=== PATIENT | female | born 1960 | race Caucasian/White ===

== ENCOUNTER → 2017-02-12 | Day surgery (SDC) | payer OTHER, BC, SELFPAY | PROVIDERS: Family Provider Nurse Practitioner Family; Visit Provider Orthopaedic Surgery | DX: G56.01 Carpal tunnel syndrome, right upper limb (principal) | CPT/HCPCS: 64721; 81025; 96375 ==

== ENCOUNTER → 2017-03-10 12:38 | Outpatient (POV) | payer OTHER, BC, SELFPAY ==
--- NOTE | 2017-03-10 12:44 | XR_ITS ---
XR chest 2V Ordering Physician: Dale Cee MD Patient Age: 56 years: Female HISTORY: ITS.REASON: shortness of breath TECHNIQUE: PA lateral chest COMPARISON :CXR February 2016 May 05, 2013 FINDINGS Slight additional density at the right infrahilar region suspect for a subtle infiltrate right infrahilar region towards RLL.. There are chronic changes bilaterally which yields coarsening markings but this is slightly more pronounced today. In part due to the digital technique. Difficult to exclude very subtle vascular congestion and curly B lines on left today as well. No cardiomegaly or cephalization to further support the latter. No pleural effusions evident. . The left mitchel is slightly slightly more generous very slightly denser.. Question minor central infiltrate superimposed upon left mitchel extending towards ligula.. This warrants a least a follow-up chest film. But low threshold for CT in this patient if symptoms persist or progress. Suspect a significant smoking history Upper lung oneil are clear. The superior mediastinum aortic knob unremarkable. Chest wall intact. IMPRESSION. ------ Background of chronic changes again noted Suspect a subtle superimposed infiltrate right infrahilar region towards RLL. Slight additional fullness and more generous left mitchel could merely be due to technique. Question minimal wispy infiltrate extending just lateral to the left mitchel which may also contribute . Heart, upper normal in size with upper normal pulmonary vascularity. Question subtle Eri B lines on left, which could reflect mild vascular congestion vs mild chronic changes . Recommend follow-up 2 view chest within 2-3 weeks . Low threshold for CT chest suggested if symptoms persist
[2017-03-10 13:41] VITALS: BP 139/76; PULSE 95; RESP 18; TEMP 36.2; O2SAT 96; BMI 39.2
--- NOTE | 2017-03-10 13:53 | P.CONS_ITS ---
[facility] Pain Management SOAP Note Subjective:: This patient is a pleasant 56-year-old white female who we are seeing status post radiofrequency ablation to the facet joints of L3-L4, L4-5 and L5-S1. Her pain is now returned into her low back. She also has pain going down both legs. She has not gotten much relief from these RFA. She has not had any lumbar epidural steroid injections. I do believe she would benefit from a lumbar epidural steroid injection. MRI does show degenerative changes with herniated disc and some spinal stenosis. We will seek approval and plan a lumbar epidural steroid injection under fluoroscopy. Objective:: Alert and oriented ?3 in no acute distress. Patient does have an antalgic gait. Tenderness over lower lumbar spine. Motor strength of the lower extremities is 5/5. There is no gross sensory deficit. 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
== END ==
PROVIDERS: Family Provider Emergency Medicine; PCP Nurse Practitioner Family; Visit Provider Anesthesiology
DX: M51.16 Intervertebral disc disorders with radiculopathy, lumbar region (principal)
CPT/HCPCS: 71046; 99212

== ENCOUNTER → 2017-03-21 14:48 | Outpatient (CLI) | payer OTHER, BC, SELFPAY ==
--- NOTE | 2017-03-21 14:59 | XR_ITS ---
XR chest 2V HISTORY: ITS.REASON: fatique, swollen lymph nodes ORDERING PHYSICIAN: Neymar Pearson MD PATIENT AGE: 56 years COMPARISON: 03/10/2017 FINDINGS: The heart size is unremarkable. There remains mild prominence of left hilum which may be due to underlying adenopathy. Consider chest CT with contrast for further evaluation. Patchy infiltrate once again noted in the lower lobes bilaterally overall not significantly changed. No acute bony anomalies. IMPRESSION: 1. No change bilateral lower lobe infiltrates with prominent left hilum. Consider CT evaluation
[2017-03-21 15:05] LABS: Basophils # 0.1 K/mm3 (0-0.2); Basophils % 0.7 % (0.1-2.0); Eosinophils # 0.2 K/mm3 (0.0-0.4); Eosinophils % 1.5 % (0.1-12.0); Hematocrit 38.6 % (37.0-47.0); Hemoglobin 12.3 g/dL (12.2-16.2); Lymphocytes # 4.6 K/mm3 (0.7-4.5); Lymphocytes % 46.1 K/mm3 (10-50); Mean Corpuscular HGB Conc 31.9 g/dL (31.8-35.4); Mean Corpuscular Volume 87.7 fl (81-99); Mean Platelet Volume 7.6 fl (7.4-10.4); Monocytes # 0.5 K/mm3 (0.1-1.0); Monocytes % 4.9 % (1.7-9.3); Neutrophils # 4.6 K/mm3 (1.8-7.8); Neutrophils % 46.7 % (37.0-80.0); Platelet Count 391 K/mm3 (142-424); Red Cell Distribution Width 13.3 % (11.5-17.5); White Blood Count 9.9 K/mm3 (4.8-10.8)
[2017-03-21 16:20] LABS: Alanine Aminotransferase 48 U/L (12-78); Albumin Level 3.7 gm/dL (3.4-5.0); Alkaline Phosphatase 112 U/L (46-116); Anion Gap 12.4 mEq/L (5-15); Aspartate Amino Transferase 20 U/L (15-37); Bilirubin,Total 0.2 mg/dL (0.2-1.0); Blood Urea Nitrogen 10 mg/dL (7-18); Calcium 9.2 mg/dL (8.5-10.1); Carbon Dioxide 30 mmol/L (21.0-32.0); Chloride 100 mmol/L (98-107); Estimated Glomerular Filt Rate 104 ml/min (>60); GFR (African American) 126 ML/MIN (>60); Globulin 3.7 gm/dl (1.3-3.2); Glucose 114 mg/dL (74-106); Potassium 4.4 mmoL/L (3.5-5.1); Sodium 138 mmol/L (136-145); Thyroid Stimulating Hormone 0.81 uIU/ml (0.358-3.740); Total Protein,Serum 7.4 gm/dL (6.4-8.2); Triiodothryronine (T3) Uptake 36 % (31-39)
== END ==
PROVIDERS: PCP Nurse Practitioner Family; Visit Provider Otolaryngology
DX: R53.82 Chronic fatigue, unspecified (principal); R59.0 Localized enlarged lymph nodes
CPT/HCPCS: 36415; 71046; 80053; 84439; 84443; 84479; 85025

== ENCOUNTER → 2017-03-31 14:25 | Outpatient (CLI) | payer OTHER, BC, SELFPAY ==
[2017-03-31 15:50] LABS: Blood Urea Nitrogen 12 mg/dL (7-18); Creatinine,Serum 0.57 mg/dL (0.55-1.02); Estimated Glomerular Filt Rate 110 ml/min (>60); GFR (African American) 133 ML/MIN (>60)
== END ==
PROVIDERS: PCP Nurse Practitioner Family; Visit Provider Otolaryngology
DX: R59.0 Localized enlarged lymph nodes (principal); R59.9 Enlarged lymph nodes, unspecified; R53.82 Chronic fatigue, unspecified
CPT/HCPCS: 36415; 82565; 84520

== ENCOUNTER → 2017-04-03 12:30 | Outpatient (CLI) | payer OTHER, BC, SELFPAY ==
[2017-04-03 14:11] VITALS: PULSE 87
== END ==
PROVIDERS: Family Provider Emergency Medicine; PCP Nurse Practitioner Family; Visit Provider Nurse Practitioner Family
DX: R06.02 Shortness of breath (principal)
CPT/HCPCS: 94060; 94640; 94726; 94729

== ENCOUNTER → 2017-04-08 13:13 | Outpatient (CLI) | payer OTHER, BC, SELFPAY ==
--- NOTE | 2017-04-08 13:16 | CT_ITS ---
CT soft tissue neck w con INDICATION: Lymphadenopathy, swollen lymph nodes ORDERING PHYSICIAN: Neymar Pearson MD PATIENT AGE: 56 years COMPARISON: None TECHNIQUE: Axial images are obtained with 75 mL's of Isovue-370 contrast. Sagittal and coronal reformatted images are reviewed as well. FINDINGS: There are small lymph nodes in the deep cervical chain in the jugulodigastric area measuring up to 14 x 12 mm on the left and 10 x 9 mm on the right. The nasopharynx has an unremarkable appearance as does the epiglottis. The salivary glands and thyroid gland has an unremarkable appearance. The trachea is midline. Upper thoracic images are unremarkable. No acute bony anomalies. IMPRESSION: Scattered shotty cervical lymph nodes with no dominant adenopathy or other significant anomalies. IMPRESSION:
== END ==
PROVIDERS: Family Provider Emergency Medicine; PCP Nurse Practitioner Family; Visit Provider Otolaryngology
DX: R53.82 Chronic fatigue, unspecified (principal); R59.0 Localized enlarged lymph nodes; R59.9 Enlarged lymph nodes, unspecified
CPT/HCPCS: 70491; Q9967

== ENCOUNTER → 2017-04-11 13:21 | Day surgery (SDC) | payer OTHER, BC, SELFPAY ==
[2017-04-11 14:02] VITALS: BP 125/83; PULSE 83; RESP 20; TEMP 36.9; O2SAT 98; BMI 39.2
[2017-04-11 14:34] VITALS: BP 150/81; PULSE 81; RESP 18; O2SAT 99
--- NOTE | 2017-04-11 14:34 | HMH.PMPROC ---
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 Her pain returned into her low back and down both legs. We will do a lumbar epidural steroid injection today to try and get her some additional relief. Procedure Details:: Lumbar epidural steroid injection under fluoroscopy Informed consent was obtained and the risk and benefits of the procedure was explained to the patient. The patient was taken to the procedure room. The patient was placed prone on the procedure table. The patient was prepped and draped in sterile fashion. C-arm fluoroscopy was used to view the lumbar spine. Skin and subcutaneous tissues were anesthetized using lidocaine. I placed an 18-gauge epidural needle and advanced into the L4-L5 interspace using fluoroscopic guidance and [id number] to air. After confirmation of needle placement in the epidural space with dye I injected 2 mL of lidocaine 1.5% with Depo-Medrol 80 mg. Patient tolerated the procedure well with no complications. Plan and Disposition:: We will follow-up with her in 2 weeks. We will reevaluate her symptoms at that time.
[2017-04-11 14:36] VITALS: BP 151/79; PULSE 82; RESP 18
--- NOTE | 2017-04-11 14:41 | P.PCN_ITS ---
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 Her pain returned into her low back and down both legs. We will do a lumbar epidural steroid injection today to try and get her some additional relief. Procedure Details:: Lumbar epidural steroid injection under fluoroscopy Informed consent was obtained and the risk and benefits of the procedure was explained to the patient. The patient was taken to the procedure room. The patient was placed prone on the procedure table. The patient was prepped and draped in sterile fashion. C-arm fluoroscopy was used to view the lumbar spine. Skin and subcutaneous tissues were anesthetized using lidocaine. I placed an 18-gauge epidural needle and advanced into the L4-L5 interspace using fluoroscopic guidance and [id number] to air. After confirmation of needle placement in the epidural space with dye I injected 2 mL of lidocaine 1.5 % with Depo-Medrol 80 mg. Patient tolerated the procedure well with no complications. Plan and Disposition:: We will follow-up with her in 2 weeks. We will reevaluate her symptoms at that time.
[2017-04-11 15:00] VITALS: BP 127/72; PULSE 77; RESP 20; TEMP 36.9; O2SAT 96
--- NOTE | 2017-04-25 16:23 | PC.PHONENOTE ---
called in Rx for Zanaflex 4mg TID with 2 refills to [facility] pharmacy
== END ==
PROVIDERS: Family Provider Emergency Medicine; PCP Nurse Practitioner Family; Visit Provider Anesthesiology
DX: M51.16 Intervertebral disc disorders with radiculopathy, lumbar region (principal); M47.896 Other spondylosis, lumbar region
CPT/HCPCS: 62323; J1040; Q9966

== ENCOUNTER → 2017-04-17 11:43 | Outpatient (REF) | payer BC, SELFPAY ==
[2017-04-17 14:01] LABS: Amphetamine/Metha Screen,Urine Negative ng/mL (<1000); Barbiturates Screen,Urine Negative ng/mL (<200); Benzodiazepines Screen,Urine Negative ng/mL (200); Cannabinoid Screen,Urine Negative ng/mL (<50); Cocaine Screen,Urine Negative ng/g (<300); Methadone Screen,Urine Negative ng/mL (<300); Opiate Screen,Urine Negative ng/mL (<300); Phencyclidine Screen,Urine Negative ng/mL (<25)
== END ==
LOC: LAB 11:43
PROVIDERS: Visit Provider Nurse Practitioner Family
DX: Z79.899 Other long term (current) drug therapy (principal)
CPT/HCPCS: 80305

== ENCOUNTER → 2017-04-29 13:31 | Outpatient (POV) | payer BC, SELFPAY ==
[2017-04-29 13:37] VITALS: BP 115/65; PULSE 101; RESP 22; O2SAT 98; BMI 39.6
--- NOTE | 2017-04-29 14:04 | HMH.PAINSOAP ---
[facility] Pain Management SOAP Note Subjective:: She is a pleasant 56-year-old white female who presents today for follow-up after her most recent lumbar epidural steroid injection. Patient has had no relief from this injection. Most of her pain is axial in nature. Patient states that sitting makes her pain better while standing makes it worse. Leaning forward also alleviates her pain symptoms. Patient does have an MRI that shows spinal stenosis. Patient is currently being medically managed on gabapentin 300 mg twice daily from her primary care physician. Patient is working full-time. Patient has been seen by Dr. Falcon in the past and was deemed not a surgical candidate. She has tried medial branch blocks, RFA's, lumbar epidural steroid injections with minimal relief. ROS General: no recent weight change, no fever, no sleep disturbances Respiratory: no cough, no shortness of air, no recurring pulmonary infections Cardiovascular/Peripheral Vascular: No chest pain, No palpitations, no edema, no shortness of breath. Gastrointestinal: no incontinence, normal bowel movements reported Genitourinary: no incontinence Musculoskeletal: Back pain Psychiatric: normal mood/ affect, Neurological: [denies weakness in extremities], [denies balance issues] Objective:: Physical Exam General: Alert and oriented x3, no acute distress, pleasant and cooperative, [on room air] Lungs: Resps E/U, Symmetrical chest expansion, Eyes: PERRL Musculoskeletal: Flexion and extension of lumbar spine somewhat guarded secondary to pain, deep tendon reflexes normal, strength in upper and lower extremities [5/5], slightly antalgic gait noted Neurological: speech clear, service specialist equal, no gross sensory deficits Assessment:: Spinal stenosis, degenerative disc disease of the lumbar spine with lumbar spondylosis. Plan:: The patient and I discussed the mild procedure. Patient is interested however her insurance at this time will not cover for this. We will take over writing her gabapentin and we will increase her gabapentin to 600 mg 1 p.o. 3 times daily. Patient's HAI #[id number] reviewed and appropriate. Patient does not need refills at this time she will call in one if needed. I will see this patient back in 1 month to see if this is helped her symptoms any. We discussed that if it did not we would potentially try Lyrica. This note was dictated using voice recognition software and may contain errors or omissions
--- NOTE | 2017-04-29 14:08 | P.CONS_ITS ---
[facility] Pain Management SOAP Note Subjective:: She is a pleasant 56-year-old white female who presents today for follow-up after her most recent lumbar epidural steroid injection. Patient has had no relief from this injection. Most of her pain is axial in nature. Patient states that sitting makes her pain better while standing makes it worse. Leaning forward also alleviates her pain symptoms. Patient does have an MRI that shows spinal stenosis. Patient is currently being medically managed on gabapentin 300 mg twice daily from her primary care physician. Patient is working full-time. Patient has been seen by Dr. Falcon in the past and was deemed not a surgical candidate. She has tried medial branch blocks, RFA's, lumbar epidural steroid injections with minimal relief. ROS General: no recent weight change, no fever, no sleep disturbances Respiratory: no cough, no shortness of air, no recurring pulmonary infections Cardiovascular/Peripheral Vascular: No chest pain, No palpitations, no edema, no shortness of breath. Gastrointestinal: no incontinence, normal bowel movements reported Genitourinary: no incontinence Musculoskeletal: Back pain Psychiatric: normal mood/ affect, Neurological: [denies weakness in extremities], [denies balance issues] Objective:: Physical Exam General: Alert and oriented x3, no acute distress, pleasant and cooperative, [ on room air] Lungs: Resps E/U, Symmetrical chest expansion, Eyes: PERRL Musculoskeletal: Flexion and extension of lumbar spine somewhat guarded secondary to pain, deep tendon reflexes normal, strength in upper and lower extremities [5/5], slightly antalgic gait noted Neurological: speech clear, bender machine equal, no gross sensory deficits Assessment:: Spinal stenosis, degenerative disc disease of the lumbar spine with lumbar spondylosis. Plan:: The patient and I discussed the mild procedure. Patient is interested however her insurance at this time will not cover for this. We will take over writing her gabapentin and we will increase her gabapentin to 600 mg 1 p.o. 3 times daily. Patient's HAI #[id number] reviewed and appropriate. Patient does not need refills at this time she will call in one if needed. I will see this patient back in 1 month to see if this is helped her symptoms any. We discussed that if it did not we would potentially try Lyrica. This note was dictated using voice recognition software and may contain errors or omissions
--- NOTE | 2017-05-02 14:22 | PC.PHONENOTE ---
called in Rx for Gabapentin 600mg TID with 2 refills to [facility] [place] pharmacy
== END ==
PROVIDERS: Family Provider Emergency Medicine; PCP Nurse Practitioner Family; Visit Provider Clinical Nurse Specialist Family Health
DX: M48.061 Spinal stenosis, lumbar region without neurogenic claudication (principal); M47.816 Spondylosis without myelopathy or radiculopathy, lumbar region
CPT/HCPCS: 99212

== ENCOUNTER → 2017-05-13 09:59 | Outpatient (CLI) | payer BC, SELFPAY ==
[2017-05-13 10:52] LABS: Blood Urea Nitrogen 9 mg/dL (7-18); Creatinine,Serum 0.63 mg/dL (0.55-1.02); Estimated Glomerular Filt Rate 98 ml/min (>60); GFR (African American) 119 ML/MIN (>60)
== END ==
PROVIDERS: Visit Provider Otolaryngology
DX: R59.9 Enlarged lymph nodes, unspecified (principal)
CPT/HCPCS: 36415; 82565; 84520

== ENCOUNTER → 2017-05-15 13:18 | Outpatient (CLI) | payer BC, SELFPAY ==
--- NOTE | 2017-05-15 13:21 | CT_ITS ---
CT chest w con HISTORY: Fatigue, swollen lymph nodes, bilateral infiltrates with prominent hilum on radiograph. ORDERING PHYSICIAN: Neymar Pearson MD PATIENT AGE: 56 years TECHNIQUE: Axial images obtained following the administration of 75 mL of Isovue 370 . Sagittal, and coronal reformatted images are also generated and reviewed. All CT scans at the facility use one or more dose reduction, viz: automated exposure control; ma/kV adjustment per patient size (including targeted exams where dose is matched to indication; i.e. head); or iterative reconstruction technique. COMPARISON: Radiograph of 03/21/2017 FINDINGS: There are few scattered small nodes within mediastinum and mitchel. No dominant adenopathy or mass. Normal heart size without evidence of pericardial effusion. There is hyperinflation with attenuation of the peripheral pulmonary vasculature consistent with COPD. Scattered areas of prominence of the interstitium noted in the right upper lobe, lingula, perihilar regions, and lung bases posteriorly. While this could represent chronic change, interstitial pneumonitis is also considered. No effusions. No lobar consolidation. No central obstructing lesions. Upper abdominal images show diffuse fatty infiltration of the liver. No acute bony anomalies. IMPRESSION: 1. No mediastinal or hilar mass. 2. COPD with scattered areas of prominence of the interstitium which could be chronic or could represent interstitial pneumonitis.. 3. Fatty liver
--- NOTE | 2017-05-15 14:15 | HMH.ITSHM ---
azelastine nasal spray cetirizine montelukast gabapentin lisinopril symbicort t12 anidihc muscle relaxer
== END ==
PROVIDERS: Family Provider Emergency Medicine; PCP Nurse Practitioner Family; Visit Provider Otolaryngology
DX: R59.0 Localized enlarged lymph nodes (principal); L03.323 Acute lymphangitis of chest wall
CPT/HCPCS: 71260; Q9967

== ENCOUNTER → 2017-06-02 13:06 | Outpatient (POV) | payer BC, SELFPAY ==
[2017-06-02 13:28] VITALS: BP 142/66; PULSE 76; RESP 18; BMI 39.2
--- NOTE | 2017-06-02 14:04 | HMH.PAINSOAP ---
[facility] Pain Management SOAP Note Subjective:: Is a pleasant 56-year-old white female who presents today for follow-up after medication changes. Patient is being treated for pain secondary to spinal stenosis, degenerative disc disease of the lumbar spine with lumbar spondylosis. Patient has had some relief with injections in the past however she is still having increased pain with working. She states leaning forward helps alleviate her pain symptoms. She rates her pain a 6 out of 10 today. We had put her on gabapentin 600 mg 1 p.o. 3 times daily. Patient is not having much relief with this medication. Patient is to failed amitriptyline along with other medications. Patient and I discussed potentially doing Lyrica and may be moving forward with a milder vertiflex procedure. ROS General: no recent weight change, no fever, no sleep disturbances Respiratory: no cough, no shortness of air, no recurring pulmonary infections Cardiovascular/Peripheral Vascular: No chest pain, No palpitations, no edema, no shortness of breath. Gastrointestinal: no incontinence, normal bowel movements reported Genitourinary: no incontinence Musculoskeletal: Back pain Psychiatric: normal mood/ affect, Neurological: [denies weakness in extremities], [denies balance issues] Objective:: Physical Exam General: Alert and oriented x3, no acute distress, pleasant and cooperative, [on room air] Lungs: Resps E/U, Symmetrical chest expansion, Eyes: PERRL Musculoskeletal: Flexion and extension of lumbar spine somewhat guarded secondary to pain, deep tendon reflexes normal, strength in upper and lower extremities [5/5], [abnormal gait noted] Neurological: speech clear, church history teacher equal, no gross sensory deficits Assessment:: Spinal stenosis, degenerative disc disease of the lumbar spine with lumbar spondylosis Plan:: We will try Lyrica 75 mg 1 p.o. twice daily for this patient. We will do 2 week trial and see how she does. Patient's tried and failed gabapentin and amitriptyline. I spoke with Dr. Cee in regards to this and he agrees. Patient's HAI #[id number] reviewed and appropriate. I will see this patient back in 1 month and we will discuss how the Lyrica did for her. We will then maybe talk about vertiflex or mild procedure. This note was dictated using voice recognition software and may contain errors or omissions
--- NOTE | 2017-06-02 14:08 | P.CONS_ITS ---
[facility] Pain Management SOAP Note Subjective:: Is a pleasant 56-year-old white female who presents today for follow-up after medication changes. Patient is being treated for pain secondary to spinal stenosis, degenerative disc disease of the lumbar spine with lumbar spondylosis. Patient has had some relief with injections in the past however she is still having increased pain with working. She states leaning forward helps alleviate her pain symptoms. She rates her pain a 6 out of 10 today. We had put her on gabapentin 600 mg 1 p.o. 3 times daily. Patient is not having much relief with this medication. Patient is to failed amitriptyline along with other medications. Patient and I discussed potentially doing Lyrica and may be moving forward with a milder vertiflex procedure. ROS General: no recent weight change, no fever, no sleep disturbances Respiratory: no cough, no shortness of air, no recurring pulmonary infections Cardiovascular/Peripheral Vascular: No chest pain, No palpitations, no edema, no shortness of breath. Gastrointestinal: no incontinence, normal bowel movements reported Genitourinary: no incontinence Musculoskeletal: Back pain Psychiatric: normal mood/ affect, Neurological: [denies weakness in extremities], [denies balance issues] Objective:: Physical Exam General: Alert and oriented x3, no acute distress, pleasant and cooperative, [ on room air] Lungs: Resps E/U, Symmetrical chest expansion, Eyes: PERRL Musculoskeletal: Flexion and extension of lumbar spine somewhat guarded secondary to pain, deep tendon reflexes normal, strength in upper and lower extremities [5/5], [abnormal gait noted] Neurological: speech clear, trouble shooter equal, no gross sensory deficits Assessment:: Spinal stenosis, degenerative disc disease of the lumbar spine with lumbar spondylosis Plan:: We will try Lyrica 75 mg 1 p.o. twice daily for this patient. We will do 2 week trial and see how she does. Patient's tried and failed gabapentin and amitriptyline. I spoke with Dr. Cee in regards to this and he agrees. Patient' s HIA #[id number] reviewed and appropriate. I will see this patient back in 1 month and we will discuss how the Lyrica did for her. We will then maybe talk about vertiflex or mild procedure. This note was dictated using voice recognition software and may contain errors or omissions
--- NOTE | 2017-06-03 12:54 | PC.PHONENOTE ---
06/03/07--called in Rx for Lyrica 75mg BID x 14 days to pt's pharmacy
== END ==
PROVIDERS: Family Provider Emergency Medicine; PCP Nurse Practitioner Family; Visit Provider Clinical Nurse Specialist Family Health
DX: M47.816 Spondylosis without myelopathy or radiculopathy, lumbar region (principal)
CPT/HCPCS: 99212

== ENCOUNTER → 2017-06-23 12:58 | Outpatient (POV) | payer BC, SELFPAY ==
[2017-06-23 13:05] VITALS: BP 136/39; PULSE 74; RESP 18; TEMP 36.7; O2SAT 99; BMI 39.2
--- NOTE | 2017-06-23 14:40 | HMH.PAINSOAP ---
[facility] Pain Management SOAP Note Subjective:: Patient is a pleasant 56-year-old white female who presents today for follow-up. Patient was given Lyrica and did well with it however her insurance has denied coverage. We will start the patient back on her gabapentin will start at 800 mg 1 p.o. 3 times daily. We are treating the patient for pain secondary to spinal stenosis, degenerative disc disease of lumbar spine with lumbar spondylosis. Patient and I discussed potentially the vertiflex procedure. Patient states that her pain is increased while working and standing. And alleviated when she leans forward. Patient is also having a new complaint of myofascial pain. Patient states that she is having knots come up on her right shoulder blade. ROS General: no recent weight change, no fever, no sleep disturbances Respiratory: no cough, no shortness of air, no recurring pulmonary infections Cardiovascular/Peripheral Vascular: No chest pain, No palpitations, no edema, no shortness of breath. Gastrointestinal: no incontinence, normal bowel movements reported Genitourinary: no incontinence Musculoskeletal: Back pain Psychiatric: normal mood/ affect Neurological: [denies weakness in extremities], [denies balance issues] Objective:: Physical Exam General: Alert and oriented x3, no acute distress, pleasant and cooperative, [on room air] Lungs: Resps E/U, Symmetrical chest expansion, Eyes: PERRL Musculoskeletal: Flexion and extension of lumbar spine somewhat guarded secondary to pain, deep tendon reflexes normal, strength in upper and lower extremities [5/5], [abnormal gait noted], palpable trigger points in the right trapezius muscle Neurological: speech clear, computer tester equal, no gross sensory deficits Assessment:: Spinal stenosis, degenerative disc disease of lumbar spine with lumbar spondylosis, myofascial pain syndrome Plan:: We will refill the patient's gabapentin 800 mg 1 p.o. 3 times daily. We will also order trigger point injections for her right trapezius. I believe that this would be beneficial. Patient has tried and failed anti-inflammatories, medications, stretching therapy. This note was dictated using voice recognition software and may contain errors or omissions
--- NOTE | 2017-06-23 14:43 | P.CONS_ITS ---
[facility] Pain Management SOAP Note Subjective:: Patient is a pleasant 56-year-old white female who presents today for follow- up. Patient was given Lyrica and did well with it however her insurance has denied coverage. We will start the patient back on her gabapentin will start at 800 mg 1 p.o. 3 times daily. We are treating the patient for pain secondary to spinal stenosis, degenerative disc disease of lumbar spine with lumbar spondylosis. Patient and I discussed potentially the vertiflex procedure. Patient states that her pain is increased while working and standing. And alleviated when she leans forward. Patient is also having a new complaint of myofascial pain. Patient states that she is having knots come up on her right shoulder blade. ROS General: no recent weight change, no fever, no sleep disturbances Respiratory: no cough, no shortness of air, no recurring pulmonary infections Cardiovascular/Peripheral Vascular: No chest pain, No palpitations, no edema, no shortness of breath. Gastrointestinal: no incontinence, normal bowel movements reported Genitourinary: no incontinence Musculoskeletal: Back pain Psychiatric: normal mood/ affect Neurological: [denies weakness in extremities], [denies balance issues] Objective:: Physical Exam General: Alert and oriented x3, no acute distress, pleasant and cooperative, [ on room air] Lungs: Resps E/U, Symmetrical chest expansion, Eyes: PERRL Musculoskeletal: Flexion and extension of lumbar spine somewhat guarded secondary to pain, deep tendon reflexes normal, strength in upper and lower extremities [5/5], [abnormal gait noted], palpable trigger points in the right trapezius muscle Neurological: speech clear, slip box changer equal, no gross sensory deficits Assessment:: Spinal stenosis, degenerative disc disease of lumbar spine with lumbar spondylosis, myofascial pain syndrome Plan:: We will refill the patient's gabapentin 800 mg 1 p.o. 3 times daily. We will also order trigger point injections for her right trapezius. I believe that this would be beneficial. Patient has tried and failed anti-inflammatories, medications, stretching therapy. This note was dictated using voice recognition software and may contain errors or omissions
--- NOTE | 2017-06-23 16:16 | PC.PHONENOTE ---
called in Rx for GAbapentin 800mg TID with 2 refills
== END ==
PROVIDERS: Family Provider Emergency Medicine; PCP Nurse Practitioner Family; Visit Provider Clinical Nurse Specialist Family Health
DX: M48.00 Spinal stenosis, site unspecified (principal); M79.1 Myalgia
CPT/HCPCS: 99212

== ENCOUNTER → 2017-06-24 13:25 | Outpatient (REF) | payer BC, SELFPAY ==
[2017-06-24 20:18] LABS: Alanine Aminotransferase 70 U/L (12-78); Albumin Level 3.8 gm/dL (3.4-5.0); Alkaline Phosphatase 113 U/L (46-116); Anion Gap 14.6 mEq/L (5-15); Aspartate Amino Transferase 49 U/L (15-37); Bilirubin,Total 0.2 mg/dL (0.2-1.0); Blood Urea Nitrogen 14 mg/dL (7-18); Calcium 9.6 mg/dL (8.5-10.1); Carbon Dioxide 27 mmol/L (21.0-32.0); Chloride 104 mmol/L (98-107); Chol/HDL Ratio 3.4 (1-3.5); Cholesterol 202 mg/dL (140-200); Estimated Glomerular Filt Rate 87 ml/min (>60); Free T4 (Free Thyroxine) 1.14 ng/dl (0.76-1.46); GFR (African American) 105 ML/MIN (>60); Globulin 3.8 gm/dl (1.3-3.2); Glucose 88 mg/dL (74-106); HDL Cholesterol 59 mg/dL (29-89); LDL Cholesterol 89 mg/dL (0-130); Potassium 4.6 mmoL/L (3.5-5.1); Sodium 141 mmol/L (136-145); Thyroid Stimulating Hormone 1.16 uIU/ml (0.358-3.740); Total Protein,Serum 7.6 gm/dL (6.4-8.2); Triglycerides 269 mg/dL (30-200); VLDL Cholesterol 54 mg/dL (0-40)
[2017-06-24 22:20] LABS: Basophils # 0.1 K/mm3 (0-0.2); Basophils % 1.1 % (0.1-2.0); Eosinophils # 0.2 K/mm3 (0.0-0.4); Eosinophils % 2.4 % (0.1-12.0); Hemoglobin 13.3 g/dL (12.2-16.2); Lymphocytes # 3.9 K/mm3 (0.7-4.5); Lymphocytes % 46.5 K/mm3 (10-50); Mean Corpuscular HGB Conc 32.4 g/dL (31.8-35.4); Mean Corpuscular Volume 89.4 fl (81-99); Mean Platelet Volume 9.9 fl (7.4-10.4); Monocytes # 0.5 K/mm3 (0.1-1.0); Neutrophils # 3.7 K/mm3 (1.8-7.8); Platelet Count 390 K/mm3 (142-424); Red Blood Count 4.59 M/mm3 (4.20-5.40); Red Cell Distribution Width 12.9 % (11.5-17.5); White Blood Count 8.3 K/mm3 (4.8-10.8)
== END ==
LOC: LAB 13:25
PROVIDERS: Visit Provider Nurse Practitioner Family
DX: R53.83 Other fatigue (principal); R51 Headache
CPT/HCPCS: 80053; 80061; 82652; 83036; 84439; 84443; 85025

== ENCOUNTER → 2017-08-01 15:00 | Outpatient (CLI) | payer BC, SELFPAY | PROVIDERS: Visit Provider Nurse Practitioner Family | DX: N89.8 Other specified noninflammatory disorders of vagina (principal) | CPT/HCPCS: 87086 ==

== ENCOUNTER → 2017-08-05 09:27 | Outpatient (POV) | payer BC, SELFPAY | PROVIDERS: Family Provider Emergency Medicine; PCP Nurse Practitioner Family; Visit Provider Internal Medicine | DX: Z00.00 Encounter for general adult medical examination without abnormal findings (principal) ==

== ENCOUNTER → 2017-08-11 13:28 | Outpatient (POV) | payer BC, SELFPAY ==
[2017-08-11 13:38] VITALS: BP 128/79; PULSE 91; RESP 18; TEMP 36.6; O2SAT 94; BMI 38.2
--- NOTE | 2017-08-11 14:23 | P.CONS_ITS ---
[facility] Pain Management SOAP Note Subjective:: Patient is a pleasant 56-year-old white female who presents today for follow-up after trigger point injections to the right upper trapezius. Patient states she did have a little bit relief after this however should most of her pain has returned. Patient states most of her pain is in her lower neck. Patient does not have any current imaging of this. Patient has not had any physical therapy for this. Of note patient states her back pain is greatly decreased and is currently on gabapentin 800 mg 1 p.o. 3 times daily. Patient denies any side effects to this. Patient would like to increase to 4 times a day. I believe is beneficial. Patient rates her pain a 5 out of 10 today mostly in her neck. ROS General: no recent weight change, no fever, no sleep disturbances Respiratory: no cough, no shortness of air, no recurring pulmonary infections Cardiovascular/Peripheral Vascular: No chest pain, No palpitations, no edema, no shortness of breath. Gastrointestinal: no incontinence, normal bowel movements reported Genitourinary: no incontinence Musculoskeletal: Neck pain Psychiatric: normal mood/ affect Neurological: [denies weakness in extremities], [denies balance issues] Objective:: Physical Exam General: Alert and oriented x3, no acute distress, pleasant and cooperative, [ on room air] Lungs: Resps E/U, Symmetrical chest expansion, Eyes: PERRL Musculoskeletal: Flexion and extension of cervical spine somewhat guarded secondary to pain, deep tendon reflexes normal, strength in upper and lower extremities [5/5], slightly antalgic gait noted Neurological: speech clear, 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 I will see her back in several weeks. To reassess her symptoms if she is not any better we will order some imaging of her cervical spine. We will also increase her gabapentin to 800 mg 1 p.o. 4 times daily. I believe this would be beneficial given the efficacy of her last increase. This note was dictated using voice recognition software and may contain errors or omissions
== END ==
PROVIDERS: Family Provider Emergency Medicine; PCP Nurse Practitioner Family; Visit Provider Clinical Nurse Specialist Family Health
DX: M79.1 Myalgia (principal); M54.2 Cervicalgia
CPT/HCPCS: 99212

== ENCOUNTER 2017-08-22 14:00 | Outpatient (RCR) | payer BC, SELFPAY ==
--- NOTE | 2017-08-14 14:08 | HMH.PTOPEV ---
PT Outpatient Evaluation Rehab PT Outpatient Evaluation Start: 08/14/17 13:38 Freq: Status: Active Protocol: Document 08/14/17 13:56 ALMITA (Rec: 08/14/17 14:08 ALMITA [id number]) Electronically Signed By Navi Chavez, PT 08/14/17 13:56 Outpatient Therapy Subjective History Subjective History Pt reports insidious onset neck pain beginning ~2months ago. Pt reports pain originates around CT junction and refers s/s into upper thoracic spine, and into B UT mm area. Pt reports exacerbation of s/s work- related activities (lifting, reaching, etc). Chief Complaint Pain Spasms Stiff Symptom Type Ache Sharp Dull Symptoms Relieved By Rest/Positioning Symptoms Aggravated By Bending/Stooping Physical Activity Lifting Prior Functional Limitations None Current Functional Limitations Reaching Lifting Housework Symptom Description Constant but Variable Level of pain today (0-10) 2 Pain scale - at its best (0-10) 0 Pain scale - at its worst (0-10) 7 Cervical Eval Palpation Cervical Muscles R Cervical Paraspinal L Cervical Paraspinal R CT Junction L CT Junction R Upper Trapezius L Upper Trapezius R Thoracic Paraspinals L Thoracic Paraspinals Cervical/Thoracic Palpation Findings Tenderness Posture Head/C-Spine Posture Sitting Position Extended Head/C-Spine Posture Standing Position Extended Flexibility Deficits Upper Trapezius Muscle Length (R) Moderate Tightness (L) Moderate Tightness Scalene Group Muscle Length (R) Moderate Tightness (L) Moderate Tightness Passive Joint Mobility Cervical PIVM Inc: R C5/6 L C5/6 R C6/7 L C6/7 R C7/T1 L C7/T1 WNL: R OA L OA R AA
== END 2017-08-22 14:01 | disposition home or self-care (01) ==
LOC: PT 14:00
PROVIDERS: Family Provider Emergency Medicine; PCP Nurse Practitioner Family; Visit Provider Clinical Nurse Specialist Family Health
DX: M54.2 Cervicalgia (principal)
CPT/HCPCS: 97010; 97014; 97035; 97110; 97140; 97163; G0283

== ENCOUNTER → 2017-08-25 13:37 | Outpatient (CLI) | payer BC, SELFPAY ==
--- NOTE | 2017-08-25 13:51 | CT_ITS ---
CT chest wo con HISTORY: Interstitial changes, follow-up abnormal chest CT ITS.REASON: ABNORMAL CT CHEST ORDERING PHYSICIAN: Kane Rahman MD PATIENT AGE: 56 years COMPARISON: 05/15/2018 Technique: Axial images obtained. High-resolution images also obtained Sagittal and coronal reformatted images are also generated and reviewed. All CT scans at the facility use one or more dose reduction, viz: automated exposure control; ma/kV adjustment per patient size (including targeted exams where dose is matched to indication; i.e. head); or iterative reconstruction technique. FINDINGS: No mediastinal or hilar mass or adenopathy. A small precarinal lymph node which is stable at 16 x 11 mm. Stable 5 mm nodule in the region of the major fissure inferiorly on the right. There is once again noted scattered fibrotic changes with mild bronchial thickening with some scattered peripheral groundglass opacities in the lung bases. No bronchiectasis. High-resolution images No suspicious nodules. No lobar consolidation or collapse. High-resolution images show no No generalized interlobular septal thickening or reticular nodular opacities evident. No pleural effusions. Upper abdominal images show fatty liver. No acute bony anomalies. IMPRESSION: 1. Overall no change in the scattered areas of pulmonary fibrotic changes. High-resolution images show no generalized interlobular septal thickening or reticular nodular opacities. 2. Stable 5 mm nodule in the major fissure on the right. 3. Overall no significant change
[2017-08-25 15:35] VITALS: PULSE 85; PULSE 92
[2017-08-25 16:05] VITALS: BP 130/92; BP 145/80; PULSE 108; PULSE 85; RESP 16; RESP 18; O2SAT 96; O2SAT 97
== END ==
PROVIDERS: Family Provider Emergency Medicine; PCP Nurse Practitioner Family; Visit Provider Internal Medicine
DX: R93.8 Abnormal findings on diagnostic imaging of other specified body structures (principal); Z87.891 Personal history of nicotine dependence; F17.200 Nicotine dependence, unspecified, uncomplicated
CPT/HCPCS: 71250; 94060; 94618; 94640; 94726; 94729

== ENCOUNTER → 2017-10-07 13:29 | Outpatient (POV) | payer BC, SELFPAY | PROVIDERS: Family Provider Emergency Medicine; PCP Nurse Practitioner Family; Visit Provider Internal Medicine | DX: Z00.00 Encounter for general adult medical examination without abnormal findings (principal) ==

== ENCOUNTER → 2017-10-13 13:06 | Outpatient (POV) | payer BC, SELFPAY ==
[2017-10-13 13:26] VITALS: BP 114/65; PULSE 87; RESP 18; O2SAT 97; BMI 36.8
--- NOTE | 2017-10-13 13:31 | HMH.PAINSOAP ---
[facility] Pain Management SOAP Note Subjective:: Patient is a pleasant 57-year-old white female who presents today for follow-up. Patient is well since her increase her gabapentin. Patient rates her pain a 4 out of 10 today. She does state that she would like to be on something for inflammation. Patient has taken naproxen in the past however she is not taking that at this time. Patient's currently on gabapentin 800 mg 1 p.o. 4 times daily the patient also doing physical therapy for her neck. ROS General: no recent weight change, no fever, no sleep disturbances Respiratory: no cough, no shortness of air, no recurring pulmonary infections Cardiovascular/Peripheral Vascular: No chest pain, No palpitations, no edema, no shortness of breath. Gastrointestinal: no incontinence, normal bowel movements reported Genitourinary: no incontinence Musculoskeletal: Neck pain, back pain Psychiatric: normal mood/ affect Neurological: [denies weakness in extremities], [denies balance issues] Objective:: Physical Exam General: Alert and oriented x3, no acute distress, pleasant and cooperative, [on room air] Lungs: Resps E/U, Symmetrical chest expansion, Eyes: PERRL Musculoskeletal: Flexion and extension of cervical and lumbar spine somewhat guarded secondary to pain, deep tendon reflexes normal, strength in upper and lower extremities [5/5], slightly antalgic gait noted Neurological: speech clear, 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 We will continue her on her gabapentin 800 mg 1 tab p.o. 4 times daily. And start Celebrex 100 mg 1 p.o. twice daily. She has been instructed to call the office if she has any issues prior to her next appointment. This note was dictated using voice recognition software and may contain errors or omissions
--- NOTE | 2017-10-13 13:34 | P.CONS_ITS ---
[facility] Pain Management SOAP Note Subjective:: Patient is a pleasant 57-year-old white female who presents today for follow-up. Patient is well since her increase her gabapentin. Patient rates her pain a 4 out of 10 today. She does state that she would like to be on something for inflammation. Patient has taken naproxen in the past however she is not taking that at this time. Patient's currently on gabapentin 800 mg 1 p.o. 4 times daily the patient also doing physical therapy for her neck. ROS General: no recent weight change, no fever, no sleep disturbances Respiratory: no cough, no shortness of air, no recurring pulmonary infections Cardiovascular/Peripheral Vascular: No chest pain, No palpitations, no edema, no shortness of breath. Gastrointestinal: no incontinence, normal bowel movements reported Genitourinary: no incontinence Musculoskeletal: Neck pain, back pain Psychiatric: normal mood/ affect Neurological: [denies weakness in extremities], [denies balance issues] Objective:: Physical Exam General: Alert and oriented x3, no acute distress, pleasant and cooperative, [on room air] Lungs: Resps E/U, Symmetrical chest expansion, Eyes: PERRL Musculoskeletal: Flexion and extension of cervical and lumbar spine somewhat guarded secondary to pain, deep tendon reflexes normal, strength in upper and lower extremities [5/5], slightly antalgic gait noted Neurological: speech clear, him specialist equal, no gross sensory deficits Assessment:: Neck pain, degenerative disc disease of lumbar spine, muscle pain Plan:: We will see the patient back in 2 months. We will continue her on her gabapentin 800 mg 1 tab p.o. 4 times daily. And start Celebrex 100 mg 1 p.o. twice daily. She has been instructed to call the office if she has any issues prior to her next appointment. This note was dictated using voice recognition software and may contain errors or omissions
== END ==
PROVIDERS: Family Provider Emergency Medicine; PCP Nurse Practitioner Family; Visit Provider Clinical Nurse Specialist Family Health
DX: M54.2 Cervicalgia (principal); M51.16 Intervertebral disc disorders with radiculopathy, lumbar region; M79.1 Myalgia
CPT/HCPCS: 99212; 99213

== ENCOUNTER → 2017-12-17 18:05 | Outpatient (CLI) | payer BC, SELFPAY ==
[2017-12-17 18:32] LABS: Basophils # 0.1 K/mm3 (0-0.2); Basophils % 0.8 % (0.1-2.0); Eosinophils # 0.1 K/mm3 (0.0-0.4); Eosinophils % 1.1 % (0.1-12.0); Hematocrit 38.1 % (37.0-47.0); Hemoglobin 12.6 g/dL (12.2-16.2); Lymphocytes # 4.5 K/mm3 (0.7-4.5); Lymphocytes % 36.6 K/mm3 (10-50); Mean Corpuscular Hemoglobin 28.5 pg (27.0-31.2); Mean Corpuscular Volume 86.5 fl (81-99); Monocytes # 0.6 K/mm3 (0.1-1.0); Monocytes % 5.1 % (1.7-9.3); Neutrophils % 56.4 % (37.0-80.0); Platelet Count 394 K/mm3 (142-424); Red Cell Distribution Width 13.3 % (11.5-17.5); White Blood Count 12.3 K/mm3 (4.8-10.8)
[2017-12-17 18:47] LABS: Alanine Aminotransferase 43 U/L (12-78); Albumin Level 3.9 gm/dL (3.4-5.0); Alkaline Phosphatase 133 U/L (46-116); Anion Gap 13.6 mEq/L (5-15); Aspartate Amino Transferase 26 U/L (15-37); Bilirubin,Total 0.3 mg/dL (0.2-1.0); Blood Urea Nitrogen 10 mg/dL (7-18); Calcium 9.8 mg/dL (8.5-10.1); Carbon Dioxide 29 mmol/L (21.0-32.0); Chloride 102 mmol/L (98-107); Creatinine,Serum 0.69 mg/dL (0.55-1.02); Estimated Glomerular Filt Rate 88 ml/min (>60); GFR (African American) 106 ML/MIN (>60); Glucose 85 mg/dL (74-106); Lipase 122 u/L (73-393); Potassium 4.6 mmoL/L (3.5-5.1); Sodium 140 mmol/L (136-145); Total Protein,Serum 7.9 gm/dL (6.4-8.2)
== END ==
PROVIDERS: Visit Provider Emergency Medicine
DX: I10 Essential (primary) hypertension (principal)
CPT/HCPCS: 80053; 83690; 85025

== ENCOUNTER → 2017-12-29 07:36 | Outpatient (CLI) | payer BC, SELFPAY ==
--- NOTE | 2017-12-29 07:40 | US_ITS ---
US gallbladder HISTORY: Abdominal pain with nausea ITS.REASON: abdominal pain ORDERING PHYSICIAN: Juan Tan MD PATIENT AGE: 57 years Comparison: None FINDINGS: PANCREAS: Unremarkable. No obvious mass or abnormal fluid collection. No ductal dilatation LIVER: No focal liver lesions demonstrated. . There is some increased echogenicity of the liver consistent with fatty liver No intrahepatic biliary ductal dilatation evident RIGHT KIDNEY: Unremarkable. Normal size and echogenicity. No hydronephrosis GALLBLADDER: No gallstones, gallbladder wall thickening, pericholecystic fluid, or biliary dilatation. Gallbladder is slightly distended with a small amount of sludge IMPRESSION: 1. No gallstones. There is mild distention of the gallbladder with a small amount sludge. 2. Fatty liver
== END ==
PROVIDERS: PCP Emergency Medicine; Visit Provider Emergency Medicine
DX: R10.9 Unspecified abdominal pain (principal)
CPT/HCPCS: 76705

== ENCOUNTER → 2018-01-05 13:28 | Outpatient (POV) | payer BC, SELFPAY ==
--- NOTE | 2018-01-05 14:00 | HMH.PAINSOAP ---
[facility] Pain Management SOAP Note Subjective:: She is a pleasant 57-year-old white female who presents today for follow-up. Patient is doing extremely well on her Celebrex and gabapentin. She rates her pain a 3 out of 10 today. She states she does have some flares in her pain when she is working. Patient is continuing home stretches. ROS General: no recent weight change, no fever, no sleep disturbances Respiratory: no cough, no shortness of air, no recurring pulmonary infections Cardiovascular/Peripheral Vascular: No chest pain, No palpitations, no edema, no shortness of breath. Gastrointestinal: no incontinence, normal bowel movements reported Genitourinary: no incontinence Musculoskeletal: Neck pain, back pain Psychiatric: normal mood/ affect Neurological: [denies weakness in extremities], [denies balance issues] Objective:: Physical Exam General: Alert and oriented x3, no acute distress, pleasant and cooperative, [on room air] Lungs: Resps E/U, Symmetrical chest expansion, Eyes: PERRL Musculoskeletal: Flexion and extension of lumbar spine somewhat guarded secondary to pain, deep tendon reflexes normal, strength in upper and lower extremities [5/5], normal gait noted Neurological: speech clear, powder blender 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 We will continue her gabapentin 800 mg 1 tab p.o. 4 times daily and her Celebrex 100 mg 1 p.o. twice daily. Patient has been instructed to call the office if she has any issues prior to her next appointment. This note was dictated using voice recognition software and may contain errors or omissions
[2018-01-05 14:03] VITALS: BP 124/69; PULSE 78; RESP 18; O2SAT 98; BMI 37.9
--- NOTE | 2018-01-05 14:03 | P.CONS_ITS ---
[facility] Pain Management SOAP Note Subjective:: She is a pleasant 57-year-old white female who presents today for follow-up. Patient is doing extremely well on her Celebrex and gabapentin. She rates her pain a 3 out of 10 today. She states she does have some flares in her pain when she is working. Patient is continuing home stretches. ROS General: no recent weight change, no fever, no sleep disturbances Respiratory: no cough, no shortness of air, no recurring pulmonary infections Cardiovascular/Peripheral Vascular: No chest pain, No palpitations, no edema, no shortness of breath. Gastrointestinal: no incontinence, normal bowel movements reported Genitourinary: no incontinence Musculoskeletal: Neck pain, back pain Psychiatric: normal mood/ affect Neurological: [denies weakness in extremities], [denies balance issues] Objective:: Physical Exam General: Alert and oriented x3, no acute distress, pleasant and cooperative, [on room air] Lungs: Resps E/U, Symmetrical chest expansion, Eyes: PERRL Musculoskeletal: Flexion and extension of lumbar spine somewhat guarded secondary to pain, deep tendon reflexes normal, strength in upper and lower extremities [5/5], normal gait noted Neurological: 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 We will continue her gabapentin 800 mg 1 tab p.o. 4 times daily and her Celebrex 100 mg 1 p.o. twice daily. Patient has been instructed to call the office if she has any issues prior to her next appointment. This note was dictated using voice recognition software and may contain errors or omissions
== END ==
PROVIDERS: PCP Emergency Medicine; Visit Provider Clinical Nurse Specialist Family Health
DX: M51.16 Intervertebral disc disorders with radiculopathy, lumbar region (principal)
CPT/HCPCS: 99213

== ENCOUNTER → 2018-02-11 09:55 | Outpatient (CLI) | payer BC, SELFPAY ==
[2018-02-11 10:28] LABS: Basophils # 0.1 K/mm3 (0-0.2); Basophils % 0.9 % (0.1-2.0); Eosinophils # 0.2 K/mm3 (0.0-0.4); Hematocrit 36.3 % (37.0-47.0); Hemoglobin 11.9 g/dL (12.2-16.2); Lymphocytes # 3.4 K/mm3 (0.7-4.5); Lymphocytes % 44.8 % (10-50); Mean Corpuscular HGB Conc 32.9 g/dL (31.8-35.4); Mean Corpuscular Hemoglobin 28.6 pg (27.0-31.2); Mean Corpuscular Volume 86.9 fl (81-99); Mean Platelet Volume 7.8 fl (7.4-10.4); Monocytes # 0.4 K/mm3 (0.1-1.0); Monocytes % 5.5 % (1.7-9.3); Neutrophils # 3.6 K/mm3 (1.8-7.8); Neutrophils % 46.8 % (37.0-80.0); Platelet Count 338 K/mm3 (142-424); Red Blood Count 4.18 M/mm3 (4.20-5.40); Red Cell Distribution Width 13.9 % (11.5-17.5); White Blood Count 7.6 K/mm3 (4.8-10.8)
[2018-02-11 10:38] LABS: Urine Pregnancy, HCG Qual. Negative (Negative)
[2018-02-11 11:31] LABS: Alanine Aminotransferase 39 U/L (12-78); Albumin Level 3.2 gm/dL (3.4-5.0); Albumin/Globulin Ratio 0.9 (1.1-1.8); Alkaline Phosphatase 97 U/L (46-116); Anion Gap 12.2 mEq/L (5-15); Aspartate Amino Transferase 23 U/L (15-37); Bilirubin,Total 0.3 mg/dL (0.2-1.0); Blood Urea Nitrogen 13 mg/dL (7-18); Calcium 8.7 mg/dL (8.5-10.1); Carbon Dioxide 29 mmol/L (21.0-32.0); Chloride 102 mmol/L (98-107); Creatinine,Serum 0.64 mg/dL (0.55-1.02); Estimated Glomerular Filt Rate 96 ml/min (>60); GFR (African American) 116 ML/MIN (>60); Globulin 3.4 gm/dl (1.3-3.2); Glucose 129 mg/dL (74-106); Potassium 4.2 mmoL/L (3.5-5.1); Sodium 139 mmol/L (136-145); Total Protein,Serum 6.6 gm/dL (6.4-8.2)
== END ==
PROVIDERS: Visit Provider Surgery
DX: Z01.818 Encounter for other preprocedural examination (principal); K82.8 Other specified diseases of gallbladder
CPT/HCPCS: 36415; 80053; 81025; 85025; 93005

== ENCOUNTER → 2018-02-24 10:57 | Outpatient (POV) | payer BC, SELFPAY | PROVIDERS: Visit Provider Internal Medicine | DX: Z00.00 Encounter for general adult medical examination without abnormal findings (principal) ==

== ENCOUNTER → 2018-03-12 13:05 | Outpatient (CLI) | payer BC, SELFPAY ==
--- NOTE | 2018-03-12 13:07 | CT_ITS ---
CT sinus wo con CLINICAL INDICATION: Recurrent sinus infection, facial pressure, sinusitis ITS.REASON: Sinusitis ORDERING PHYSICIAN: Neymar Pearson MD PATIENT AGE: 57 years COMPARISON: None TECHNIQUE:Axial images obtained with sagittal and coronal reformats. All CT scans at the facility use one or more dose reduction, viz: automated exposure control, ma/kV adjustment per patient size (including targeted exams where dose is matched to indication, i.e. head), or iterative reconstruction technique. FINDINGS: No sinus air-fluid levels are evident. Minimal mucosal thickening involves the anterior ethmoids on both sides. The ostiomeatal units are patent. No significant septal deviation. No soft tissue mass within the sinuses. The orbits have an unremarkable appearance. No mastoid effusion. Unremarkable temporomandibular joints. IMPRESSION: Minimal ethmoid sinus mucosal thickening otherwise negative CT of the paranasal sinuses
== END ==
PROVIDERS: PCP Emergency Medicine; Visit Provider Otolaryngology
DX: J32.9 Chronic sinusitis, unspecified (principal)
CPT/HCPCS: 70486

== ENCOUNTER → 2018-03-17 17:38 | Outpatient (CLI) | payer BC, SELFPAY | PROVIDERS: Visit Provider Nurse Practitioner Family | DX: R30.9 Painful micturition, unspecified (principal) | CPT/HCPCS: 87086 ==

== ENCOUNTER → 2018-03-31 10:15 | Outpatient (POV) | payer BC, SELFPAY ==
[2018-03-31 10:51] VITALS: BP 142/60; PULSE 89; RESP 18; O2SAT 98; BMI 39.6
--- NOTE | 2018-03-31 11:01 | HMH.PAINSOAP ---
[facility] Pain Management SOAP Note Subjective:: Patient is a pleasant 57-year-old white female who presents today for follow-up. Patient states her pain is worsening she rates her pain a 6 out of 10. She states that when she standing or walking. Patient's tried and failed epidural injections, facet joint injections. Patient may be a vertiflex candidate. We will send her for flexion and extension x-rays to see if she is a candidate. Patient has tried and failed physical therapy ROS General: no recent weight change, no fever, no sleep disturbances Respiratory: no cough, no shortness of air, no recurring pulmonary infections Cardiovascular/Peripheral Vascular: No chest pain, No palpitations, no edema, no shortness of breath. Gastrointestinal: no incontinence, normal bowel movements reported Genitourinary: no incontinence Musculoskeletal: Back pain Psychiatric: normal mood/ affect Neurological: [denies weakness in extremities], [denies balance issues] Objective:: Physical Exam General: Alert and oriented x3, no acute distress, pleasant and cooperative, [on room air] Lungs: Resps E/U, Symmetrical chest expansion Eyes: PERRL Musculoskeletal: Flexion and extension of lumbar spine somewhat guarded secondary to pain, deep tendon reflexes normal, strength in upper and lower extremities [5/5], slightly antalgic gait noted Neurological: 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 I will follow-up with the patient after this. Dr. Cee has reviewed this note and agrees with this plan of care. This note was dictated using voice recognition software and may contain errors or omissions
--- NOTE | 2018-03-31 11:04 | P.CONS_ITS ---
[facility] Pain Management SOAP Note Subjective:: Patient is a pleasant 57-year-old white female who presents today for follow-up. Patient states her pain is worsening she rates her pain a 6 out of 10. She states that when she standing or walking. Patient's tried and failed epidural injections, facet joint injections. Patient may be a vertiflex candidate. We will send her for flexion and extension x-rays to see if she is a candidate. Patient has tried and failed physical therapy ROS General: no recent weight change, no fever, no sleep disturbances Respiratory: no cough, no shortness of air, no recurring pulmonary infections Cardiovascular/Peripheral Vascular: No chest pain, No palpitations, no edema, no shortness of breath. Gastrointestinal: no incontinence, normal bowel movements reported Genitourinary: no incontinence Musculoskeletal: Back pain Psychiatric: normal mood/ affect Neurological: [denies weakness in extremities], [denies balance issues] Objective:: Physical Exam General: Alert and oriented x3, no acute distress, pleasant and cooperative, [on room air] Lungs: Resps E/U, Symmetrical chest expansion Eyes: PERRL Musculoskeletal: Flexion and extension of lumbar spine somewhat guarded secondary to pain, deep tendon reflexes normal, strength in upper and lower extremities [5/5], slightly antalgic gait noted Neurological: 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 I will follow-up with the patient after this. Dr. Cee has reviewed this note and agrees with this plan of care. This note was dictated using voice recognition software and may contain errors or omissions
== END ==
PROVIDERS: PCP Emergency Medicine; Visit Provider Clinical Nurse Specialist Family Health
DX: M48.062 Spinal stenosis, lumbar region with neurogenic claudication (principal)
CPT/HCPCS: 99213

== ENCOUNTER → 2018-04-03 13:14 | Outpatient (CLI) | payer BC, SELFPAY ==
--- NOTE | 2018-04-03 13:24 | XR_ITS ---
EXAM: XR lumbar spine 1V HISTORY: ITS.REASON: WORSENING BACK PAIN ORDERING PHYSICIAN: Melodie Collado PATIENT AGE: 57 years COMPARISON: FINDINGS: AP, lateral, flexion and extension views are obtained of the lumbar spine. There is normal alignment. No abnormal subluxation is evident in flexion or extension. There is mild degenerative disc disease at L2-L3 and L3-L4. No fracture or dislocation. No lytic or blastic change. IMPRESSION: 1. No abnormal subluxation in flexion or extension. 2. Mild degenerative disc disease
--- NOTE | 2018-04-03 13:24 | XR_ITS ---
EXAM: XR lumbar spine bending only HISTORY: ITS.REASON: WORSENING BACK PAIN ORDERING PHYSICIAN: Melodie Collado PATIENT AGE: 57 years COMPARISON: None FINDINGS: AP, lateral, flexion and extension views are obtained of the lumbar spine. There is normal alignment. No abnormal subluxation is evident in flexion or extension. There is mild degenerative disc disease at L2-L3 and L3-L4. No fracture or dislocation. No lytic or blastic change. IMPRESSION: 1. No abnormal subluxation in flexion or extension. 2. Mild degenerative disc disease
== END ==
PROVIDERS: PCP Emergency Medicine; Visit Provider Clinical Nurse Specialist Family Health
DX: M54.5 Low back pain (principal)
CPT/HCPCS: 72020; 72120

== ENCOUNTER → 2018-04-06 11:25 | Outpatient (CLI) | payer BC, SELFPAY ==
--- NOTE | 2018-04-06 11:34 | XR_ITS ---
XR chest 2V HISTORY: ITS.REASON: cough ORDERING PHYSICIAN: Harper Zuniga PATIENT AGE: 57 years COMPARISON: PA and lateral chest 03/21/2017 FINDINGS: The cardiomediastinal silhouette and pulmonary vascularity are within normal limits. The lung oneil are well expanded. There are somewhat ill-defined patchy opacity in the left perihilar region and possibly extending into the superior segment left lower lobe. The remainder left lung field is clear and right lung field is clear. There may be minimal post inflammatory scarring in the right lower lobe. There is no pleural fluid. IMPRESSION: Left perihilar left lower lobe bronchopneumonia
== END ==
PROVIDERS: PCP Emergency Medicine; Visit Provider Nurse Practitioner Family
DX: R05 Cough (principal); R09.89 Other specified symptoms and signs involving the circulatory and respiratory systems
CPT/HCPCS: 71046

== ENCOUNTER → 2018-04-21 11:57 | Outpatient (CLI) | payer BC, SELFPAY ==
--- NOTE | 2018-04-21 12:05 | XR_ITS ---
XR chest 2V HISTORY: Shortness of breath and cough ITS.REASON: cough ORDERING PHYSICIAN: Harper Zuniga PATIENT AGE: 57 years COMPARISON: 04/06/2018 FINDINGS: The cardiomediastinal silhouette and pulmonary vascularity are within normal limits. There is hyperinflation with attenuation of the peripheral pulmonary vessels suggesting small vessel disease such as asthma, bronchitis, or COPD. These findings are slightly worse then when compared to the previous exam suggesting worsening bronchitis/bronchiolitis. No definite lobar consolidation or collapse. No acute bony findings. IMPRESSION: Coarsened bronchovascular markings in the lower lung zones suggesting worsening bronchitis
== END ==
PROVIDERS: PCP Emergency Medicine; Visit Provider Nurse Practitioner Family
DX: R09.89 Other specified symptoms and signs involving the circulatory and respiratory systems (principal); R05 Cough
CPT/HCPCS: 71046

== ENCOUNTER → 2018-05-11 10:35 | Outpatient (CLI) | payer BC, SELFPAY ==
--- NOTE | 2018-05-11 10:38 | MM_ITS ---
MM Dig screening mamm BI w/CAD ORDERING PHYSICIAN : Jonas Lyles MD PATIENT AGE: 57 years GENDER: Female COMPARISON: February 2016Juneilateral mammogram HISTORY, Routine Screening Mammogram previous left lumpectomy for benign papilloma Also interval mammogram studies of the left breast April and March 2016 TECHNIQUE: Standard CC and MLO images were obtained. R2 CAD reviewed. Additional MLO view, distal right cc view for nipple profile included FINDINGS: minimal residual fibroglandular elements... Lower density breast with minimal, partial fatty replacement RIGHT BREAST: Stable right mammogram with no new areas of concern. 3 tiny punctate benign-appearing calcifications at the lateral retroareolar region were present but now slightly denser than 2017 mammogram. Can be followed LEFT BREAST:No new areas of significant concern Postsurgical changes at the inferior left breast-with mild architectural distortion associated . Otherwise No new areas of concern. No mass lesion. Minimal residual fibroglandular elements laterally unchanged. Follow up one year adequate Scattered areas of density otherwise at the left breast are similar to February 2016 and can be followed. IMPRESSION: ...... No new areas of significant concern Left breast Interval biopsy with postsurgical changes the deep central left breast towards 6 o'clock position. Right breast. No significant new findings. Small benign-appearing punctate calcifications retroareolar region slightly denser but appear benign & can be followed Would recommend & encourage bilateral follow-up in one year. . BI-RADS Category: 2 Benign Finding(s) RECOMMENDED FOLLOW-UP: 1YR 1 YEAR FOLLOW-UP (A letter has been sent to the patient regarding results of the study.)
== END ==
PROVIDERS: PCP Emergency Medicine; Visit Provider Nurse Practitioner Obstetrics & Gynecology
DX: Z12.31 Encounter for screening mammogram for malignant neoplasm of breast (principal)
CPT/HCPCS: 77067

== ENCOUNTER → 2018-06-26 11:46 | Outpatient (POV) | payer BC, SELFPAY ==
[2018-06-26 12:23] VITALS: BP 128/72; PULSE 78; RESP 18; O2SAT 99; BMI 41.1
--- NOTE | 2018-06-26 12:39 | P.CONS_ITS ---
[facility] Pain Management SOAP Note Subjective:: This patient is a pleasant 57-year-old white female who we are treating for degenerative disease of lumbar spine with lumbar spinal stenosis. She had Superion implant placed at L2-L3 and L3-L4. She has noticed some decrease in her pain symptoms especially while walking. She does have increasing pain while standing still. Is only been 2 weeks so inflammation is subsiding. Her incision has healed very nicely. Sutures are ready to come out today. We will take out her sutures. We will release her from all restrictions. She can go back to work and go back to her normal routine. Objective:: Alert and oriented x3 no acute distress. Motor strength of the lower extr emities is 5/5. There is no gross sensory incision is healed very nicely. Clean dry and intact. Sutures are ready to come out today. Assessment:: Degenerative disc disease of lumbar spine with spinal stenosis of lumbar spine with neurogenic claudication status post Vertiflex superion implant at L2-L3 and L3-L4. Plan:: We will take out her sutures. We will release her from all restrictions. She can go back to work and go back to her normal routine. We will follow-up with her in 1 month to reevaluate her symptoms.
== END ==
PROVIDERS: PCP Emergency Medicine; Visit Provider Anesthesiology
DX: M48.062 Spinal stenosis, lumbar region with neurogenic claudication (principal)
CPT/HCPCS: 99212

== ENCOUNTER → 2018-07-06 10:02 | Outpatient (POV) | payer BC, SELFPAY ==
[2018-07-06 10:19] VITALS: BP 139/75; PULSE 71; RESP 18; O2SAT 98; BMI 41.1
--- NOTE | 2018-07-06 10:38 | HMH.PAINSOAP ---
[facility] Pain Management SOAP Note Subjective:: Is a pleasant 57-year-old white female who presents today for follow-up after her to flex procedure. Patient is having extreme back pain she states. States that significantly she can stand up straight however she seems to have more pain in her facet joints. Patient does have positive facet joint loading lumbar spine. Patient rates the pain a 7 out of 10. Patient tried to go back to work and this is when she began to have more pain. ROS General: no recent weight change, no fever, no sleep disturbances Respiratory: no cough, no shortness of air, no recurring pulmonary infections Cardiovascular/Peripheral Vascular: No chest pain, No palpitations, no edema, no shortness of breath. Gastrointestinal: no incontinence, normal bowel movements reported Genitourinary: no incontinence Musculoskeletal: Back pain Psychiatric: normal mood/ affect Neurological: [denies weakness in extremities], [denies balance issues] Objective:: Physical Exam General: Alert and oriented x3, no acute distress, pleasant and cooperative, [on room air] Lungs: Resps E/U, Symmetrical chest expansion, Eyes: PERRL Musculoskeletal: Flexion and extension of lumbar spine somewhat guarded secondary to pain, deep tendon reflexes normal, strength in upper and lower extremities [5/5], slightly antalgic gait noted, positive facet loading lumbar spine Neurological: speech clear, strategic communications manager equal, no gross sensory deficits Assessment:: Degenerative disc disease lumbar spine lumbar facet arthropathy spinal stenosis with neurogenic claudication Plan:: We will start the patient on prednisone 20 mg 1 p.o. twice daily for 5 days we will follow-up with her in 1 week reassess her symptoms at that time she is been instructed to call the office if she has any issues prior to her next appointment Dr. Cee has reviewed this note and agrees with this plan of care. This note was dictated using voice recognition software and may contain errors or omissions
--- NOTE | 2018-07-06 10:42 | P.CONS_ITS ---
[facility] Pain Management SOAP Note Subjective:: Is a pleasant 57-year-old white female who presents today for follow-up after her to flex procedure. Patient is having extreme back pain she states. States that significantly she can stand up straight however she seems to have more pain in her facet joints. Patient does have positive facet joint loading lumbar spine. Patient rates the pain a 7 out of 10. Patient tried to go back to work and this is when she began to have more pain. ROS General: no recent weight change, no fever, no sleep disturbances Respiratory: no cough, no shortness of air, no recurring pulmonary infections Cardiovascular/Peripheral Vascular: No chest pain, No palpitations, no edema, no shortness of breath. Gastrointestinal: no incontinence, normal bowel movements reported Genitourinary: no incontinence Musculoskeletal: Back pain Psychiatric: normal mood/ affect Neurological: [denies weakness in extremities], [denies balance issues] Objective:: Physical Exam General: Alert and oriented x3, no acute distress, pleasant and cooperative, [on room air] Lungs: Resps E/U, Symmetrical chest expansion, Eyes: PERRL Musculoskeletal: Flexion and extension of lumbar spine somewhat guarded secondary to pain, deep tendon reflexes normal, strength in upper and lower extremities [5/5], slightly antalgic gait noted, positive facet loading lumbar spine Neurological: speech clear, audio visual coordinator equal, no gross sensory deficits Assessment:: Degenerative disc disease lumbar spine lumbar facet arthropathy spinal stenosis with neurogenic claudication Plan:: We will start the patient on prednisone 20 mg 1 p.o. twice daily for 5 days we will follow-up with her in 1 week reassess her symptoms at that time she is been instructed to call the office if she has any issues prior to her next appointment Dr. Cee has reviewed this note and agrees with this plan of care. This note was dictated using voice recognition software and may contain errors or omissions
== END ==
PROVIDERS: PCP Emergency Medicine; Visit Provider Clinical Nurse Specialist Family Health
DX: M48.062 Spinal stenosis, lumbar region with neurogenic claudication (principal)
CPT/HCPCS: 99212

== ENCOUNTER → 2018-07-14 08:48 | Outpatient (POV) | payer BC, SELFPAY ==
[2018-07-14 08:53] VITALS: BP 145/78; PULSE 75; RESP 18; O2SAT 98; BMI 39.9
--- NOTE | 2018-07-14 09:05 | HMH.PAINSOAP ---
[facility] Pain Management SOAP Note Subjective:: Patient is a pleasant 57-year-old white female who presents today for follow-up. Patient still having lower back pain. Patient states that after her veryiflex procedure she was having increased pain. She rated her pain a 7 out of 10 at her last visit. Patient rates her pain a 5 out of 10. Patient states it is only a 5 out of 10 because I aint done nothing . Patient states that twisting movements make the pain worse. Patient had an RFA in the past with good relief however she is uninterested in repeating any injections at this time. We also briefly talked about intrathecal pain pump she is uninterested in this. We also discussed potentially utilizing a back brace at work. Patient states she does not want to fool with it . ROS General: no recent weight change, no fever, no sleep disturbances Respiratory: no cough, no shortness of air, no recurring pulmonary infections Cardiovascular/Peripheral Vascular: No chest pain, No palpitations, no edema, no shortness of breath. Gastrointestinal: no incontinence, normal bowel movements reported Genitourinary: no incontinence Musculoskeletal: Back pain Psychiatric: normal mood/ affect Neurological: [denies weakness in extremities], [denies balance issues] Objective:: Physical Exam General: Alert and oriented x3, no acute distress, pleasant and cooperative, [on room air] Lungs: Resps E/U, Symmetrical chest expansion, Eyes: PERRL Musculoskeletal: Flexion and extension of lumbar spine somewhat guarded secondary to pain, deep tendon reflexes normal, strength in upper and lower extremities [5/5], slightly antalgic gait noted Neurological: speech clear, overlock elastic attacher equal, no gross sensory deficits Assessment:: Degenerative disc disease lumbar spine with lumbar radiculopathy along with spinal stenosis and neurogenic claudication. Plan:: We will schedule the patient for a follow-up in 1 month. Patient is uninterested in doing any kind of injections or interventional therapies at this time. She is to continue her anti-inflammatories and her gabapentin. I will send her for an x-ray to determine that the implant is in the proper place. Patient's been instructed to call the office if she has any issues prior to her next appointment. Dr. Cee has reviewed this note and agrees with this plan of care. This note was dictated using voice recognition software and may contain errors or omissions
--- NOTE | 2018-07-14 09:14 | XR_ITS ---
EXAM: XR lumbar spine 2-3V HISTORY: Follow-up verti flex surgery ITS.REASON: BACK PAIN ORDERING PHYSICIAN: Melodie Collado APRN PATIENT AGE: 57 years COMPARISON: 04/03/2018 FINDINGS: Interspinous implants have been placed at L2-L3 and L3-L4. There remains good alignment with mild degenerative disc disease at L2-L3 L3-L4 L4-5 and L5-S1. No fracture or dislocation. A small rounded opacity is present to the right of the L4 transverse process and could be related to a renal stone measuring 4 mm. IMPRESSION: Status post interspinous plan placement at L2-L3 and L3-L4 with degenerative changes as described above Right nephrolithiasis
== END ==
PROVIDERS: PCP Emergency Medicine; Visit Provider Clinical Nurse Specialist Family Health
DX: M48.062 Spinal stenosis, lumbar region with neurogenic claudication (principal)
CPT/HCPCS: 72100; 99212

== ENCOUNTER → 2018-08-10 12:58 | Outpatient (POV) | payer BC, SELFPAY ==
[2018-08-10 13:25] VITALS: BP 143/67; PULSE 76; RESP 18; O2SAT 98; BMI 41.1
--- NOTE | 2018-08-10 14:09 | HMH.PAINSOAP ---
[facility] Pain Management SOAP Note Subjective:: Patient is a pleasant 57-year-old white female who presents today for follow-up. Patient is a 6 out of 10 today. Mostly in her low back but she states that it is radiating now through her flank. Patient's x-ray showed renal stone. Patient is not been seen by urologist. Patient is uninterested in a back brace or any injection therapy at this time. We did discuss starting Cymbalta if she is favorable to this. We also discussed a urology consult. ROS General: no recent weight change, no fever, no sleep disturbances Respiratory: no cough, no shortness of air, no recurring pulmonary infections Cardiovascular/Peripheral Vascular: No chest pain, No palpitations, no edema, no shortness of breath. Gastrointestinal: no incontinence, normal bowel movements reported Genitourinary: no incontinence Musculoskeletal: Back pain Psychiatric: normal mood/ affect Neurological: [denies weakness in extremities], [denies balance issues] Objective:: Physical Exam General: Alert and oriented x3, no acute distress, pleasant and cooperative, [on room air] Lungs: Resps E/U, Symmetrical chest expansion, Eyes: PERRL Musculoskeletal: Flexion and extension of lumbar spine somewhat guarded secondary to pain, deep tendon reflexes normal, strength in upper and lower extremities [5/5], [abnormal gait noted] Neurological: speech clear, asl interpreter equal, no gross sensory deficits Assessment:: Degenerative disc disease lumbar spine with lumbar spinal stenosis Plan:: We will send the patient for a Brooks consult in regards to urology. We will also start Cymbalta 30 mg 1 p.o. daily. She is been instructed to call the office if she has any issues prior to her next appointment we will see her in 1 month reassess her symptoms at that time. Dr. Cee has reviewed this note and agrees with this plan of care. This note was dictated using voice recognition software and may contain errors or omissions
--- NOTE | 2018-08-10 14:12 | P.CONS_ITS ---
[facility] Pain Management SOAP Note Subjective:: Patient is a pleasant 57-year-old white female who presents today for follow-up. Patient is a 6 out of 10 today. Mostly in her low back but she states that it is radiating now through her flank. Patient's x-ray showed renal stone. Patient is not been seen by urologist. Patient is uninterested in a back brace or any injection therapy at this time. We did discuss starting Cymbalta if she is favorable to this. We also discussed a urology consult. ROS General: no recent weight change, no fever, no sleep disturbances Respiratory: no cough, no shortness of air, no recurring pulmonary infections Cardiovascular/Peripheral Vascular: No chest pain, No palpitations, no edema, no shortness of breath. Gastrointestinal: no incontinence, normal bowel movements reported Genitourinary: no incontinence Musculoskeletal: Back pain Psychiatric: normal mood/ affect Neurological: [denies weakness in extremities], [denies balance issues] Objective:: Physical Exam General: Alert and oriented x3, no acute distress, pleasant and cooperative, [on room air] Lungs: Resps E/U, Symmetrical chest expansion, Eyes: PERRL Musculoskeletal: Flexion and extension of lumbar spine somewhat guarded secondary to pain, deep tendon reflexes normal, strength in upper and lower extremities [5/5], [abnormal gait noted] Neurological: speech clear, hand icer equal, no gross sensory deficits Assessment:: Degenerative disc disease lumbar spine with lumbar spinal stenosis Plan:: We will send the patient for a Brooks consult in regards to urology. We will also start Cymbalta 30 mg 1 p.o. daily. She is been instructed to call the office if she has any issues prior to her next appointment we will see her in 1 month reassess her symptoms at that time. Dr. Cee has reviewed this note and agrees with this plan of care. This note was dictated using voice recognition software and may contain errors or omissions
== END ==
PROVIDERS: PCP Emergency Medicine; Visit Provider Clinical Nurse Specialist Family Health
DX: M51.36 Other intervertebral disc degeneration, lumbar region (principal); M48.061 Spinal stenosis, lumbar region without neurogenic claudication
CPT/HCPCS: 99212

== ENCOUNTER → 2018-08-11 06:38 | Outpatient (CLI) | payer BC, SELFPAY ==
--- NOTE | 2018-08-11 06:43 | NM_ITS ---
CARDIOLITE SPECT MYOCARDIAL PERFUSION LEXISCAN, REST AND STRESS: History: Hypertension, family history, chest pain and fatigue Procedure: Patient received a 0.4 mg of intravenous Lexiscan, resting heart rate was 72 bpm resting blood pressure 145/73, with Lexiscan maximum heart rate achieved was 121 bpm which is less than 85% of the maximum] heart rate and a blood pressure was 154/102. With Lexiscan patient complained of nausea and vomiting. Electrocardiogram: Resting electrocardiogram showed sinus rhythm premature ventricular complexes, with Lexiscan there is less than 1.[address] segment depression noted from the baseline EKG, the EKG portion of the Lexiscan Myoview is nondiagnostic. Cardiac stress and resting SPECT images: Cardiac stress and resting SPECT images were obtained using technetium 99 Myoview 30.7 mCi stress and 10.3 mCi at rest. Gated SPECT further analysis of segmental wall motion and calculation of the ejection fraction also done. Cardiac stress and rest SPECT images show decreased tracer activity in the anterior wall in the apex with normal contractility on the gated SPECT is likely secondary to soft tissue attenuation, possibility of reversible ischemia cannot be excluded. This study is technically limited due to patient's body habitus. Computer derived ejection fraction is 56% with no regional wall motion abnormality, right ventricle is normal size and contractility. Conclusion: 1. The EKG portion of the Lexiscan Myoview is nondiagnostic. 2. Scintigraphic evidence of reversible defect seen in the anterior wall and apex, this is likely secondary to patient's body habitus, possibility of the reversible ischemia cannot be excluded. Computer derived ejection fraction is 56% with no regional wall motion abnormality, right ventricle is normal size and contractility. 3. Equivocal myocardial perfusion imaging.
--- NOTE | 2018-08-11 07:38 | HMH.ITSHM ---
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 []GABAPENTIN LISINOPRIL RANITIDINE DULOXETINE CETIRIZINE MONTELUKAST TRIAMCINOLONE AZELASTINE
== END ==
PROVIDERS: PCP Emergency Medicine; Visit Provider Emergency Medicine
DX: R07.89 Other chest pain (principal)
CPT/HCPCS: 78452; 93017

== ENCOUNTER → 2018-09-15 09:02 | Outpatient (POV) | payer BC, SELFPAY ==
[2018-09-15 09:16] VITALS: BP 116/62; PULSE 72; RESP 18; O2SAT 98; BMI 39.4
--- NOTE | 2018-09-15 09:28 | HMH.PAINSOAP ---
[facility] Pain Management SOAP Note Subjective:: Patient is a pleasant 57-year-old white female who presents today for follow-up she is doing much better rating her pain a 2 out of 10. She feels great . She started on Cymbalta and her last office visit and states she is tolerating it well and it has made a big difference. Patient states she is able to stand for longer periods of time and walk longer. Patient and I discussed the potential that her vertical flex inflammation has now ceased. She is very pleased. ROS General: no recent weight change, no fever, no sleep disturbances Respiratory: no cough, no shortness of air, no recurring pulmonary infections Cardiovascular/Peripheral Vascular: No chest pain, No palpitations, no edema, no shortness of breath. Gastrointestinal: no incontinence, normal bowel movements reported Genitourinary: no incontinence Musculoskeletal: Back pain Psychiatric: normal mood/ affect Neurological: [denies weakness in extremities], [denies balance issues] Objective:: Physical Exam General: Alert and oriented x3, no acute distress, pleasant and cooperative, Lungs: Resps E/U, Symmetrical chest expansion, Eyes: PERRL Musculoskeletal: Flexion and extension of lumbar spine somewhat guarded secondary to pain, deep tendon reflexes normal, strength in upper and lower extremities [5/5], slightly antalgic gait noted Neurological: speech clear, chief revenue officer equal, no gross sensory deficits Assessment:: Degenerative disc disease lumbar spine with lumbar spinal stenosis Plan:: We will see the patient back in 3 months reassess her symptoms at that time she is to can continue her Cymbalta 30 mg 1 p.o. daily. She is been instructed to call the office if she has any issues prior to her next appointment. Dr. Cee has reviewed this note and agrees with this plan of care. This note was dictated using voice recognition software and may contain errors or omissions
--- NOTE | 2018-11-09 10:42 | PC.NURSE ---
CYMBALTA 30MG PO DAILY FAXED TO [facility] PER PROVIDER ORDER
--- NOTE | 2018-12-07 09:42 | PC.NURSE ---
GABAPENTIN 800 MG QID WITH 2 REFILLS CALLED INTO [facility] PER PROVIDER ORDER
== END ==
PROVIDERS: PCP Emergency Medicine; Visit Provider Clinical Nurse Specialist Family Health
DX: M51.36 Other intervertebral disc degeneration, lumbar region (principal); M48.061 Spinal stenosis, lumbar region without neurogenic claudication
CPT/HCPCS: 99212

== ENCOUNTER → 2018-09-21 14:04 | Outpatient (CLI) | payer BC, SELFPAY ==
--- NOTE | 2018-09-21 14:13 | CT_ITS ---
CT abdomen pelvis wo con CLINICAL INDICATION: Right flank pain ITS.REASON: urolithiasis ORDERING PHYSICIAN: Juan Brooks MD PATIENT AGE: 57 years COMPARISON: None TECHNIQUE: Axial images obtained with sagittal and coronal reformats. All CT scans at the facility use one or more dose reduction, viz: automated exposure control, ma/kV adjustment per patient size (including targeted exams where dose is matched to indication, i.e. head), or iterative reconstruction technique. FINDINGS: There are atelectatic changes in the lung bases. Diffuse fatty liver infiltration. Spleen, adrenal glands, and pancreas have an unremarkable unenhanced CT appearance. Prior cholecystectomy. There is an 8 mm nonobstructing stone in the lower pole the right kidney. The left kidney has an unremarkable appearance. There is a 4 mm calcific density as seen on axial image #91. This is in the plane of the right ureter however, there is no ureteral dilatation proximal to this region. This may very well just be a vascular calcification adjacent to the right ureter. This could be confirmed with CT urogram if clinically desired. No intestinal obstruction or free air. There is a mild amount of retained colonic feces. Unremarkable appendix. There are multiple pelvic phleboliths. No acute bony findings. There are metallic devices in the interspinous space between L2-L3 and L3-L4 IMPRESSION: 1. Right nephrolithiasis. 2. 4 mm calcific density in the plane of the right ureter at the pelvic inlet region probably related to an adjacent vascular calcification as opposed to a ureteral stone. CT urogram may confirm. 3. Mild constipation
== END ==
PROVIDERS: PCP Emergency Medicine; Visit Provider Urology
DX: N20.9 Urinary calculus, unspecified (principal)
CPT/HCPCS: 74176

== ENCOUNTER → 2018-09-29 07:42 | Outpatient (CLI) | payer BC, SELFPAY ==
[2018-09-29 14:05] LABS: Alanine Aminotransferase 35 U/L (12-78); Albumin Level 3.4 gm/dL (3.4-5.0); Aspartate Amino Transferase 18 U/L (15-37); Bilirubin,Direct 0.1 mg/dL (0.0-0.2); Bilirubin,Indirect 0.2 mg/dL (0.0-0.9); Bilirubin,Total 0.3 mg/dL (0.2-1.0); Cholesterol 129 mg/dL (140-200); HDL Cholesterol 49 mg/dL (29-89); LDL Cholesterol 46 mg/dL (0-130); Triglycerides 169 mg/dL (30-200); VLDL Cholesterol 34 mg/dL (0-40)
[2018-09-29 14:06] LABS: Alkaline Phosphatase 135 U/L (46-116); Chol/HDL Ratio 2.6 (1-3.5)
== END ==
PROVIDERS: Visit Provider Physician Assistant
DX: E66.01 Morbid (severe) obesity due to excess calories (principal); I10 Essential (primary) hypertension; I25.10 Atherosclerotic heart disease of native coronary artery without angina pectoris
CPT/HCPCS: 36415; 80061; 80076

== ENCOUNTER → 2018-12-14 09:59 | Outpatient (POV) | payer BC, SELFPAY ==
[2018-12-14 10:29] VITALS: BP 118/59; PULSE 70; RESP 18; O2SAT 98; BMI 39.4
--- NOTE | 2018-12-14 10:44 | HMH.PAINSOAP ---
[facility] Pain Management SOAP Note Subjective:: Patient is a pleasant 58-year-old white female who presents today for follow-up. Patient had a vertical flex placed with no refills and is been doing extremely well she rates her pain a 0 out of 10. She states that she is able to stand and work. Overall she is doing great. Patient would like to follow-up in 6 months. ROS General: no recent weight change, no fever, no sleep disturbances Respiratory: no cough, no shortness of air, no recurring pulmonary infections Cardiovascular/Peripheral Vascular: No chest pain, No palpitations, no edema, no shortness of breath. Gastrointestinal: no new onset incontinence, normal bowel movements reported Genitourinary: no new onset incontinence Musculoskeletal: Back pains at times Psychiatric: normal mood/ affect Neurological: [denies new onset weakness in extremities], [denies new onset balance issues] Objective:: Physical Exam General: Alert and oriented x3, no acute distress, pleasant and cooperative, [on room air] Lungs: Resps E/U, Symmetrical chest expansion, Eyes: PERRL Musculoskeletal: Flexion and extension of lumbar spine somewhat guarded secondary to pain, deep tendon reflexes normal, strength in upper and lower extremities [5/5], slightly antalgic gait noted Neurological: speech clear, culture media laboratory assistant equal, no gross sensory deficits Assessment:: Degenerative disc disease lumbar spine with lumbar spinal stenosis and neurogenic claudication Plan:: We will see the patient back in 6 months reassess her symptoms at that time she is been instructed to call the office in the meantime if she has any issues prior. Dr. Cee has reviewed this note and agrees with this plan of care. This note was dictated using voice recognition software and may contain errors or omissions [facility] History I have reviewed the patient's past medical history: Yes Medical History: Reports:: Depression, Gastroesophageal Reflux Disease(GERD), Heart Murmur, Hypertension Denies:: Cancer, Diabetes Mellitus Type 1, Diabetes Mellitus Type 2, Internal Pacemaker, Lung Disease, MRSA, Seizures *Have you ever received a pneumonia vaccine?: Yes *Have you received a flu vaccine this season?: Yes Other Medical History: Reports: Hoarseness, Other. Denies: Blood Transfusion Reaction Laterality Cases: Other Surgeries: Yes: No Previous Surgery, Cardiac Catheterization, Cholecystectomy, Colonoscopy, EGD, Sinus Surgery, Tubal Ligation, Other. No: Pacemaker Amputation: No Fractures: No - *Social History Smoking Status: Former smoker #Yrs smoked (if former smoker): 25 Alcohol Intake: never Alcohol Intake Frequency:: holidays/special occasions only Substance Use Type: denies use *Occupational Status:: other Housing: apartment Household Members: family *Travel in the last 8 weeks: None - Psychiatric History Pschychiatric History:: Reports:: Depression Family Hx:: Diabetes, Coronary Artery Disease
[2018-12-14 12:16] VITALS: BP 147/54; PULSE 58; RESP 18; O2SAT 98; BMI 29.9
--- NOTE | 2019-02-03 13:56 | PC.NURSE ---
800MG GABAPENTIN QID AND CYMBALTA 30MG DAILY WITH 2 REFILLS CALLED INTO [facility] PER PROVIDER ORDER
== END ==
PROVIDERS: PCP Emergency Medicine; Visit Provider Clinical Nurse Specialist Family Health
DX: M48.062 Spinal stenosis, lumbar region with neurogenic claudication (principal)
CPT/HCPCS: 99212

== ENCOUNTER → 2018-12-28 09:12 | Outpatient (CLI) | payer BC, SELFPAY ==
--- NOTE | 2018-12-28 09:16 | XR_ITS ---
PROCEDURE: XR KUB CLINICAL INDICATION: kidney stone Follow-up lithotripsy COMPARISON: ABDPELWO CT abdomen pelvis wo con from 09/21/2018 FINDINGS: Small cluster of stones noted in the lower pole of the right kidney the largest measuring 3-4 mm. No ureteral calculi parent. Metallic spacers are present along the spinous process posteriorly at L2-L3 and L3-L4 as seen on recent CT scan IMPRESSION: Right nephrolithiasis Dictated by: Isac England MD 12/28/2018 12:11 Electronically signed by Isac England MD in [place] 12/28/2018 12:11
== END ==
PROVIDERS: PCP Emergency Medicine; Visit Provider Urology
DX: N20.0 Calculus of kidney (principal)
CPT/HCPCS: 74018

== ENCOUNTER → 2019-04-05 09:27 | Outpatient (CLI) | payer BC, SELFPAY ==
--- NOTE | 2019-04-05 09:38 | XR_ITS ---
PROCEDURE: XR KUB CLINICAL INDICATION: kidney stone COMPARISON: ABDPELWO CT abdomen pelvis wo con from 09/21/2018 FINDINGS: Gas pattern-The bowel gas pattern is unremarkable. No obvious obstruction. Calcifications-there are 2 separate calcific densities projecting over the right renal bed largest is approximately 6 millimeters projecting over the lower pole. Nephrolithiasis is suspected. Multiple nonspecific bilateral pelvic calcifications are noted some of which do lie along the anticipated course of the distal ureters and could represent ureteral stones or extra urinary phleboliths. CT may be useful to differentiate. Bones-No acute bony anomalies evident. Metallic densities project over L3 and L4. IMPRESSION: Suspect right nephrolithiasis. Multiple nonspecific bilateral pelvic calcifications. Dictated by: Ez Guidry 04/05/2019 13:39 Electronically signed by Ez Guidry in [place] 04/05/2019 13:39
== END ==
PROVIDERS: PCP Emergency Medicine; Visit Provider Urology
DX: N20.0 Calculus of kidney (principal)
CPT/HCPCS: 74018

== ENCOUNTER → 2019-04-13 13:29 | Outpatient (CLI) | payer BC, SELFPAY ==
[2019-04-13 13:49] LABS: Alanine Aminotransferase 32 U/L (12-78); Albumin Level 4.4 g/dl (3.5-5.0); Albumin/Globulin Ratio 1.5 (1.1-1.8); Alkaline Phosphatase 151 U/L (38-126); Anion Gap 12.4 mEq/L (5-15); Aspartate Amino Transferase 32 U/L (14-36); Bilirubin,Total 0.3 mg/dl (0.2-1.3); Blood Urea Nitrogen 10 mg/dl (7-17); Calcium 9.8 mg/dl (8.4-10.2); Carbon Dioxide 28 mmol/L (22.0-30.0); Chloride 101 mmol/L (98-107); Chol/HDL Ratio 2.6 (1-3.5); Cholesterol 146 mg/dl (140-200); Estimated Glomerular Filt Rate 127 ml/min (>60); GFR (African American) 154 ML/MIN (>60); Glucose 122 mg/dl (74-100); HDL Cholesterol 56 mg/dl (40-60); Potassium 4.4 mmoL/L (3.5-5.1); Sodium 137 mmol/L (136-145); Total Protein,Serum 7.4 g/dl (6.3-8.2); Triglycerides 165 mg/dl (30-150); VLDL Cholesterol 33 mg/dL (0-40)
[2019-04-13 14:00] LABS: Direct LDL Cholesterol 63.12 mg/dL (100-129)
[2019-04-13 14:06] LABS: Basophils # 0.1 K/mm3 (0-0.2); Basophils % 0.9 % (0.1-2.0); Eosinophils # 0.2 K/mm3 (0.0-0.4); Eosinophils % 2.2 % (0.1-12.0); Hematocrit 37.8 % (37.0-47.0); Hemoglobin 12.4 g/dL (12.2-16.2); Lymphocytes # 3.4 K/mm3 (0.7-4.5); Lymphocytes % 39.5 % (10-50); Mean Corpuscular HGB Conc 32.9 g/dL (31.8-35.4); Mean Corpuscular Hemoglobin 28.5 pg (27.0-31.2); Mean Corpuscular Volume 86.5 fl (81-99); Mean Platelet Volume 9.3 fl (7.4-10.4); Monocytes # 0.4 K/mm3 (0.1-1.0); Monocytes % 4.8 % (1.7-9.3); Neutrophils # 4.5 K/mm3 (1.8-7.8); Neutrophils % 52.5 % (37.0-80.0); Platelet Count 394 K/mm3 (142-424); Red Blood Count 4.37 M/mm3 (4.20-5.40); Red Cell Distribution Width 13.1 % (11.5-17.5); T4 (Thyroxine) 7.2 ug/dl (5.53-11.0); White Blood Count 8.6 K/mm3 (4.8-10.8)
[2019-04-13 14:19] LABS: Thyroid Stimulating Hormone 1.38 uIU/mL (0.465-4.68)
[2019-04-15 06:40] LABS: Vitamin D 25 Hydroxy 29.2 ng/mL (30.0-100.0)
== END ==
PROVIDERS: Visit Provider Nurse Practitioner Family
DX: R10.9 Unspecified abdominal pain (principal); R55 Syncope and collapse; R11.2 Nausea with vomiting, unspecified; E55.9 Vitamin D deficiency, unspecified; Z79.899 Other long term (current) drug therapy
CPT/HCPCS: 80053; 80061; 82652; 84436; 84443; 85025

== ENCOUNTER → 2019-06-14 11:23 | Outpatient (POV) | payer BC, SELFPAY ==
--- NOTE | 2019-06-15 07:35 | HMH.VVPMSO ---
[facility] Virtual Visit SOAP Consent for virtual visit:: With the recent concerns about the COVID-19, we are trying to minimize exposure to you by shifting to telehealth appointments whenever possible. It restricts me from seeing you in person, but the trade off is protecting you during this pandemic. Can you see and hear me okay, and do you consent to this option? If not, I would be happy to see if we can reschedule your appointment in the future, when feasible. Has patient consented to this virtual visit?: Yes Subjective:: Patient is a pleasant 58-year-old white female who presents today for follow-up. Patient had a very to flex procedure and is overall doing well. She is having some issues with work and muscle spasms. We discussed adding Zanaflex to her regimen as needed. She is interested in pursuing this. She rates her pain today 4 out of 10. ROS General: no recent weight change, no fever, no sleep disturbances Respiratory: no cough, no shortness of air, no recurring pulmonary infections Cardiovascular/Peripheral Vascular: No chest pain, No palpitations, no edema, no shortness of breath. Gastrointestinal: no new onset incontinence, normal bowel movements reported Genitourinary: no new onset incontinence Musculoskeletal: Back pain at times muscle pain Psychiatric: normal mood/ affect Neurological: [denies new onset weakness in extremities], [denies new onset balance issues] Objective:: Physical exam: Constitutional: Healthy appearing, well-developed, alert, in no acute distress Psychiatric: Judgment and insight intact, Alert and oriented x4 Mood and affect: Mood normal, affect appropriate Head and face: Inspection: Normocephalic atraumatic, extraocular movement intact Respiratory: Breathing nonlabored, nondyspneic Cardiovascular: No cyanosis, clubbing, or edema observed Skin: Head and neck: Skin with no lesions or rash observed Gait: Able to walk without assistive device: Able to heel and toe walk Neurologic: Sensation grossly intact per patient Musculoskeletal: Decreased range of motion lumbar spine noted on video Assessment:: Muscle spasms, spinal stenosis with neurogenic claudication Plan:: We will start Zanaflex 4 mg 1 p.o. 3 times daily as needed muscle spasms. I will see the patient back in 1 month reassess her symptoms at that time she has been instructed to call the office if she has any issues prior to her next appointment. This encounter was performed as a telemedicine visit via secure 2 way video and audio to minimize risk and transmission of Covid-19. The patient and we understand the limitations of a telemedicine visit including inability to check reflexes, possibly missing subtle findings on physical exam. Alternative options were presented to the patient and the patient elected to proceed with the visit. We specifically discussed risk factors for Covid-19 including age, heart or lung disease, diabetes, immunosuppression and travel. We also discussed that NSAIDs may worsen Covid-19 infection symptoms and that they should not be used to treat Covid-19 symptoms. Patient was also informed that corticosteroids in any form oral or injectable will decrease immune response and may increase risk of Covid-[address] Cee has reviewed this patient's chart and this note and agrees with plan of care. Patient has been instructed to call the office if they have any issues prior to the next appointment. Time In:: 11:15 Time Out:: 11:30 [facility] History I have reviewed the patient's past medical history: Yes Medical History: Reports:: Depression, Gastroesophageal Reflux Disease(GERD), Heart Murmur, Hypertension Denies:: Cancer, Diabetes Mellitus Type 1, Diabetes Mellitus Type 2, Internal Pacemaker, Lung Disease, MRSA, Seizures *Have you ever received a pneumonia vaccine?: Yes *Have you received a flu vaccine this season?: Yes Other Medical History: Reports: Blood Transfusion Reaction, Hoarseness, Oth
== END ==
PROVIDERS: Visit Provider Clinical Nurse Specialist Family Health
DX: M62.838 Other muscle spasm (principal); M48.062 Spinal stenosis, lumbar region with neurogenic claudication
CPT/HCPCS: 99212

== ENCOUNTER → 2019-07-05 13:24 | Outpatient (POV) | payer BC, SELFPAY ==
[2019-07-05 13:36] VITALS: BP 125/58; PULSE 85; RESP 18; TEMP 36.6; O2SAT 99; BMI 36.6
--- NOTE | 2019-07-05 13:50 | P.CONS_ITS ---
[facility] Pain Management SOAP Note Subjective:: Patient is a very pleasant 58-year-old white female who presents today to discuss her low back and leg pain. Patient rates the pain a 3 out of 10 today. She states that it is increasingly getting worse. Patient wants has not had a recent MRI. Patient and I discussed this. She would like to pursue a updated MRI and potentially neurosurgical consultation. ROS General: no recent weight change, no fever, no sleep disturbances Respiratory: no cough, no shortness of air, no recurring pulmonary infections Cardiovascular/Peripheral Vascular: No chest pain, No palpitations, no edema, no shortness of breath. Gastrointestinal: no new onset incontinence, normal bowel movements reported Genitourinary: no new onset incontinence Musculoskeletal: Back pain, leg pain Psychiatric: normal mood/ affect, [denies depression], [denies anxiety] Neurological: [denies new onset weakness in extremities], [denies new onset balance issues] Objective:: physical Exam General: Alert and oriented x3, no acute distress, pleasant and cooperative, [on room air] Lungs: Resps E/U, Symmetrical chest expansion, Eyes: PERRL Musculoskeletal: Flexion and extension of lumbar spine somewhat guarded secondary to pain, deep tendon reflexes normal, strength in upper and lower extr emities [5/5], [abnormal gait noted] Neurological: speech clear, ultrasonic hand solderer equal, no gross sensory deficits Assessment:: Degenerative disc disease lumbar spine with lumbar radiculopathy spinal stenosis with neurogenic claudication Plan:: We will send the patient for an MRI to see if there is any new pathology. Patient's been instructed to call the office if she has any issues prior to her next appointment. Dr. Cee has reviewed this note and agrees with this plan of care. This note was dictated using voice recognition software and may contain errors or omissions [facility] History I have reviewed the patient's past medical history: Yes Medical History: Reports:: Depression, Gastroesophageal Reflux Disease(GERD), Heart Murmur, Hypertension Denies:: Cancer, Diabetes Mellitus Type 1, Diabetes Mellitus Type 2, Internal Pacemaker, Lung Disease, MRSA, Seizures *Have you ever received a pneumonia vaccine?: Yes *Have you received a flu vaccine this season?: Yes Other Medical History: Reports: Blood Transfusion Reaction, Hoarseness, Other Laterality Cases: Left: Lumpectomy, Right: Carpal Tunnel Release, Bilateral: Other Other Surgeries: Yes: No Previous Surgery, Cardiac Catheterization, Cholecystectomy, Colonoscopy, EGD, Sinus Surgery, Tubal Ligation, Other. No: Pacemaker Amputation: No Fractures: No - *Social History Smoking Status: Former smoker #Yrs smoked (if former smoker): 25 Alcohol Intake: never Alcohol Intake Frequency:: holidays/special occasions only Substance Use Type: denies use *Occupational Status:: other Housing: apartment Household Members: family *Travel in the last 8 weeks: None - Psychiatric History Pschychiatric History:: Reports:: Depression Family Hx:: Diabetes, Coronary Artery Disease
== END ==
PROVIDERS: PCP Emergency Medicine; Visit Provider Clinical Nurse Specialist Family Health
DX: M51.16 Intervertebral disc disorders with radiculopathy, lumbar region (principal); M48.062 Spinal stenosis, lumbar region with neurogenic claudication
CPT/HCPCS: 99212

== ENCOUNTER → 2019-07-14 12:48 | Outpatient (CLI) | payer BC, SELFPAY ==
--- NOTE | 2019-07-14 12:52 | MR_ITS ---
PROCEDURE: MR LUMBAR SPINE WO CON CLINICAL INDICATION: BACK PAIN Low back pain and pulling sensation in the back, prior surgery COMPARISON: [employer]/O MRI-L-SPINE W/O from 04/01/[id number] abdomen pelvis wo con from 09/21/2018 TECHNIQUE: Standard multiplanar multiecho sequences are performed without contrast. 3-D MIP and myelographic images are also rendered and reviewed FINDINGS: There is normal alignment. Spinal cord ends at the L1-L2 level. T12-L1, L1-L2 have an unremarkable appearance. L2-L3: Mild degenerative disc disease with minimal bulging disc. Artifact is present from intervertebral devices inserted at the spinous process region at the L2-L3 and L3-L4 level. L3-L4: Mild degenerative disc disease with mild bulging disc along with moderate facet and ligamentum hypertrophy with bilateral lateral recess narrowing and mild bilateral foraminal narrowing. The bulging disc is slightly more prominent than when compared to the previous exam. L4-5: Concentric bulging disc with facet and ligamentum hypertrophy which is slightly worse with bilateral lateral recess narrowing. L5-S1: Mild concentric bulging disc with mild facet ligamentum hypertrophy. No extruded herniated disc are evident. No bony canal stenosis. IMPRESSION: 1. L2-L3: Mild degenerative disc disease with minimal bulging disc. Artifact is present from intervertebral devices inserted at the spinous process region at the L2-L3 and L3-L4 level. 2. L3-L4: Mild degenerative disc disease with mild bulging disc along with moderate facet and ligamentum hypertrophy with bilateral lateral recess narrowing and mild bilateral foraminal narrowing. The bulging disc is slightly more prominent than when compared to the previous exam. 3. L4-5: Concentric bulging disc with facet and ligamentum hypertrophy which is slightly worse with bilateral lateral recess narrowing. 4. L5-S1: Mild concentric bulging disc with mild facet ligamentum hypertrophy. 5. No extruded herniated disc are evident. No bony canal stenosis. Dictated by: Isac England MD 07/15/2019 11:12 Electronically signed by Isac England MD in [place] 07/15/2019 11:12
== END ==
PROVIDERS: PCP Emergency Medicine; Visit Provider Clinical Nurse Specialist Family Health
DX: M54.5 Low back pain (principal)
CPT/HCPCS: 72148; 76376

== ENCOUNTER → 2019-07-20 10:24 | Outpatient (POV) | payer BC, SELFPAY ==
[2019-07-20 10:44] VITALS: BP 118/55; PULSE 75; RESP 18; TEMP 36.4; O2SAT 99; BMI 38.2
--- NOTE | 2019-07-20 11:32 | P.CONS_ITS ---
[facility] Pain Management SOAP Note Subjective:: Patient is a pleasant 58-year-old white female who presents today for follow-up after a MRI. Patient went over her lumbar MRI I gave her options including neurosurgical consultation, implantable devices, injection therapy. She is uninterested in all of these at this time. Patient is on an anti-inflammatory. We discussed utilizing Lyrica instead of gabapentin. We will give her 1 month prescription of this to see if it is beneficial. She rates her pain an 8 out of 10. She has difficulty with working. ROS General: no recent weight change, no fever, no sleep disturbances Respiratory: no cough, no shortness of air, no recurring pulmonary infections Cardiovascular/Peripheral Vascular: No chest pain, No palpitations, no edema, no shortness of breath. Gastrointestinal: no new onset incontinence, normal bowel movements reported Genitourinary: no new onset incontinence Musculoskeletal: Back pain Psychiatric: normal mood/ affect, Neurological: [denies new onset weakness in extremities], [denies new onset balance issues] Objective:: Physical Exam General: Alert and oriented x3, no acute distress, pleasant and cooperative, [on room air] Lungs: Resps E/U, Symmetrical chest expansion, Eyes: PERRL Musculoskeletal: Flexion and extension of lumbar spine somewhat guarded secondary to pain, deep tendon reflexes normal, strength in upper and lower extremities [5/5], [abnormal gait noted] Neurological: speech clear, service desk team lead equal, no gross sensory deficits Assessment:: Degenerative disc disease lumbar spine with lumbar radiculopathy Plan:: We will start the patient on Lyrica 75 mg 1 p.o. twice daily we will give her 1 months worth of medication. We will follow-up with her in 1 month reassess her symptoms at that time she is been instructed to call the office if she has any issues prior to her next appointment. Dr. Cee has reviewed this note and agrees with this plan of care. This note was dictated using voice recognition software and may contain errors or omissions [facility] History I have reviewed the patient's past medical history: Yes Medical History: Reports:: Depression, Gastroesophageal Reflux Disease(GERD), Heart Murmur, Hypertension Denies:: Cancer, Diabetes Mellitus Type 1, Diabetes Mellitus Type 2, Internal Pacemaker, Lung Disease, MRSA, Seizures *Have you ever received a pneumonia vaccine?: Yes *Have you received a flu vaccine this season?: Yes Other Medical History: Reports: Blood Transfusion Reaction, Hoarseness, Other Laterality Cases: Left: Lumpectomy, Right: Carpal Tunnel Release, Bilateral: Other Other Surgeries: Yes: No Previous Surgery, Cardiac Catheterization, Ch olecystectomy, Colonoscopy, EGD, Sinus Surgery, Tubal Ligation, Other. No: Pacemaker Amputation: No Fractures: No - *Social History Smoking Status: Former smoker #Yrs smoked (if former smoker): 25 Alcohol Intake: never Alcohol Intake Frequency:: holidays/special occasions only Substance Use Type: denies use *Occupational Status:: other Housing: apartment Household Members: family *Travel in the last 8 weeks: None - Psychiatric History Pschychiatric History:: Reports:: Depression Family Hx:: Diabetes, Coronary Artery Disease
== END ==
PROVIDERS: PCP Emergency Medicine; Visit Provider Clinical Nurse Specialist Family Health
DX: M51.16 Intervertebral disc disorders with radiculopathy, lumbar region (principal)
CPT/HCPCS: 99212

== ENCOUNTER → 2019-08-09 14:55 | Outpatient (POV) | payer BC, SELFPAY ==
--- NOTE | 2019-08-09 15:10 | P.CONS_ITS ---
[facility] Pain Management SOAP Note Subjective:: Patient is a pleasant 58-year-old white female who presents today for follow-up. Patient was started on Lyrica 75 mg 1 p.o. twice daily. She states that it has significantly reduced her pain rating her pain today a 0 out of 10. She denies any side effects to it. [facility] #[id number] reviewed and appropriate. Patient and I discussed increasing her Lyrica to 75 mg 1 p.o. 3 times daily due to her work schedule. We will move forward with this. ROS General: no recent weight change, no fever, no sleep disturbances Respiratory: no cough, no shortness of air, no recurring pulmonary infections Cardiovascular/Peripheral Vascular: No chest pain, No palpitations, no edema, no shortness of breath. Gastrointestinal: no new onset incontinence, normal bowel movements reported Genitourinary: no new onset incontinence Musculoskeletal: Back pain, leg pain Psychiatric: normal mood/ affect Neurological: [denies new onset weakness in extremities], [denies new onset balance issues] Objective:: Physical Exam General: Alert and oriented x3, no acute distress, pleasant and cooperative, [on room air] Lungs: Resps E/U, Symmetrical chest expansion, Eyes: PERRL Musculoskeletal: Flexion and extension of lumbar spine somewhat guarded secondary to pain, deep tendon reflexes normal, strength in upper and lower extremities [5/5], antalgic gait noted Neurological: speech clear, stage settings painter equal, no gross sensory deficits Assessment:: Degenerative disc disease lumbar spine lumbar spinal stenosis with neurogenic claudication Plan:: I will continue the patient's Lyrica will increase it to 3 times a day. We will follow-up with her in 2 months reassess her symptoms at that time she has been instructed to call the office if she has any issues prior to her next appointment. Dr. Cee has reviewed this note and agrees with this plan of care. This note was dictated using voice recognition software and may contain errors or omissions [facility] History I have reviewed the patient's past medical history: Yes Medical History: Reports:: Chronic Obstructive Pulmonary Disease (COPD), Coronary Artery Disease, Depression, Gastroesophageal Reflux Disease(GERD), Heart Murmur, Hyperlipidemia, Hypertension, Palpitations Denies:: Cancer, Diabetes Mellitus Type 1, Diabetes Mellitus Type 2, Internal Pacemaker, Lung Disease, MRSA, Seizures *Have you ever received a pneumonia vaccine?: No *Have you received a flu vaccine this season?: Yes Other Medical History: Reports: Blood Transfusion Reaction, Hoarseness, Other Laterality Cases: Left: Lumpectomy, Right: Carpal Tunnel Release, Bilateral: Other Other Surgeries: Yes: No Previous Surgery, Cardiac Catheterization, Cholecystectomy, Colonoscopy, EGD, Sinus Surgery, Tubal Ligation, Other. No: Pacemaker Amputation: No Fractures: No - *Social History Smoking Status: Former smoker #Yrs smoked (if former smoker): 25 Alcohol Intake: never Alcohol Intake Frequency:: holidays/special occasions only Substance Use Type: denies use *Occupational Status:: other Housing: apartment Household Members: family *Travel in the last 8 weeks: None - Psychiatric History Pschychiatric History:: Reports:: Depression Family Hx:: Diabetes, Coronary Artery Disease
[2019-08-09 15:11] VITALS: BP 132/80; PULSE 90; RESP 18; TEMP 36.8; O2SAT 99; BMI 36.6
== END ==
PROVIDERS: PCP Emergency Medicine; Visit Provider Clinical Nurse Specialist Family Health
DX: M48.062 Spinal stenosis, lumbar region with neurogenic claudication (principal)
CPT/HCPCS: 99212

== ENCOUNTER → 2019-11-01 11:24 | Outpatient (POV) | payer BC, SELFPAY ==
[2019-11-01 11:50] VITALS: BP 147/92; PULSE 84; RESP 18; O2SAT 98; BMI 34.9
--- NOTE | 2019-11-01 12:01 | P.CONS_ITS ---
[facility] Pain Management SOAP Note Subjective:: Patient is a pleasant 59-year-old white female who presents today for follow-up. Patient is treated with Lyrica 75 mg 1 p.o. twice daily. She states is helped however recently she had a significant lumbar strain. She is having quite a bit of pain in her lumbar region she is a not able to stand or walk. She rates her pain a 8 out of 10. She is trying to continue work. Patient also had a superior on implant. I want to send her for x-rays to ensure that this has not shifted. [facility] #[id number] reviewed and appropriate. ROS General: no recent weight change, no fever, no sleep disturbances Respiratory: no cough, no shortness of air, no recurring pulmonary infections Cardiovascular/Peripheral Vascular: No chest pain, No palpitations, no edema, no shortness of breath. Gastrointestinal: no new onset incontinence, normal bowel movements reported Genitourinary: no new onset incontinence Musculoskeletal: Back pain, leg pain Psychiatric: normal mood/ affect Neurological: Weakness with standing and walking, [denies new onset balance issues] Objective:: Physical Exam General: Alert and oriented x3, no acute distress, pleasant and cooperative, [on room air] Lungs: Resps E/U, Symmetrical chest expansion, Eyes: PERRL Musculoskeletal: Flexion and extension of lumbar spine somewhat guarded secondary to pain, deep tendon reflexes normal, strength in upper and lower extremities [5/5], [abnormal gait noted] Neurological: speech clear, cooling pipe inspector equal, no gross sensory deficits Assessment:: Degenerative disc disease lumbar spine with lumbar spinal stenosis with neurogenic claudication Plan:: I will give the patient 5 days worth of steroids to help with her acute pain. We will also start her on tramadol 50 mg 1 p.o. 3 times daily as needed for days that she is to work. We will also continue her Lyrica 150 mg 1 p.o. twice daily. We will send her for x-rays to see if her implant has moved. I will follow-up with her in 1 month reassess her symptoms at that time. Dr. Cee has reviewed this note and agrees with this plan of care. This note was dictated using voice recognition software and may contain errors or omissions [facility] History I have reviewed the patient's past medical history: Yes Medical History: Reports:: Chronic Obstructive Pulmonary Disease (COPD), Coronary Artery Disease, Depression, Gastroesophageal Reflux Disease(GERD), Heart Murmur, Hyperlipidemia, Hypertension, Palpitations Denies:: Cancer, Diabetes Mellitus Type 1, Diabetes Mellitus Type 2, Internal Pacemaker, Lung Disease, MRSA, Seizures *Have you ever received a pneumonia vaccine?: No *Have you received a flu vaccine this season?: No Other Medical History: Reports: Blood Transfusion Reaction, Hoarseness, Other Laterality Cases: Left: Lumpectomy, Right: Carpal Tunnel Release, Bilateral: Other Other Surgeries: Yes: No Previous Surgery, Cardiac Catheterization, Cholecystectomy, Colonoscopy, EGD, Sinus Surgery, Tubal Ligation, Other. No: Pacemaker Amputation: No Fractures: No - *Social History Smoking Status: Former smoker #Yrs smoked (if former smoker): 25 Alcohol Intake: never Alcohol Intake Frequency:: holidays/special occasions only Substance Use Type: denies use *Occupational Status:: other Housing: apartment Household Members: family *Travel in the last 8 weeks: None - Psychiatric History Pschychiatric History:: Reports:: Depression Family Hx:: Diabetes, Coronary Artery Disease
--- NOTE | 2019-11-01 12:27 | XR_ITS ---
PROCEDURE: XR LUMBAR SPINE MIN 4V CLINICAL INDICATION: BACK PAIN COMPARISON: CR [id number] XR lumbar spine 1V from 04/03/2018 FINDINGS: There is normal alignment. There is degenerative disc disease at L2-L3 L3-L4 and L5-S1. No fracture or dislocation. No lytic or blastic change. Percutaneous interspinous spacer devices have been placed at L2-L3 and L3-L4 There is a 3 mm calcific density overlying the lower pole of the right kidney consistent with right nephrolithiasis. Other findings:None. IMPRESSION: 1. Degenerative changes of the lumbar spine with interval placement of percutaneous interspinous spacer devices at L2-L3 and L3-L4 2. Right nephrolithiasis Dictated by: Isac England MD 11/01/2019 13:11 Isac England MD in [place] 11/01/2019 13:11
== END ==
PROVIDERS: PCP Emergency Medicine; Visit Provider Clinical Nurse Specialist Family Health
DX: M51.16 Intervertebral disc disorders with radiculopathy, lumbar region (principal); M48.062 Spinal stenosis, lumbar region with neurogenic claudication
CPT/HCPCS: 72110; 99212

== ENCOUNTER → 2019-11-29 09:44 | Outpatient (POV) | payer BC, SELFPAY ==
[2019-11-29 09:55] VITALS: BP 135/85; PULSE 74; RESP 18; TEMP 37; O2SAT 98; BMI 35.7
--- NOTE | 2019-11-29 10:16 | P.CONS_ITS ---
[facility] Pain Management SOAP Note Subjective:: Patient is a pleasant 59-year-old white female who presents today for follow-up. Patient is being treated with Lyrica 75 mg 1 p.o. twice daily along with tramadol 50 mg 1 p.o. 3 times daily. Patient rates her pain a 3 out of 10. She still having significant trouble with working and standing and sitting. Patient states that she bent over the other day and had a pop in her back. Patient states since then she has had extreme pain. Patient does have a vertiflex present. Patient did have a MRI back in June however she states that her pain has changed since then. Patient may need a surgical consultation. Patient has a lot of emotional issues at home currently with her granddaughter her and her daughter. ROS General: no recent weight change, no fever, no sleep disturbances Respiratory: no cough, no shortness of air, no recurring pulmonary infections Cardiovascular/Peripheral Vascular: No chest pain, No palpitations, no edema, no shortness of breath. Gastrointestinal: no new onset incontinence, normal bowel movements reported Genitourinary: no new onset incontinence Musculoskeletal: Back pain, leg pain Psychiatric: normal mood/ affect Neurological: [denies new onset weakness in extremities], [denies new onset balance issues] Objective:: Physical Exam General: Alert and oriented x3, no acute distress, pleasant and cooperative, [on room air] Lungs: Resps E/U, Symmetrical chest expansion, Eyes: PERRL Musculoskeletal: Flexion and extension of lumbar spine somewhat guarded secondary to pain, deep tendon reflexes normal, strength in upper and lower extremities [5/5], [abnormal gait noted] Neurological: speech clear, generating station mechanic equal, no gross sensory deficits Assessment:: Degenerative disc disease lumbar spine lumbar radiculopathy, spinal stenosis Plan:: We will get a MRI of the patient. She may be a surgical consultation she will need an updated MRI. Patient will continue her Lyrica and her tramadol. Patient also may benefit from cognitive behavioral therapy. We will discuss this at her next appointment. Dr. Cee has reviewed this note and agrees with this plan of care. This note was dictated using voice recognition software and may contain errors or omissions [facility] History I have reviewed the patient's past medical history: Yes Medical History: Reports:: Chronic Obstructive Pulmonary Disease (COPD), Coronary Artery Disease, Depression, Gastroesophageal Reflux Disease(GERD), Heart Murmur, Hyperlipidemia, Hypertension, Palpitations Denies:: Cancer, Diabetes Mellitus Type 1, Diabetes Mellitus Type 2, Internal Pacemaker, Lung Disease, MRSA, Seizures *Have you ever received a pneumonia vaccine?: Yes *Have you received a flu vaccine this season?: Yes Other Medical History: Reports: Blood Transfusion Reaction, Hoarseness, Other Laterality Cases: Left: Lumpectomy, Right: Carpal Tunnel Release, Bilateral: Other Other Surgeries: Yes: No Previous Surgery, Cardiac Catheterization, Cholecystectomy, Colonoscopy, EGD, Sinus Surgery, Tubal Ligation, Other. No: Pacemaker Amputation: No Fractures: No - *Social History Smoking Status: Former smoker #Yrs smoked (if former smoker): 25 Alcohol Intake: never Alcohol Intake Frequency:: holidays/special occasions only Substance Use Type: denies use *Occupational Status:: other Housing: apartment Household Members: family *Travel in the last 8 weeks: None - Psychiatric History Pschychiatric History:: Reports:: Depression Family Hx:: Diabetes, Coronary Artery Disease
== END ==
PROVIDERS: PCP Emergency Medicine; Visit Provider Clinical Nurse Specialist Family Health
DX: M51.16 Intervertebral disc disorders with radiculopathy, lumbar region (principal); M48.00 Spinal stenosis, site unspecified
CPT/HCPCS: 99212

== ENCOUNTER → 2019-12-09 13:37 | Outpatient (CLI) | payer BC, SELFPAY ==
--- NOTE | 2019-12-09 13:40 | MR_ITS ---
PROCEDURE: MR LUMBAR SPINE WO CON CLINICAL INDICATION: BACK PAIN Low back pain worse on the left COMPARISON: MR MR LUMBAR SPINE WO CON from 07/14/2019 CR XR LUMBAR SPINE MIN 4V from 11/01/2019 TECHNIQUE: Standard multiplanar multiecho sequences are performed without contrast. 3-D MIP and myelographic images are also rendered and reviewed FINDINGS: There is normal alignment. The spinal cord ends at the L1 level. T10-T11: There is a small annular protrusion in the left paracentral/lateral recess region without impingement. T11-T12: Unremarkable. T12-L1 and L1-L2 have an unremarkable appearance. L2-L3: Degenerative disc disease with mild annular disc bulge. Artifact is present from spacing devices between the spinous processes at L2-L3 and L3-L4. L3-L4: Minimal bulging disc with mild facet and ligamentum hypertrophy. Not significantly changed artifact from a spacing device between the spinous processes L4-5: Mild degenerative disc disease with minimal bulging disc along with facet and ligamentum hypertrophy with mild bilateral lateral recess narrowing slightly greater on the right compared to the left. Overall not significantly changed. L4-5: Mild degenerative disc disease with mild bulging disc and mild facet and ligamentum hypertrophy L3-L4: Minimal bulging disc. Artifact is present from IMPRESSION: Overall no significant change in the mild multilevel lumbar spondylosis. Please see above for detailed description at each level. Process is unchanged. No canal stenosis or extruded herniated disc evident. Postsurgical changes with spacer devices between L2-L3 and L4 spinous Low back pain worse on the left Dictated by: Isac England MD 12/11/2019 12:21 Isac England MD in [place] 12/11/2019 12:21
== END ==
PROVIDERS: PCP Emergency Medicine; Visit Provider Clinical Nurse Specialist Family Health
DX: M54.5 Low back pain (principal)
CPT/HCPCS: 72148; 76376

== ENCOUNTER → 2019-12-23 13:41 | Outpatient (POV) | payer BC, SELFPAY ==
[2019-12-23 16:08] VITALS: BP 133/74; PULSE 74; RESP 18; O2SAT 98; BMI 35.7
--- NOTE | 2019-12-23 17:27 | HMH.PAINSOAP ---
[facility] Pain Management SOAP Note Subjective:: Patient is a 59-year-old white female who presents today for follow-up. She has been treated for chronic low back pain with lumbar radiculopathy symptoms as well as spinal stenosis with neurogenic claudication symptoms. Patient is managed with Lyrica 75 mg 1 tablet p.o. twice daily and tramadol 50 mg 1 tablet p.o. 3 times daily. Patient rates her pain a 7 out of 10 today. She is having worsening pain with standing and walking as well as sitting. She says she feels a popping sensation in her low back area when she bends forward. She does have a Vertiflex implant. She did have an MRI for which she would like to discuss today. Patient says that she is not interested in injective therapy at this time. She tried and failed physical therapy as well as a home stretching program. She is also tried ice and heat therapies and anti-inflammatories. Review of Systems General: No recent weight changes, no fever, no sleep disturbances Respiratory: No cough, no shortness of air, no recurring pulmonary infections Cardiovascular/peripheral vascular: No chest pain, no palpitations, no edema, no shortness of breath Gastrointestinal: No new onset incontinence, normal bowel movements reported Genitourinary: No new onset incontinence Musculoskeletal: Low back pain worse with bending forward Psychiatric: Normal mood/affect Neurological: [Denies weakness in extremities], [denies balance issues] Objective:: Physical exam General: Alert and oriented x3, no acute distress, pleasant and cooperative, [on room air] Lungs: Respirations even and unlabored, symmetrical chest expansion Eyes: PERRL Musculoskeletal: Flexion and extension of lumbar spine somewhat guarded secondary to pain, deep tendon reflexes normal, strength in upper and lower extremities [5/5], [abnormal gait noted], positive Kemps test Neurological: Speech clear, clerk specialist equal, no gross sensory deficit Assessment:: Degenerative disc disease lumbar spine with lumbar radiculopathy symptoms, facet arthropathy lumbar spine, spinal stenosis with neurogenic claudication symptoms Plan:: Patient I did discuss undergoing medial branch blocks/facet joint injections, however, she is not interested at this time. She does say that her tramadol was increased to 3 times a day at her previous visit, however, the patient says that she has only been taking the medication up to 2 times daily. Patient I did discuss trying to take the medication up to 3 times a day to see if this helps with her pain. She does not want to try injections at this time. She did asked today if she could take gabapentin along with her Lyrica. I have advised her against taking the medications together. I have did discuss with the patient take the medication as prescribed. She will start taking her tramadol 3 times a day to see if this helps with her pain. We will follow-up with her in a week to see if this is helped. She has been instructed to contact clinic if she has any concerns before next appointment. The patient and I specifically discussed risk factors for COVID19. These risks include, but are not limited to age greater than 60, heart or lung disease, diabetes, immunosuppression, and travel. We also discussed NSAIDs may worsen COVID19 infection or symptoms. Patient should not use NSAIDs to treat COVID19 signs or symptoms. Patient was also informed that any type of corticosteroid of any form (oral or injection) will decrease the patient's immune system response and may increase the likelihood of COVID19 infection [address] symptoms[address] Cee has reviewed this note and agrees with this plan of care. This note was dictated using voice recognition software and make contain errors or omissions. [facility] History I have reviewed the patient's past medical history: Yes Medical History: Reports:: Chronic Obstructive Pulmonary Disease (COPD), Coronary Artery Disease, Depression, Gastroesophageal Re
== END ==
PROVIDERS: PCP Emergency Medicine; Visit Provider Clinical Nurse Specialist Family Health
DX: M51.16 Intervertebral disc disorders with radiculopathy, lumbar region (principal); M48.062 Spinal stenosis, lumbar region with neurogenic claudication
CPT/HCPCS: 99212

== ENCOUNTER → 2020-01-10 13:14 | Outpatient (POV) | payer BC, SELFPAY ==
[2020-01-10 13:25] VITALS: BP 133/78; PULSE 74; RESP 18; TEMP 36.8; O2SAT 98; BMI 35.7
--- NOTE | 2020-01-10 13:31 | HMH.PAINSOAP ---
[facility] Pain Management SOAP Note Subjective:: Patient is a pleasant 59-year-old white female presents today for follow-up. She has been treated for chronic low back pain with lumbar radiculopathy symptoms. She is currently on Lyrica 150 mg 1 p.o. twice daily. She would like to change back to her gabapentin she was on gabapentin 800 mg 1 p.o. 4 times daily. We will start her back on gabapentin 600 mg 1 p.o. 3 times daily. Patient rates her pain a 3 out of 10 today. She is also on tramadol 50 mg 1 p.o. 3 times daily. She denies side effects from medication she is not interested in any injective therapy at this time. [facility] #[id number] reviewed and appropriate. Patient is still trying to work. ROS General: no recent weight change, no fever, no sleep disturbances Respiratory: no cough, no shortness of air, no recurring pulmonary infections Cardiovascular/Peripheral Vascular: No chest pain, No palpitations, no edema, no shortness of breath. Gastrointestinal: no new onset incontinence, normal bowel movements reported Genitourinary: no new onset incontinence Musculoskeletal: Back pain Psychiatric: normal mood/ affect, Neurological: [denies new onset weakness in extremities], [denies new onset balance issues] Objective:: Physical Exam General: Alert and oriented x3, no acute distress, pleasant and cooperative, [on room air] Lungs: Resps E/U, Symmetrical chest expansion, Eyes: PERRL Musculoskeletal: Flexion and extension of lumbar spine somewhat guarded secondary to pain, deep tendon reflexes normal, strength in upper and lower extremities [5/5], [abnormal gait noted] Neurological: speech clear, section weaver equal, no gross sensory deficits Assessment:: Degenerative disc disease lumbar spine lumbar spondylosis, back pain Plan:: We will start the patient on gabapentin 600 mg 1 p.o. 3 times daily. We will follow-up with her in 1 month reassess her symptoms at that time she has been instructed to call the office if she has any issues prior to her next appointment. Dr. Cee has reviewed this note and agrees with this plan of care. This note was dictated using voice recognition software and may contain errors or omissions [facility] History I have reviewed the patient's past medical history: Yes Medical History: Reports:: Chronic Obstructive Pulmonary Disease (COPD), Coronary Artery Disease, Depression, Gastroesophageal Reflux Disease(GERD), Heart Murmur, Hyperlipidemia, Hypertension, Palpitations Denies:: Cancer, Diabetes Mellitus Type 1, Diabetes Mellitus Type 2, Internal Pacemaker, Lung Disease, MRSA, Seizures *Have you ever received a pneumonia vaccine?: Yes *Have you received a flu vaccine this season?: Yes Other Medical History: Reports: Blood Transfusion Reaction, Hoarseness, Other Laterality Cases: Left: Lumpectomy, Right: Carpal Tunnel Release, Bilateral: Other Other Surgeries: Yes: No Previous Surgery, Cardiac Catheterization, Cholecystectomy, Colonoscopy, EGD, Sinus Surgery, Tubal Ligation, Other. No: Pacemaker Amputation: No Fractures: No - *Social History Smoking Status: Former smoker #Yrs smoked (if former smoker): 25 Alcohol Intake: never Alcohol Intake Frequency:: holidays/special occasions only Substance Use Type: denies use *Occupational Status:: other Housing: apartment Household Members: family *Travel in the last 8 weeks: None - Psychiatric History Pschychiatric History:: Reports:: Depression Family Hx:: Diabetes, Coronary Artery Disease
== END ==
PROVIDERS: PCP Emergency Medicine; Visit Provider Clinical Nurse Specialist Family Health
DX: M51.36 Other intervertebral disc degeneration, lumbar region (principal); M47.816 Spondylosis without myelopathy or radiculopathy, lumbar region
CPT/HCPCS: 99212

== ENCOUNTER → 2020-02-07 16:38 | Outpatient (CLI) | payer BC, SELFPAY | PROVIDERS: PCP Emergency Medicine; Visit Provider Emergency Medicine | DX: Z03.818 Encounter for observation for suspected exposure to other biological agents ruled out (principal) | CPT/HCPCS: U0003 ==

== ENCOUNTER → 2020-02-21 11:24 | Outpatient (POV) | payer BC, SELFPAY ==
[2020-02-21 11:49] VITALS: BP 138/85; PULSE 74; RESP 18; O2SAT 98; BMI 35.1
--- NOTE | 2020-02-21 12:14 | P.CONS_ITS ---
[facility] Pain Management SOAP Note Subjective:: Pleasant 59-year-old white female who presents today for follow-up. Patient states that she has done well with her change to gabapentin 600 mg 1 p.o. 3 times daily. She would like to increase this to 4 times a day. She rates her pain today 7 out of 10 she states is higher due to the fact that she has been doing more housework. We discussed starting her on an anti-inflammatory she would like to move forward with this. She stated that this was beneficial for her in the past however she stopped and that is when she found out it was beneficial for her. [facility] #[id number] reviewed appropriate. ROS General: no recent weight change, no fever, no sleep disturbances Respiratory: no cough, no shortness of air, no recurring pulmonary infections Cardiovascular/Peripheral Vascular: No chest pain, No palpitations, no edema, no shortness of breath. Gastrointestinal: no new onset incontinence, normal bowel movements reported Genitourinary: no new onset incontinence Musculoskeletal: Back pain, leg pain Psychiatric: normal mood/ affect Neurological: [denies new onset weakness in extremities], [denies new onset balance issues] Objective:: Physical Exam General: Alert and oriented x3, no acute distress, pleasant and cooperative, [on room air] Lungs: Resps E/U, Symmetrical chest expansion, Eyes: PERRL Musculoskeletal: Flexion and extension of lumbar spine somewhat guarded secondary to pain, deep tendon reflexes normal, strength in upper and lower ext remities [5/5], [abnormal gait noted] Neurological: speech clear, analysis director equal, no gross sensory deficits Assessment:: Degenerative disc disease lumbar spine lumbar radiculopathy, lumbar spondylosis and back pain Plan:: The patient's gabapentin 600 mg 1 p.o. 4 times daily we will also start her on diclofenac 75 mg 1 p.o. twice daily. I will follow-up with the patient in 3 months reassess her symptoms at that time she has been instructed to call the office if she has any issues prior to her next appointment. Dr. Cee has reviewed this note and agrees with this plan of care. This note was dictated using voice recognition software and may contain errors or omissions [facility] History I have reviewed the patient's past medical history: Yes Medical History: Reports:: Chronic Obstructive Pulmonary Disease (COPD), Coronary Artery Disease, Depression, Gastroesophageal Reflux Disease(GERD), Heart Murmur, Hyperlipidemia, Hypertension, Palpitations Denies:: Cancer, Diabetes Mellitus Type 1, Diabetes Mellitus Type 2, Internal Pacemaker, Lung Disease, MRSA, Seizures *Have you ever received a pneumonia vaccine?: Yes *Have you received a flu vaccine this season?: Yes Other Medical History: Reports: Blood Transfusion Reaction, Hoarseness, Other Laterality Cases: Left: Lumpectomy, Right: Carpal Tunnel Release, Bilateral: Other Other Surgeries: Yes: No Previous Surgery, Cardiac Catheterization, Cholecystectomy, Colonoscopy, EGD, Sinus Surgery, Tubal Ligation, Other. No: Pacemaker Amputation: No Fractures: No - *Social History Smoking Status: Former smoker #Yrs smoked (if former smoker): 25 Alcohol Intake: never Alcohol Intake Frequency:: holidays/special occasions only Substance Use Type: denies use *Occupational Status:: other Housing: apartment Household Members: family *Travel in the last 8 weeks: None - Psychiatric History Pschychiatric History:: Reports:: Depression Family Hx:: Diabetes, Coronary Artery Disease
== END ==
PROVIDERS: Visit Provider Clinical Nurse Specialist Family Health
DX: M51.16 Intervertebral disc disorders with radiculopathy, lumbar region (principal); M47.896 Other spondylosis, lumbar region
CPT/HCPCS: 99212; G0463

== ENCOUNTER → 2020-03-06 10:43 | Outpatient (CLI) | payer BC, SELFPAY ==
--- NOTE | 2020-03-06 10:43 | MM_ITS ---
PROCEDURE: MM DIG SCREENING MAMM BI W/CAD Digital Breast Tomosynthesis Included CLINICAL INDICATION: screening There is no personal or family history of breast cancer. There has been a previous excisional biopsy left breast for benign disease. COMPARISON: MG MNLEALLT MAMM/NEEDLE LOC LT EA ADD LES from 05/17/2016 MG DMSS DIG MAMM-SURGICAL SPECIMEN from 05/17/2016 MG SCBI MM Dig screening mamm BI w/CAD from 05/11/2018 TECHNIQUE: Standard CC and MLO images and 3D Tomosynthesis was obtained. R2 CAD reviewed. FINDINGS: Scattered fibroglandular densities are seen throughout both breasts. There are mole markers on each breast. There are multiple surgical clips deep within the left breast 6 o'clock position. There is only minimal post biopsy scarring noted. There is no new or suspicious lesion in either breast and no suspicious microcalcifications. IMPRESSION: Fibrofatty parenchyma with no suspicious lesions seen BI-RAD Category: 2 Benign Finding(s) FOLLOW-UP: 1YR 1 Year Follow-up (A letter has been sent to the patient regarding results of the study.) Dictated by: Dr. David Rodriguez MD 03/09/2020 08:20 Dr. David Rodriguez MD in [place] 03/09/2020 08:20
== END ==
PROVIDERS: PCP Emergency Medicine; Visit Provider Emergency Medicine
DX: Z12.31 Encounter for screening mammogram for malignant neoplasm of breast (principal)
CPT/HCPCS: 77063; 77067

== ENCOUNTER → 2020-03-11 07:54 | Outpatient (CLI) | payer BC, SELFPAY ==
[2020-03-11 08:56] LABS: Coronavirus 19 IgG Antibody Negative (Negative); Coronavirus 19 IgM Antibody Negative (Negative)
== END ==
PROVIDERS: Visit Provider Internal Medicine Gastroenterology
DX: Z01.812 Encounter for preprocedural laboratory examination (principal); Z20.822 Contact with and (suspected) exposure to COVID-19; Z12.11 Encounter for screening for malignant neoplasm of colon; Z86.010 Personal history of colon polyps
CPT/HCPCS: 36415; 86328

== ENCOUNTER 2020-03-13 09:55 | Day surgery (SDC) | payer BC, SELFPAY ==
[2020-03-07 11:33] VITALS: BMI 35.1
[2020-03-13 10:14] VITALS: BP 129/70; PULSE 71; RESP 18; TEMP 36.4; O2SAT 99
--- NOTE | 2020-03-13 10:21 | HMH.ANESCL ---
[facility] Anesthesia Checklist - Patient Identification Patient Identification: Arm Band, Verbal (Name & ) - Structural Data Admitted From: Home Planned Operative Procedure/s: colon Consent for Planned Operative Procedure(s) Verified: Yes Verified Documents: History and Physical - NPO Status Verified Time NPO: 00:00 - Chart Verification Results Verified: CBC, BMP - Additional verifications Patient : No Anesthesia Reactions: No Hx Blood Transfusions: No Blood Transfusion Reaction: Yes Cephalosporin Allergy: No Previous Colonoscopy: No - Cardiovascular Assessment Heart Sounds: S1 & S2 Pulse Strength: Baseline Pulse Rhythm: Regular Peripheral Edema: No - Airway Assessment C-Spine Mobility Assessed: Yes TMJ Mobility Assessed: Yes Dentition: Good Dentition - Neurological Assessment Level of Consciousness: Awake, Alert, Appropriate Hx Seizures: No Numbness or tingling in extremities: No - Anesthesia Plan Anesthesia Risk discussed: No Anesthesia Plan: Verified ASA Class: III Anesthesia Type: MAC [facility] History I have reviewed the patient's past medical history: Yes Medical History: Reports:: Chronic Obstructive Pulmonary Disease (COPD), Coronary Artery Disease, Depression, Gastroesophageal Reflux Disease(GERD), Heart Murmur, Hyperlipidemia, Hypertension, Palpitations Denies:: Cancer, Diabetes Mellitus Type 1, Diabetes Mellitus Type 2, Internal Pacemaker, Lung Disease, MRSA, Seizures *Have you ever received a pneumonia vaccine?: Yes *Have you received a flu vaccine this season?: Yes Other Medical History: Reports: Blood Transfusion Reaction, Hoarseness, Other Anesthesia experience/problems:: none Laterality Cases: Left: Lumpectomy, Right: Carpal Tunnel Release, Bilateral: Other Other Surgeries: Yes: No Previous Surgery, Cardiac Catheterization, Cholecystectomy, Colonoscopy, EGD, Sinus Surgery, Tubal Ligation, Other. No: Pacemaker Amputation: No Fractures: No - *Social History Last grade of school completed: Some college Smoking Status: Former smoker #Yrs smoked (if former smoker): 25 Alcohol Intake: never Alcohol Intake Frequency:: holidays/special occasions only Substance Use Type: denies use *Occupational Status:: other Housing: apartment Household Members: family *Travel in the last 8 weeks: None - Psychiatric History Pschychiatric History:: Reports:: Depression Family Hx:: Diabetes, Coronary Artery Disease
[2020-03-13 10:29] VITALS: O2SAT 98
--- NOTE | 2020-03-13 10:56 | P.PCN_ITS ---
[facility] Procedure Note Procedure Note:: Colonoscopy Procedure Report: Colonoscopy with cold snare polypectomy Endoscopist: Blayne Wallace II, MD Referring physician: Juan Tan MD/Mike Duff MD Date of Procedure: March 13, 2020 Equipment: Olympus 180 variable stiffness pediatric colonoscope Sedation: MAC sedation Indication: Mrs. Thrasher is a 59-year-old female who is here for follow-up surveillance colonoscopy secondary to a personal history of colon polyps. She did have a colonoscopy in June 2018 and had polyps removed (Dr. Mike Duff). The patient has had some chronic constipation, bloating and lower abdominal discomfort. She reports no rectal bleeding, weight loss (unintentionally) or family history of colon cancer. Procedure: Prior to the procedure, a history and physical exam was performed, and patient's medications and allergies were reviewed. The risks, benefits and alternatives of the sedation and procedure were discussed with the patient. All questions were answered and informed consent was obtained. The patient was brought to the procedure room. Patient identification and proposed procedure were verified by the physician and the nurse. The patient was placed in a left lateral decubitus position and the scope was passed under direct vision. Throughout the procedure, the patient's blood pressure, pulse, and oxygen saturations were monitored continuously. The colonoscopy was accomplished without difficulty. The patient tolerated the procedure well. Findings: On digital rectal examination there was normal rectal tone. There were no external hemorrhoids. The colonoscope was introduced through the anal canal to the rectum and advanced to the cecum. The ileocecal valve and appendiceal orifice were identified. The scope was advanced a short distance into the ileum which appeared grossly normal. The scope was then withdrawn into the colon. The cecum, ascending and transverse colon were grossly normal. There was a single 3 to 4 mm polyp in the descending (with adjacent Janice ink tattoo) and 2 diminutive polyps (3 mm) in the sigmoid colon. All 3 of these polyps were removed via cold snare polypectomy. There were no other mucosal abnormalities identified. Upon retroflexion within the rectum there were grade 1-2 internal hemorrhoids.The preparation was excellent throughout with [place] Preparation Score of 9. The cecal time was 12 minutes. Impression: 1. Diminutive colonic polyps x3 2. Grade 1-2 internal hemorrhoids Plan: I will follow up the polyp pathology and recommend repeat colonoscopy again in 5-10 years based upon the polyp histology. I will discuss maintenance treatment of her chronic constipation (Linzess or Trulance) today as well.
[2020-03-13 10:57] VITALS: BP 98/48; PULSE 59; RESP 18; TEMP 36.1; O2SAT 99
[2020-03-13 11:07] VITALS: BP 118/83; PULSE 66; RESP 18; O2SAT 100
[2020-03-13 11:17] VITALS: BP 135/86; PULSE 58; RESP 18; O2SAT 100
[2020-03-13 11:40] VITALS: BP 137/77; PULSE 56; RESP 18; O2SAT 100
== END 2020-03-13 11:40 | disposition home or self-care (01) ==
LOC: OUTP 09:57
PROVIDERS: PCP Emergency Medicine; Visit Provider Internal Medicine Gastroenterology
PROC: 0DJD8ZZ Inspection of Lower Intestinal Tract, Via Natural or Artificial Opening Endoscopic (ICD-10-PCS; CPT 45378; principal; 2020-03-13 11:00)
DX: Z12.11 Encounter for screening for malignant neoplasm of colon (principal); Z86.010 Personal history of colon polyps; K63.5 Polyp of colon; K64.0 First degree hemorrhoids; J44.9 Chronic obstructive pulmonary disease, unspecified; I25.10 Atherosclerotic heart disease of native coronary artery without angina pectoris; F32.9 Major depressive disorder, single episode, unspecified; K21.9 Gastro-esophageal reflux disease without esophagitis; E78.5 Hyperlipidemia, unspecified; I10 Essential (primary) hypertension; R00.2 Palpitations; R01.1 Cardiac murmur, unspecified
CPT/HCPCS: 45385

== ENCOUNTER → 2020-03-29 11:37 | Outpatient (CLI) | payer BC, SELFPAY ==
--- NOTE | 2020-03-29 11:41 | XR_ITS ---
PROCEDURE: XR FOOT WT BEARING LT 3V CLINICAL INDICATION: Pain, foreign body COMPARISON: CR FTL3 FOOT-LT-3 VIEWS from 08/13/2016 CR FTR3 FOOT-RT-3 VIEWS from 08/13/2016 FINDINGS: No fracture or dislocation. No lytic or blastic change. There is normal mineralization. There is a small calcaneal spur. No radiopaque foreign body apparent. Other findings:None. IMPRESSION: Small calcaneal spur otherwise negative Dictated by: Isac England MD 03/29/2020 12:41 Isac England MD in [place] 03/29/2020 12:41
== END ==
PROVIDERS: PCP Emergency Medicine; Visit Provider Podiatrist
DX: M79.673 Pain in unspecified foot (principal)
CPT/HCPCS: 73630

== ENCOUNTER → 2020-04-04 12:29 | Outpatient (CLI) | payer BC, SELFPAY ==
[2020-04-04 12:47] LABS: Basophils # 0.1 K/mm3 (0-0.2); Basophils % 1.2 % (0.1-2.0); Eosinophils # 0.2 K/mm3 (0.0-0.4); Eosinophils % 2.5 % (0.1-12.0); Hematocrit 38.5 % (37.0-47.0); Hemoglobin 12.5 g/dL (12.2-16.2); Lymphocytes % 53.5 % (10-50); Mean Corpuscular HGB Conc 32.4 g/dL (31.8-35.4); Mean Corpuscular Hemoglobin 28.3 pg (27.0-31.2); Mean Corpuscular Volume 87.3 fl (81-99); Mean Platelet Volume 8.1 fl (7.4-10.4); Monocytes # 0.4 K/mm3 (0.1-1.0); Monocytes % 5.5 % (1.7-9.3); Neutrophils # 2.8 K/mm3 (1.8-7.8); Neutrophils % 37.3 % (37.0-80.0); Platelet Count 394 K/mm3 (142-424); Red Blood Count 4.41 M/mm3 (4.20-5.40); Red Cell Distribution Width 13.3 % (11.5-17.5); White Blood Count 7.5 K/mm3 (4.8-10.8)
[2020-04-04 12:49] LABS: MANUAL DIFFERENTIAL MANUAL DIFFERENTIAL (MANUAL DIFF)
--- NOTE | 2020-04-04 12:49 | ECG_ITS ---
APPROVED REPORT Exam: Resting ECG HR:72 bpm ECG Measurements Heart Rate 72 AXES AR 138 P 4 QRSd 76 QRS 15 QT 398 T 55 QTc 435 Conclusion Normal sinus rhythm Normal ECG Electronically signed by : Phillip Kim, 04/04/2020 13:15:32
[2020-04-04 13:29] LABS: Coronavirus 19 IgG Antibody Negative (Negative); Coronavirus 19 IgM Antibody Negative (Negative)
[2020-04-04 14:48] LABS: Lymphocytes % 52 % (10-50); Monocytes % 1 % (2-9); Neutrophils % 47 % (42-76); Platelet Estimate Normal; RBC Morphology Normal; Total Cells Counted 100
== END ==
PROVIDERS: Visit Provider Otolaryngology
DX: Z01.818 Encounter for other preprocedural examination (principal); Z20.822 Contact with and (suspected) exposure to COVID-19; L72.0 Epidermal cyst
CPT/HCPCS: 36415; 85007; 85025; 86328; 93005

== ENCOUNTER 2020-04-06 07:31 | Day surgery (SDC) | payer BC, SELFPAY ==
[2020-04-04 10:39] VITALS: BMI 34.7
[2020-04-06 07:58] VITALS: BP 117/81; PULSE 71; RESP 18; TEMP 36.3; O2SAT 98
--- NOTE | 2020-04-06 09:53 | HMH.ANESCL ---
[facility] Anesthesia Checklist - Structural Data Admitted From: Home Planned Operative Procedure/s: excision neoplasm x 3 Consent for Planned Operative Procedure(s) Verified: Yes - Additional verifications Anesthesia Reactions: No Hx Blood Transfusions: No Blood Transfusion Reaction: Yes - Airway Assessment C-Spine Mobility Assessed: Yes TMJ Mobility Assessed: Yes Dentition: Edentulous - Neurological Assessment Level of Consciousness: Awake, Alert, Appropriate - Anesthesia Plan Anesthesia Risk discussed: Yes Anesthesia Plan: Verified ASA Class: II Anesthesia Type: MAC [facility] History I have reviewed the patient's past medical history: Yes Medical History: Reports:: Chronic Obstructive Pulmonary Disease (COPD), Coronary Artery Disease, Depression, Gastroesophageal Reflux Disease(GERD), Heart Murmur, Hyperlipidemia, Hypertension, Palpitations Denies:: Cancer, Diabetes Mellitus Type 1, Diabetes Mellitus Type 2, Internal Pacemaker, Lung Disease, MRSA, Seizures *Have you ever received a pneumonia vaccine?: Yes *Have you received a flu vaccine this season?: Yes Other Medical History: Reports: Blood Transfusion Reaction, Hoarseness, Other Anesthesia experience/problems:: none Laterality Cases: Left: Lumpectomy, Right: Carpal Tunnel Release, Bilateral: Other Other Surgeries: Yes: No Previous Surgery, Cardiac Catheterization, Cholecystectomy, Colonoscopy, EGD, Sinus Surgery, Tubal Ligation, Other. No: Pacemaker Amputation: No Fractures: No - *Social History Last grade of school completed: Some college Smoking Status: Former smoker #Yrs smoked (if former smoker): 25 Alcohol Intake: never Alcohol Intake Frequency:: holidays/special occasions only Substance Use Type: denies use *Occupational Status:: other Housing: apartment Household Members: family *Travel in the last 8 weeks: None - Psychiatric History Pschychiatric History:: Reports:: Depression Family Hx:: Diabetes, Coronary Artery Disease
[2020-04-06 11:11] VITALS: BP 106/57; PULSE 71; RESP 18; TEMP 36.3; O2SAT 98
--- NOTE | 2020-04-06 11:20 | P.OP_ITS ---
Date of procedure: 04/06/20 Pre-op Diagnosis:: 1. 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 Neoplasm right ear 2 cm Post-op Diagnosis:: Same Procedure performed:: 1. Excision of neoplasm left holiness 2.2 cm with tissue rearrangement Z-plasty repair. 2. Excision of neoplasm left neck 2.5 cm with tissue rearrangement Z-plasty repair. 3. Neoplasm right ear 2 cm with tissue rearrangement geometric plastic repair Surgeon:: Neymar Pearson MD TEACHER DANCING:: Other Anesthesia: RORO LARA Estimated blood loss (mL): 10 Operative findings:: Same Operative note:: The left holiness and left neck were prepped and draped the perilesional areas were infiltrated with a total of 6 cc of 2% lidocaine containing epinephrine. The lesion on the left holiness was marked out it measured 2.2 cm markup was incised and the lesion was excised and submitted. Bleeding was stopped with bipolar cautery Surgicel snow was placed in the defect and anterior and posterior incision was made and a tissue rearrangement Z-plasty repair was done with interrupted 3-0 nylon sutures a Dermabond dressing was applied. The lesion on the left neck was marked out it measured 2.5 cm the arpita out was incised and the lesion was excised and submitted bleeding was stopped with bipolar cautery Surgicel snow was placed in the defect anterior and posterior incisions were made and a tissue rearrangement Z-plasty repair was done with interrupted 3-0 nylon sutures Dermabond dressing was applied. The lesion on the right ear measured 2cm the perilesional area was infiltrated with 3 cc of 2% lidocaine containing epinephrine. The arpita out was incised and the lesion was excised and submitted. Anterior and posterior incisions were made and a tissue rear rangement geometric plastic repair was done with interrupted 3-0 nylon sutures. Dermabond dressing was applied patient was sent to recovery in good general condition. Signed Neymar Pearson MD thank you. Condition: stable Disposition: PACU Complications:: None
[2020-04-06 11:29] VITALS: BP 136/77; PULSE 58; RESP 18; O2SAT 98
[2020-04-06 11:40] VITALS: BP 128/67; PULSE 68; RESP 18; O2SAT 100
== END 2020-04-06 11:41 | disposition home or self-care (01) ==
LOC: OR 07:33
PROVIDERS: PCP Emergency Medicine; Visit Provider Otolaryngology
PROC: (CPT 14040; principal; 2020-04-06 09:30)
DX: L72.0 Epidermal cyst (principal); J44.9 Chronic obstructive pulmonary disease, unspecified; I25.10 Atherosclerotic heart disease of native coronary artery without angina pectoris; E78.5 Hyperlipidemia, unspecified; I10 Essential (primary) hypertension; R00.2 Palpitations; F32.9 Major depressive disorder, single episode, unspecified; K21.9 Gastro-esophageal reflux disease without esophagitis; R01.1 Cardiac murmur, unspecified; Z87.39 Personal history of other diseases of the musculoskeletal system and connective tissue; Z87.891 Personal history of nicotine dependence; Z83.3 Family history of diabetes mellitus
CPT/HCPCS: 14040 ×2; 14060; 96374; 96375

== ENCOUNTER → 2020-04-19 12:47 | Outpatient (CLI) | payer BC, SELFPAY ==
--- NOTE | 2020-04-19 12:47 | US_ITS ---
PROCEDURE: US EXTREMITY LT LIMITED CLINICAL INDICATION: Evaluate prescence of foreign body in left foot COMPARISON: No exams were available for comparison FINDINGS: No obvious radiopaque foreign body apparent. No cyst mass or other significant anomaly. IMPRESSION: No obvious radiopaque foreign body apparent. No cyst mass or other significant anomaly. Dictated by: Isac England MD 04/19/2020 17:07 Isac England MD in [place] 04/19/2020 17:07
== END ==
PROVIDERS: PCP Emergency Medicine; Visit Provider Nurse Practitioner
DX: S90.852A Superficial foreign body, left foot, initial encounter (principal)
CPT/HCPCS: 76882

== ENCOUNTER → 2020-05-29 11:07 | Outpatient (POV) | payer BC, SELFPAY ==
[2020-05-29 11:25] VITALS: BP 125/88; PULSE 65; RESP 18; O2SAT 98; BMI 34.4
--- NOTE | 2020-05-29 11:39 | HMH.PAINSOAP ---
[facility] Pain Management SOAP Note Subjective:: Patient is a pleasant 59-year-old white female who presents today for follow-up. Patient states that she is done well on her changes of gabapentin 600 mg 1 p.o. 4 times daily. She denies side effects. Patient rates her pain today a 3 out of 10. She is also on diclofenac 75 mg 1 p.o. twice daily. She wants to discuss taking 2 gabapentin at nighttime. We will increase her to 5 times a day. [facility] #[id number] reviewed and appropriate. ROS General: no recent weight change, no fever, no sleep disturbances Respiratory: no cough, no shortness of air, no recurring pulmonary infections Cardiovascular/Peripheral Vascular: No chest pain, No palpitations, no edema, no shortness of breath. Gastrointestinal: no new onset incontinence, normal bowel movements reported Genitourinary: no new onset incontinence Musculoskeletal: Back pain, leg pain Psychiatric: normal mood/ affect Neurological: [denies new onset weakness in extremities], [denies new onset balance issues] Objective:: Physical Exam General: Alert and oriented x3, no acute distress, pleasant and cooperative, [on room air] Lungs: Resps E/U, Symmetrical chest expansion, Eyes: PERRL Musculoskeletal: Flexion and extension of lumbar spine somewhat guarded secondary to pain, deep tendon reflexes normal, strength in upper and lower extremities [5/5], [abnormal gait noted] Neurological: speech clear, manufacturing area 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 5 times a day and diclofenac 75 mg 1 p.o. twice daily. We will see her back in 3 months reassess her symptoms at that time she has been instructed to call the office if she has any issues prior to her next appointment. Dr. Cee has reviewed this note and agrees with this plan of care. This note was dictated using voice recognition software and may contain errors or omissions [facility] History I have reviewed the patient's past medical history: Yes Medical History: Reports:: Chronic Obstructive Pulmonary Disease (COPD), Coronary Artery Disease, Depression, Gastroesophageal Reflux Disease(GERD), Heart Murmur, Hyperlipidemia, Hypertension, Palpitations Denies:: Cancer, Diabetes Mellitus Type 1, Diabetes Mellitus Type 2, Internal Pacemaker, Lung Disease, MRSA, Seizures *Have you ever received a pneumonia vaccine?: Yes *Have you received a flu vaccine this season?: Yes Other Medical History: Reports: Blood Transfusion Reaction, Hoarseness, Other Laterality Cases: Left: Lumpectomy, Right: Carpal Tunnel Release, Bilateral: Other Other Surgeries: Yes: No Previous Surgery, Cardiac Catheterization, Cholecystectomy, Colonoscopy, EGD, Sinus Surgery, Tubal Ligation, Other. No: Pacemaker Amputation: No Fractures: No - *Social History Smoking Status: Former smoker #Yrs smoked (if former smoker): 25 Alcohol Intake: never Alcohol Intake Frequency:: holidays/special occasions only Substance Use Type: denies use *Occupational Status:: other Housing: apartment Household Members: family *Travel in the last 8 weeks: None - Psychiatric History Pschychiatric History:: Reports:: Depression Family Hx:: Diabetes, Coronary Artery Disease
== END ==
PROVIDERS: PCP Emergency Medicine; Visit Provider Clinical Nurse Specialist Family Health
DX: M51.16 Intervertebral disc disorders with radiculopathy, lumbar region (principal); M47.896 Other spondylosis, lumbar region
CPT/HCPCS: 99212; G0463

== ENCOUNTER → 2020-06-29 10:36 | Outpatient (CLI) | payer BC, SELFPAY ==
--- NOTE | 2020-06-29 10:37 | US_ITS ---
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: Olive Julio RVT Indications Claudication: Bilaterally Rest Pain: Bilaterally DECREASED PEDAL PULSE Risk Factors Hypertension Hyperlipidemia Pressures/Indices Right Indices Left Indices Brachial 120.00 mmHg Brachial 117.00 mmHg Low Thigh 130.00 mmHg 1.08 Low Thigh 137.00 mmHg 1.14 Calf 139.00 mmHg 1.16 Calf 125.00 mmHg 1.04 Ankle(PT) 143.00 mmHg 1.19 Ankle(PT) 148.00 mmHg 1.23 Ankle(DP) 143.00 mmHg 1.19 Ankle(DP) 143.00 mmHg 1.19 Digit 108.00 mmHg 0.90 Digit 91.00 mmHg 0.76 Findings RT MADELEINE:1.19 LT MADELEINE:1.23 RT TBI:0.90 LT TBI:0.76 NORMAL PULSES BILATERAL NORMAL WAVEFORMS BILATERAL Conclusion RT MADELEINE:1.19 LT MADELEINE:1.23 RT TBI:0.90 LT TBI:0.76 NORMAL PULSES BILATERAL NORMAL WAVEFORMS BILATERAL Normal appearing resting noninvasive lower extremity arterial study. Electronically signed by : Isac England MD 07/03/2020 17:28:58
== END ==
PROVIDERS: PCP Emergency Medicine; Visit Provider Podiatrist
DX: R09.89 Other specified symptoms and signs involving the circulatory and respiratory systems (principal)
CPT/HCPCS: 93923

== ENCOUNTER → 2020-06-29 12:48 | Outpatient (POV) | payer BC, SELFPAY ==
[2020-06-29 13:25] VITALS: BP 113/61; PULSE 78; RESP 18; O2SAT 98; BMI 33.7
--- NOTE | 2020-06-29 15:04 | HMH.PAINSOAP ---
[facility] Pain Management SOAP Note Subjective:: Patient is a pleasant 59-year-old white female who presents today for follow-up. She rates her pain an 8 out of 10 she is having flare in her pain she discussed potentially taking steroids to help with her pain. She is on gabapentin 600 mg 1 p.o. 5 times a day and diclofenac 75 mg 1 p.o. twice daily. Patient states that typically this helps her significantly but recently it has. Patient [facility] #[id number] reviewed and appropriate. She is uninterested in any injective therapy. ROS General: no recent weight change, no fever, no sleep disturbances Respiratory: no cough, no shortness of air, no recurring pulmonary infections Cardiovascular/Peripheral Vascular: No chest pain, No palpitations, no edema, no shortness of breath. Gastrointestinal: no new onset incontinence, normal bowel movements reported Genitourinary: no new onset incontinence Musculoskeletal: Back pain Psychiatric: normal mood/ affect Neurological: [denies new onset weakness in extremities], [denies new onset balance issues] Objective:: Physical Exam General: Alert and oriented x3, no acute distress, pleasant and cooperative, [on room air] Lungs: Resps E/U, Symmetrical chest expansion, Eyes: PERRL Musculoskeletal: Flexion and extension of lumbar spine somewhat guarded secondary to pain, deep tendon reflexes normal, strength in upper and lower extremities [5/5], [abnormal gait noted] Neurological: speech clear, fashion artist 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 I will follow-up with her in 2 weeks reassess her symptoms at that time she has been instructed to call the office if she has any issues prior to her next appointment. Dr. Cee has reviewed this note and agrees with this plan of care. This note was dictated using voice recognition software and may contain errors or omissions [facility] History I have reviewed the patient's past medical history: Yes Medical History: Reports:: Chronic Obstructive Pulmonary Disease (COPD), Coronary Artery Disease, Depression, Gastroesophageal Reflux Disease(GERD), Heart Murmur, Hyperlipidemia, Hypertension, Palpitations Denies:: Cancer, Diabetes Mellitus Type 1, Diabetes Mellitus Type 2, Internal Pacemaker, Lung Disease, MRSA, Seizures *Have you ever received a pneumonia vaccine?: Yes *Have you received a flu vaccine this season?: Yes Other Medical History: Reports: Blood Transfusion Reaction, Hoarseness, Other Laterality Cases: Left: Lumpectomy, Right: Carpal Tunnel Release, Bilateral: Other Other Surgeries: Yes: No Previous Surgery, Cardiac Catheterization, Cholecystectomy, Colonoscopy, EGD, Sinus Surgery, Tubal Ligation, Other. No: Pacemaker Amputation: No Fractures: No - *Social History Smoking Status: Former smoker #Yrs smoked (if former smoker): 25 Alcohol Intake: never Alcohol Intake Frequency:: holidays/special occasions only Substance Use Type: denies use *Occupational Status:: other Housing: apartment Household Members: family *Travel in the last 8 weeks: None - Psychiatric History Pschychiatric History:: Reports:: Depression Family Hx:: Diabetes, Coronary Artery Disease
== END ==
PROVIDERS: PCP Emergency Medicine; Visit Provider Clinical Nurse Specialist Family Health
DX: M51.16 Intervertebral disc disorders with radiculopathy, lumbar region (principal)
CPT/HCPCS: 99212; G0463

== ENCOUNTER → 2020-07-27 14:12 | Outpatient (POV) | payer BC, SELFPAY ==
[2020-07-27 14:53] VITALS: BP 118/59; PULSE 87; RESP 18; O2SAT 96; BMI 36.2
--- NOTE | 2020-07-27 16:46 | HMH.PAINSOAP ---
[facility] Pain Management SOAP Note Subjective:: Patient is a 59-year-old white female who presents today for follow-up. She has been treated for degenerative disc disease lumbar spine with lumbar radiculopathy symptoms. Patient has tried and failed Vertiflex implant along with injections and oral medications. None of these have given her any relief. She says that all conservative therapies attempted in the clinic have not given her any significant pain relief. She rates her pain a 4 out of 10 today. She has managed in the clinic with gabapentin 600 mg 1 tablet p.o. 5 times daily and diclofenac 75 mg 1 tablet p.o. twice daily. She does need a refill on the medications. Her [facility] #[id number] has been reviewed and is appropriate. Drug screens have been appropriate. She is requesting a neurosurgical evaluation for her continued low back pain. She has pain is in her low back that is worse with standing and walking and does not improve with sitting. She does have occasional paresthesia into her bilateral lower extremities radiating to the feet. Review of Systems General: No recent weight changes, no fever, no sleep disturbances Respiratory: No cough, no shortness of air, no recurring pulmonary infections Cardiovascular/peripheral vascular: No chest pain, no palpitations, no edema, no shortness of breath Gastrointestinal: No new onset incontinence, normal bowel movements reported Genitourinary: No new onset incontinence Musculoskeletal: Low back pain with radiation into bilateral lower extremities with numbness and tingling Psychiatric: Normal mood/affect Neurological: [Denies weakness in extremities], [denies balance issues] Objective:: Physical exam General: Alert and oriented x3, no acute distress, pleasant and cooperative, [on room air] Lungs: Respirations even and unlabored, symmetrical chest expansion Eyes: PERRL Musculoskeletal: Flexion and extension of lumbar spine somewhat guarded secondary to pain, deep tendon reflexes normal, strength in upper and lower extremities [5/5], [abnormal gait noted] Neurological: Speech clear, egg buyer equal, no gross sensory deficit Assessment:: Degenerative disc disease lumbar spine with lumbar radiculopathy symptoms Plan:: We will refill the patient's gabapentin 610 mg 1 tablet p.o. 5 times daily and diclofenac 75 mg 1 tablet p.o. twice daily. She is requested a neurosurgical evaluation. We have exhausted all conservative measures in the clinic for the patient. We will refer her to neurosurgery and see her back afterwards for reevaluation of symptoms. She understands she will not likely be a neurosurgical candidate, however, we will refer her at her request. Risks and benefits of the medication have been explained in detail to the patient. The patient has been advised to consult with his/her primary care provider and pharmacist regarding drug-drug interaction of medications currently prescribed. Patient has been instructed to contact the clinic with any concerns before the next appointment. Dr. Cee has reviewed this note and agrees with this plan of care. This note was dictated using voice recognition software and make contain errors or omissions. Patient has been prescribed a controlled substance after being counseled on the medication, medication safety, and possible side effects. HAI report has been obtained and reviewed prior to prescription and found to be appropriate. Opioid contract was reviewed and signed by the patient, and that they have agreed to all of the terms set forth by our compliance program. [facility] History I have reviewed the patient's past medical history: Yes Medical History: Reports:: Chronic Obstructive Pulmonary Disease (COPD), Coronary Artery Disease, Depression, Gastroesophageal Reflux Disease(GERD), Heart Murmur, Hyperlipidemia, Hypertension, Palpitations Denies:: Cancer, Diabetes Mellitus Type 1, Diabetes Mellitus Type 2, Internal Pacemaker, Lung Disease, M
== END ==
PROVIDERS: Visit Provider Clinical Nurse Specialist Family Health
DX: M51.16 Intervertebral disc disorders with radiculopathy, lumbar region (principal)
CPT/HCPCS: 99212; G0463

== ENCOUNTER → 2020-09-15 14:15 | Outpatient (CLI) | payer BC, SELFPAY ==
--- NOTE | 2020-09-15 14:25 | XR_ITS ---
PROCEDURE: XR KUB CLINICAL INDICATION: back pain/kidney stone Left flank COMPARISON: CT ABDPELWO CT abdomen pelvis wo con from 09/21/2018 CR XR KUB from 04/05/2019 FINDINGS: There are numerous pelvic phleboliths. A 4 mm stone is noted in the lower pole of the right kidney. Interspinous spacers are present at L2-L3 and L3-L4. IMPRESSION: Right nephrolithiasis Dictated by: Isac England MD 09/15/2020 15:52 Isac England MD in [place] 09/15/2020 15:52
== END ==
PROVIDERS: PCP Emergency Medicine; Visit Provider Urology
DX: M54.9 Dorsalgia, unspecified (principal); N20.0 Calculus of kidney
CPT/HCPCS: 74018

== ENCOUNTER → 2020-09-19 19:50 | Outpatient (CLI) | payer BC, SELFPAY ==
[2020-09-19 20:20] LABS: Basophils # 0.2 K/mm3 (0-0.2); Basophils % 2.4 % (0.1-2.0); Eosinophils # 0.2 K/mm3 (0.0-0.4); Eosinophils % 2.3 % (0.1-12.0); Hematocrit 36.8 % (37.0-47.0); Hemoglobin 12.2 g/dL (12.2-16.2); Lymphocytes # 4.3 K/mm3 (0.7-4.5); Lymphocytes % 48.3 % (10-50); Mean Corpuscular HGB Conc 33.2 g/dL (31.8-35.4); Mean Corpuscular Hemoglobin 28.6 pg (27.0-31.2); Mean Corpuscular Volume 86.2 fl (81-99); Mean Platelet Volume 8.9 fl (7.4-10.4); Monocytes # 0.5 K/mm3 (0.1-1.0); Monocytes % 5.7 % (1.7-9.3); Neutrophils # 3.7 K/mm3 (1.8-7.8); Neutrophils % 41.4 % (37.0-80.0); Platelet Count 433 K/mm3 (142-424); Red Blood Count 4.27 M/mm3 (4.20-5.40); Red Cell Distribution Width 13.6 % (11.5-17.5); White Blood Count 8.9 K/mm3 (4.8-10.8)
[2020-09-19 20:32] LABS: Alanine Aminotransferase 24 U/L (12-78); Albumin Level 4.3 g/dl (3.5-5.0); Albumin/Globulin Ratio 1.5 (1.1-1.8); Alkaline Phosphatase 108 U/L (38-126); Anion Gap 12.9 mEq/L (5-15); Aspartate Amino Transferase 31 U/L (14-36); Bilirubin,Total 0.3 mg/dl (0.2-1.3); Blood Urea Nitrogen 23 mg/dl (7-17); Calcium 9.5 mg/dl (8.4-10.2); Carbon Dioxide 27 mmol/L (22.0-30.0); Chloride 103 mmol/L (98-107); Chol/HDL Ratio 3.1 (1-3.5); Cholesterol 194 mg/dl (140-200); Estimated Glomerular Filt Rate 103 ml/min (>60); GFR (African American) 124 ML/MIN (>60); Globulin 2.9 g/dL (1.3-3.2); Glucose 105 mg/dl (74-100); HDL Cholesterol 63 mg/dl (40-60); Potassium 4.9 mmoL/L (3.5-5.1); Sodium 138 mmol/L (136-145); Total Protein,Serum 7.2 g/dl (6.3-8.2); Triglycerides 287 mg/dl (30-150); VLDL Cholesterol 57 mg/dL (0-40)
[2020-09-19 20:43] LABS: Direct LDL Cholesterol 75.78 mg/dL (100-129)
[2020-09-19 20:50] LABS: T4 (Thyroxine) 4.8 ug/dl (5.53-11.0)
[2020-09-19 21:04] LABS: Thyroid Stimulating Hormone 1.09 uIU/mL (0.465-4.68)
[2020-09-19 21:38] LABS: Vitamin B12 461 pg/mL (239-931)
[2020-09-19 21:42] LABS: Folate > 20.00 ng/mL
== END ==
PROVIDERS: Visit Provider Nurse Practitioner Family
DX: I25.10 Atherosclerotic heart disease of native coronary artery without angina pectoris (principal); E78.5 Hyperlipidemia, unspecified; E66.9 Obesity, unspecified; Z68.37 Body mass index [BMI] 37.0-37.9, adult; Z87.891 Personal history of nicotine dependence; I10 Essential (primary) hypertension
CPT/HCPCS: 80053; 80061; 82306; 82607; 82746; 83036; 84436; 84443; 85025

== ENCOUNTER → 2020-10-05 15:06 | Outpatient (POV) | payer BC, SELFPAY ==
[2020-10-05 15:19] VITALS: BP 134/65; PULSE 102; RESP 18; TEMP 36.7; O2SAT 95; BMI 36.6
--- NOTE | 2020-10-05 16:13 | HMH.PAINSOAP ---
[facility] Pain Management SOAP Note Subjective:: Patient is a 59-year-old white female who presents today for follow-up. She has been treated for degenerative disc disease lumbar spine with lumbar radiculopathy symptoms. Patient has tried and failed Vertiflex implant along with injections and oral medications. The patient has not gotten relief with any of these regimens. She is managed with gabapentin 600 mg 1 tablet p.o. 5 times daily. She is also managed with diclofenac 75 mg 1 tablet p.o. twice daily. Unfortunately, there was a mistake at the pharmacy and her gabapentin was discontinued. As result she did not receive her medication. She did contact the clinic and was scheduled to return to the clinic for medication discussion. Patient is scheduled to see a neurosurgeon in October. Now, she is having excruciating pain in her low back and lower extremities. She does have paresthesia into her bilateral lower extremities and feet. Review of Systems General: No recent weight changes, no fever, no sleep disturbances Respiratory: No cough, no shortness of air, no recurring pulmonary infections Cardiovascular/peripheral vascular: No chest pain, no palpitations, no edema, no shortness of breath Gastrointestinal: No new onset incontinence, normal bowel movements reported Genitourinary: No new onset incontinence Musculoskeletal: Low back pain with radiation into bilateral lower extremities, pain worsening Psychiatric: [Normal mood/affect] Neurological: [Denies weakness in extremities], [denies balance issues] Objective:: Physical exam General: Alert and oriented x3, no acute distress, pleasant and cooperative, [on room air] Lungs: Respirations even and unlabored, symmetrical chest expansion Eyes: PERRL Musculoskeletal: Flexion and extension of lumbar [spine] somewhat guarded secondary to pain, strength in upper and lower extremities [5/5], [antalgic gait noted] Neurological: Speech clear, [talent management specialist equal], no gross sensory deficit Assessment:: Degenerative disc disease lumbar spine with lumbar radiculopathy symptoms, worsening low back pain Plan:: We will refill the patient's gabapentin 600 mg 1 tablet p.o. 5 times daily and her diclofenac 75 mg 1 tablet p.o. twice daily. We will give the patient a month medication of [place] 5 mg 1 tablet p.o. twice daily until she is able to see the neurosurgeon at [facility] in October. She will get 3 months of her gabapentin and diclofenac. We will see her back in 3 months for reevaluation of symptoms. Risks and benefits of the medication have been explained in detail to the patient. The patient has been advised to consult with his/her primary care provider and pharmacist regarding drug-drug interaction of medications currently prescribed. Patient has been prescribed a controlled substance after being counseled on the medication, medication safety, and possible side effects. HAI report has been obtained and reviewed prior to prescription and found to be appropriate. Opioid contract was reviewed and signed by the patient, and that they have agreed to all of the terms set forth by our compliance program. Patient has been instructed to contact the clinic with any concerns before the next appointment. Dr. Cee has reviewed this note and agrees with this plan of care. This note was dictated using voice recognition software and make contain errors or omissions. [facility] History I have reviewed the patient's past medical history: Yes Medical History: Reports:: Chronic Obstructive Pulmonary Disease (COPD), Coronary Artery Disease, Depression, Gastroesophageal Reflux Disease(GERD), Heart Murmur, Hyperlipidemia, Hypertension, Palpitations Denies:: Cancer, Diabetes Mellitus Type 1, Diabetes Mellitus Type 2, Internal Pacemaker, Lung Disease, MRSA, Seizures *Have you ever received a pneumonia vaccine?: Yes *Have you received a flu vaccine this season?: Yes Other Medical History: Reports: Blood Transfusion
== END ==
PROVIDERS: Visit Provider Clinical Nurse Specialist Family Health
DX: M51.16 Intervertebral disc disorders with radiculopathy, lumbar region (principal)
CPT/HCPCS: 99212; G0463

== ENCOUNTER → 2020-10-16 12:02 | Outpatient (CLI) | payer BC, SELFPAY ==
[2020-10-17 11:14] LABS: Rapid Plasma Reagin Ab Titer Non Reactive (NonRea<1:1)
[2020-10-26 11:01] LABS: Antinuclear Antibodies (ANA) NEGATIVE
== END ==
PROVIDERS: Visit Provider Nurse Practitioner Family
DX: R41.3 Other amnesia (principal)
CPT/HCPCS: 36415; 86038; 86225; 86235; 86592

== ENCOUNTER → 2020-10-24 08:15 | Outpatient (CLI) | payer BC, SELFPAY ==
--- NOTE | 2020-10-24 08:16 | CT_ITS ---
PROCEDURE: CT LUNG SCREENING CLINICAL INDICATION: lung cancer screening COMPARISON: CT CHESTWO CT chest wo con from 08/25/2017 TECHNIQUE: The exam was performed on a GE Light Speed [address] scanner using 2.90 mGy CTDI. A low dose helical CT CHEST was performed on a multi-detector scanner. All CT scans at the facility use one or more dose reduction, viz: automated exposure control, ma/kV adjustment per patient size (including targeted exams where dose is matched to indication, i.e. head), or iterative reconstruction technique. The LDCT was performed in a facility that meets the criteria for the screening program. Data regarding this exam was submitted to ACR which is an approved registry. The order for this exam indicates that it came as a result of a lung cancer screening counseling shard decision-making visit that included all the elements required of such a visit including smoking cessation. The radiologist interpreting this exam meets the CMS criteria for the LDCT lung cancer screening program. The exam is reported using the Lung-RADS classification scale and reported to the ACR registry. NOTE: This study was performed for the specific purposes of lung cancer screening and is not an alternative to diagnostic chest CT. RADIATION DOSE: CTDI vol(CT dose Index-volume) = 2.90mG DLP (Dose Length Product) = 98.99 mGcm FINDINGS: COPD changes with scattered areas of scarring. Pulmonary fibrotic changes are present in the upper lobes and lower lobes posteriorly with mild bronchial dilatation in the lower lobes. There is a 6 4 mm Lien fissural nodule in the right middle lobe. The nodule has a somewhat irregular contour and may be very slightly larger compared to the previous exam. Calcified granuloma is present in the left lower lobe. No new nodules are evident. OTHER FINDINGS: There are few small mediastinal lymph nodes not significantly changed. Surgical clips are present in the left breast IMPRESSION: Lung-RADS Category 3 Probably Benign regarding right Lien fissural nodules slightly increased in size Follow-up: [address] Chest without and with contrast. Pulmonary fibrosis with COPD Dictated by: Isac England MD 11/13/2020 08:31 Isac England MD in [place] 11/13/2020 08:31
--- NOTE | 2020-10-24 08:28 | XR_ITS ---
PROCEDURE: XR DEXA AXIAL SKELETON CLINICAL HISTORY: screening COMPARISON: No exams were available for comparison FINDINGS: The right hip BMD is 0.970 with a T-score of 0.2. The left hip BMD is 0.740 with a T-score of -1.0. The 1/3 radius is 0.701 with a T-score of 0.1. Lumbar spine was not utilized due to overlying metallic hardware. IMPRESSION: This patient is considered normal according to the World Health Organization criteria. Fracture risk is low. Based on these results a follow-up exam is recommended in 2 year. Dictated by: Isac England MD 10/24/2020 11:56 Isac England MD in [place] 10/24/2020 11:56
== END ==
PROVIDERS: PCP Nurse Practitioner Family; Visit Provider Nurse Practitioner Family
DX: Z87.891 Personal history of nicotine dependence (principal); Z12.2 Encounter for screening for malignant neoplasm of respiratory organs; Z13.820 Encounter for screening for osteoporosis; Z78.0 Asymptomatic menopausal state
CPT/HCPCS: 71271; 77080

== ENCOUNTER → 2020-10-30 08:36 | Outpatient (CLI) | payer BC, SELFPAY ==
--- NOTE | 2020-10-30 08:37 | MR_ITS ---
PROCEDURE: MR HEAD/BRAIN WO CON CLINICAL INDICATION: memory loss Memory loss dizziness and blurred vision COMPARISON: CT SINUS CT SINUS (MAX-FACIAL W/O CONT) from 04/05/2016 TECHNIQUE: Routine multiplanar multi echo sequences are performed without gadolinium enhancement. FINDINGS: No midline shift, mass effect, intracranial hemorrhage, or hydrocephalus is evident. No evidence of restricted diffusion or acute infarction. The cerebellopontine angles, cerebellum, and brainstem have an unremarkable appearance. . Partial empty sella. The optic chiasm, corpus callosum, and craniocervical junction have an unremarkable appearance. There does appear to be a mildly prominent draining vein extending from frontal horn of the right lateral ventricle to the frontal cortex best seen on the series 3, image 40 suggesting a developmental venous anomaly. CTA of the brain is suggested for further characterization. There is some very minimal increase in T2 white matter signal intensity around the suspected DVA. No mastoid effusion or sinus air-fluid level. The orbits have an unremarkable appearance. IMPRESSION: Suspected developmental venous anomaly of the right frontal lobe. Consider CTA of the brain for confirmation otherwise negative MRI of the brain without contrast. Dictated by: Isac England MD 10/31/2020 08:18 Isac England MD in [place] 10/31/2020 08:18
== END ==
PROVIDERS: PCP Nurse Practitioner Family; Visit Provider Nurse Practitioner Family
DX: R41.3 Other amnesia (principal); R44.0 Auditory hallucinations; R44.1 Visual hallucinations; Z20.822 Contact with and (suspected) exposure to COVID-19
CPT/HCPCS: 70551; 95819; C9803; U0003; U0005

== ENCOUNTER → 2020-11-13 12:22 | Outpatient (CLI) | payer BC, SELFPAY ==
[2020-11-13 13:21] LABS: Blood Urea Nitrogen 11 mg/dl (7-17); Estimated Glomerular Filt Rate 102 ml/min (>60); GFR (African American) 124 ML/MIN (>60)
== END ==
PROVIDERS: Specialist; Visit Provider Nurse Practitioner Family
DX: I10 Essential (primary) hypertension (principal)
CPT/HCPCS: 36415; 82565; 84520

== ENCOUNTER → 2020-11-16 13:21 | Outpatient (CLI) | payer BC, SELFPAY ==
--- NOTE | 2020-11-16 13:22 | CT_ITS ---
Procedure: CT ANGIO HEAD CLINICAL HISTORY: abnormal brain mri COMPARISON: MR MR HEAD/BRAIN WO CON from 10/30/2020 TECHNIQUE: IV Contrast: 100ml Isovue 370 Axial images obtained with sagittal and coronal reformats. All CT scans at the facility use one or more dose reduction, viz: automated exposure control, ma/kV adjustment per patient size (including targeted exams where dose is matched to indication, i.e. head), or iterative reconstruction technique. FINDINGS: There is a prominent draining vein extending from the anterior horn of the right lateral ventricle to the cortical surface of the right frontal lobe with small spider like small feeding arteries consistent with a developmental venous anomaly. The vertebral basilar system has an unremarkable appearance. The internal carotid arteries, anterior communicating and anterior cerebral arteries, and middle cerebral arteries have an unremarkable appearance. No aneurysm or dissection is evident. No obvious venous thrombosis. No enhancing lesions apparent. No midline shift or mass effect. IMPRESSION: Prominent developmental venous anomaly of the right frontal lobe Dictated by: Isac England MD 11/17/2020 10:53 Isac England MD in [place] 11/17/2020 10:53
--- NOTE | 2020-11-16 14:01 | CA_ITS ---
APPROVED REPORT EXAM: Comprehensive 2D, Doppler, and color-flow Echocardiogram Ibm Bpm Developer: Lissette De La Fuente CRT Ht: 5 ft 5 in Wt: 226lbs BSA: 2.08 BP: 121/51 mmHg Indications: COPD, Shortness of Breath, Obesity, Palpitations, Fatigue, CAD, Hyperlipidemia, Hypertension/HDD 2D Dimensions LVOT 1.97 cm (M/F) 1.5-2.5 LA Volume 27.40 mL LA Volume Index 13.20 mL/m2 (M/F) 16-34 M-Mode Dimensions RVDd 2.56 cm (0.9-2.6) LA Diam 4.06 cm (1.9-4.0) LVDd 5.34 cm (3.5-5.7) Ao Diam 3.45 cm (2.0-3.7) LVDs 3.70 cm (3.5-5.7) IVSd 0.82 cm (0.6-1.1) PWd 0.75 cm (0.6-1.1) EF (Teich) 57.80% FS 30.70% EDV (Teich) 137.70 mL TAPSE 2.33 (<1.7) ESV (Teich) 58.10 mL LV Diastology E Decel Time 190.00 (160-240 msec) E/A Ratio 1.01 MED E' 8.90 (< 7 cm/sec) MED A' 12.30 cm/s E'/MED E' Ratio 9.87 (>14) LAT E' 8.60 (<10 cm/sec) LAT A' 14.80 cm/s E/LAT E' Ratio 10.21 (>14) Aortic Valve LVOT Max 171.00 (70-110 cm/s) LVOT VTI 33.61 cm AoV Peak Leo. 194.00 (50-130 cm/s) AO Peak GR. 15.00 mmHg AO Mean GR. 5.80 (<5 mmHg) AO VTI 32.37 (18-25 cm) LINDA (VTI) 3.16 (2.5-4.5 cm2) Mitral Valve MV E Max Leo. 88.00 (40-130 cm/s) MV A Velocity 87.00 (40-130 cm/s) E/A Ratio 1.01 MV Decel. Time 190.00 (160-240 ms) MV PHT 56.00 ms Pulmonary Valve PV Peak Velocity 104.00 (50-150 cm/s) Tricuspid Valve TR P. Velocity 205.00 cm/s RAP Estimate 10.00 mmHg RVSP 26.90 mmHg Left Ventricle Left atrium is mildly enlarged, left ventricle is normal size, left ventricle wall thickness is upper limit of normal, there is preserved left ventricular systolic function, visually estimated ejection fraction 55% with no regional wall motion abnormality. Diastolic parameters are inconclusive in the study. Right Ventricle Right atrium and right ventricle are normal size and contractility. Aortic Valve Aortic valve is minimally thickened and fibrosed without aortic stenosis or aortic insufficiency. Mitral Valve Mitral valve grossly normal, there is trace mitral regurgitation. Tricuspid Valve Tricuspid valve grossly normal, there is trace tricuspid regurgitation. Tricuspid regurgitation jet velocity is inadequate for calculation of the right ventricular systolic pressure. Pulmonic Valve Pulmonic valve is poorly visualized. Great Vessels Aortic root is normal size. Inferior vena cava is mildly enlarged with normal inspiratory collapse. Pericardium No significant pericardial effusion noted. Conclusion 1. Mildly enlarged left atrium, normal left ventricular size, visually estimated ejection fraction 55% with no regional wall motion abnormality, diastolic parameters are inconclusive in the study. 2. Trace mitral and tricuspid regurgitation. 3. No significant pericardial effusion noted. 4. Inferior vena cava is mildly dilated with normal inspiratory collapse. Electronically signed by : Gene Andrade MD 11/16/2020 16:36:55
== END ==
PROVIDERS: PCP Nurse Practitioner Family; Visit Provider Nurse Practitioner Family
DX: R06.00 Dyspnea, unspecified (principal); R41.3 Other amnesia; R44.0 Auditory hallucinations; R44.1 Visual hallucinations; R90.89 Other abnormal findings on diagnostic imaging of central nervous system; E78.5 Hyperlipidemia, unspecified; I10 Essential (primary) hypertension; I25.10 Atherosclerotic heart disease of native coronary artery without angina pectoris
CPT/HCPCS: 70496; 93306; Q9967

== ENCOUNTER → 2020-11-21 12:06 | Outpatient (CLI) | payer BC, SELFPAY ==
[2020-11-21 13:35] LABS: Free T4 (Free Thyroxine) 0.72 ng/dl (0.78-2.19)
[2020-11-21 13:46] LABS: Coronavirus 19 IgG Antibody Negative (Negative); Coronavirus 19 IgM Antibody Negative (Negative)
== END ==
PROVIDERS: Emergency Medicine; Visit Provider Specialist
DX: R00.2 Palpitations (principal); R42 Dizziness and giddiness; Z20.822 Contact with and (suspected) exposure to COVID-19
CPT/HCPCS: 36415; 84439; 86328

== ENCOUNTER → 2020-12-04 19:34 | Outpatient (CLI) | payer BC, SELFPAY | PROVIDERS: Visit Provider Nurse Practitioner Family | DX: Z20.822 Contact with and (suspected) exposure to COVID-19 (principal) | CPT/HCPCS: C9803; U0003; U0005 ==

== ENCOUNTER → 2021-01-17 12:42 | Outpatient (CLI) | payer BC, SELFPAY ==
[2021-01-17 13:40] VITALS: PULSE 68; PULSE 70
== END ==
PROVIDERS: PCP Emergency Medicine; Visit Provider Internal Medicine Pulmonary Disease
DX: R06.00 Dyspnea, unspecified (principal)
CPT/HCPCS: 94060; 94618; 94640; 94726; 94729

== ENCOUNTER 2021-01-21 14:21 | Emergency (ER) | payer BC, SELFPAY ==
[2021-01-21 16:10] VITALS: BP 136/59; PULSE 89; RESP 20; TEMP 36.6; O2SAT 99; BMI 36.6
--- NOTE | 2021-01-21 16:15 | HMH.EDUTC ---
[facility] [place] Clinical Impression: Viral syndrome, Bronchitis, Exposure to COVID-19 virus Pharyngitis Qualifiers: Pharyngitis/tonsillitis etiology: unspecified etiology Qualified Code(s): J02.9 - Acute pharyngitis, unspecified Disposition: Home, Self-Care Condition on Discharge: Good Instructions: Preventing the Spread of Coronavirus Discharge Instructions, DI for COVID-19 (Suspected or Confirmed ) Additional Instructions: Drink plenty of fluids. Take tylenol or ibuprofen for pain or fever. Take the medications as directed. Follow up with your regular doctor. GO TO THE ER FOR ANY WORSENING SYMPTOMS Quarantine until you know the results of your covid-19 test. If it is positive, the health department should call you and give you further instructions about your length of Quarantine and other things. Notify your school or workplace of your results and follow their instructions regarding return to work/school. Prescriptions: Benzonatate [Benzonatate 100mg cap] 100 mg PO TIDP PRN #30 cap PRN Reason: Cough Transmission Status: Pending to [facility] predniSONE [Prednisone 20mg Tab] 20 mg PO BID 4 Days #8 tab Transmission Status: Pending to [facility] Azithromycin [Z-Yoshi 250mg Tab*] 250 mg PO UD DOSE PK #6 tab Transmission Status: Pending to [facility] Referrals: Juan Tan MD [Primary Care Provider] - Time of Disposition: 17:05 Medical Decision Making - Medical Records Medical records reviewed: No: I reviewed the patient's medical records. - Laith Inquiry Pt receiving controlled substance: No Vital Signs: 01/21/21 16:10 01/21/21 16:45 Temperature 98 F 98 F Temperature Source Oral Pulse Rate 89 Pulse Rate [Left] 89 Respiratory Rate 20 20 Blood Pressure 136/59 L Blood Pressure [Right Arm] 136/59 L Blood Pressure Mean [Right Arm] 84 02 Sat by Pulse Oximetry 99 - Lab Data Lab results reviewed: Yes: I reviewed the patient's lab results. Lab Results 01/21/21 16:18: Influenza Type A Ag Negative, Influenza Type B Ag Negative 01/21/21 16:18: Strep Scn Rapid Clinic Negative Orders (Tests/Meds): ORDERS Category Date Time Status Covid-19 Nasal PCR ([facility]) Routine Lab 01/21/21 16:14 Received Strep Screen Confirmation Stat Micro 01/21/21 16:18 [place] [facility] [place] - General Stated complaint: sore throat, runny nose, SOA, ORTIZ, upset stomach Time Seen by Provider: 01/21/21 16:15 - History of Present Illness Provider Complaint: She states that she began to feel bad yesterday. Thru the night she was restless and did not sleep well. This morning she began running a fever, having a sore throat, and a nonproductive cough. - Related Data Home Medications Medication Instructions Recorded Confirmed levocetirizine 5 mg tablet 5 mg PO DAILY tab 03/28/20 01/18/21 Fluticasone Propionate [Flovent 120 puffs IH BID 04/04/20 01/18/21 Hfa 110mcg Inhaler] cider vinegr-apple See Rx Instructions PO .COMPLEX 10/16/20 01/18/21 [id number]-[id number]-Y6-min#32 300 mg-50 mg-200 mg tablet multivitamin 1 tab PO DAILY 10/16/20 01/18/21 triamcinolone acetonide 55 mcg 1 spray INTRANASAL DAILY ml 10/16/20 01/18/21 nasal spray aerosol duloxetine 60 mg capsule,delayed 60 mg PO DAILY cap 01/04/21 01/18/21 release gabapentin 600 mg tablet 600 mg PO Q8H tab 01/04/21 01/18/21 Previous Rx's Medication Instructions Recorded montelukast 10 mg tablet 10 mg PO QDAY #90 tab 06/28/19 lisinopril 10 See Rx Instructions .ROUTE 05/08/20 mg-hydrochlorothiazide 12.5 mg .COMPLEX #90 tab tablet omeprazole 20 mg capsule,delayed See Rx Instructions .ROUTE 09/01/20 release .COMPLEX #90 cap Diclofenac Sodium [Diclofenac 75mg 75 mg PO BID #60 tab 10/05/20 Tab] atorvastatin 40 mg tablet 40 mg PO DAILY #30 tab 11/13/20 Azithromycin [Z-Yoshi 250mg Tab*] 250 mg PO UD DOSE PK #6 tab 01/21/21 Benzonatate [Benzonatate 100mg 100 mg PO TIDP PRN #30 cap
[2021-01-21 16:31] LABS: UTC Strep Screen (Rapid) Negative (Negative)
[2021-01-21 16:32] LABS: UTC Influenza A Antigen Negative (Negative); UTC Influenza B Antigen Negative (Negative)
[2021-01-21 16:45] VITALS: BP 136/59; PULSE 89; RESP 20; TEMP 36.6
== END 2021-01-21 17:18 | disposition home or self-care (01) ==
PROVIDERS: Emergency Provider Nurse Practitioner Family; PCP Emergency Medicine
DX: J20.9 Acute bronchitis, unspecified (principal); B34.9 Viral infection, unspecified; Z20.822 Contact with and (suspected) exposure to COVID-19; F41.8 Other specified anxiety disorders; K21.9 Gastro-esophageal reflux disease without esophagitis; I25.10 Atherosclerotic heart disease of native coronary artery without angina pectoris; J44.9 Chronic obstructive pulmonary disease, unspecified
CPT/HCPCS: 87804; 87880; 99203; C9803; G0463; U0003; U0005

== ENCOUNTER → 2021-03-12 15:56 | Outpatient (CLI) | payer BC, SELFPAY ==
[2021-03-12 19:04] LABS: Basophils # 0.1 K/mm3 (0-0.2); Basophils % 1.1 % (0.1-2.0); Eosinophils # 0.2 K/mm3 (0.0-0.4); Eosinophils % 1.9 % (0.1-12.0); Hematocrit 38.7 % (37.0-47.0); Hemoglobin 12.2 g/dL (12.2-16.2); Lymphocytes # 3.6 K/mm3 (0.7-4.5); Lymphocytes % 40.9 % (10-50); Mean Corpuscular HGB Conc 31.6 g/dL (31.8-35.4); Mean Corpuscular Hemoglobin 28.7 pg (27.0-31.2); Mean Corpuscular Volume 90.8 fl (81-99); Mean Platelet Volume 9.3 fl (7.4-10.4); Monocytes # 0.5 K/mm3 (0.1-1.0); Monocytes % 5.1 % (1.7-9.3); Neutrophils # 4.5 K/mm3 (1.8-7.8); Platelet Count 473 K/mm3 (142-424); Red Blood Count 4.26 M/mm3 (4.20-5.40); White Blood Count 8.8 K/mm3 (4.8-10.8)
[2021-03-12 20:14] LABS: Alanine Aminotransferase 24 U/L (12-78); Albumin Level 4.4 g/dl (3.5-5.0); Albumin/Globulin Ratio 1.5 (1.1-1.8); Alkaline Phosphatase 132 U/L (38-126); Anion Gap 15.5 mEq/L (5-15); Aspartate Amino Transferase 31 U/L (14-36); Bilirubin,Total 0.4 mg/dl (0.2-1.3); Blood Urea Nitrogen 11 mg/dl (7-17); Calcium 9.7 mg/dl (8.4-10.2); Carbon Dioxide 29 mmol/L (22.0-30.0); Chloride 97 mmol/L (98-107); Chol/HDL Ratio 3.1 (1-3.5); Cholesterol 191 mg/dl (140-200); Estimated Glomerular Filt Rate 102 ml/min (>60); GFR (African American) 124 ML/MIN (>60); Globulin 2.9 g/dL (1.3-3.2); Glucose 117 mg/dl (74-100); HDL Cholesterol 62 mg/dl (40-60); Potassium 4.5 mmoL/L (3.5-5.1); Sodium 137 mmol/L (136-145); Total Protein,Serum 7.3 g/dl (6.3-8.2); Triglycerides 220 mg/dl (30-150); VLDL Cholesterol 44 mg/dL (0-40)
[2021-03-12 20:26] LABS: Direct LDL Cholesterol 91.38 mg/dL (100-129)
[2021-03-12 20:30] LABS: Free T4 (Free Thyroxine) 0.84 ng/dl (0.78-2.19)
[2021-03-12 20:32] LABS: 25-OH Vitamin D, Total 30.1 ng/mL (30-100)
[2021-03-12 20:44] LABS: Thyroid Stimulating Hormone 1.19 uIU/mL (0.465-4.68)
[2021-03-14 09:14] LABS: Thyroid Peroxidase Antibodies 9 IU/mL (0-34); Triiodothyronine (T3) Free 3.3 pg/mL (2.0-4.4)
== END ==
PROVIDERS: Visit Provider Emergency Medicine
DX: E07.9 Disorder of thyroid, unspecified (principal); E55.9 Vitamin D deficiency, unspecified
CPT/HCPCS: 80053; 80061; 82306; 84439; 84443; 84481; 85025; 86376

== ENCOUNTER → 2021-03-21 12:56 | Outpatient (CLI) | payer BC, SELFPAY ==
--- NOTE | 2021-03-21 12:56 | MM_ITS ---
PROCEDURE INFORMATION: Exam: MG Bilateral Screening 3D Mammography Exam date and time: 03/21/2021 12:56 PM Age: 60 years old Clinical indication: Screening mammogram TECHNIQUE: Imaging protocol: Bilateral Screening tomosynthesis and 2D mammography including computer-aided detection (CAD) when performed. COMPARISON: 1. MG MM DIG SCREENING MAMM BI W/CAD 03/06/2020 10:46 AM 2. MG SCBI MM Dig screening mamm BI w/CAD 05/11/2018 10:50 AM 3. MG DMSS DIG MAMM-SURGICAL SPECIMEN 05/17/2016 11:11 AM 4. MG MNLEALLT MAMM/NEEDLE LOC LT EA ADD LES 05/17/2016 9:07 AM FINDINGS: MAMMOGRAPHY: Breast composition: There are scattered areas of fibroglandular density. Mass: None. Architectural distortion: No new or suspicious architectural distortion. Calcifications: Calcifications within the slightly upper outer periareolar right breast should be assessed with spot MAGNIFICATION views in CC/ML projection for morphologic characterization. Asymmetric density: No new or suspicious asymmetric density is present Skin thickening: None. Axillary adenopathy: None. Other findings: Stable postoperative findings related to the left breast. IMPRESSION: Calcifications within the slightly upper outer periareolar right breast should be assessed with spot MAGNIFICATION views in CC/ML projection for morphologic characterization. ASSESSMENT: BI-RADS category 0: Incomplete-need additional imaging evaluation
--- NOTE | 2021-03-21 12:56 | US_ITS ---
FINAL REPORT CLINICAL HISTORY: thyroid dysfunction COMPARISON: 10/10/2016 FINDINGS: Sonographic images of the thyroid were obtained. The right lobe of the thyroid measures 1.5 x 4.6 x 2.4 cm. The left lobe of the thyroid measures 1.3 x 4.2 x 1.7 cm. the isthmus measures 4 mm. Again, multiple nodules are seen bilaterally. The largest nodule in the right lower lobe is solid and hypoechoic with microcalcifications consistent with TI-RADS Category 5. This measures 8 x 5 mm and appears new or larger than previous. A second large nodule in the right lobe measures 6 mm and appears solid and hypoechoic consistent with TI-RADS category 4. There is a 5 mm nodule in the right lobe which is solid and hypoechoic consistent with TI-RADS category 4. The largest nodule in the left lobe of the thyroid is cystic measuring 7 mm consistent with TI-RADS Category 1. This is stable from the previous. The 1.2 cm nodule on the left seen on the previous exam is improved or resolved. IMPRESSION: Multiple thyroid nodules including a TI-RADS category 5 in the right lower lobe. Recommend follow-up in 6 months. Dominant nodule on the left. Reviewed, Interpreted and Dictated by Ortega Donohue III, MD Transcribed by Jacki Alonzo Authenticated by Ortega Donohue III, MD on 03/21/2021 04:07:09 PM [facility]
== END ==
PROVIDERS: PCP Emergency Medicine; Visit Provider Emergency Medicine
DX: Z12.31 Encounter for screening mammogram for malignant neoplasm of breast (principal); E07.9 Disorder of thyroid, unspecified
CPT/HCPCS: 76536; 77063; 77067

== ENCOUNTER → 2021-04-02 14:27 | Outpatient (CLI) | payer BC, SELFPAY ==
--- NOTE | 2021-04-02 14:27 | MM_ITS ---
PROCEDURE INFORMATION: Exam: MG Right Diagnostic Breast Tomosynthesis Exam date and time: 04/02/2021 2:27 PM Age: 60 years old Clinical indication: Patient recalled for further evaluation of right breast calcifications TECHNIQUE: Imaging protocol: Right Diagnostic tomosynthesis and 2D mammography including computer-aided detection (CAD) when performed. Unilateral or bilateral exam. COMPARISON: 1. MG MM DIG SCREENING MAMM BI W/CAD 03/21/2021 12:55 PM 2. MG MM DIG SCREENING MAMM BI W/CAD 03/06/2020 10:46 AM FINDINGS: MAMMOGRAPHY: Digital diagnostic magnification views of right upper outer periareolar region demonstrates a cluster of calcifications that are slightly variable in size, shape, and density. Is no associated soft tissue mass. The calcifications span 0.4 cm of breast tissue. IMPRESSION: Indeterminate cluster of microcalcifications in the right breast. Stereotactic core biopsy is recommended for further evaluation. ASSESSMENT: BI-RADS Category 4: Suspicious
== END ==
PROVIDERS: PCP Emergency Medicine; Visit Provider Emergency Medicine
DX: R92.8 Other abnormal and inconclusive findings on diagnostic imaging of breast (principal)
CPT/HCPCS: 77061; 77065; G0279

== ENCOUNTER → 2021-04-17 14:09 | Outpatient (CLI) | payer BC, SELFPAY ==
--- NOTE | 2021-04-17 14:11 | CT_ITS ---
FINAL REPORT TECHNIQUE: Axial CT images were performed from the lung apices through the upper abdomen. Coronal reformats were submitted. This study was performed with techniques to keep radiation doses as low as reasonably achievable (ALARA). Individualized dose reduction techniques using automated exposure control or adjustment of mA and/or kV according to the patient's size were employed. CLINICAL HISTORY: 6 mth F/U after abnormal lung screening COMPARISON: 10/24/2020 FINDINGS: There is no axillary adenopathy. There is no hilar or mediastinal mass or adenopathy. Heart size is normal. There is no pericardial or pleural effusion. Limited images of the upper abdomen are unremarkable. There is [id number]-kwhssmjo scarring. There is a 6 mm medial right midlung nodule on image 49 which is stable. There is no new mass or nodule. IMPRESSION: Stable medial right midlung nodule. Resume 12 month low-dose CT imaging. Reviewed, Interpreted and Dictated by Ortega Donohue III, MD Transcribed by Razia Murry Authenticated by Ortega Donohue III, MD on 04/17/2021 03:05:05 PM [facility]
== END ==
PROVIDERS: PCP Emergency Medicine; Visit Provider Internal Medicine Pulmonary Disease
DX: R91.8 Other nonspecific abnormal finding of lung field (principal)
CPT/HCPCS: 71250

== ENCOUNTER → 2021-04-18 08:11 | Outpatient (CLI) | payer BC, SELFPAY ==
--- NOTE | 2021-04-18 08:12 | MM_ITS ---
FINAL REPORT CLINICAL HISTORY: . right breast calcifications FINDINGS: STEREOTACTIC GUIDED RIGHT BREAST BIOPSY, CLIP PLACEMENT, SPECIMEN RADIOGRAPH AND POST BIOPSY MAMMOGRAM Indication: Suspicious calcifications Findings: The stereotactic guided breast biopsy procedure was explained in detail to the patient including potential risk and benefits. The patient voiced an understanding of the procedure, was given an opportunity to ask questions, after which informed consent was obtained. The patient was positioned upon the stereotactic unit in the recumbent position. A lateral to medial approach was utilized. The breast was prepped in the usual sterile fashion. Subcutaneous soft tissues were anesthetized with lidocaine with epinephrine. Subsequently, with intermittent stereotactic guidance, the stereotactic biopsy needle was advanced into the breast in the region of the mammographic abnormality corresponding to recent diagnostic mammogram. Multiple vacuum assisted core samples were obtained. Sampling was thought to be adequate and the biopsy clip marker was deployed in the region of biopsy. Initial biopsy clip was thought to be potentially not fully deployed. A 2nd biopsy marker clip was deployed. Upon removal biopsy needle both biopsy marker clips were noted to be retained in the breast in the region of the biopsy. Additional imaging as detailed below was performed. Specimen radiograph: Calcifications confirmed adequate Post procedure routine CC and MLO view mammogram: Post biopsy changes. 2 biopsy clips were noted in place. These essentially bracketed the site of calcifications. No residual calcifications were seen. Patient tolerated the procedure well. No immediatecomplications. IMPRESSION: 1. Technically successful stereotactic guided biopsy of anterior right breast calcifications 2. Biopsy marker clips deployed 3. Post biopsy mammogram obtained as above Authenticated by Juan Thompson MD on 04/24/2021 11:53:12 PM [facility]
--- NOTE | 2021-04-18 08:28 | MM_ITS ---
FINAL REPORT CLINICAL HISTORY: . stereotactic breast bx, clip placement FINDINGS: MAMMOGRAM DIAGNOSTIC RIGHT TECHNIQUE: Standard digital 2-D views COMPARISON: Pre-biopsy exam 03-21-21 DENSITY: There are scattered areas of fibroglandular density FINDINGS: Post biopsy changes are seen in the anterior right breast. Small hematoma seen at the biopsy site. Targeted calcifications are no longer present within the breast reflecting adequate sampling. There are 2 biopsy marker clips noted within the biopsy region, essentially bracketing the original calcification site. IMPRESSION: Post biopsy mammogram shows no residual calcifications reflecting adequate sampling with biopsy marker clips in good position RECOMMENDATION: Pending histopathology evaluation Authenticated by Juan Thompson MD on 04/24/2021 11:56:47 PM [facility]
--- NOTE | 2021-04-18 08:28 | MM_ITS ---
FINAL REPORT CLINICAL HISTORY: . right breast calcs, s/p stereotactic bx FINDINGS: SPECIMEN RADIOGRAPH Findings: 2 specimen radiographs were submitted. There are 7 core tissue fragments. Calcifications of interest are noted contained within the 1st core specimen. At least 5 or 6 calcifications are identified corresponding to the targeted abnormality. IMPRESSION: Specimen radiographs confirm tissue specimens containing the targeted calcifications of interest Authenticated by Juan Thompson MD on 04/24/2021 11:54:31 PM [facility]
== END ==
PROVIDERS: PCP Emergency Medicine; Visit Provider Emergency Medicine
DX: R92.8 Other abnormal and inconclusive findings on diagnostic imaging of breast (principal)
CPT/HCPCS: 19081; 76098; 77065

== ENCOUNTER → 2021-04-19 10:01 | Outpatient (POV) | payer BC, SELFPAY ==
[2021-04-19 11:58] VITALS: BP 113/59; PULSE 64; RESP 20; TEMP 36.4; O2SAT 98; BMI 37.8
--- NOTE | 2021-04-19 12:57 | HMH.PAINSOAP ---
[facility] Pain Management SOAP Note Subjective:: Patient is a very pleasant 60-year-old white female who presents today for follow-up. 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 She states that she continues to experience chronic low back pain rating into her legs. She is describes the pain as a deep aching pain at baseline with sharp shooting exacerbations. She was previously managed with gabapentin 600 mg 1 tablet p.o. 5 times daily, diclofenac 75 mg 1 tablet p.o. twice daily. She states that she stopped taking gabapentin because she discussed with her primary care physician that she does not feel like it is helping her at all. She has since been evaluated by neurosurgeon who recommended against any acute surgical intervention to treat her chronic pain symptoms. She has previously undergone injection therapy in our clinic in the past including lumbar epidural steroid injections in the Vertiflex procedure with very minimal pain relief. She states that she is currently not taking anything to manage her chronic pain symptoms. She rates her pain today is 8 out of 10. She recently underwent CT of the spine which demonstrated high-level spondylosis and facet arthropathy from L2-S1, moderate at neuroforaminal stenosis at L3-L4 and L4-L5, ligamentum flavum thickening at L2-L3, L3-L4, L4-L5 and L5-S1. She has hardware from previous lumbar fusion at L3-L4 Objective:: General: Alert and oriented x3, no acute distress, pleasant and cooperative Lungs: Resps E/U, symmetric chest expansion Eyes: PERRL Musculoskeletal: limited flexion and extension of the lumbar spine secondary to pain. Deep tendon reflexes were normal in bilateral lower extremities. Motor exam was grossly intact in the bilateral lower extremities, antalgic gait noted. 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 She would like to take some time to think this over prior to proceeding. For now I discussed with the patient to take 2 tablets of extra strength Tylenol with 1 tablet of Motrin 800 mg up to 3 times daily as needed for pain. We will follow-up with this patient in 1 month for reassessment of her chronic pain symptoms and further evaluation regarding her treatment plan. Laith and prior drug screens were reviewed and appropriate. [facility] History Medical History: Reports:: Anxiety, Chronic Obstructive Pulmonary Disease (COPD), Coronary Artery Disease, Depression, Gastroesophageal Reflux Disease(GERD), Heart Murmur, Hyperlipidemia, Hypertension, Lung Disease, Kidney Stones, Palpitations Denies:: Cancer, Diabetes Mellitus Type 1, Diabetes Mellitus Type 2, Internal Pacemaker, MRSA, Seizures *Have you ever received a pneumonia vaccine?: Yes *Have you received a flu vaccine this season?: Yes Other Medical History: Reports: Arthritis, Blood Transfusion Reaction, Hoarseness, Other Laterality Cases: Left: Lumpectomy, Right: Carpal Tunnel Release, Bilateral: Other Other Surgeries: Yes: No Previous Surgery, Cardiac Catheterization, Cholecystectomy, Colonoscopy, EGD, Sinus Surgery, Tubal Ligation, Other. No: Pacemaker Amputation: No Fractures: No - *Social History Smoking Status: Former smoker #Yrs smoked (if former smoker): 25 Alcohol Intake: current Alcohol Intake Frequency:: holidays/special occasions only Substance Use Type: marijuana *Occupational Status:: other Housing: apartment Household Members: spouse *Travel in the last 8 weeks: None - Psychiatric History Pschychiatric History:: Reports:: Anxiety, Depression Family Hx:: Diabetes, Coronary Artery Disease
== END ==
PROVIDERS: Visit Provider Anesthesiology Pain Medicine
DX: M51.16 Intervertebral disc disorders with radiculopathy, lumbar region (principal); G89.4 Chronic pain syndrome
CPT/HCPCS: 99212; G0463

== ENCOUNTER 2021-04-27 16:52 | Emergency (ER) | payer BC, SELFPAY ==
[2021-04-27 17:40] VITALS: BP 111/73; PULSE 79; RESP 20; TEMP 36.8; O2SAT 99; BMI 37.8
--- NOTE | 2021-04-27 18:11 | HMH.EDUTC ---
[facility] Disposition Clinical Impression: Sinusitis Qualifiers: Sinusitis location: unspecified location Chronicity: unspecified Qualified Code(s): J32.9 - Chronic sinusitis, unspecified Disposition: Home, Self-Care Condition on Discharge: Good Instructions: Sinusitis, Acute Bronchitis, DI for Sinusitis, DI for Acute Bronchitis Additional Instructions: *Monitor Temp, Over the counter Motrin or Tylenol as directed/as needed Tylenol every 4 hours and Motrin every 6 hours (as long as your family doctor has told you that you can take it) for fever or pain. and straight to ER if unable to lower temp less than 101.0 after medication given *Warm salt water gargles may help to soothe the throat *Throat Lozenges *Warm fluids like tea with honey may help to soothe the throat *Sleep elevated *Humidifier/Vaporizer *Take medications as prescribed Follow up IMMEDIATELY for new or worsening symptoms or no Noticeable improvement over the next 48-72 hours. 911 for difficulty breathing or swallowing Prescriptions: Amoxicillin [Amoxicillin 875MG Tab] 875 mg PO Q12H #20 tab Transmission Status: Pending to [facility] predniSONE [Prednisone 20mg Tab] 20 mg PO BID 5 Days #10 tab Transmission Status: Pending to [facility] Referrals: Juan Tan MD [Primary Care Provider] - As needed Time of Disposition: 18:26 Medical Decision Making - Laith Inquiry Pt receiving controlled substance: No Laith was queried for this patient: No Vital Signs: 04/27/21 17:40 Temperature 98.2 F Temperature Source Oral Pulse Rate [Right Brachial] 79 Respiratory Rate 20 Blood Pressure [Right Arm] 111/73 Blood Pressure Mean [Right Arm] 85 Blood Pressure Source [Right Arm] Automatic Cuff Blood Pressure Position [Right Arm] Sitting 02 Sat by Pulse Oximetry 99 Oxygen Delivery Method Room Air Medical Decision Narrative: Patient states that she has taken prednisone in the past without complications or reactions [facility] HPI - General Stated complaint: mucas, cough, soa, lt ear pain, head pain, chills Time Seen by Provider: 04/27/21 18:11 Mode of Arrival: Ambulatory Source of Information: Patient Limitations: No Limitations Description of Symptoms (Recalled from Triage Doc. by RN): PATIENT C/O LEFT EAR PAIN, SORE THROAT, YELLOW-GREEN SINUS DRAINAGE, HEADACHE AND CHILLS X 1 WEEK HEENT Symptoms (Recalled from RN notes): Yes Resp Symptoms (Recalled from RN notes): No Skin Symptoms (Recalled from RN notes): No MS Symptoms (Recalled from RN notes): No Functional Status (Recalled from RN notes): WNL - History of Present Illness Provider Complaint: Patient states that she has been having sinus pain and pressure along with cough and thick yellowish green mucous from her nose that has continued to get worse over the last couple of weeks States that today she was having pressure behind her eyes and not feeling well afraid it was trying to move into her chest so she came in to get checked out - Related Data Home Medications Medication Instructions Recorded Confirmed levocetirizine 5 mg tablet 5 mg PO DAILY tab 03/28/20 04/25/21 Fluticasone Propionate [Flovent 120 puffs IH BID 04/04/20 04/25/21 Hfa 110mcg Inhaler] multivitamin 1 tab PO DAILY 10/16/20 04/25/21 triamcinolone acetonide 55 mcg 1 spray INTRANASAL DAILY ml 10/16/20 04/25/21 nasal spray aerosol Atorvastatin Calcium [Lipitor 40mg 40 mg PO DAILY 04/19/21 04/25/21 Tab] Diclofenac Sodium [Diclofenac 75mg 75 mg PO BID 04/19/21 04/25/21 Tab] Duloxetine HCl [Cymbalta] 60 mg PO DAILY 04/19/21 04/25/21 Lisinopril/Hydrochlorothiazide See Rx Instructions .ROUTE .COMPLEX 04/19/21 04/25/21 [Lisinopril-Hctz 10-12.5 mg Tab] Omeprazole See Rx Instructions .ROUTE .COMPLEX 04/19/21 04/25/21 Previous Rx's Medication Instructions Recorded montelukast 10 mg tablet 10 mg PO QDAY #90 tab 06/28/19 Benzonatate [Benzonatate 100mg 100 mg PO TIDP PRN #30 cap 01/21/21
[2021-04-27 18:29] VITALS: BP 111/73; PULSE 79; RESP 20; TEMP 36.8; O2SAT 99
== END 2021-04-27 18:30 | disposition home or self-care (01) ==
PROVIDERS: Emergency Provider Nurse Practitioner; PCP Emergency Medicine
DX: J32.9 Chronic sinusitis, unspecified (principal)
CPT/HCPCS: 99212; G0463

== ENCOUNTER → 2021-05-02 08:29 | Outpatient (CLI) | payer BC, SELFPAY ==
--- NOTE | 2021-05-02 08:33 | ECG_ITS ---
APPROVED REPORT Exam: Resting ECG HR:60 bpm ECG Measurements Heart Rate 60 AXES MT 160 P 16 QRSd 89 QRS 32 QT 412 T 63 QTc 413 Conclusion SINUS RHYTHM LOW QRS VOLTAGE IN PRECORDIAL LEADS [QRS DEFLECTION < 1.0 mV IN CHEST LEADS] BORDERLINE ECG UNCONFIRMED REPORT Electronically signed by : Phillip Kim MD 05/02/2021 18:02:28
[2021-05-02 09:16] LABS: Basophils # 0.2 K/mm3 (0-0.2); Basophils % 1.6 % (0.1-2.0); Eosinophils # 0.2 K/mm3 (0.0-0.4); Eosinophils % 1.3 % (0.1-12.0); Hematocrit 38.9 % (37.0-47.0); Hemoglobin 12.3 g/dL (12.2-16.2); Lymphocytes # 5.9 K/mm3 (0.7-4.5); Lymphocytes % 52.1 % (10-50); Mean Corpuscular HGB Conc 31.7 g/dL (31.8-35.4); Mean Corpuscular Hemoglobin 28.5 pg (27.0-31.2); Mean Corpuscular Volume 90.1 fl (81-99); Mean Platelet Volume 8.6 fl (7.4-10.4); Monocytes # 0.6 K/mm3 (0.1-1.0); Monocytes % 5.6 % (1.7-9.3); Neutrophils # 4.4 K/mm3 (1.8-7.8); Neutrophils % 39.4 % (37.0-80.0); Platelet Count 504 K/mm3 (142-424); Red Blood Count 4.32 M/mm3 (4.20-5.40); Red Cell Distribution Width 13.8 % (11.5-17.5); White Blood Count 11.2 K/mm3 (4.8-10.8)
[2021-05-02 09:20] LABS: MANUAL DIFFERENTIAL MANUAL DIFFERENTIAL (MANUAL DIFF)
[2021-05-02 10:12] LABS: Anion Gap 11.9 mEq/L (5-15); Blood Urea Nitrogen 20 mg/dl (7-17); Calcium 9.5 mg/dl (8.4-10.2); Carbon Dioxide 29 mmol/L (22.0-30.0); Chloride 101 mmol/L (98-107); Estimated Glomerular Filt Rate 102 ml/min (>60); GFR (African American) 124 ML/MIN (>60); Glucose 110 mg/dl (74-100); Potassium 4.9 mmoL/L (3.5-5.1); Sodium 137 mmol/L (136-145)
[2021-05-02 13:10] LABS: Lymphocytes % 50 % (10-50); Monocytes % 2 % (2-9); Neutrophils % 48 % (42-76); Total Cells Counted 100
[2021-05-02 13:13] LABS: Platelet Estimate Normal
== END ==
PROVIDERS: PCP Emergency Medicine; Visit Provider Surgery
DX: Z01.818 Encounter for other preprocedural examination (principal); Z11.52 Encounter for screening for COVID-19; D05.11 Intraductal carcinoma in situ of right breast
CPT/HCPCS: 36415; 80048; 85007; 85025; 93005; C9803; U0003; U0005

== ENCOUNTER 2021-05-04 08:37 | Day surgery (SDC) | payer BC, SELFPAY ==
[2021-05-02 10:35] VITALS: BMI 37.8
[2021-05-04 08:58] VITALS: BP 147/81; PULSE 75; RESP 18; TEMP 36.3; O2SAT 95
--- NOTE | 2021-05-04 09:21 | P.PN_ITS ---
[facility] Anesthesia Checklist - Patient Identification Patient Identification: Arm Band - Structural Data Admitted From: Home Planned Operative Procedure/s: Breast biopsy Consent for Planned Operative Procedure(s) Verified: Yes - NPO Status Verified Time NPO: 00:00 - Additional verifications Anesthesia Reactions: No Hx Blood Transfusions: No Blood Transfusion Reaction: No - Airway Assessment C-Spine Mobility Assessed: Yes TMJ Mobility Assessed: Yes Dentition: Edentulous - Neurological Assessment Level of Consciousness: Awake Hx Seizures: No Numbness or tingling in extremities: No - Anesthesia Plan Anesthesia Risk discussed: Yes Anesthesia Plan: Verified ASA Class: III Anesthesia Type: General [facility] History I have reviewed the patient's past medical history: Yes Medical History: Reports:: Anxiety, Chronic Obstructive Pulmonary Disease (COPD), Coronary Artery Disease, Depression, Gastroesophageal Reflux Disease(GERD), Heart Murmur, Hyperlipidemia, Hypertension, Lung Disease, Kidney Stones, Palpitations Denies:: Cancer, Diabetes Mellitus Type 1, Diabetes Mellitus Type 2, Internal Pacemaker, MRSA, Seizures *Have you ever received a pneumonia vaccine?: Yes *Have you received a flu vaccine this season?: Yes Other Medical History: Reports: Arthritis, Hoarseness, Other. Denies: Blood Transfusion Reaction Anesthesia experience/problems:: None Laterality Cases: Left: Lumpectomy, Right: Breast Biopsy, Carpal Tunnel Release, Bilateral: Other Other Surgeries: Yes: No Previous Surgery, Cardiac Catheterization, Cholecystectomy, Colonoscopy, EGD, Sinus Surgery, Tubal Ligation, Other. No: Pa cemaker Amputation: No Fractures: No - *Social History Last grade of school completed: Some college Smoking Status: Former smoker Tobacco Type: cigarettes #Yrs smoked (if former smoker): 28 Smoking End Date: 2016 Alcohol Intake: never Alcohol Intake Frequency:: holidays/special occasions only Substance Use Type: marijuana Last Used Substance: days (ago) *Occupational Status:: disabled Housing: house Household Members: spouse *Travel in the last 8 weeks: None - Psychiatric History Pschychiatric History:: Reports:: Anxiety, Depression Family Hx:: Cancer, Diabetes, Heart Attack, Hyperlipidemia, Hypertension
--- NOTE | 2021-05-04 10:43 | MM_ITS ---
FINAL REPORT CLINICAL HISTORY: . FINDINGS: Hookwire localization procedure with specimen radiograph History: Abnormal biopsy results requiring excisional biopsies/lumpectomy Technique: Standard written informed consent was obtained. Mammographic grid localization was used to target the biopsy marker clips within the retroareolar lateral right breast. A lateral to medial approach was utilized. Sterile technique was utilized. Local anesthesia was achieved with 1% lidocaine. A 20-gauge localization needle was directed toward overlapping biopsy marker clips. The hookwire was deployed extending just beyond the deeper biopsy marker clip. Both biopsy marker clips were noted along the wire. A specimen radiograph was acquired which shows tissue to contain the localization hookwire as well as both biopsy marker clips. A focal density was noted within the tissue along the biopsy marker clips. The density may be related to postbiopsy change of her underlying pathology. IMPRESSION: 1. Technically successful hookwire localization of breast tissue containing biopsy marker clips 2. Specimen radiograph confirms surgical removal of tissue containing both biopsy marker clips Authenticated by Juan Thompson MD on 05/21/2021 04:34:57 PM [facility]
--- NOTE | 2021-05-04 15:55 | HMH.OPNOTE ---
Date of procedure: 05/04/21 Pre-op Diagnosis:: Right breast ductal carcinoma in situ Post-op Diagnosis:: Same Procedure performed:: Needle-localized excisional biopsy of right breast lesion Surgeon:: Mike Duff MD Ribbon Lap Machine Tender(s):: Shruthi Anesthesia: MAC, local Estimated blood loss (mL): 15 Operative findings:: Radiographic confirmation of specimen excision Operative note:: After informed consent was obtained the patient was taken to the radiology department where a localization needle was placed. Please see separate report for detail. She was then transferred to the operating room and placed in the supine position. Monitored anesthesia care ensued and her right breast was prepped and draped in a sterile fashion. After infiltration local anesthetic a right lateral areolar margin incision was made with a scalpel. The deep subcutaneous tissue was dissected with a combination of electrocautery, scalpel, and curved Garcia scissors. The tissue surrounding the localization needle was excised in toto and then marked for margin before being transferred to the radiology department for confirmation. Dyed suture was utilized to arpita the superior and lateral margins (short superior/long lateral). Nondyed suture was utilized to arpita the superficial and deep margins (short superficial/long deep). Electrocautery was utilized to achieve hemostasis. Metallic clips were placed along the wound base and margin. The deep subcutaneous tissue was reapproximated with 2-0 Vicryl and skin was then closed with 3-0 Stratafix in a running subcuticular fashion. Dressings were applied and the patient was transferred to recovery in stable condition. Radiographic confirmation of excision of the needle and metallic clips was made. Condition: stable Disposition: PACU Specimens:: Right breast biopsy Complications:: No immediate
[2021-05-04 15:59] VITALS: BP 107/54; PULSE 71; RESP 18; TEMP 36.7; O2SAT 95
[2021-05-04 16:09] VITALS: BP 132/83; PULSE 84; RESP 18; O2SAT 98
[2021-05-04 16:19] VITALS: BP 130/74; PULSE 82; RESP 18; O2SAT 99
[2021-05-04 16:29] VITALS: BP 133/75; PULSE 70; RESP 18; O2SAT 99
== END 2021-05-04 16:33 | disposition home or self-care (01) ==
LOC: OR 05-16 10:18
PROVIDERS: PCP Emergency Medicine; Visit Provider Surgery
PROC: (CPT 19101; principal; 2021-05-04 11:30)
DX: D05.11 Intraductal carcinoma in situ of right breast (principal)
CPT/HCPCS: 19101; 19281; 76098; 96374; J2405

== ENCOUNTER → 2021-05-21 09:51 | Outpatient (POV) | payer BC, SELFPAY ==
[2021-05-21 10:00] VITALS: BP 147/76; PULSE 78; RESP 18; TEMP 36.2; O2SAT 98; BMI 37.8
--- NOTE | 2021-05-21 11:14 | HMH.PAINSOAP ---
[facility] Pain Management SOAP Note Subjective:: Patient is a pleasant 60-year-old female presents today for follow-up. Currently treating this patient for degenerative disc disease of lumbar spine with lumbar radiculopathy symptoms. Patient previously had a Vertiflex procedure about 4 years ago that seems to provide relief. Patient continues to have low back pain that radiates to bilateral lower extremities. She was previously prescribed gabapentin 600 mg 5 times a day but has since stopped this medication. She says that this was not helping her pain. She has been evaluated by a neurosurgeon and was told that she is not a surgical candidate. When we last saw her , Dr. Wayne told the patient that she is a good candidate for a spinal cord stimulator or intrathecal pain pump. Patient says that she is a bit hesitant to move forward with any surgical intervention at this time. Dr. Wayne recommends that she takes 2 tablets of extra strength Tylenol and 1 tablet of Motrin 800 mg 3 times a day for pain. Today, patient states that she stopped taking her Motrin and Tylenol because she is afraid that these will harm her liver and kidneys. She was given 3 days worth of [place] [address] Duff. Patient states that this helps her pain the most but she only takes it from time to time. She is not taking anything else other than this medication for pain. She rates her pain today as 6 out of 10. Review of Systems: General: No recent weight changes, no fever, no sleep disturbances Respiratory: No cough, no shortness of air, no recurring pulmonary infections Cardiovascular/peripheral vascular: No chest pain, no palpitations, no edema, no shortness of breath Gastrointestinal: No new onset incontinence, normal bowel movements reported Genitourinary: No new onset incontinence Musculoskeletal: Low back pain Psychiatric: [Normal mood/affect] Neurological: [Denies weakness in extremities], [denies balance issues] Objective:: Physical Exam: General: Alert and oriented x3, no acute distress, pleasant and cooperative, [on room air] Lungs: Respirations even and unlabored, symmetrical chest expansion Eyes: PERRL Musculoskeletal: Flexion and extension of lumbar [spine] somewhat guarded secondary to pain, [antalgic gait noted] Neurological: Speech clear, no gross sensory deficit Assessment:: Degenerative disc disease of the lumbar spine with lumbar radiculopathy symptoms Spinal stenosis with neurogenic claudication Status post Vertiflex procedure Plan:: I discussed the spinal cord stimulator and intrathecal pain pump procedures in detail with the patient. Patient is still hesitant to proceed with these procedures. Since patient is still having continuous low back pain, I discussed with her that small dose of Tylenol and anti-inflammatory medication will not significantly damage her liver and kidneys. I discussed with her that her primary care provider can monitor her liver and kidney functions every year. In the meantime, I discussed with the patient that she can continue taking 2 tablets of Tylenol in the morning and 3 at night. I will start the patient on meloxicam 7.5 mg daily. I discussed with her that this medication is slightly easier on the kidneys and her stomach compared to ibuprofen. Follow-up in 1 month. If these medications do not help the patient, we will ask her again if she would like to try the SCSor intrathecal pain pumps. Patient has been instructed to contact the clinic with any concerns before the next appointment. Dr. Cee has reviewed this note and agrees with this plan of care. This note was dictated using voice recognition software and make contain errors or omissions. [facility] History Medical History: Reports:: Anxiety, Chronic Obstructive Pulmonary Disease (COPD), Coronary Artery Disease, Depression, Gastroesophageal Reflux Disease(GERD), Heart Murmur, Hyperlipidemia, Hypertension, Lung Disease, Kidney Stones, Palpitations Denies:: C
== END ==
PROVIDERS: Visit Provider Student in an Organized Health Care Education/Training Program
DX: M51.16 Intervertebral disc disorders with radiculopathy, lumbar region (principal); M48.062 Spinal stenosis, lumbar region with neurogenic claudication; Z98.890 Other specified postprocedural states
CPT/HCPCS: 99212; G0463

== ENCOUNTER → 2021-06-21 12:56 | Outpatient (POV) | payer BC, SELFPAY ==
[2021-06-21 13:48] VITALS: BP 122/60; PULSE 91; RESP 18; TEMP 36.4; O2SAT 97; BMI 37.8
--- NOTE | 2021-06-21 13:52 | HMH.PAINSOAP ---
[facility] Pain Management SOAP Note Subjective:: Patient is a pleasant 60-year-old female presents today for follow-up. Patient is currently being treated for degenerative disc disease of the lumbar spine with lumbar radiculopathy symptoms, spinal stenosis with neurogenic claudication, status post Vertiflex procedure. We have been managing this patient with injective therapy but she was only getting minimal relief from these injections. She was previously prescribed gabapentin 600 mg 5 times a day but has since stopped taking this medication. She says that this was not helping her pain. She was evaluated by neurosurgeon and is not a surgical candidate. She is currently taking Tylenol and meloxicam 7.5 mg for pain. She says that these are somewhat managing her pain. She continuously have pain in her low back that radiates to bilateral lower extremities. We have discussed with her that she is good candidate for SCS or intrathecal pain pump. She has shown interest in these two options. She rates her pain today as 8 out of 10. Review of Systems: General: No recent weight changes, no fever, no sleep disturbances Respiratory: No cough, no shortness of air, no recurring pulmonary infections Cardiovascular/peripheral vascular: No chest pain, no palpitations, no edema, no shortness of breath Gastrointestinal: No new onset incontinence, normal bowel movements reported Genitourinary: No new onset incontinence Musculoskeletal: Low back pain Psychiatric: [Normal mood/affect] Neurological: [Denies weakness in extremities], [denies balance issues] Objective:: Physical Exam: General: Alert and oriented x3, no acute distress, pleasant and cooperative Lungs: Respirations even and unlabored, symmetrical chest expansion Eyes: PERRL Musculoskeletal: Flexion and extension of lumbar [spine] somewhat guarded secondary to pain, [antalgic gait noted] Neurological: Speech clear, no gross sensory deficit Assessment:: Degenerative disc disease of lumbar spine with lumbar radiculopathy symptoms, spinal stenosis with neurogenic claudication, status post Vertiflex procedure Plan:: Patient states that her meloxicam 7.5 mg is not helping her pain a lot. We will increase her meloxicam to 15 mg daily. She is to continue taking her Tylenol as needed. I provided the patient information in regards to intrathecal pain pump or spinal cord stimulator. I have discussed these 2 procedures in detail with the patient. She is interested in these 2 options but will have to think more about them. We will refer the patient for psychiatric evaluation for a spinal cord stimulator or intrathecal pain pump. Patient has been instructed to contact the clinic with any concerns before the next appointment. Dr. Cee has reviewed this note and agrees with this plan of care. This note was dictated using voice recognition software and make contain errors or omissions. [facility] History Medical History: Reports:: Anxiety, Chronic Obstructive Pulmonary Disease (COPD), Coronary Artery Disease, Depression, Gastroesophageal Reflux Disease(GERD), Heart Murmur, Hyperlipidemia, Hypertension, Lung Disease, Kidney Stones, Palpitations Denies:: Cancer, Diabetes Mellitus Type 1, Diabetes Mellitus Type 2, Internal Pacemaker, MRSA, Seizures *Have you ever received a pneumonia vaccine?: Yes *Have you received a flu vaccine this season?: Yes Other Medical History: Reports: Arthritis, Hoarseness, Other. Denies: Blood Transfusion Reaction Laterality Cases: Left: Lumpectomy, Right: Breast Biopsy, Carpal Tunnel Release, Bilateral: Other Other Surgeries: Yes: No Previous Surgery, Cardiac Catheterization, Cholecystectomy, Colonoscopy, EGD, Sinus Surgery, Tubal Ligation, Other. No: Pacemaker Amputation: No Fractures: No - *Social History Smoking Status: Former smoker Tobacco Type: cigarettes #Yrs smoked (if former smoker): 28 Alcohol Intake: never Alcohol Intake Frequency:: holidays/special occasions only Subs
== END ==
PROVIDERS: Visit Provider Student in an Organized Health Care Education/Training Program
DX: M51.16 Intervertebral disc disorders with radiculopathy, lumbar region (principal); M48.062 Spinal stenosis, lumbar region with neurogenic claudication; Z98.890 Other specified postprocedural states
CPT/HCPCS: 99212; G0463

== ENCOUNTER → 2021-07-31 09:27 | Outpatient (POV) | payer MEDICARE, BC, SELFPAY ==
--- NOTE | 2021-07-31 10:09 | P.CONS_ITS ---
[facility] Pain Management SOAP Note Subjective:: This patient is a pleasant 60-year-old female that returns our clinic today for medication refill. Patient is receiving meloxicam 15 mg 1 p.o. daily from us. She was on 7.5 mg however it was increased at her last visit. Patient has a Vertiflex device. It seems to be doing okay. She still complains of low back as well as bilateral hip and leg radicular symptoms at times. It has been discussed with her on several occasions regarding spinal cord stimulation and/or intrathecal pain pump. Patient wishes not to have any intervention at this time. We will continue with meloxicam 15 mg 1 p.o. daily. Patient describes her low back pain as slight, dull, aching at times. Also, complains of some radicular symptoms into the legs at times however not below the knees. Objective:: Patient is awake alert [place] x3. In no acute distress. Flexion-extension lumbar spine somewhat guarded secondary to pain. Deep tendon reflexes upper and lower extremities normal. Motor strength upper and lower extremities normal. There is no gross sensory deficit. Gait is normal. Assessment:: Degenerative disc disease lumbar spine multilevels. Lumbar radiculopathy symptoms. Spinal stenosis. Neurogenic claudication. Plan:: We will refill the patient's meloxicam 15 mg 1 p.o. daily. She will return to see us in 6 months. [facility] History Medical History: Reports:: Anxiety, Chronic Obstructive Pulmonary Disease (COPD), Coronary Artery Disease, Depression, Gastroesophageal Reflux Disease(GERD), Heart Murmur, Hyperlipidemia, Hypertension, Lung Disease, Kidney Stones, Palpitations Denies:: Cancer, Diabetes Mellitus Type 1, Diabetes Mellitus Type 2, Internal Pacemaker, MRSA, Seizures *Have you ever received a pneumonia vaccine?: Yes *Have you received a flu vaccine this season?: Yes Other Medical History: Reports: Arthritis, Hoarseness, Other. Denies: Blood Transfusion Reaction Laterality Cases: Left: Lumpectomy, Right: Breast Biopsy, Carpal Tunnel Release, Bilateral: Other Other Surgeries: Yes: No Previous Surgery, Cardiac Catheterization, Cholecyst ectomy, Colonoscopy, EGD, Sinus Surgery, Tubal Ligation, Other. No: Pacemaker Amputation: No Fractures: No - *Social History Smoking Status: Former smoker Tobacco Type: cigarettes #Yrs smoked (if former smoker): 28 Alcohol Intake: never Alcohol Intake Frequency:: holidays/special occasions only Substance Use Type: marijuana *Occupational Status:: unemployed Housing: house Household Members: spouse *Travel in the last 8 weeks: Inside the [place] - Psychiatric History Pschychiatric History:: Reports:: Anxiety, Depression Family Hx:: Cancer, Diabetes, Heart Attack, Hyperlipidemia, Hypertension
--- NOTE | 2021-07-31 10:27 | HMH.PMCON ---
Assessment and Plan (1) Sacroiliitis Status: Acute Category: Medical Code(s): M46.1 - Sacroiliitis, not elsewhere classified (2) Lumbar back pain with radiculopathy affecting left lower extremity Status: Acute Category: Medical Code(s): M54.16 - Radiculopathy, lumbar region (3) Degenerative disc disease, lumbar Status: Acute Category: Medical Code(s): M51.36 - Other intervertebral disc degeneration, lumbar region - Assessment and plan all Dx Assessment and Plan for all problems:: This patient is a pleasant 60-year-old male that comes our clinic today for initial evaluation regarding low back pain left greater than right. Also, left hip pain. He brings with him left hip x-ray report. Left hip joint without abnormality. Some mild SI joint degenerative changes on the left side. Patient describes his low back as well as left hip pain is constant, dull, aching. He rates the pain 8/10. Patient has extreme point tenderness over the left SI joint. Patient uses a cane for ambulation. Patient's Laith was reviewed #[id number]. Patient is taking gabapentin 100 mg 3-4 times daily. This is from his PCP. Is awake alert Mandan x3. In no acute distress. Flexion-extension lumbar spine very guarded secondary to pain. Deep tendon reflexes upper and lower extremities normal. Motor strength upper and lower extremities normal. There is no gross sensory deficit. Gait is antalgic requiring a cane for stability. Degenerative disc disease lumbar spine multilevels. Left sacroiliitis. Lumbar radiculopathy symptoms. I discussed in detail treatment options regarding this pain in the left posterior hip area. We discussed left SI joint injection for diagnostic and therapeutic purpose. If no relief with this treatment we will investigate lumbar spine with imaging. Answered questions from patient and his . We will proceed with left SI joint injection. HPI - Data of Consult Requesting Physician: German Wren CRNA - Consult Narrative Reason for consult: Lumbar back pain. Left hip and leg radicular symptoms. History of present illness: Ms. Thrasher is a 60 year old female CC: German Wren CRNA [facility] History Medical History: Reports:: Anxiety, Chronic Obstructive Pulmonary Disease (COPD), Coronary Artery Disease, Depression, Gastroesophageal Reflux Disease(GERD), Heart Murmur, Hyperlipidemia, Hypertension, Lung Disease, Kidney Stones, Palpitations Denies:: Cancer, Diabetes Mellitus Type 1, Diabetes Mellitus Type 2, Internal Pacemaker, MRSA, Seizures *Have you ever received a pneumonia vaccine?: Yes *Have you received a flu vaccine this season?: Yes Other Medical History: Reports: Arthritis, Hoarseness, Other. Denies: Blood Transfusion Reaction Laterality Cases: Left: Lumpectomy, Right: Breast Biopsy, Carpal Tunnel Release, Bilateral: Other Other Surgeries: Yes: No Previous Surgery, Cardiac Catheterization, Cholecystectomy, Colonoscopy, EGD, Sinus Surgery, Tubal Ligation, Other. No: Pacemaker Amputation: No Fractures: No - *Social History Smoking Status: Former smoker Tobacco Type: cigarettes #Yrs smoked (if former smoker): 28 Alcohol Intake: never Alcohol Intake Frequency:: holidays/special occasions only Substance Use Type: marijuana *Occupational Status:: unemployed Housing: house Household Members: spouse *Travel in the last 8 weeks: Inside the [place] - Psychiatric History Pschychiatric History:: Reports:: Anxiety, Depression Family Hx:: Cancer, Diabetes, Heart Attack, Hyperlipidemia, Hypertension Meds Home Medications Medication Instructions Recorded Confirmed Type montelukast 10 mg tablet 10 mg PO QDAY #90 tab 06/28/19 05/23/21 Rx levocetirizine 5 mg tablet 5 mg PO DAILY tab 03/28/20 05/23/21 History Fluticasone Propionate [Flovent 1 puff IH DAILY PRN 04/04/20 05/23/21 History Hfa 110mcg Inhaler] multivitamin 1 tab PO DAILY 10/16/20 05/23/21 History triamcinolone acetonide 55 mcg 2 spra
[2021-07-31 10:45] VITALS: BP 127/72; PULSE 79; RESP 18; TEMP 36.4; O2SAT 95; BMI 37.8
== END ==
PROVIDERS: Visit Provider Nurse Anesthetist, Certified Registered
DX: M51.16 Intervertebral disc disorders with radiculopathy, lumbar region (principal); M48.062 Spinal stenosis, lumbar region with neurogenic claudication; M19.90 Unspecified osteoarthritis, unspecified site
CPT/HCPCS: 99212; G0463

== ENCOUNTER → 2021-09-21 13:15 | Outpatient (CLI) | payer MEDICARE, BC, SELFPAY ==
--- NOTE | 2021-09-21 13:15 | US_ITS ---
FINAL REPORT TECHNIQUE: Ultrasound images of the thyroid were obtained. CLINICAL HISTORY: 6 mth f/u of thyroid nodules FINDINGS: The right lobe of the thyroid measures 4.5 x 1.4 x 1.4 cm cm. The left lobe of the thyroid measures 4.5 x 1.7 x 1.3 cm. The isthmus measures 0.3 cm. There are numerous, small bilateral thyroid nodules. The largest, in the right lower lobe measures 9 x 6 x 8 mm and now appears cystic and solid with microcalcifications, TI-RADS category 4. Other smaller nodules in the right lobe are visually stable. Multiple, less than 1 cm nodules in the left lobe are stable. IMPRESSION: Stable, small bilateral thyroid nodules. Largest nodule in the lower right lobe now with a cystic and solid appearance, TI-RADS category 4. Recommend 1 year follow-up. Reviewed, Interpreted and Dictated by Ortega Donohue III, MD Transcribed by Gwen Brush Authenticated and [facility]
== END ==
PROVIDERS: PCP Emergency Medicine; Visit Provider Emergency Medicine
DX: E04.1 Nontoxic single thyroid nodule (principal)
CPT/HCPCS: 76536

== ENCOUNTER 2021-10-01 17:23 | Emergency (ER) | payer MEDICARE, BC, SELFPAY ==
[2021-10-01 18:35] VITALS: BP 135/82; PULSE 81; RESP 19; TEMP 37.7; O2SAT 96; BMI 36.8
--- NOTE | 2021-10-01 19:14 | HMH.EDUTC ---
[facility] Disposition Clinical Impression: Sinusitis Qualifiers: Sinusitis location: unspecified location Chronicity: unspecified Qualified Code(s): J32.9 - Chronic sinusitis, unspecified Disposition: Home, Self-Care Condition on Discharge: Good Instructions: Sore Throat, DI for Sinusitis, DI for Fever (Symptom) -- Adult Additional Instructions: *Monitor Temp, Over the counter Motrin or Tylenol as directed/as needed Tylenol every 4 hours and Motrin every 6 hours (as long as your family doctor has told you that you can take it) for fever or pain. and straight to ER if unable to lower temp less than 101.0 after medication given *Warm salt water gargles may help to soothe the throat *Throat Lozenges *Warm fluids like tea with honey may help to soothe the throat *Sleep elevated *Humidifier/Vaporizer Your throat swab was sent for culture. Those results are typically sent to your primary care. Be sure to follow up in 2-3 days with your family doctor/primary care physician if no improvement so they can review those result and treat if necessary. If you don?t have a primary care doctor, I recommend you get one but in the mean time, you will have to return to a walk in clinic Follow up IMMEDIATELY for new or worsening symptoms or no Noticeable improvement over the next 48-72 hours. 911 for difficulty breathing or swallowing You were tested for today for COVID19 your test result should be back in the next 24-48 hours, you check your results on the [facility] My Health Portal Make sure to take your Vitamins Vit. C Vit D and Zinc if you can take them Prescriptions: Amoxicillin/Potassium Clav [Amox-Clav 875-125 mg Tablet] 1 tab PO BID #14 tab Transmission Status: Pending to [facility] Referrals: Juan Tan MD [Primary Care Provider] - As needed Time of Disposition: 19:50 Medical Decision Making - Laith Inquiry Pt receiving controlled substance: No Laith was queried for this patient: No Vital Signs: 10/01/21 18:35 Temperature 99.9 F H Temperature Source Oral Pulse Rate [Right Brachial] 81 Respiratory Rate 19 Blood Pressure [Right Arm] 135/82 Blood Pressure Mean [Right Arm] 99 Blood Pressure Source [Right Arm] Automatic Cuff Blood Pressure Position [Right Arm] Sitting 02 Sat by Pulse Oximetry 96 Oxygen Delivery Method Room Air - Lab Data Lab results reviewed: Yes: I reviewed the patient's lab results. Orders (Tests/Meds): ORDERS Category Date Time Status Covid-19 Nasal PCR ([facility]) Routine Lab 10/01/21 18:30 Received [facility] HPI - General Stated complaint: h/a, congestion, chills, sore throat, muscle pain Time Seen by Provider: 10/01/21 19:14 Mode of Arrival: Ambulatory Source of Information: Patient Limitations: No Limitations Description of Symptoms (Recalled from Triage Doc. by RN): PATIENT C/O HEADACHE, SORE THROAT, EAR PAIN, BODY ACHES, AND FEVER X 2 WEEKS HEENT Symptoms (Recalled from RN notes): Yes Resp Symptoms (Recalled from RN notes): No Skin Symptoms (Recalled from RN notes): No MS Symptoms (Recalled from RN notes): No Functional Status (Recalled from RN notes): WNL - History of Present Illness Provider Complaint: Patient states that she has been sick for about 2 weeks States that she has been having sinus pain and pressure, pressure behind her eyes, sore throat, fever, pressure and pain in her ears and body aches States that she hasnt been around anyone that she is aware of with COVID - Related Data Home Medications Medication Instructions Recorded Confirmed levocetirizine 5 mg tablet 5 mg PO DAILY tab 03/28/20 09/21/21 Fluticasone Propionate [Flovent 1 puff IH DAILY PRN 04/04/20 09/21/21 Hfa 110mcg Inhaler] multivitamin 1 tab PO DAILY 10/16/20 09/21/21 triamcinolone acetonide 55 mcg 2 spray NS DAILY ml 10/16/20 09/21/21 nasal spray aerosol Atorvastatin Calcium [Lipitor 40mg See Rx Instructions .ROUTE .COMPLEX 06/21/21 09/21/21 Tab] Meloxicam 15 mg PO DAILY 07/31
[2021-10-01 19:52] LABS: UTC Influenza A Antigen Negative (Negative); UTC Influenza B Antigen Negative (Negative); UTC Strep Screen (Rapid) Negative (Negative)
[2021-10-01 19:54] VITALS: BP 135/82; PULSE 81; RESP 19; TEMP 37.7; O2SAT 96
== END 2021-10-01 19:59 | disposition home or self-care (01) ==
PROVIDERS: Emergency Provider Nurse Practitioner; PCP Emergency Medicine
DX: J32.9 Chronic sinusitis, unspecified (principal); Z20.822 Contact with and (suspected) exposure to COVID-19
CPT/HCPCS: 87804; 87880; 99212; C9803; G0463; U0003; U0005

== ENCOUNTER 2021-10-04 12:41 | Emergency (ER) | payer MEDICARE, BC, SELFPAY ==
[2021-10-04 13:28] VITALS: BP 123/68; PULSE 109; RESP 15; TEMP 38.7; O2SAT 95; BMI 36.8
--- NOTE | 2021-10-04 13:33 | HMH.EDUTC ---
[facility] Clinical Impression: Viral syndrome Sinusitis Qualifiers: Sinusitis location: unspecified location Chronicity: acute Recurrence: non-recurrent Qualified Code(s): J01.90 - Acute sinusitis, unspecified Disposition: Home, Self-Care Condition on Discharge: Good Instructions: DI for Sinusitis, DI for COVID-19 (Suspected or Confirmed ), Preventing the Spread of Coronavirus Discharge Instructions Additional Instructions: Drink plenty of fluids. Take tylenol or ibuprofen for pain or fever. Take the medications as directed. Follow up with your regular doctor. GO TO THE ER FOR ANY WORSENING SYMPTOMS Quarantine until you know the results of your covid-19 test. Notify your school or workplace of your results and follow their instructions regarding return to work/school. Prescriptions: Benzonatate [Benzonatate 100mg cap] 100 mg PO TIDP PRN #30 cap PRN Reason: Cough Transmission Status: Pending to [facility] methylPREDNISolone [Medrol] 4 mg PO DIRECTED 6 Days #21 packet Transmission Status: Pending to [facility] Azithromycin [Z-Yoshi 250mg Tab*] 250 mg PO UD DOSE PK #6 tab Transmission Status: Pending to [facility] Referrals: Juan Tan MD [Primary Care Provider] - Time of Disposition: 14:57 Medical Decision Making - Medical Records Medical records reviewed: No: I reviewed the patient's medical records. - Laith Inquiry Pt receiving controlled substance: No Vital Signs: 10/04/21 13:28 Temperature 101.7 F H Temperature Source Oral Pulse Rate [Left] 109 H Respiratory Rate 15 Blood Pressure [Right Arm] 123/68 Blood Pressure Mean [Right Arm] 86 02 Sat by Pulse Oximetry 95 - Lab Data Lab results reviewed: Yes: I reviewed the patient's lab results. Lab Results 10/04/21 14:03: WBC 9.6, RBC 4.09 L, Hgb 11.9 L, Hct 34.3 L, MCV 83.7, MCH 29.2, MCHC 34.8, RDW 13.6, Plt Count 391, MPV 7.8, Neut % (Auto) 67.0, Lymph % (Auto) 22.8, [place] % (Auto) 7.6, Eos % (Auto) 1.5, Baso % (Auto) 1.1, Neut # (Auto) 6.4, Lymph # (Auto) 2.2, [place] # (Auto) 0.7, Eos # (Auto) 0.1, Baso # (Auto) 0.1 10/04/21 14:03: Sodium 133 L, Potassium 4.0, Chloride 96 L, Carbon Dioxide 28, Anion Gap 13.0, BUN 8, Creatinine 0.60, Estimated Creat Clear 155, Estimated GFR 102, Est GFR ( Amer) 124, Glucose 152 H, Calcium 9.3 Result diagrams: 10/04/21 14:03 10/04/21 14:03 Orders (Tests/Meds): ED MEDICATIONS Generic Name Dose Route Start Last Admin Trade Name Freq PRN Reason Stop Dose Admin Sodium Chloride 500 mls @ 500 mls/hr 10/04/21 14:30 10/04/21 14:26 Sod Chlor 0.9% 1000ml Bag IV 11/03/21 14:29 500 mls/hr .Q1H JULY Administration Sodium Chloride 10 ml 10/04/21 14:15 Sodium Chloride 0.9% 10ml Flush Syringe IV 11/03/21 14:14 NEEDED PRN Maintain IV Site Discontinued Medications Generic Name Dose Route Start Last Admin Trade Name Freq PRN Reason Stop Dose Admin Ondansetron HCl 2 mg 10/04/21 14:14 10/04/21 14:23 Ondansetron 4mg/2ml Vial IV 10/04/21 14:15 2 mg ONCE ONE Administration ORDERS Category Date Time Status Chest XR 2 view (NOT portable) [XR chest 2V] Stat Exams 10/04/21 13:37 Taken [facility] HPI - General Stated complaint: Fever, headache, bodyaches Time Seen by Provider: 10/04/21 13:33 Mode of Arrival: Ambulatory Source of Information: Patient Limitations: No Limitations Description of Symptoms (Recalled from Triage Doc. by RN): patient comes in with complaints of chills, fever, aches, sore throat, ear pain. patient was here 10/01. flu negative, covid negative, strep negative. patient states that she is still having symptoms. abx prescribed is not working for her HEENT Symptoms (Recalled from RN notes): Yes Resp Symptoms (Recalled from RN notes): Yes Skin Symptoms (Recalled from RN notes): No MS Symptoms (Recalled from RN notes): No Functional Status (Recalled from RN notes): n/a - History of Pr
--- NOTE | 2021-10-04 13:37 | XR_ITS ---
FINAL REPORT CLINICAL HISTORY: sob, cough FINDINGS: Two views of the chest were obtained. The heart size and pulmonary vascularity are within normal limits. The mediastinum is normal. There are mild bibasilar opacities. There is no pneumothorax. The bony thorax is intact. IMPRESSION: Mild bibasilar opacities could represent atelectasis or pneumonia. Reviewed, Interpreted and Dictated by Ortega Donohue III, MD Transcribed by Mehrdad Leonard Authenticated and [facility]
[2021-10-04 14:12] LABS: Basophils # 0.1 K/mm3 (0-0.2); Basophils % 1.1 % (0.1-2.0); Eosinophils # 0.1 K/mm3 (0.0-0.4); Eosinophils % 1.5 % (0.1-12.0); Hematocrit 34.3 % (37.0-47.0); Hemoglobin 11.9 g/dL (12.2-16.2); Lymphocytes # 2.2 K/mm3 (0.7-4.5); Lymphocytes % 22.8 % (10-50); Mean Corpuscular HGB Conc 34.8 g/dL (31.8-35.4); Mean Corpuscular Hemoglobin 29.2 pg (27.0-31.2); Mean Corpuscular Volume 83.7 fl (81-99); Mean Platelet Volume 7.8 fl (7.4-10.4); Monocytes # 0.7 K/mm3 (0.1-1.0); Monocytes % 7.6 % (1.7-9.3); Neutrophils # 6.4 K/mm3 (1.8-7.8); Platelet Count 391 K/mm3 (142-424); Red Blood Count 4.09 M/mm3 (4.20-5.40); Red Cell Distribution Width 13.6 % (11.5-17.5); White Blood Count 9.6 K/mm3 (4.8-10.8)
[2021-10-04 14:17] LABS: Chloride 96 mmol/L (98-107); Sodium 133 mmol/L (136-145)
[2021-10-04 14:20] LABS: Blood Urea Nitrogen 8 mg/dl (7-17); Calcium 9.3 mg/dl (8.4-10.2); Carbon Dioxide 28 mmol/L (22.0-30.0); Creatinine Clearance Estimated 155 mL/min (50-200); Estimated Glomerular Filt Rate 102 ml/min (>60); GFR (African American) 124 ML/MIN (>60); Glucose 152 mg/dl (74-100)
[2021-10-04 15:12] VITALS: BP 123/68; PULSE 109; RESP 15; TEMP 37.2
[2021-10-04 15:31] LABS: Adenovirus,PCR Not Detected (NotDetected); Bordetella Pertussis Not Detected (NotDetected); Chlamydophila Pneumoniae, PCR Not Detected (NotDetected); Coronavirus 19, PCR Not Detected (NotDetected); Coronavirus 229E Not Detected (NotDetected); Coronavirus NL63 Not Detected (NotDetected); Coronavirus OC43 Not Detected (NotDetected); Coronovirus HKU1,PCR Not Detected (NotDetected); Human Metapneumovirus Not Detected (NotDetected); Influenza A, PCR Not Detected (NotDetected); Influenza AH1, 2009 Not Detected (NotDetected); Influenza AH1, PCR Not Detected (NotDetected); Influenza AH3,PCR Not Detected (NotDetected); Influenza B, PCR Not Detected (NotDetected); Mycoplasma Pneumoniae, PCR Not Detected (NotDetected); Parainfluenza 1, PCR Not Detected (NotDetected); Parainfluenza 2, PCR Not Detected (NotDetected); Parainfluenza 3, PCR Not Detected (NotDetected); Parainfluenza 4, PCR Not Detected (NotDetected); Respiratory Syncytial Virus Not Detected (NotDetected); Rhinovirus/Enterovirus Not Detected (NotDetected)
== END 2021-10-04 15:12 | disposition home or self-care (01) ==
PROVIDERS: Emergency Provider Nurse Practitioner Family; PCP Emergency Medicine
DX: J01.90 Acute sinusitis, unspecified (principal); R00.2 Palpitations; R94.39 Abnormal result of other cardiovascular function study; R42 Dizziness and giddiness; J02.9 Acute pharyngitis, unspecified; H92.09 Otalgia, unspecified ear; Z20.822 Contact with and (suspected) exposure to COVID-19; I10 Essential (primary) hypertension; R01.1 Cardiac murmur, unspecified; I25.119 Atherosclerotic heart disease of native coronary artery with unspecified angina pectoris; K21.9 Gastro-esophageal reflux disease without esophagitis; E78.5 Hyperlipidemia, unspecified; M19.90 Unspecified osteoarthritis, unspecified site; J98.4 Other disorders of lung; J44.9 Chronic obstructive pulmonary disease, unspecified; F32.A Depression, unspecified; F41.9 Anxiety disorder, unspecified; Z79.1 Long term (current) use of non-steroidal anti-inflammatories (NSAID); Z79.51 Long term (current) use of inhaled steroids; Z79.52 Long term (current) use of systemic steroids; Z79.899 Other long term (current) drug therapy; Z87.891 Personal history of nicotine dependence; Z82.49 Family history of ischemic heart disease and other diseases of the circulatory system; Z83.438 Family history of other disorder of lipoprotein metabolism and other lipidemia; Z83.3 Family history of diabetes mellitus; Z80.9 Family history of malignant neoplasm, unspecified
CPT/HCPCS: 71046; 80048; 85025; 87581; 87632; 87798; 96372; 99213; C9803; G0463; J2405; U0003; U0005

== ENCOUNTER 2021-10-14 10:45 | Emergency (ER) | payer MEDICARE, BC, SELFPAY ==
--- NOTE | 2021-10-14 11:01 | EXP.UTC ---
Discharge Plan Disposition Patient Disposition: Home, Self-Care Condition: Good Prescriptions Prescriptions: New methylprednisolone 4 mg Tablets,Dose Pack 4 mg PO DIRECTED Qty: 21 0RF ondansetron 4 mg Tablet,Disintegrating 4 mg PO Q8H PRN (Reason: Nausea) Qty: 20 0RF amoxicillin-pot clavulanate 875-125 mg Tablet 1 tab PO Q12H Qty: 20 0RF No Action albuterol sulfate 90 mcg/actuation HFA aerosol inhaler 2 puff IH Q6H PRN levocetirizine 5 mg tablet 5 mg PO DAILY triamcinolone acetonide 55 mcg aerosol,spray 2 spray NS DAILY multivitamin Tablet 1 tab PO DAILY duloxetine 60 mg capsule,delayed release(DR/EC) 60 mg PO DAILY Qty: 30 1RF montelukast 10 mg tablet 10 mg PO QDAY Qty: 90 0RF lisinopril-hydrochlorothiazide 10-12.5 mg tablet See Rx Instructions .ROUTE .COMPLEX Qty: 90 0RF Dose Instruction: TAKE 1 TABLET BY MOUTH ONCE DAILY FOR BLOOD PRESSURE Rx Instructions: TAKE 1 TABLET BY MOUTH ONCE DAILY FOR BLOOD PRESSURE omeprazole 20 mg capsule,delayed release(DR/EC) See Rx Instructions .ROUTE .COMPLEX Qty: 90 2RF Dose Instruction: TAKE 1 CAPSULE BY MOUTH ONCE DAILY Rx Instructions: TAKE 1 CAPSULE BY MOUTH ONCE DAILY ibuprofen 800 MG tablet 800 mg PO Q8HP PRN (Reason: Moderate Pain) Qty: 90 2RF atorvastatin 40 MG tablet See Rx Instructions .Route .COMPLEX Rx Instructions: TAKE ONE TABLET BY MOUTH EVERY DAY meloxicam 15 MG tablet 15 mg PO DAILY amoxicillin-pot clavulanate 1 EACH tablet 1 tab PO BID Qty: 14 0RF fluticasone propionate 120 PUFFS HFA aerosol inhaler 1 puff IH DAILY PRN (Reason: asthma) azithromycin 250 MG tablet 250 mg PO UD DOSE PK Qty: 6 0RF Rx Instructions: Take two (2) tablets today, then one (1) tablet days #2 thru #5 benzonatate 100 MG capsule 100 mg PO TIDP PRN (Reason: Cough) Qty: 30 0RF methylprednisolone 4 MG tablets,dose pack 4 mg PO DIRECTED 6 Days Qty: 21 0RF Referrals Follow up/Referrals: Juan Tan MD [Primary Care Provider] - See instructions Activity Restrictions/Add. Instructions Additional Instructions/Restrictions: Drink plenty of fluids. Take tylenol for pain or fever. Take the medications as directed. Follow up with your regular doctor within 48 hours. GO TO THE ER FOR ANY WORSENING SYMPTOMS Quarantine until you know the results of your covid-19 test. Notify your school or workplace of your results and follow their instructions regarding return to work/school. Clinical Impressions Clinical Impression: Viral syndrome Instructions Patient Instructions: DI for Viral Syndrome Discharge ED Provider: Kane Diaz [facility] General Stated complaint: fever, sore throat Time Seen by Provider: 10/14/21 11:01 History of Present Illness Provider Complaint: He has had a cough, low grade fever and he has felt bad for the past 2 days. Related Data Home Medications Medication Instructions Recorded Confirmed levocetirizine 5 mg tablet 5 mg PO DAILY allergies 03/28/20 09/21/21 fluticasone propionate 110 1 puff inhalation DAILY PRN asthma 04/04/20 09/21/21 mcg/actuation HFA aerosol inhaler multivitamin 1 tab PO DAILY Supplement 10/16/20 09/21/21 triamcinolone acetonide 55 mcg 2 spray intranasal DAILY allergies 10/16/20 09/21/21 nasal spray aerosol atorvastatin 40 mg tablet See Rx Instructions .Route 06/21/21 09/21/21 .COMPLEX Cholesterol meloxicam 15 mg tablet 15 mg PO DAILY Pain 07/31/21 09/21/21 albuterol sulfate 90 mcg/actuation 2 puff inhalation Q6H PRN 09/10/21 09/21/21 aerosol inhaler Previous Rx's Medication Instructions Recorded montelukast 10 mg tablet 10 mg PO QDAY allergies #90 tabs 06/28/19 ibuprofen 800 mg tablet 800 mg PO Q8HP PRN Moderate Pain 04/19/21 #90 tabs lisinopril 10 See Rx Instructions .Route 08/10/21 mg-hydrochlorothiazide 12.5 mg .COMPLEX #90 tab
[2021-10-14 11:05] VITALS: BP 122/83; PULSE 101; RESP 19; TEMP 37.1; O2SAT 98; BMI 36.8
[2021-10-14 11:09] LABS: Adenovirus,PCR Not Detected (NotDetected); Bordetella Pertussis Not Detected (NotDetected); Chlamydophila Pneumoniae, PCR Not Detected (NotDetected); Coronavirus 19, PCR Not Detected (NotDetected); Coronavirus 229E Not Detected (NotDetected); Coronavirus NL63 Not Detected (NotDetected); Coronavirus OC43 Not Detected (NotDetected); Coronovirus HKU1,PCR Not Detected (NotDetected); Human Metapneumovirus Not Detected (NotDetected); Influenza A, PCR Not Detected (NotDetected); Influenza AH1, 2009 Not Detected (NotDetected); Influenza AH1, PCR Not Detected (NotDetected); Influenza AH3,PCR Not Detected (NotDetected); Influenza B, PCR Not Detected (NotDetected); Mycoplasma Pneumoniae, PCR Not Detected (NotDetected); Parainfluenza 1, PCR Not Detected (NotDetected); Parainfluenza 2, PCR Not Detected (NotDetected); Parainfluenza 3, PCR Not Detected (NotDetected); Parainfluenza 4, PCR Not Detected (NotDetected); Respiratory Syncytial Virus Not Detected (NotDetected); Rhinovirus/Enterovirus Not Detected (NotDetected)
[2021-10-14 11:18] LABS: UTC Strep Screen (Rapid) Negative (Negative)
[2021-10-14 11:20] LABS: UTC Influenza A Antigen Negative (Negative)
[2021-10-14 11:21] LABS: UTC Influenza B Antigen Negative (Negative)
--- NOTE | 2021-10-14 11:23 | XR_ITS ---
PROCEDURE INFORMATION: Exam: XR Chest Exam date and time: 10/14/2021 11:23 AM Age: 61 years old Clinical indication: Cough and fever; Additional info: Fever, cough TECHNIQUE: Imaging protocol: Radiologic exam of the chest. Views: 2 views. COMPARISON: CR XR CHEST 2V 10/04/2021 2:04 PM FINDINGS: Lungs: No focal airspace disease. Pleural spaces: Unremarkable. No pleural effusion. No pneumothorax. Heart/Mediastinum: Cardiomediastinal silhouette is within normal limits. Bones/joints: Unremarkable. IMPRESSION: No acute cardiopulmonary abnormality.
[2021-10-14 11:56] LABS: Basophils # 0.1 K/mm3 (0-0.2); Basophils % 1.1 % (0.1-2.0); Eosinophils # 0.1 K/mm3 (0.0-0.4); Eosinophils % 0.9 % (0.1-12.0); Hematocrit 36.9 % (37.0-47.0); Hemoglobin 11.7 g/dL (12.2-16.2); Lymphocytes # 3.5 K/mm3 (0.7-4.5); Lymphocytes % 33.8 % (10-50); Mean Corpuscular HGB Conc 31.8 g/dL (31.8-35.4); Mean Corpuscular Hemoglobin 27.6 pg (27.0-31.2); Mean Corpuscular Volume 86.7 fl (81-99); Mean Platelet Volume 7.3 fl (7.4-10.4); Monocytes # 0.8 K/mm3 (0.1-1.0); Monocytes % 7.7 % (1.7-9.3); Neutrophils # 5.8 K/mm3 (1.8-7.8); Neutrophils % 56.5 % (37.0-80.0); Platelet Count 600 K/mm3 (142-424); Red Blood Count 4.26 M/mm3 (4.20-5.40); Red Cell Distribution Width 13.6 % (11.5-17.5); White Blood Count 10.3 K/mm3 (4.8-10.8)
[2021-10-14 12:04] LABS: Monoscreen (Rapid) Negative (Negative)
[2021-10-14 12:29] VITALS: BP 122/83; PULSE 101; RESP 19; TEMP 37.1
[2021-10-14 13:40] LABS: Anion Gap 13.7 mEq/L (5-15); Blood Urea Nitrogen 6 mg/dl (7-17); Calcium 9.3 mg/dl (8.4-10.2); Carbon Dioxide 28 mmol/L (22.0-30.0); Chloride 100 mmol/L (98-107); Creatinine Clearance Estimated 154 mL/min (50-200); Estimated Glomerular Filt Rate 102 ml/min (>60); GFR (African American) 123 ML/MIN (>60); Glucose 152 mg/dl (74-100); Potassium 4.7 mmoL/L (3.5-5.1); Sodium 137 mmol/L (136-145)
== END 2021-10-14 12:30 | disposition home or self-care (01) ==
PROVIDERS: Emergency Provider Nurse Practitioner Family; PCP Emergency Medicine
DX: B34.9 Viral infection, unspecified (principal); J02.9 Acute pharyngitis, unspecified; R94.31 Abnormal electrocardiogram [ECG] [EKG]; R00.2 Palpitations; R42 Dizziness and giddiness; R50.9 Fever, unspecified; R60.0 Localized edema; Z20.822 Contact with and (suspected) exposure to COVID-19; I10 Essential (primary) hypertension; I20.9 Angina pectoris, unspecified; K21.9 Gastro-esophageal reflux disease without esophagitis; E78.5 Hyperlipidemia, unspecified; J44.9 Chronic obstructive pulmonary disease, unspecified; Z87.891 Personal history of nicotine dependence; Z82.49 Family history of ischemic heart disease and other diseases of the circulatory system
CPT/HCPCS: 71046; 80048; 85025; 86318; 87581; 87632; 87798; 87804; 87880; 99213; C9803; G0463; U0003; U0005

== ENCOUNTER → 2021-10-27 08:04 | Outpatient (CLI) | payer MEDICARE, MEDICAID, SELFPAY ==
--- NOTE | 2021-10-27 08:06 | ECG_ITS ---
APPROVED REPORT Exam: Resting ECG HR:86 bpm ECG Measurements Heart Rate 86 AXES ID 121 P 33 QRSd 89 QRS 26 QT 367 T 31 QTc 410 Conclusion SINUS RHYTHM WITH OCCASIONAL VENTRICULAR PREMATURE COMPLEXES LOW QRS VOLTAGE IN PRECORDIAL LEADS [QRS DEFLECTION < 1.0 mV IN CHEST LEADS] MINIMAL ST DEPRESSION [0.025+ mV ST DEPRESSION] BORDERLINE ECG UNCONFIRMED REPORT Electronically signed by : Phillip Kim MD 10/28/2021 15:25:19
[2021-10-27 08:28] LABS: MANUAL DIFFERENTIAL MANUAL DIFFERENTIAL (MANUAL DIFF)
[2021-10-27 09:03] LABS: Basophils # 0.1 K/mm3 (0-0.2); Basophils % 1.6 % (0.1-2.0); Eosinophils # 0.2 K/mm3 (0.0-0.4); Eosinophils % 2.8 % (0.1-12.0); Hematocrit 35.5 % (37.0-47.0); Hemoglobin 11.4 g/dL (12.2-16.2); Lymphocytes # 3.2 K/mm3 (0.7-4.5); Lymphocytes % 40.3 % (10-50); Mean Corpuscular HGB Conc 32.1 g/dL (31.8-35.4); Mean Corpuscular Volume 87.4 fl (81-99); Mean Platelet Volume 8.1 fl (7.4-10.4); Monocytes # 0.5 K/mm3 (0.1-1.0); Monocytes % 6.1 % (1.7-9.3); Neutrophils # 3.9 K/mm3 (1.8-7.8); Neutrophils % 49.2 % (37.0-80.0); Platelet Count 423 K/mm3 (142-424); Red Blood Count 4.06 M/mm3 (4.20-5.40); Red Cell Distribution Width 13.8 % (11.5-17.5); White Blood Count 7.8 K/mm3 (4.8-10.8)
[2021-10-27 09:27] LABS: Alanine Aminotransferase 26 U/L (12-78); Albumin Level 3.7 g/dl (3.5-5.0); Albumin/Globulin Ratio 1.4 (1.1-1.8); Alkaline Phosphatase 157 U/L (38-126); Anion Gap 11.9 mEq/L (5-15); Aspartate Amino Transferase 29 U/L (14-36); Bilirubin,Total 0.1 mg/dl (0.2-1.3); Blood Urea Nitrogen 8 mg/dl (7-17); Calcium 8.8 mg/dl (8.4-10.2); Carbon Dioxide 26 mmol/L (22.0-30.0); Chloride 101 mmol/L (98-107); Estimated Glomerular Filt Rate 102 ml/min (>60); GFR (African American) 123 ML/MIN (>60); Globulin 2.7 g/dL (1.3-3.2); Glucose 266 mg/dl (74-100); Potassium 3.9 mmoL/L (3.5-5.1); Sodium 135 mmol/L (136-145); Total Protein,Serum 6.4 g/dl (6.3-8.2)
[2021-10-27 09:45] LABS: Eosinophils % 7 % (0-3); Lymphocytes % 43 % (10-50); Monocytes % 4 % (2-9); Neutrophils % 46 % (42-76); Total Cells Counted 100
[2021-10-27 09:46] LABS: Platelet Estimate Normal; RBC Morphology Normal
== END ==
PROVIDERS: PCP Emergency Medicine; Visit Provider Otolaryngology
DX: D49.2 Neoplasm of unspecified behavior of bone, soft tissue, and skin (principal); Z01.818 Encounter for other preprocedural examination; Z20.822 Contact with and (suspected) exposure to COVID-19
CPT/HCPCS: 36415; 80053; 85007; 85014; 85018; 85048; 85049; 93005; C9803; U0003; U0005

== ENCOUNTER 2021-10-30 14:26 | Emergency (ER) | payer MEDICARE, MEDICAID, SELFPAY ==
[2021-10-30 15:30] VITALS: BP 124/83; PULSE 76; RESP 19; TEMP 37.3; O2SAT 99; BMI 35.7
--- NOTE | 2021-10-30 15:57 | EXP.UTC ---
Discharge Plan Disposition Patient Disposition: Home, Self-Care Condition: Good Prescriptions Prescriptions: No Action levocetirizine 5 mg tablet 5 mg PO DAILY triamcinolone acetonide 55 mcg aerosol,spray 2 spray NS DAILY multivitamin Tablet 1 tab PO DAILY duloxetine 60 mg capsule,delayed release(DR/EC) 60 mg PO DAILY Qty: 30 1RF montelukast 10 mg tablet 10 mg PO QDAY Qty: 90 0RF lisinopril-hydrochlorothiazide 10-12.5 mg tablet See Rx Instructions .ROUTE .COMPLEX Qty: 90 0RF Dose Instruction: TAKE 1 TABLET BY MOUTH ONCE DAILY FOR BLOOD PRESSURE Rx Instructions: TAKE 1 TABLET BY MOUTH ONCE DAILY FOR BLOOD PRESSURE atorvastatin 40 MG tablet 40 mg PO DAILY Rx Instructions: TAKE ONE TABLET BY MOUTH EVERY DAY meloxicam 15 MG tablet 15 mg PO DAILY Allergy Prescription Mix 1:20 Allergen 1 ea INTRADERMAL WEEKLY Rx Instructions: friday omeprazole 20 mg capsule,delayed release(DR/EC) 20 mg PO DAILY Rx Instructions: TAKE 1 CAPSULE BY MOUTH ONCE DAILY Referrals Follow up/Referrals: Juan Tan MD [Primary Care Provider] - See instructions Activity Restrictions/Add. Instructions Additional Instructions/Restrictions: *Monitor Temp, Over the counter Motrin or Tylenol as directed/as needed Tylenol every 4 hours and Motrin every 6 hours (as long as your family doctor has told you that you can take it) for fever or pain. and straight to ER if unable to lower temp less than 101.0 after medication given *Warm salt water gargles may help to soothe the throat *Throat Lozenges? *Warm fluids like tea with honey may help to soothe the throat? *Sleep elevated *Humidifier/Vaporizer Your throat swab was sent for culture. Those results are typically sent to your primary care. Be sure to follow up in 2-3 days with your family doctor/primary care physician if no improvement so they can review those result and treat if necessary. If you don?t have a primary care doctor, I recommend you get one but in the mean time, you will have to return to a walk in clinic Follow up IMMEDIATELY for new or worsening symptoms or no Noticeable improvement over the next 48-72 hours. 911 for difficulty breathing or swallowing You were tested for today for COVID19 your test result should be back in the next 24-48 hours, you may check your results on the [facility] My Health Portal Make sure to take your Vitamins Vit. C Vit D and Zinc if you can take them Clinical Impressions Clinical Impression: Allergic rhinitis Instructions Patient Instructions: Allergic Rhinitis Discharge ED Provider: Siomara Ham [facility] HPI General Stated complaint: ORTIZ, sore throat, L ear pain, bodyaches, fever Mode of Arrival: Ambulatory Source of Information: Patient Limitations: No Limitations Time Seen by Provider: 10/30/21 15:57 Description of Symptoms (Recalled from Triage Doc. by RN): PATIENT C/O BODY ACHES, HEADACHE, SORE THROAT, FEVER, AND LEFT EAR PAIN X 3 DAYS HEENT Symptoms (Recalled from RN notes): Yes Resp Symptoms (Recalled from RN notes): No Skin Symptoms (Recalled from RN notes): No MS Symptoms (Recalled from RN notes): No Functional Status (Recalled from RN notes): WNL History of Present Illness Provider Complaint: Patient states that she has been fighting this for close to a month and has had several antibiotics but it didnt help clear it up States that today she is back because she is still having pain and pressure in her left ear body aches, chills, and had fever earlier, states that her throat feels raw and hurts when she swallows and headache reports clear drainage from nose Related Data Home Medications Medication Instructions Recorded Confirmed levocetirizine 5 mg tablet 5 mg PO DAILY allergies 03/28/20 10/25/21 multivitamin 1 tab PO DAILY Supplement 10/16/20 10/25/21 triamcinolone acetonide 55 mcg 2 spray intranasal DAILY allergies
[2021-10-30 16:09] LABS: UTC Strep Screen (Rapid) Negative (Negative)
[2021-10-30 16:10] LABS: UTC Influenza A Antigen Negative (Negative); UTC Influenza B Antigen Negative (Negative)
[2021-10-30 16:22] VITALS: BP 124/83; PULSE 76; RESP 19; TEMP 37.3; O2SAT 99
--- NOTE | 2021-10-30 16:28 | EXP.UTC ---
Discharge Plan Disposition Patient Disposition: Home, Self-Care Condition: Good Prescriptions Prescriptions: No Action levocetirizine 5 mg tablet 5 mg PO DAILY triamcinolone acetonide 55 mcg aerosol,spray 2 spray NS DAILY multivitamin Tablet 1 tab PO DAILY duloxetine 60 mg capsule,delayed release(DR/EC) 60 mg PO DAILY Qty: 30 1RF montelukast 10 mg tablet 10 mg PO QDAY Qty: 90 0RF lisinopril-hydrochlorothiazide 10-12.5 mg tablet See Rx Instructions .ROUTE .COMPLEX Qty: 90 0RF Dose Instruction: TAKE 1 TABLET BY MOUTH ONCE DAILY FOR BLOOD PRESSURE Rx Instructions: TAKE 1 TABLET BY MOUTH ONCE DAILY FOR BLOOD PRESSURE atorvastatin 40 MG tablet 40 mg PO DAILY Rx Instructions: TAKE ONE TABLET BY MOUTH EVERY DAY meloxicam 15 MG tablet 15 mg PO DAILY Allergy Prescription Mix 1:20 Allergen 1 ea INTRADERMAL WEEKLY Rx Instructions: friday omeprazole 20 mg capsule,delayed release(DR/EC) 20 mg PO DAILY Rx Instructions: TAKE 1 CAPSULE BY MOUTH ONCE DAILY Referrals Follow up/Referrals: Juan Tan MD [Primary Care Provider] - See instructions Activity Restrictions/Add. Instructions Additional Instructions/Restrictions: *Monitor Temp, Over the counter Motrin or Tylenol as directed/as needed Tylenol every 4 hours and Motrin every 6 hours (as long as your family doctor has told you that you can take it) for fever or pain. and straight to ER if unable to lower temp less than 101.0 after medication given *Warm salt water gargles may help to soothe the throat *Throat Lozenges? *Warm fluids like tea with honey may help to soothe the throat? *Sleep elevated *Humidifier/Vaporizer Your throat swab was sent for culture. Those results are typically sent to your primary care. Be sure to follow up in 2-3 days with your family doctor/primary care physician if no improvement so they can review those result and treat if necessary. If you don?t have a primary care doctor, I recommend you get one but in the mean time, you will have to return to a walk in clinic Follow up IMMEDIATELY for new or worsening symptoms or no Noticeable improvement over the next 48-72 hours. 911 for difficulty breathing or swallowing You were tested for today for COVID19 your test result should be back in the next 24-48 hours, you may check your results on the [facility] My Health Portal Make sure to take your Vitamins Vit. C Vit D and Zinc if you can take them Clinical Impressions Clinical Impression: Allergic rhinitis Instructions Patient Instructions: Allergic Rhinitis Discharge ED Provider: Siomara Ham [facility] HPI General Stated complaint: ORTIZ, sore throat, L ear pain, bodyaches, fever Mode of Arrival: Ambulatory Source of Information: Patient Limitations: No Limitations Time Seen by Provider: 10/30/21 15:57 Description of Symptoms (Recalled from Triage Doc. by RN): PATIENT C/O BODY ACHES, HEADACHE, SORE THROAT, FEVER, AND LEFT EAR PAIN X 3 DAYS HEENT Symptoms (Recalled from RN notes): Yes Resp Symptoms (Recalled from RN notes): No Skin Symptoms (Recalled from RN notes): No MS Symptoms (Recalled from RN notes): No Functional Status (Recalled from RN notes): WNL Related Data Home Medications Medication Instructions Recorded Confirmed levocetirizine 5 mg tablet 5 mg PO DAILY allergies 03/28/20 10/25/21 multivitamin 1 tab PO DAILY Supplement 10/16/20 10/25/21 triamcinolone acetonide 55 mcg 2 spray intranasal DAILY allergies 10/16/20 10/25/21 nasal spray aerosol atorvastatin 40 mg tablet 40 mg PO DAILY Cholesterol 06/21/21 10/25/21 meloxicam 15 mg tablet 15 mg PO DAILY Pain 07/31/21 10/25/21 omeprazole 20 mg capsule,delayed 20 mg PO DAILY Reflux/Acid reflux 10/25/21 10/25/21 release pollens extract 1:20 allergen prep 1 ea intradermal WEEKLY allergies 10/25/21 10/25/21 intradermal Previous Rx's Medication Instructions Recor
== END 2021-10-30 16:32 | disposition home or self-care (01) ==
PROVIDERS: Emergency Provider Nurse Practitioner; PCP Emergency Medicine
DX: J30.9 Allergic rhinitis, unspecified (principal); R51.9 Headache, unspecified; J02.9 Acute pharyngitis, unspecified; M79.10 Myalgia, unspecified site; R50.9 Fever, unspecified; H92.02 Otalgia, left ear; Z20.822 Contact with and (suspected) exposure to COVID-19
CPT/HCPCS: 87804; 87880; 96372; 99212; C9803; G0463; U0003; U0005

== ENCOUNTER → 2021-11-24 08:27 | Outpatient (CLI) | payer MEDICARE, MEDICAID, SELFPAY ==
[2021-11-23 18:45] LABS: Basophils # 0.1 K/mm3 (0-0.2); Basophils % 1.1 % (0.1-2.0); Eosinophils % 0.3 % (0.1-12.0); Hematocrit 36.5 % (37.0-47.0); Lymphocytes # 3.4 K/mm3 (0.7-4.5); Lymphocytes % 48.7 % (10-50); Mean Corpuscular HGB Conc 32.8 g/dL (31.8-35.4); Mean Corpuscular Hemoglobin 27.5 pg (27.0-31.2); Mean Platelet Volume 9.8 fl (7.4-10.4); Monocytes # 0.7 K/mm3 (0.1-1.0); Monocytes % 10.7 % (1.7-9.3); Neutrophils # 2.7 K/mm3 (1.8-7.8); Neutrophils % 39.3 % (37.0-80.0); Platelet Count 450 K/mm3 (142-424); Red Blood Count 4.34 M/mm3 (4.20-5.40); Red Cell Distribution Width 14.5 % (11.5-17.5)
[2021-11-23 19:09] LABS: Alanine Aminotransferase 27 U/L (12-78); Albumin/Globulin Ratio 1.3 (1.1-1.8); Alkaline Phosphatase 181 U/L (38-126); Anion Gap 17.2 mEq/L (5-15); Aspartate Amino Transferase 32 U/L (14-36); Bilirubin,Total 0.2 mg/dl (0.2-1.3); Blood Urea Nitrogen 8 mg/dl (7-17); Calcium 9.1 mg/dl (8.4-10.2); Carbon Dioxide 26 mmol/L (22.0-30.0); Chloride 97 mmol/L (98-107); Cholesterol 188 mg/dl (140-200); Estimated Glomerular Filt Rate 126 ml/min (>60); GFR (African American) 152 ML/MIN (>60); Globulin 3.1 g/dL (1.3-3.2); Glucose 120 mg/dl (74-100); HDL Cholesterol 63 mg/dl (40-60); Potassium 4.2 mmoL/L (3.5-5.1); Sodium 136 mmol/L (136-145); Total Protein,Serum 7.1 g/dl (6.3-8.2); Triglycerides 247 mg/dl (30-150); VLDL Cholesterol 49 mg/dL (0-40)
[2021-11-23 19:19] LABS: Direct LDL Cholesterol 81.82 mg/dL (100-129)
[2021-11-23 19:24] LABS: Free T4 (Free Thyroxine) 0.72 ng/dl (0.78-2.19)
[2021-11-23 19:25] LABS: 25-OH Vitamin D, Total 30.6 ng/mL (30-100)
[2021-11-23 19:37] LABS: Thyroid Stimulating Hormone 0.81 uIU/mL (0.465-4.68)
== END ==
PROVIDERS: PCP Emergency Medicine; Visit Provider Emergency Medicine
DX: E66.01 Morbid (severe) obesity due to excess calories (principal); Z68.41 Body mass index [BMI] 40.0-44.9, adult; R53.83 Other fatigue; E55.9 Vitamin D deficiency, unspecified
CPT/HCPCS: 80053; 80061; 82306; 84439; 84443; 85025

== ENCOUNTER → 2021-12-12 13:49 | Outpatient (CLI) | payer MEDICARE, MEDICAID, SELFPAY ==
--- NOTE | 2021-12-12 13:49 | CT_ITS ---
FINAL REPORT TECHNIQUE: Thin section axial CT images of the facial bones and sinuses were obtained without contrast. Coronal reformatted images were also obtained.This study was performed with techniques to keep radiation doses as low as reasonably achievable, (ALARA). Individualized dose reduction techniques using automated exposure control or adjustment of mA and/or kV according to the patient''''s size were employed. CLINICAL HISTORY: sinusitis FINDINGS: CT FACIAL BONES/SINUSES W/O CONTRAST There is no evidence of mucosal thickening. No fluid levels are identified. The ostiomeatal units have an unremarkable appearance. The nasal septum is in the midline. No fracture or acute bony abnormality is identified. IMPRESSION: No focal abnormality identified of the sinuses. Reviewed, Interpreted and Dictated by Ortega Donohue III, MD Transcribed by Katie Johnson Authenticated and [facility]
== END ==
PROVIDERS: PCP Emergency Medicine; Visit Provider Otolaryngology
DX: J31.0 Chronic rhinitis (principal)
CPT/HCPCS: 70486

== ENCOUNTER → 2021-12-31 14:06 | Outpatient (CLI) | payer MEDICARE, MEDICAID, SELFPAY ==
--- NOTE | 2021-12-31 14:48 | ECG_ITS ---
APPROVED REPORT Exam: Resting ECG HR:69 bpm ECG Measurements Heart Rate 69 AXES AL 160 P 24 QRSd 89 QRS 35 QT 405 T 53 QTc 423 Conclusion SINUS RHYTHM LOW QRS VOLTAGE IN PRECORDIAL LEADS [QRS DEFLECTION < 1.0 mV IN CHEST LEADS] BORDERLINE ECG UNCONFIRMED REPORT Electronically signed by : Phillip Kim MD 12/31/2021 21:09:29
[2021-12-31 15:17] LABS: Basophils # 0.1 K/mm3 (0-0.2); Basophils % 1.2 % (0.1-2.0); Eosinophils # 0.2 K/mm3 (0.0-0.4); Eosinophils % 3.4 % (0.1-12.0); Hemoglobin 11.7 g/dL (12.2-16.2); Lymphocytes # 3.5 K/mm3 (0.7-4.5); Mean Corpuscular HGB Conc 31.7 g/dL (31.8-35.4); Mean Corpuscular Hemoglobin 27.1 pg (27.0-31.2); Mean Corpuscular Volume 85.7 fl (81-99); Mean Platelet Volume 8.4 fl (7.4-10.4); Monocytes # 0.4 K/mm3 (0.1-1.0); Neutrophils % 41.3 % (37.0-80.0); Platelet Count 475 K/mm3 (142-424); Red Blood Count 4.32 M/mm3 (4.20-5.40); Red Cell Distribution Width 14.9 % (11.5-17.5); White Blood Count 7.3 K/mm3 (4.8-10.8)
[2021-12-31 15:43] LABS: Alanine Aminotransferase 46 U/L (12-78); Albumin Level 4.1 g/dl (3.5-5.0); Albumin/Globulin Ratio 1.5 (1.1-1.8); Alkaline Phosphatase 146 U/L (38-126); Anion Gap 15.6 mEq/L (5-15); Aspartate Amino Transferase 45 U/L (14-36); Bilirubin,Total 0.2 mg/dl (0.2-1.3); Blood Urea Nitrogen 12 mg/dl (7-17); Calcium 9.8 mg/dl (8.4-10.2); Carbon Dioxide 30 mmol/L (22.0-30.0); Chloride 100 mmol/L (98-107); Estimated Glomerular Filt Rate 102 ml/min (>60); GFR (African American) 123 ML/MIN (>60); Globulin 2.8 g/dL (1.3-3.2); Glucose 111 mg/dl (74-100); Potassium 4.6 mmoL/L (3.5-5.1); Sodium 141 mmol/L (136-145); Total Protein,Serum 6.9 g/dl (6.3-8.2)
[2021-12-31 15:59] LABS: Free T4 (Free Thyroxine) 0.88 ng/dl (0.78-2.19)
[2021-12-31 16:14] LABS: Thyroid Stimulating Hormone < 0.02 uIU/mL (0.465-4.68)
== END ==
PROVIDERS: PCP Emergency Medicine; Visit Provider Otolaryngology
DX: R60.9 Edema, unspecified (principal); L98.9 Disorder of the skin and subcutaneous tissue, unspecified; R59.9 Enlarged lymph nodes, unspecified
CPT/HCPCS: 36415; 80053; 84439; 84443; 85025; 93005

== ENCOUNTER → 2022-01-02 08:09 | Outpatient (CLI) | payer MEDICARE, MEDICAID, SELFPAY ==
--- NOTE | 2022-01-02 08:15 | XR_ITS ---
FINAL REPORT TECHNIQUE: Chest PA & Lateral CLINICAL HISTORY: unexplained cough COMPARISON: 10/14/2021 FINDINGS: 2 views of the chest were performed. The heart is at the upper limits of normal in size. The mediastinum is within normal limits. There are moderate chronic interstitial opacities in both lungs which is probably due to chronic fibrosis. There are no pleural effusions. There is no pneumothorax. The bony thorax appears intact. IMPRESSION: No acute cardiopulmonary process. Moderate chronic interstitial opacities in both lungs probably due to chronic fibrosis. Reviewed, Interpreted and Dictated by Juan José Ramírez MD Transcribed by Katie Johnson Authenticated and [facility]
== END ==
PROVIDERS: PCP Emergency Medicine; Visit Provider Student in an Organized Health Care Education/Training Program
DX: R05.9 Cough, unspecified (principal)
CPT/HCPCS: 71046

== ENCOUNTER 2022-01-14 06:55 | Day surgery (SDC) | payer MEDICARE, MEDICAID, SELFPAY ==
[2022-01-08 14:20] VITALS: BMI 36.6
[2022-01-14 07:14] VITALS: BP 134/74; PULSE 80; RESP 18; TEMP 36.4; O2SAT 95
--- NOTE | 2022-01-14 09:07 | EXP.ANES.CKL ---
[facility] Medical History Abnormal stress test Angina, class IV Chronic infective rhinitis COPD (chronic obstructive pulmonary disease) Degenerative disc disease Dizziness Edema Family history of early CAD Generalized anxiety disorder History of gastroesophageal reflux (GERD) HLD (hyperlipidemia) HTN (hypertension) Hx of fracture of nose Kidney stone Nasal septal deviation Palpitations Psoriasis annularis Scalp lesion Surgical History History of carpal tunnel surgery of right wrist Hx laparoscopic cholecystectomy Hx of breast biopsy Hx of colonoscopy with polypectomy Hx of nasal sinusotomy Hx of removal of neck cyst Hx of tubal ligation Family History Other Family history of cancer Family history of diabetes mellitus type II Family history of kidney disease Family history of myocardial infarction Social History Smoking Status: Former smoker pack-years: 28 second hand exposure: Yes alcohol intake: never substance use type: marijuana current occupational status: disabled and other Travel in the last 8 weeks: None household members: spouse housing: house lives independently: No marital status: number of children: 2 current occupation: [employer] current occupational exposures/hazards: No pets and animals: Yes pets and animals: dog(s) caffeine: Yes do you feel safe at home: Yes victim of physical abuse: No victim of emotional abuse: No victim of sexual abuse: No would you like helpful sources: No [facility] Anesthesia Checklist Patient Identification Patient Identification: Arm Band Structural Data Admitted From: Home Planned Operative Procedure/s: Excision of Scalp Lesion Consent for Planned Operative Procedure(s) Verified: Yes Verified Documents: Surgical Consent and History and Physical NPO Status Verified Time NPO: 00:00 Additional verifications Anesthesia Reactions: No Hx Blood Transfusions: No Blood Transfusion Reaction: No Airway Assessment C-Spine Mobility Assessed: Yes TMJ Mobility Assessed: Yes Dentition: Edentulous Neurological Assessment Level of Consciousness: Awake, Alert and Appropriate Anesthesia Plan Anesthesia Risk discussed: Yes Anesthesia Plan: Verified ASA Class: II Anesthesia Type: MAC
[2022-01-14 09:45] VITALS: BP 106/56; PULSE 82; RESP 16; TEMP 36.3; O2SAT 97
--- NOTE | 2022-01-14 09:52 | EXP.OP.NOTE ---
Date of procedure: 01/14/22 Pre-op Diagnosis:: Posterior neck mass?midline Post-op Diagnosis:: Same?pathology pending Procedure performed:: Wide local excision of posterior neck mass?27 mm in length?complex closure Surgeon:: Ector Chen III, MD [employer] FOLDER:: Don Do Anesthesia: MAC Estimated blood loss (mL): 5 Operative findings:: Exophytic midline neck mass with central core and punctum Operative note:: Patient was brought to the operating room and carefully placed in prone position with proper cushioning. The posterior neck was shaved and prepped and draped in usual fashion. The mass was just above the hairline and measured approximately 10 mm in diameter. I carefully marked out an ellipse that would encompass the tissue around the mass and allow for aesthetic closure. I preinjection with 2% lidocaine with epinephrine solution. I then made incision where the ellipse had been marked out remove the skin and subcutaneous tissue below the lesion. Any bleeding spots were spot coagulated with the bipolar cautery. Incision was then reapproximated the submucosal tissue using a 4-0 Monocryl suture. The subcutaneous and skin was closed using a running 5-0 fast-absorbing gut suture. After the area was cleaned, antibiotic ointment was applied. Dermabond was then applied over the incision. Specimen was sent for pathologic evaluation. Patient tolerated the procedure well was taken to the recovery room in good condition Condition: stable Disposition: same day Specimens:: Posterior neck mass Complications:: None
[2022-01-14 09:55] VITALS: BP 106/53; PULSE 81; RESP 16; O2SAT 96
[2022-01-14 10:05] VITALS: BP 113/73; PULSE 74; RESP 16; O2SAT 97
[2022-01-14 10:15] VITALS: BP 115/56; PULSE 82; RESP 16; O2SAT 97
== END 2022-01-14 10:16 | disposition home or self-care (01) ==
PROVIDERS: PCP Emergency Medicine; Visit Provider Otolaryngology
DX: L98.9 Disorder of the skin and subcutaneous tissue, unspecified; Z79.899 Other long term (current) drug therapy; L82.0 Inflamed seborrheic keratosis
CPT/HCPCS: 11423; 13121; 88305; 96372

== ENCOUNTER → 2022-01-29 11:34 | Outpatient (CLI) | payer MEDICARE, MEDICAID, SELFPAY | PROVIDERS: PCP Emergency Medicine; Visit Provider Anesthesiology | DX: M51.16 Intervertebral disc disorders with radiculopathy, lumbar region (principal); M48.062 Spinal stenosis, lumbar region with neurogenic claudication | CPT/HCPCS: 99212; G0463 ==

== ENCOUNTER → 2022-01-29 11:43 | Outpatient (POV) | payer MEDICARE, MEDICAID, SELFPAY ==
[2022-01-29 11:52] VITALS: BMI 36.6
--- NOTE | 2022-01-29 12:17 | EXP.PAIN.SOA ---
[facility] Pain Management SOAP Note Subjective:: Patient is a pleasant 61-year-old female who presents today for follow-up. We are currently treating the patient for degenerative disc disease of lumbar spine with lumbar radiculopathy symptoms, spinal stenosis with neurogenic claudication, status post Vertiflex procedure. Today she rates her pain a 7 out of 10. Patient states the pain is in her low back that radiates into her bilateral lower extremities. Patient does state this is an aching, throbbing sensation that is worse with prolonged sitting, standing, walking. Patient states that she does have difficulty performing activities of daily living due to the pain. Patient denies any new trauma or injury. Patient denies any change location or type of pain that she experiences. Patient has had injections in the past however these did not improve her symptoms. Patient states she did have a Vertiflex which did provide relief for approximately 1 year however she states that her pain is back to what it was asked. Patient does take meloxicam 7.5 mg to help with some of her symptoms. She is requesting a refill today as well as a possible increase in this medication. Patient was previously discussed to regarding a possible candidate for a spinal cord stimulator or intrathecal pain pump however the patient states she is not interested in these options at this time. Patient states she has tried muscle relaxers in the past however they did not give any improvement of her symptoms. Patient is not on any current scheduled medications. Her Laith is [phone]. It is been reviewed and appropriate. Review of Systems: General: No recent weight changes, no fever, no sleep disturbances Respiratory: No cough, no shortness of air, no recurring pulmonary infections Cardiovascular/peripheral vascular: No chest pain, no palpitations, no edema, no shortness of breath Gastrointestinal: No new onset incontinence, normal bowel movements reported Genitourinary: No new onset incontinence Musculoskeletal: Low back pain Psychiatric: [Normal mood/affect] Neurological: [Denies weakness in extremities], [denies balance issues] Objective:: Physical Exam: General: Alert and oriented x3, no acute distress, pleasant and cooperative Lungs: Respirations even and unlabored, symmetrical chest expansion Eyes: PERRL Musculoskeletal: Flexion and extension of lumbar [spine] somewhat guarded secondary to pain, [antalgic gait noted] Neurological: Speech clear, no gross sensory deficit Assessment:: Degenerative disc disease of lumbar spine with lumbar radiculopathy symptoms, spinal stenosis with neurogenic claudication, status post Vertiflex procedure Plan:: Patient continues to experience significant pain in her low back with radiating symptoms into her legs. I will send in a refill of the meloxicam and change it to 15 mg daily. I will provide enough refills for 6 months. Patient will return to clinic in 6 months for reevaluation of symptoms, medication refill and follow-up. Patient has been instructed to contact the clinic with any concerns before the next appointment. Dr. Cee has reviewed this note and agrees with this plan of care. This note was dictated using voice recognition software and make contain errors or omissions. [facility] Disclaimer: The information contained in this section may have been updated after the patient was seen, as this information can be updated by other users. Medical History (Updated 01/28/22 @ 14:46 by Lorrie Birmingham RN) Abnormal stress test Actinic keratosis of scalp Angina, class IV Chronic infective rhinitis COPD (chronic obstructive pulmonary disease) Degenerative disc disease Dizziness Edema Family history of early CAD Generalized anxiety disorder History of gastroesophageal reflux (GERD) HLD (hyperlipidemia) HTN (hypertension) Hx of fracture of nose Kidney stone Nasal septal deviation Palpitations Psoriasis annularis Scalp lesion Surgical
== END | disposition home or self-care (01) ==
PROVIDERS: PCP Emergency Medicine; Visit Provider Student in an Organized Health Care Education/Training Program
DX: M51.16 Intervertebral disc disorders with radiculopathy, lumbar region (principal); M48.062 Spinal stenosis, lumbar region with neurogenic claudication
CPT/HCPCS: 99212; G0463

== ENCOUNTER 2022-04-01 12:38 | Emergency (ER) | payer MEDICARE, MEDICAID, SELFPAY ==
[2022-04-01 14:05] VITALS: BP 119/73; PULSE 69; RESP 19; TEMP 36.8; O2SAT 98; BMI 36.6
--- NOTE | 2022-04-01 14:23 | EXP.UTC ---
Discharge Plan Disposition Patient Disposition: Home, Self-Care Condition: Good Prescriptions Prescriptions: New prednisone 10 mg tablet 10 mg PO BID 5 Days Qty: 10 0RF azithromycin [Zithromax Z-Yoshi] 250 mg tablet See Rx Instructions .ROUTE .COMPLEX 5 Days Qty: 6 0RF Rx Instructions: For 250 mg dose pack: take 500 mg today (day 1), then 250 mg for 4 days (days 2-5) fluticasone propionate [Flonase Allergy Relief] 50 mcg/actuation spray,suspension 1 spray intranasal DAILY Qty: 16 0RF Rx Instructions: administer into each nostril No Action levocetirizine 5 mg tablet 5 mg PO DAILY triamcinolone acetonide 55 mcg aerosol,spray 2 spray NS DAILY multivitamin Tablet 1 tab PO DAILY montelukast 10 mg tablet 10 mg PO QDAY Qty: 90 0RF atorvastatin 40 mg tablet 40 mg PO DAILY Qty: 90 3RF Rx Instructions: TAKE ONE TABLET BY MOUTH EVERY DAY duloxetine 60 mg capsule,delayed release(DR/EC) 60 mg PO DAILY Qty: 30 1RF lisinopril-hydrochlorothiazide 10-12.5 mg tablet See Rx Instructions .ROUTE .COMPLEX Qty: 90 0RF Dose Instruction: TAKE 1 TABLET BY MOUTH ONCE DAILY FOR BLOOD PRESSURE Rx Instructions: TAKE 1 TABLET BY MOUTH ONCE DAILY FOR BLOOD PRESSURE pantoprazole 40 mg tablet,delayed release (DR/EC) See Rx Instructions .ROUTE .COMPLEX Qty: 30 1RF Dose Instruction: TAKE 1 TABLET BY MOUTH ONCE DAILY Rx Instructions: TAKE 1 TABLET BY MOUTH ONCE DAILY meloxicam 15 MG tablet 15 mg PO DAILY Qty: 30 5RF pollens extract 1:20 Allergen 1 ea INTRADERMAL MONTHLY Rx Instructions: friday omeprazole 20 mg capsule,delayed release(DR/EC) 20 mg PO DAILY Rx Instructions: TAKE 1 CAPSULE BY MOUTH ONCE DAILY levothyroxine [Synthroid] 50 mcg tablet 50 mcg PO DAILY Referrals Follow up/Referrals: Juan Tan MD [Primary Care Provider] - See instructions Activity Restrictions/Add. Instructions Additional Instructions/Restrictions: *Monitor Temp, Over the counter Motrin or Tylenol as directed/as needed Tylenol every 4 hours and Motrin every 6 hours (as long as your family doctor has told you that you can take it) for fever or pain. and straight to ER if unable to lower temp less than 101.0 after medication given *Warm salt water gargles may help to soothe the throat *Throat Lozenges? *Warm fluids like tea with honey may help to soothe the throat? *Sleep elevated *Humidifier/Vaporizer *Flonase 2 sprays in each nostril daily but be aware that it may take 2-3 days before you notice improvement Follow up IMMEDIATELY for new or worsening symptoms or no Noticeable improvement over the next 48-72 hours. 911 for difficulty breathing or swallowing You were tested for today for COVID19 your test result should be back in the next 24-48 hours, you may check your results on the [facility] [employer] Health Portal Clinical Impressions Clinical Impression: Sinusitis Instructions Patient Instructions: DI for Sinusitis, Sinusitis Discharge ED Provider: Siomara Ham [facility] [place] HPI General Stated complaint: body aches, redness in eyes Mode of Arrival: Ambulatory Source of Information: Patient Limitations: No Limitations Time Seen by Provider: 04/01/22 14:23 Description of Symptoms (Recalled from Triage Doc. by RN): PATIENT C/O BODY ACHES, HEADACHE, RINGING IN EARS, AND RUNNY NOSE X 2 DAYS HEENT Symptoms (Recalled from RN notes): Yes Resp Symptoms (Recalled from RN notes): No Skin Symptoms (Recalled from RN notes): No MS Symptoms (Recalled from RN notes): No Functional Status (Recalled from RN notes): WNL History of Present Illness Provider Complaint: Patient states that she has been having body aches, chills, runny nose and ringing in her ears on and off States that she thinks she has been around someone that has COVID and wants to get tested States that she does have sinus issues and may be that acti
[2022-04-01 14:52] VITALS: BP 119/73; PULSE 69; RESP 19; TEMP 36.8; O2SAT 98
== END 2022-04-01 14:55 | disposition home or self-care (01) ==
PROVIDERS: Emergency Provider Nurse Practitioner; PCP Emergency Medicine
DX: J32.9 Chronic sinusitis, unspecified (principal)
CPT/HCPCS: 99212; 99213; C9803; G0463; U0003; U0005

== ENCOUNTER → 2022-05-27 12:37 | Outpatient (CLI) | payer MEDICARE, SELFPAY ==
[2022-05-27 13:40] VITALS: PULSE 87; PULSE 96
--- NOTE | 2022-05-27 14:10 | CT_ITS ---
FINAL REPORT CLINICAL HISTORY: lung cancer screening former smoker, quit 6 years ago. smoked 1.5 ppd x 34 years familly hx of lung cancer COMPARISON: April 2021; August 2017 FINDINGS: Low-Dose Chest CT CTDI vol (mGy): 2.90 DLP (mGy-cm): 96.38 Axial images were obtained from the lung apex to the mid abdomen by computed tomography. Low-dose protocol was utilized. FINDINGS: CHEST: There is presumed postoperative change in the anterior chest wall. There is no axillary adenopathy. There are multiple borderline size mediastinal lymph nodes. The heart is proper size. There is no pericardial or pleural effusion. Limited images of the upper abdomen are unremarkable. Lung window images demonstrate mild emphysema. There is moderate scarring/fibrosis. A 6 mm nodule in the right lung on image 48 is stable. There is a calcified granuloma in the left lung base. There is no new mass or pulmonary nodule. IMPRESSION: Lung RADS category 1. Recommend 12 month follow-up low-dose chest CT. Reviewed, Interpreted and Dictated by Ortega Donohue III, MD Transcribed by Mehrdad Leonard Authenticated and [facility]
== END ==
PROVIDERS: PCP Emergency Medicine; Visit Provider Internal Medicine Pulmonary Disease
DX: Z87.891 Personal history of nicotine dependence (principal); Z12.2 Encounter for screening for malignant neoplasm of respiratory organs; R06.00 Dyspnea, unspecified
CPT/HCPCS: 71271; 94060; 94618; 94640; 94727; 94729

== ENCOUNTER → 2022-06-03 09:50 | Outpatient (CLI) | payer MEDICARE, SELFPAY ==
--- NOTE | 2022-06-03 10:01 | MM_ITS ---
PROCEDURE INFORMATION: Exam: MG Bilateral Screening 3D Mammography Exam date and time: 06/03/2022 9:51 AM Age: 61 years old Clinical indication: Screening examination. History benign bilateral excisional biopsies. TECHNIQUE: Imaging protocol: Bilateral Screening tomosynthesis and 2D mammography including computer-aided detection (CAD) when performed. COMPARISON: MG MM DIG SCREENING MAMM BI W/CAD 03/21/2021 12:55 PM 1. MG MM SURGICAL SPECIMEN RT 05/04/2021 3:10 PM 2. MG MM NEEDLE LOC RT 05/04/2021 10:48 AM 3. MG MM CLIP PLACEMENT RT 04/18/2021 10:05 AM 4. MG MM SURGICAL SPECIMEN RT 04/18/2021 9:33 AM FINDINGS: MAMMOGRAPHY: Breast composition: There are scattered areas of fibroglandular density. Mass: None. Architectural distortion: Interval right postoperative periareolar deformity, architectural distortion and surgical clips. Stable left central postoperative architectural distortion and surgical clips. Calcifications: No suspicious calcifications. Asymmetric density: None. Skin thickening: None. Axillary adenopathy: None. IMPRESSION: No mammographic evidence of malignancy. Annual screening is recommended unless otherwise clinically indicated. ASSESSMENT: BI-RADS Category 2: Benign
== END ==
PROVIDERS: PCP Emergency Medicine; Visit Provider Surgery
DX: Z12.31 Encounter for screening mammogram for malignant neoplasm of breast (principal)
CPT/HCPCS: 77063; 77067

== ENCOUNTER 2022-06-25 07:32 | Day surgery (SDC) | payer MEDICARE, SELFPAY ==
[2022-06-18 09:23] VITALS: BMI 39.4
--- NOTE | 2022-06-18 09:32 | SUR.PREOP ---
spoke w/[facility]. Patient requested to also have an EGD. [facility] to put on schedule. Notified patient of prep @ [facility] pharmacy available for package pick up.
[2022-06-25] VITALS (7 sets, daily range): BP systolic 86–147; BP diastolic 45–75; PULSE 71–87; RESP 16–18; TEMP 36.4–36.7; O2SAT 92–94
--- NOTE | 2022-06-25 07:47 | P.PN_ITS ---
[facility] Disclaimer: The information contained in this section may have been updated after the patient was seen, as this information can be updated by other users. Medical History Abnormal computerized axial tomography of chest Abnormal stress test Actinic keratosis of scalp Angina, class IV Chronic infective rhinitis COPD (chronic obstructive pulmonary disease) COPD (chronic obstructive pulmonary disease) Degenerative disc disease Dizziness Dyspnea on exertion Edema Family history of early CAD Generalized anxiety disorder Hearing loss History of gastroesophageal reflux (GERD) HLD (hyperlipidemia) HTN (hypertension) Hx of fracture of nose Kidney stone Lung nodule Nasal septal deviation Palpitations Psoriasis annularis Pulmonary fibrosis, unspecified Restrictive lung disease Scalp lesion Stopped smoking with greater than 30 pack year history Tinnitus of both ears Surgical History History of carpal tunnel surgery of right wrist Hx laparoscopic cholecystectomy Hx of breast biopsy Hx of colonoscopy with polypectomy Hx of nasal sinusotomy Hx of removal of neck cyst Hx of tubal ligation Status post excision of skin lesion, follow-up exam Family History Other Family history of cancer Family history of diabetes mellitus type II Family history of kidney disease Family history of myocardial infarction Social History Smoking Status: Former smoker pack-years: 28 smoking status stop date: 2016 second hand exposure: Yes alcohol intake: never substance use type: marijuana current occupational status: other Travel in the last 8 weeks: None household members: spouse housing: house lives independently: No marital status: number of children: 2 current occupation: [employer] current occupational exposures/hazards: No pets and animals: Yes pets and animals: dog(s) caffeine: Yes do you feel safe at home: Yes victim of physical abuse: No victim of emotional abuse: No victim of sexual abuse: No would you like helpful sources: No [facility] Anesthesia Checklist Patient Identification Patient Identification: Arm Band and Verbal (Name & ) Structural Data Admitted From: Home Planned Operative Procedure/s: EGD/Colonoscopy Consent for Planned Operative Procedure(s) Verified: Yes NPO Status Verified Time NPO: 00:00 Additional verifications Anesthesia Reactions: No Hx Blood Transfusions: No Blood Transfusion Reaction: No Airway Assessment C-Spine Mobility Assessed: Yes TMJ Mobility Assessed: Yes Dentition: Edentulous Neurological Assessment Level of Consciousness: Awake Hx Seizures: No Numbness or tingling in extremities: No Anesthesia Plan Anesthesia Risk discussed: Yes Anesthesia Plan: Verified ASA Class: III Anesthesia Type: MAC
--- NOTE | 2022-06-25 07:57 | HMH.SCOPE ---
Procedure: Date: 06/25/22 Patient Date of :: 1960 Procedure Performed:: Esophagogastroduodenoscopy with biopsy Colonoscopy (aborted) Indications:: History of colon polyps Chronic constipation Gastroesophageal reflux Note: Patient has a history of significant polyps (large polyp requiring snare removal and tattoo placement), as well as, moderate intermittent reflux. Her most recent colonoscopy in February 2020 (Dr. Wallace) revealed small polyps and mild internal hemorrhoids. She was also being treated by the gastroenterology service for chronic constipation. Performing Provider:: Mike Duff MD Referring Provider:: . Sedation:: Monitored anesthesia care Procedure:: After informed consent was obtained the patient was taken to the endoscopy suite. Sedation ensued after the patient was transferred to the left lateral decubitus position. Pulse, blood pressure, and oxygen saturation were monitored throughout the procedure. The endoscope was advanced beyond the duodenal bulb. Retroflexion within the gastric lumen was accomplished. The gastroscope was carefully removed. Digital rectal exam revealed no significant abnormality. The colonoscope was placed in position. Evaluation of the rectum and distal sigmoid confirmed large volume stool retention. The colonoscope was carefully removed and the patient was transferred to recovery in stable condition. Please see findings and specimens below for detail. Findings:: Sliding hiatal hernia Gastroesophageal junction at 35 cm Patulous esophagus Colonoscopy aborted secondary to exceedingly poor bowel preparation Specimens:: Antral biopsy Recommendations:: Follow-up pathology Continue proton pump inhibition Gastroenterology evaluation warranted secondary to long history of irritable bowel syndrome with constipation. Colonoscopy deferred to the gastroenterology service. Complications:: Poor bowel preparation Estimated blood obtained (mL): 1
== END 2022-06-25 09:25 | disposition home or self-care (01) ==
PROVIDERS: PCP Emergency Medicine; Visit Provider Surgery
PROC: 0DJ08ZZ Inspection of Upper Intestinal Tract, Via Natural or Artificial Opening Endoscopic (ICD-10-PCS; CPT 43235; principal; 2022-06-25 08:30)
DX: K59.00 Constipation, unspecified (principal); K21.9 Gastro-esophageal reflux disease without esophagitis; Z86.010 Personal history of colon polyps; Z53.8 Procedure and treatment not carried out for other reasons; Z91.199 Patient's noncompliance with other medical treatment and regimen due to unspecified reason; K44.9 Diaphragmatic hernia without obstruction or gangrene
CPT/HCPCS: 43239; 45378; 88305; J2704

== ENCOUNTER → 2022-07-10 14:10 | Outpatient (POV) | payer MEDICARE, SELFPAY | PROVIDERS: Visit Provider Specialist/Technologist | DX: Z00.00 Encounter for general adult medical examination without abnormal findings (principal) ==

== ENCOUNTER → 2022-08-12 11:42 | Outpatient (POV) | payer MEDICARE, SELFPAY ==
--- NOTE | 2022-08-12 11:46 | EXP.PAIN.SOA ---
[facility] Pain Management SOAP Note Subjective:: Patient is a pleasant 61-year-old female who presents today for 6-month follow-up.? We are currently treating the patient for degenerative disc disease of lumbar spine with lumbar radiculopathy symptoms, spinal stenosis with neurogenic claudication, status post Vertiflex procedure.? Today she rates her pain a 7 out of 10.? She states she continues to have pain in her low back along the left side that does radiate down to her knee and describes it as a throbbing sensation that is worse with increased activity. Patient does state that she has weakness into her bilateral legs. Patient does state the pain interferes with her ability to perform activities of daily living such as cooking and cleaning. Patient states she has tried multiple injections in the past and they did not provide any additional relief. Patient was changed to meloxicam 15 mg/day and she states that did help however she is requesting if it can be increased. Her Laith is [phone]. Its been reviewed and appropriate. Review of Systems: General: No recent weight changes, no fever, no sleep disturbances Respiratory: No cough, no shortness of air, no recurring pulmonary infections Cardiovascular/peripheral vascular: No chest pain, no palpitations,? no edema, no shortness of breath Gastrointestinal: No new onset incontinence, normal bowel movements reported Genitourinary: No new onset incontinence Musculoskeletal: Low back pain Psychiatric: [Normal mood/affect] Neurological: [Denies weakness in extremities], [denies balance issues] Objective:: Physical Exam: General: Alert and oriented x3, no acute distress, pleasant and cooperative Lungs: Respirations even and unlabored, symmetrical chest expansion Eyes: PERRL Musculoskeletal: Flexion and extension of lumbar [spine] somewhat guarded secondary to pain, [antalgic gait noted] Neurological: Speech clear, no gross sensory deficit ORT score updated with low risk Oswestry index score of 25 Assessment:: Degenerative disc disease of lumbar spine with lumbar radiculopathy symptoms spinal stenosis with neurogenic claudication symptoms, status post Vertiflex procedure Plan:: I have discussed with the patient that I will send in a new prescription of diclofenac 75 mg twice daily and provide a 1 month supply of this medication. Patient denied any cardiac or kidney issues. I have counseled the patient to contact our office after the 1 month supply to let us know if it did provide improvement or if she would like to be sent in the previous meloxicam prescription. I have also counseled the patient to take this medication with food to minimize GI upset and to discontinue all other NSAIDs while taking this medication including the meloxicam, ibuprofen or any other NSAID. I have also discussed with the patient that she may benefit from left SI injection however at this time she would like to wait. We will wait to hear from the patient on how she did with this new medication and we will plan on calling in an additional 5-month supply of refills. Patient will return to clinic in 6 months for reevaluation of symptoms and plan of care. Patient has been instructed to contact the clinic with any concerns before the next appointment. Dr. Cee has reviewed this note and agrees with this plan of care. This note was dictated using voice recognition software and make contain errors or omissions. [facility] Disclaimer: The information contained in this section may have been updated after the patient was seen, as this information can be updated by other users. Medical History (Updated 07/17/22 @ 13:50 by Haylee Lee RN) Abnormal computerized axial tomography of chest Abnormal stress test Actinic keratosis of scalp Chronic infective rhinitis COPD (chronic obstructive pulmonary disease) Degenerative disc disease Dizziness Dyspnea on exertion Edema Family history of early CAD Generalized anxiety disorder Hearing loss
[2022-08-12 12:13] VITALS: BP 115/56; PULSE 74; RESP 18; O2SAT 97; BMI 37.8
== END | disposition home or self-care (01) ==
PROVIDERS: PCP Emergency Medicine; Visit Provider Nurse Practitioner Family
DX: M51.16 Intervertebral disc disorders with radiculopathy, lumbar region (principal); M48.062 Spinal stenosis, lumbar region with neurogenic claudication
CPT/HCPCS: 99212; G0463

== ENCOUNTER 2022-08-28 08:48 | Day surgery (SDC) | payer MEDICARE, SELFPAY ==
[2022-07-17 13:56] VITALS: BMI 55.6
[2022-08-28 09:12] VITALS: BP 142/77; PULSE 72; RESP 18; TEMP 36.7; O2SAT 95
[2022-08-28 10:31] VITALS: O2SAT 99
--- NOTE | 2022-08-28 11:00 | HMH.SCOPE ---
Procedure: Date: 08/28/22 Patient Date of :: 1960 Procedure Performed:: Colonoscopy Indications:: History of colon polyps Performing Provider:: Alverto Christopher MD Referring Provider:: Kim Henry APRN Sedation:: See RN records Procedure:: After placing the patient in the left lateral decubitus position, the colonoscopy was gently inserted into the rectum and under direct visualization advanced to the cecum which was identified by transillumination in the right lower quadrant, identification of the ileocecal valve, appendiceal orifice, and cecal strap. Color, texture, mucosa, and anatomy of the colon were carefully examined with the scope. Preparation was good Findings:: Anal canal: normal Rectum: hemorrhoids Sigmoid colon: normal without polyps or inflammatory changes Descending colon: endoscopic marker identified in proximal descending colon Splenic flexure: normal Transverse colon: diminutive polyp. removed with cold forceps Hepatic flexure: normal Ascending colon: normal without polyps or inflammatory changes Cecum: normal Terminal ileum: not visualized Impression: Polyp of transverse colon Recommendations:: Await pathology results Repeat colonoscopy in 5 years Complications:: None Estimated blood obtained (mL): 0 Colonoscopy Component Colonoscopy Component Was a colonoscopy performed during today's procedure?: Yes Recommended follow up colonoscopy of at least 10 years?: Yes
[2022-08-28 11:01] VITALS: BP 109/41; PULSE 74; RESP 17; TEMP 36.3; O2SAT 95
[2022-08-28 11:11] VITALS: BP 106/41; PULSE 66; RESP 16; O2SAT 100
[2022-08-28 11:21] VITALS: BP 103/63; PULSE 69; RESP 16; O2SAT 100
[2022-08-28 11:31] VITALS: BP 109/72; PULSE 69; RESP 16; TEMP 36.6; O2SAT 100
--- NOTE | 2022-08-28 15:43 | EXP.ANES.CKL ---
[facility] Disclaimer: The information contained in this section may have been updated after the patient was seen, as this information can be updated by other users. Medical History Abnormal computerized axial tomography of chest Abnormal stress test Actinic keratosis of scalp Chronic infective rhinitis COPD (chronic obstructive pulmonary disease) Degenerative disc disease Dizziness Dyspnea on exertion Edema Family history of early CAD Generalized anxiety disorder Hearing loss History of gastroesophageal reflux (GERD) HLD (hyperlipidemia) HTN (hypertension) Hx of fracture of nose Hypothyroidism Kidney stone Lung nodule Nasal septal deviation Psoriasis annularis Pulmonary fibrosis, unspecified Restrictive lung disease Scalp lesion Stopped smoking with greater than 30 pack year history Thyroid Nodule Tinnitus of both ears Surgical History History of back surgery History of carpal tunnel surgery of right wrist Hx laparoscopic cholecystectomy Hx of breast biopsy Hx of colonoscopy with polypectomy Hx of nasal sinusotomy Hx of removal of neck cyst Hx of tubal ligation Status post excision of skin lesion, follow-up exam Family History Other Family history of cancer Family history of diabetes mellitus type II Family history of kidney disease Family history of myocardial infarction Social History Smoking Status: Former smoker pack-years: 28 smoking status stop date: 2016 second hand exposure: No alcohol intake: never substance use type: former substance user and marijuana current occupational status: disabled Travel in the last 8 weeks: None household members: spouse and family housing: house lives independently: No marital status: number of children: 2 education level: high school service: No current occupation: [employer] current occupational exposures/hazards: No pets and animals: Yes pets and animals: dog(s) caffeine: Yes special brent needs: No do you feel safe at home: Yes victim of physical abuse: No victim of emotional abuse: No victim of sexual abuse: No would you like helpful sources: No [facility] Anesthesia Checklist Patient Identification Patient Identification: Arm Band and Family Structural Data Admitted From: Home Planned Operative Procedure/s: 0000 NPO Status Verified Time NPO: 00:00 Additional verifications Patient : No Anesthesia Reactions: No Hx Blood Transfusions: No Blood Transfusion Reaction: No Cephalosporin Allergy: No Previous Colonoscopy: No Airway Assessment C-Spine Mobility Assessed: Yes TMJ Mobility Assessed: Yes Dentition: Edentulous Neurological Assessment Level of Consciousness: Awake, Alert and Appropriate Numbness or tingling in extremities: No Anesthesia Plan Anesthesia Risk discussed: Yes ASA Class: II Anesthesia Type: MAC
== END 2022-08-28 11:31 | disposition home or self-care (01) ==
PROVIDERS: PCP Emergency Medicine; Visit Provider Internal Medicine
PROC: 0DJD8ZZ Inspection of Lower Intestinal Tract, Via Natural or Artificial Opening Endoscopic (ICD-10-PCS; CPT 45378; principal; 2022-08-28 10:00)
DX: Z12.11 Encounter for screening for malignant neoplasm of colon (principal); D12.3 Benign neoplasm of transverse colon; K64.8 Other hemorrhoids
CPT/HCPCS: 45380; 88305; J2704

== ENCOUNTER → 2022-09-02 12:44 | Outpatient (CLI) | payer MEDICARE, SELFPAY ==
--- NOTE | 2022-09-02 12:45 | US_ITS ---
FINAL REPORT TECHNIQUE: Sonographic images of the thyroid gland were obtained in the longitudinal and transverse planes. CLINICAL HISTORY: hypothyroidism COMPARISON: 09/21/2021 FINDINGS: The right lobe measures 1.5 x 4.4 x 1.3 cm. There are multiple colloid cysts. Hypoechoic, 9 mm nodule seen on prior exam is unchanged. The left lobe measures 4.1 x 1.4 x 1.5 cm. There are multiple small nodules and colloid cysts which are grossly stable. The isthmus measures 3 mm. This is normal. IMPRESSION: Bilateral thyroid lobe nodules, not significantly changed from prior exam. Favor multinodular goiter. Recommend continued follow-up. Reviewed, Interpreted and Dictated by Shagufta Rolle MD Transcribed by Gwen Brush Authenticated and [facility]
== END ==
PROVIDERS: PCP Emergency Medicine; Visit Provider Nurse Practitioner
DX: E03.9 Hypothyroidism, unspecified (principal)
CPT/HCPCS: 76536

== ENCOUNTER → 2022-09-26 14:19 | Outpatient (CLI) | payer MEDICARE, SELFPAY ==
[2022-09-26 15:49] LABS: Free T4 (Free Thyroxine) 0.81 ng/dl (0.78-2.19)
[2022-09-26 16:04] LABS: Thyroid Stimulating Hormone 0.29 uIU/mL (0.465-4.68)
== END ==
PROVIDERS: PCP Emergency Medicine; Visit Provider Nurse Practitioner
DX: E03.9 Hypothyroidism, unspecified (principal)
CPT/HCPCS: 36415; 84439; 84443

== ENCOUNTER → 2022-10-11 12:55 | Outpatient (CLI) | payer MEDICARE, SELFPAY ==
--- NOTE | 2022-10-11 12:56 | CT_ITS ---
FINAL REPORT TECHNIQUE: Multiple axial CT sections were performed through the face without IV contrast. Coronal reconstruction images were performed. This study was performed with techniques to keep radiation doses as low as reasonably achievable (ALARA). Individualized dose reduction techniques using automated exposure control or adjustment of mA and/or kV according to the patient's size were employed. CLINICAL HISTORY: sinusitis COMPARISON: 12/12/2021 FINDINGS: The paranasal sinuses are well aerated. There is no fracture. There are no air-fluid levels. IMPRESSION: Unremarkable. Reviewed, Interpreted and Dictated by Juan José Ramírez MD Transcribed by Gemini Castillo Authenticated and [facility]
== END ==
PROVIDERS: PCP Emergency Medicine; Visit Provider Nurse Practitioner
DX: J32.9 Chronic sinusitis, unspecified (principal)
CPT/HCPCS: 70486

== ENCOUNTER → 2022-10-31 09:41 | Outpatient (POV) | payer MEDICARE, MEDICAID, SELFPAY ==
[2022-10-31 13:45] LABS: Basophils # 0.1 K/mm3 (0-0.2); Basophils % 0.9 % (0.1-2.0); Eosinophils # 0.2 K/mm3 (0.0-0.4); Eosinophils % 1.9 % (0.1-12.0); Hematocrit 39.1 % (37.0-47.0); Hemoglobin 12.6 g/dL (12.2-16.2); Lymphocytes # 3.7 K/mm3 (0.7-4.5); Lymphocytes % 44.5 % (10-50); Mean Corpuscular HGB Conc 32.1 g/dL (31.8-35.4); Mean Corpuscular Hemoglobin 28.1 pg (27.0-31.2); Mean Corpuscular Volume 87.5 fl (81-99); Monocytes # 0.5 K/mm3 (0.1-1.0); Monocytes % 5.6 % (1.7-9.3); Neutrophils # 3.9 K/mm3 (1.8-7.8); Neutrophils % 47.1 % (37.0-80.0); Platelet Count 433 K/mm3 (142-424); Red Blood Count 4.47 M/mm3 (4.20-5.40); Red Cell Distribution Width 13.5 % (11.5-17.5); White Blood Count 8.2 K/mm3 (4.8-10.8)
[2022-10-31 13:51] LABS: Alanine Aminotransferase 29 U/L (12-78); Albumin Level 4.5 g/dl (3.5-5.0); Albumin/Globulin Ratio 1.4 (1.1-1.8); Alkaline Phosphatase 152 U/L (38-126); Anion Gap 14.2 mEq/L (5-15); Aspartate Amino Transferase 32 U/L (14-36); Bilirubin,Total 0.4 mg/dl (0.2-1.3); Blood Urea Nitrogen 11 mg/dl (7-17); Calcium 9.3 mg/dl (8.4-10.2); Carbon Dioxide 28 mmol/L (22.0-30.0); Chloride 100 mmol/L (98-107); Chol/HDL Ratio 3.1 (1-3.5); Cholesterol 184 mg/dl (140-200); Estimated Glomerular Filt Rate 85 ml/min (>60); GFR (African American) 103 ML/MIN (>60); Globulin 3.2 g/dL (1.3-3.2); Glucose 130 mg/dl (74-100); HDL Cholesterol 59 mg/dl (40-60); Potassium 4.2 mmoL/L (3.5-5.1); Sodium 138 mmol/L (136-145); Total Protein,Serum 7.7 g/dl (6.3-8.2); Triglycerides 264 mg/dl (30-150); VLDL Cholesterol 53 mg/dL (0-40)
[2022-10-31 14:03] LABS: Direct LDL Cholesterol 80.81 mg/dL (100-129)
[2022-10-31 14:08] LABS: 25-OH Vitamin D, Total 56.6 ng/mL (30-100)
[2022-10-31 14:28] LABS: Thyroid Stimulating Hormone 0.93 uIU/mL (0.465-4.68)
[2022-10-31 14:47] LABS: Vitamin B12 540 pg/mL (239-931)
[2022-10-31 15:27] LABS: T4 (Thyroxine) 7.1 ug/dl (5.53-11.0)
[2022-10-31 15:40] LABS: Hemoglobin A1C 6.3 % (4.0-6.0)
== END ==
PROVIDERS: Emergency Medicine; Visit Provider Specialist/Technologist
DX: R42 Dizziness and giddiness (principal); R73.03 Prediabetes; I25.10 Atherosclerotic heart disease of native coronary artery without angina pectoris; R51.9 Headache, unspecified; E03.9 Hypothyroidism, unspecified; E66.9 Obesity, unspecified; Z68.38 Body mass index [BMI] 38.0-38.9, adult; Z79.899 Other long term (current) drug therapy
CPT/HCPCS: 80053; 80061; 82306; 82607; 83036; 84436; 84443; 85025

== ENCOUNTER → 2022-10-31 16:02 | Outpatient (CLI) | payer MEDICARE, MEDICAID, SELFPAY | PROVIDERS: PCP Emergency Medicine; Visit Provider Emergency Medicine | DX: J32.9 Chronic sinusitis, unspecified (principal); R42 Dizziness and giddiness ==

== ENCOUNTER → 2022-11-08 10:35 | Outpatient (CLI) | payer MEDICARE, MEDICAID, SELFPAY ==
--- NOTE | 2022-11-08 10:38 | CA_ITS ---
FINAL REPORT TECHNIQUE: Color Doppler, duplex Doppler and tran scale sonography of the bilateral neck arterial vasculature was performed. Velocities were measured in the carotid arteries. Stenosis evaluation based on the validated velocity criteria. CLINICAL HISTORY: dizziness, hearing loss, smoker, htn, hld, copd FINDINGS: The peak systolic velocity of the right common carotid artery is 82 cm/s. The peak systolic velocity of the right internal carotid artery is 82 cm/s and end diastolic velocity 21 cm/s. The ICA/CCA ratio is 1.2. A minimal amount of plaque is present. The right external carotid artery is patent. The right vertebral artery is patent with antegrade flow. The peak systolic velocity of the left common carotid artery is 97 cm/s. The peak systolic velocity of the left internal carotid artery is 91 cm/s and end diastolic velocity 32 cm/s. The ICA/CCA ratio is 1.2. A minimal amount of plaque is present. The left external carotid artery is patent.The left vertebral artery is patent with antegrade flow. IMPRESSION: Less than 50% bilateral carotid stenoses. Bilateral patent vertebral arteries with antegrade flow. If indicated, CTA or MRA could further evaluate. Reviewed, Interpreted and Dictated by Juan José Ramírez MD Transcribed by Jacki Alonzo Authenticated and [facility]
== END ==
PROVIDERS: PCP Emergency Medicine; Visit Provider Emergency Medicine
DX: R42 Dizziness and giddiness (principal)
CPT/HCPCS: 93880

== ENCOUNTER → 2022-11-11 15:57 | Outpatient (CLI) | payer MEDICARE, MEDICAID, SELFPAY | PROVIDERS: PCP Emergency Medicine; Visit Provider Nurse Practitioner Family | DX: R42 Dizziness and giddiness (principal) | CPT/HCPCS: 93225 ==

== ENCOUNTER → 2022-11-18 14:59 | Outpatient (CLI) | payer MEDICARE, SELFPAY ==
--- NOTE | 2022-11-18 14:59 | MR_ITS ---
PROCEDURE INFORMATION: Exam: MR Cervical Spine Without Contrast Exam date and time: 11/18/2022 3:01 PM Age: 62 years old Clinical indication: Patient HX: Dizziness, neck pain TECHNIQUE: Imaging protocol: Magnetic resonance imaging of the cervical spine without contrast. COMPARISON: NECKW CT soft tissue neck w con 04/08/2017 1:29 PM FINDINGS: Bones/joints: There is 2 mm of retrolisthesis of C2 on C3 which is unchanged with otherwise near anatomic alignment. The marrow signal is normal. Spinal cord: Normal signal. No cord compression. C2-C3: C2-C3 minimal central focal disc protrusion is seen without stenosis. C3-C4: C3-C4 there is mild diffuse disc bulging with superimposed central focal disc protrusion mildly narrowing the spinal canal. The neural foramina are patent. C4-C5: C4-C5 minimal central focal disc protrusion is seen without stenosis of the spinal canal. The neural foramina are patent. C5-C6: No significant disc bulge or herniation. No severe spinal canal stenosis. No significant neural foraminal narrowing. C6-C7: No significant disc bulge or herniation. No severe spinal canal stenosis. No significant neural foraminal narrowing. C7-T1: No significant disc bulge or herniation. No severe spinal canal stenosis. No significant neural foraminal narrowing. Soft tissues: Unremarkable. Vasculature: Expected flow voids in the vertebral arteries. IMPRESSION: 1. No acute findings. 2. Degenerative disc disease with mild spinal canal stenosis at C3-C4.
--- NOTE | 2022-11-18 14:59 | MR_ITS ---
PROCEDURE INFORMATION: Exam: MR Head Without and With Contrast Exam date and time: 11/18/2022 3:01 PM Age: 62 years old Clinical indication: Dizziness TECHNIQUE: Imaging protocol: Magnetic resonance imaging of the head without and with contrast. Contrast material: PROHANCE; Contrast volume: 19 ml; Contrast route: IV; COMPARISON: 1. MR HEAD/BRAIN WO CON 10/30/2020 8:[address] ANGIO HEAD 11/16/2020 1:44 PM FINDINGS: Brain: No acute infarct. No hemorrhage. No significant white matter disease. No edema. No suspicious intracranial mass. Cerebral ventricles: Normal. No ventriculomegaly. Pituitary gland and sella: The sella is partially of the which is unchanged. Bones/joints: Unremarkable. Paranasal sinuses: Normal as visualized. No acute sinusitis. Mastoid air cells: Normal as visualized. No mastoid effusion. Orbital cavities: Unremarkable. Vasculature: Right frontal lobe developmental venous anomaly is unchanged with comparison MRI and CTA. Soft tissues: Unremarkable. IMPRESSION: No acute intracranial abnormality.
== END ==
PROVIDERS: PCP Emergency Medicine; Visit Provider Emergency Medicine
DX: R42 Dizziness and giddiness (principal); R53.83 Other fatigue; G47.8 Other sleep disorders; H93.19 Tinnitus, unspecified ear
CPT/HCPCS: 70553; 72141; 76376; A9576

== ENCOUNTER → 2022-12-02 23:48 | Outpatient (CLI) | payer MEDICARE, SELFPAY ==
[2022-12-02 17:50] LABS: Coronavirus 19, PCR Not Detected (NotDetected); Influenza A, PCR Not Detected (NotDetected); Influenza B, PCR Not Detected (NotDetected)
== END ==
PROVIDERS: PCP Emergency Medicine; Visit Provider Internal Medicine
DX: R06.02 Shortness of breath (principal); R53.83 Other fatigue
CPT/HCPCS: 87086; 87636

== ENCOUNTER → 2022-12-10 14:24 | Outpatient (CLI) | payer MEDICARE, SELFPAY | PROVIDERS: PCP Emergency Medicine; Visit Provider Nurse Practitioner Family | DX: R40.0 Somnolence; R42 Dizziness and giddiness; R53.83 Other fatigue; H93.19 Tinnitus, unspecified ear; G47.30 Sleep apnea, unspecified | CPT/HCPCS: G0399 ==

== ENCOUNTER → 2022-12-11 06:24 | Outpatient (CLI) | payer MEDICARE, SELFPAY | PROVIDERS: PCP Emergency Medicine; Visit Provider Internal Medicine Pulmonary Disease | DX: R06.09 Other forms of dyspnea (principal); Z87.891 Personal history of nicotine dependence ==

== ENCOUNTER → 2022-12-11 14:00 | Outpatient (CLI) | payer MEDICARE, SELFPAY ==
[2022-12-11 19:18] LABS: Chol/HDL Ratio 3.6 (1-3.5); Cholesterol 203 mg/dl (140-200); HDL Cholesterol 57 mg/dl (40-60); Triglycerides 221 mg/dl (30-150); VLDL Cholesterol 44 mg/dL (0-40)
[2022-12-11 19:29] LABS: Direct LDL Cholesterol 95.68 mg/dL (100-129)
== END ==
PROVIDERS: PCP Internal Medicine; Visit Provider Internal Medicine
DX: E78.2 Mixed hyperlipidemia (principal)
CPT/HCPCS: 80061

== ENCOUNTER → 2022-12-13 07:53 | Outpatient (CLI) | payer MEDICARE, SELFPAY ==
--- NOTE | 2022-12-13 07:53 | MR_ITS ---
FINAL REPORT CLINICAL HISTORY: dizziness, eval for vertrobasilar insuff. dizziness, blurred vision, and headache. hypertension FINDINGS: Multiple projection images of the brain arterial vasculature were obtained without contrast. The raw data images were also reviewed. The distal internal carotid, distal vertebral and basilar arteries have an unremarkable appearance without evidence of significant stenosis or occlusion. The proximal anterior, middle and posterior cerebral arteries have an unremarkable appearance. There is no evidence of significant stenosis or major branch occlusion. No aneurysm or vascular malformation is identified. IMPRESSION: Unremarkable MR angiogram of the head. Authenticated and [facility]
--- NOTE | 2022-12-13 07:53 | MR_ITS ---
FINAL REPORT CLINICAL HISTORY: eval for vertrobasilar insuff. dizziness, blurred vision, and headache. hypertension FINDINGS: Multiple projection images of the neck arterial vasculature were obtained without contrast. The raw data images were also reviewed. The images are degraded by motion artifact. The right common carotid artery has an unremarkable appearance without evidence of stenosis or occlusion. The right internal carotid artery has an unremarkable appearance without evidence of stenosis or occlusion. The right external carotid artery is patent. The right vertebral artery is patent without evidence of stenosis. The left common carotid artery has an unremarkable appearance without evidence of stenosis or occlusion. The left internal carotid artery is patent without evidence of stenosis or occlusion. The left external carotid artery is patent. The left vertebral artery is patent without evidence of stenosis. IMPRESSION: Somewhat limited study secondary to motion, but without evidence of stenosis or occlusion. Authenticated and [facility]
== END ==
PROVIDERS: PCP Emergency Medicine; Visit Provider Nurse Practitioner Family
DX: G47.8 Other sleep disorders (principal); H93.19 Tinnitus, unspecified ear; R42 Dizziness and giddiness; R53.83 Other fatigue
CPT/HCPCS: 70544; 70547

== ENCOUNTER → 2022-12-27 11:00 | Outpatient (CLI) | payer MEDICARE, SELFPAY ==
--- NOTE | 2022-12-27 11:01 | NM_ITS ---
APPROVED REPORT Exam: Nuclear Stress Test Indication: HTN, FORMER SMOKER, FM HX, ANGINA, SYNCOPE, FATIGUE Patient Location: Outpatient Stress Tech: Shelley Kathleen PA Tech:Valerie Ulloa, ARRT RT(R)(N) Ht: 5 ft 5 in Wt: 220 lbs Bra Size: DD HR: 75 bpm BP: 127/77 mmHg BSA: 2.06 m2 Rhythm: NSR TID: 1.35 BMI: 36.6 History: HTN, FORMER SMOKER, FM HX, ANGINA, SYNCOPE, FATIGUE Procedure: Patient received 0.0 mg of intravenous Lexiscan, resting heart rate 75 bpm, resting blood pressure 127/77 mmHg, with Lexiscan maximum heart rate achieved was 101 bpm which is % of the maximum predicted heart rate and blood pressure was 130/69 mmHg. With Lexiscan, patient denied any complaint of chest pain. Cardiac Stress and Resting SPECT Images: Cardiac Stress and Resting SPECT images were obtained using technetium 99m Myoview 31.5 mCi stress and 10.50 mCi at rest. Resting and stress imaging in supine and prone positions demonstrate no evidence of fixed or reversible perfusion defects. There is increased transient ischemic dilatation ratio (TID 1.35), suggestive of possible multivessel disease or balanced ischemia. Gated imaging demonstrates normal global and regional LV systolic function. LVEF is gated at 55%. Conclusion: No evidence of fixed or reversible perfusion defects. There is increased transient ischemic dilatation ratio (TID 1.35), suggestive of possible multivessel disease or balanced ischemia. Gated imaging demonstrates normal global and regional LV systolic function. LVEF is gated at 55%. Electronically signed by : Alivia Downs MD 01/02/2023 15:53:28
--- NOTE | 2022-12-27 14:03 | CA_ITS ---
APPROVED REPORT Exam: Pharmacologic Technologist: Shelley Lindquist, Ht: 5 ft 5 in Wt: 221 lbs BSA: 2.06 m2 HR: 75 bpm BP: 127/77 mmHg Rhythm: NSR Medical History Medications: Levothyroxine,,,,, Pantoprazole,,,,, Montelukast,,,,, MeLOXICAM,,,,, DulOXETINE,,,,, Meclizine,,,,, Levocetirizine,,,,, Multivitamin,,,,, Diclofenac Sodium,,,,, Stress Test Details Test: LEXISCAN Reason for pharmacologic stress test: physical limitation. HR Resting HR: 75 bpm Max Heart Rate (APMHR): 159 bpm Max HR Achieved: 101 bpm Target HR (85% APMHR): 135 bpm % of APMHR: 64 Recovery HR: 92 bpm BP Resting BP: 127/77 mmHg Max BP: 130/69 mmHg Recovery BP: 126.0/76.0 mmHg ECG Resting ECG: NSR Stress ECG: No significant ST changes Arrhythmia: None Clinical Exercise duration: 04:00 min Highest Stage Achieved: Exercise capacity: 1.0 METs Stress ECG Conclusion Symptoms: mild chest heaviness. No other sxs. Arrhythmias/Ectopy: None ST-T Changes: No significant ST changes. Conclusion: Unremarkable Lexiscan stress. Myoview images reported separately. Test Summary REST . . . . . . . Resting REST 04:40 . . 75 . 127/ 77 . . Stage 1 01:00 . . 95 . . . . Stage 2 01:00 . . 99 . 118/ 68 . . Stage 3 01:00 . . 86 . 130/ 69 . . Stage 4 01:00 . . 83 . 128/ 68 . Stop exercise at 04:00 RECOVERY 01:00 . . 97 . . . . RECOVERY 02:00 . . 93 . 117/ 71 . . RECOVERY 03:00 . . 90 . 126/ 76 . . RECOVERY 03:17 . . 92 . 126/ 76 . . Electronically signed by : Alivia Downs MD 01/02/2023 15:52:14
== END ==
PROVIDERS: PCP Emergency Medicine; Visit Provider Physician Assistant
DX: E78.5 Hyperlipidemia, unspecified; I10 Essential (primary) hypertension; I20.89 Other forms of angina pectoris; R00.2 Palpitations
CPT/HCPCS: 78452; 93017; 93018; A9502; J2785

== ENCOUNTER → 2023-01-03 08:21 | Outpatient (CLI) | payer MEDICARE, SELFPAY ==
--- NOTE | 2023-01-03 08:24 | CA_ITS ---
APPROVED REPORT EXAM: Comprehensive 2D, Doppler, and color-flow Echocardiogram Workforce Staffing Advisor: Corina Alvarado, ANN, RVS Ht: 5 ft 5 in Wt: 221lbs BSA: 2.06 BP: 147/65 mmHg Indications: CP, COPD, ABARCA, Edema, HTN, HLD 2D Dimensions IVSd 1.09 cm F: 0.6-1.0 LVEF (Visual) 58.40 % PWd 0.99 cm F: 0.6 - 1.0 LA Volume 51.40 mL LVDd 4.29 cm F: 3.9 - 5.3 LA Volume Index 24.379389 mL/m2 (M/F) 16-34 LVDs 2.98 cm F: 2.2 - 3.5 Aortic Root 2.69 cm F: 2.7 - 3.3 Left Atrium 3.96 cm F: 2.7 - 3.8 LVOT 2.05 cm (M/F) 1.5-2.5 M-Mode Dimensions LA Diam 4.47 cm (1.9-4.0) LVDd 5.01 cm (3.5-5.7) Ao Diam 2.93 cm (2.0-3.7) LVDs 2.86 cm (3.5-5.7) EF (Teich) 73.80% EPSs 1.21 cm FS 42.90% EDV (Teich) 118.80 mL TAPSE 2.30 (<1.7) ESV (Teich) 31.10 mL LV Diastology E Decel Time 257.00 (160-240 msec) E/A Ratio 0.99 MED E' 6.40 (< 7 cm/sec) MED A' 10.20 cm/s E'/MED E' Ratio 11.84 (>14) LAT E' 10.60 (<10 cm/sec) LAT A' 11.60 cm/s E/LAT E' Ratio 7.15 (>14) Aortic Valve LVOT Max 104.00 (70-110 cm/s) LVOT VTI 23.82 cm AoV Peak Leo. 173.00 (50-130 cm/s) AO Peak GR. 12.00 mmHg AO Mean GR. 6.00 (<5 mmHg) AO VTI 36.38 (18-25 cm) LINDA (VTI) 2.16 (2.5-4.5 cm2) Mitral Valve MV A Velocity 77.00 (40-130 cm/s) E/A Ratio 0.99 MV Decel. Time 257.00 (160-240 ms) Left Ventricle The left ventricle is normal size. The left ventricular systolic function is normal. The left ventricular ejection fraction is within the normal range. There is increased LV wall thickness. There is normal LV segmental wall motion. The left ventricular diastolic function is normal. LVEF is 60%. Right Ventricle The right ventricle is normal size. The right ventricular systolic function is normal. Atria The left atrium size is normal. The right atrium size is normal. There is no Doppler evidence of interatrial shunt. Aortic Valve The aortic valve opens well. There is no aortic valvular stenosis. No aortic regurgitation is present. Mitral Valve The mitral valve is normal in structure. No evidence of mitral valve stenosis. Trace mitral regurgitation. Tricuspid Valve The tricuspid valve leaflets are thin and pliable. Trace tricuspid regurgitation. There is insufficient TR jet to estimate RVSP. Pulmonic Valve The pulmonary valve is normal in structure. Trace pulmonic regurgitation. Great Vessels The aortic root is normal in size. The ascending aorta is normal in size. IVC is normal in size and collapses >50% with inspiration. Pericardium There is no pericardial effusion. Other Information Study Quality: Fair Conclusion Normal biventricular systolic function. No significant valvular stenosis or regurgitation. Electronically signed by : Alivia Downs MD 01/13/2023 19:02:08
== END ==
PROVIDERS: PCP Emergency Medicine; Visit Provider Physician Assistant
DX: I25.118 Atherosclerotic heart disease of native coronary artery with other forms of angina pectoris (principal); I11.9 Hypertensive heart disease without heart failure; E78.5 Hyperlipidemia, unspecified; R00.2 Palpitations; Z87.891 Personal history of nicotine dependence
CPT/HCPCS: 93306

== ENCOUNTER 2023-01-15 13:58 | Emergency (ER) | payer MEDICARE, SELFPAY ==
[2023-01-15 14:15] VITALS: BP 120/66; PULSE 92; RESP 20; TEMP 36.7; O2SAT 95; BMI 36.6
--- NOTE | 2023-01-15 14:30 | EXP.UTC ---
Discharge Plan Disposition Patient Disposition: Home, Self-Care Condition: Good Prescriptions Prescriptions: New azithromycin [Zithromax Z-Yoshi] 250 mg tablet See Rx Instructions .ROUTE .COMPLEX 5 Days Qty: 6 0RF Rx Instructions: For 250 mg dose pack: take 500 mg today (day 1), then 250 mg for 4 days (days 2-5) benzonatate 100 mg capsule 100 mg PO TID PRN (Reason: cough) Qty: 30 0RF methylprednisolone [Medrol (Yoshi)] 4 mg tablets,dose pack See Rx Instructions .Route .COMPLEX 6 Days Qty: 21 0RF Rx Instructions: taper pack; No Action duloxetine 30 mg capsule,delayed release(DR/EC) 30 mg PO DAILY Qty: 30 2RF duloxetine 60 mg capsule,delayed release(DR/EC) 60 mg PO DAILY Qty: 90 0RF levocetirizine 5 mg tablet 5 mg PO DAILY multivitamin Tablet 1 tab PO DAILY montelukast 10 mg tablet 10 mg PO QDAY Qty: 90 0RF levothyroxine [Synthroid] 50 mcg tablet 50 mcg PO DAILY Qty: 90 2RF pantoprazole 40 mg tablet,delayed release (DR/EC) See Rx Instructions .ROUTE .COMPLEX Qty: 90 0RF Rx Instructions: TAKE 1 TABLET BY MOUTH ONCE DAILY meclizine 50 mg tablet 50 mg PO DAILY PRN (Reason: dizziness or vertigo) Qty: 14 0RF meloxicam 15 mg tablet 15 mg PO DAILY Qty: 30 5RF Referrals Follow up/Referrals: Rangel Puga DO [Primary Care Provider] - See instructions Activity Restrictions/Add. Instructions Additional Instructions/Restrictions: *Monitor Temp, Over the counter Motrin or Tylenol as directed/as needed Tylenol every 4 hours and Motrin every 6 hours (as long as your family doctor has told you that you can take it) for fever or pain. and straight to ER if unable to lower temp less than 101.0 after medication given *Warm salt water gargles may help to soothe the throat *Throat Lozenges? *Warm fluids like tea with honey may help to soothe the throat? *Sleep elevated *Humidifier/Vaporizer Take medication as prescribed Follow up IMMEDIATELY for new or worsening symptoms or no Noticeable improvement over the next 48-72 hours. 911 for difficulty breathing or swallowing Clinical Impressions Clinical Impression: Sinusitis Qualifiers: Sinusitis location: unspecified location Chronicity: unspecified Qualified Code(s): J32.9 - Chronic sinusitis, unspecified Instructions Patient Instructions: DI for Sinusitis, Sinusitis Discharge ED Provider: Siomara Ham [facility] General Stated complaint: sore throat, no taste or smell, body aches Mode of Arrival: Ambulatory Source of Information: Patient Limitations: No Limitations Time Seen by Provider: 01/15/23 14:31 Description of Symptoms (Recalled from Triage Doc. by RN): PATIENT C/O HEADACHE, RUNNY NOSE, SORE THROAT, BODY ACHES, AND YELLOW/GREEN DRAINAGE THAT STARTED AFTER THANKSGIVING HEENT Symptoms (Recalled from RN notes): Yes Resp Symptoms (Recalled from RN notes): No Skin Symptoms (Recalled from RN notes): No MS Symptoms (Recalled from RN notes): No Functional Status (Recalled from RN notes): WNL History of Present Illness Provider Complaint: Patient states that she has been sick for over a week with sinus pain and pressure, drainage in the back of her throat, headache and yellowish green drainage in the back of her throat States that today her forehead felt sore to the touch and under her eyes so she came in to get checked Related Data Home Medications Medication Instructions Recorded Confirmed levocetirizine 5 mg tablet 5 mg PO DAILY allergies 03/28/20 01/15/23 multivitamin 1 tab PO DAILY Supplement 10/16/20 01/15/23 Previous Rx's Medication Instructions Recorded montelukast 10 mg tablet 10 mg PO QDAY allergies #90 tabs 06/28/19 levothyroxine 50 mcg tablet 50 mcg PO DAILY hypothyroid #90 07/01/22 (Synthroid) tabs meloxicam 15 mg tablet 15 mg PO DAILY #30 tabs 09/16/22 pantoprazole 40 mg tablet,delayed See Rx Instructions .Route 11/04/22
[2023-01-15 14:42] LABS: UTC Influenza A Antigen Negative (Negative)
[2023-01-15 14:43] LABS: UTC Influenza B Antigen Negative (Negative)
[2023-01-15 14:53] VITALS: BP 120/66; PULSE 92; RESP 20; TEMP 36.7; O2SAT 95
== END 2023-01-15 14:57 | disposition home or self-care (01) ==
PROVIDERS: Emergency Provider Nurse Practitioner; PCP Internal Medicine
DX: J01.90 Acute sinusitis, unspecified (principal); R07.0 Pain in throat; R43.9 Unspecified disturbances of smell and taste; R09.81 Nasal congestion; R09.82 Postnasal drip; R51.9 Headache, unspecified; J44.9 Chronic obstructive pulmonary disease, unspecified; I10 Essential (primary) hypertension; E78.5 Hyperlipidemia, unspecified; E03.9 Hypothyroidism, unspecified; K21.9 Gastro-esophageal reflux disease without esophagitis; Z87.891 Personal history of nicotine dependence
CPT/HCPCS: 87804; 99212; 99214; G0463

== ENCOUNTER → 2023-01-23 16:56 | Outpatient (CLI) | payer MEDICARE, SELFPAY ==
--- NOTE | 2023-01-23 17:10 | XR_ITS ---
PROCEDURE INFORMATION: Exam: XR Chest Exam date and time: 01/23/2023 5:11 PM Age: 62 years old Clinical indication: Chest wall pain; Additional info: Lt sided chest pain TECHNIQUE: Imaging protocol: Radiologic exam of the chest. Views: 2 views. COMPARISON: CT LUNG SCREENING 05/27/2022 2:15 PM FINDINGS: Lungs: Mild opacity in the left base Pleural spaces: Unremarkable. No pleural effusion. No pneumothorax. Heart/Mediastinum: Unremarkable. No cardiomegaly. Bones/joints: Unremarkable. IMPRESSION: Mild opacity in the left base may represent atelectasis or pneumonia.
[2023-01-23 17:16] LABS: Basophils # 0.1 K/mm3 (0-0.2); Eosinophils # 0.3 K/mm3 (0.0-0.4); Eosinophils % 2.7 % (0.1-12.0); Hematocrit 38.7 % (37.0-47.0); Hemoglobin 12.9 g/dL (12.2-16.2); Lymphocytes # 4.4 K/mm3 (0.7-4.5); Mean Corpuscular HGB Conc 33.2 g/dL (31.8-35.4); Mean Corpuscular Hemoglobin 28.8 pg (27.0-31.2); Mean Corpuscular Volume 86.8 fl (81-99); Mean Platelet Volume 7.8 fl (7.4-10.4); Monocytes # 0.5 K/mm3 (0.1-1.0); Monocytes % 5.4 % (1.7-9.3); Neutrophils # 4.7 K/mm3 (1.8-7.8); Neutrophils % 46.9 % (37.0-80.0); Platelet Count 439 K/mm3 (142-424); Red Blood Count 4.46 M/mm3 (4.20-5.40); Red Cell Distribution Width 13.3 % (11.5-17.5)
[2023-01-23 18:37] LABS: Alanine Aminotransferase 27 U/L (12-78); Albumin Level 4.1 g/dl (3.5-5.0); Albumin/Globulin Ratio 1.3 (1.1-1.8); Alkaline Phosphatase 126 U/L (38-126); Anion Gap 8.7 mEq/L (5-15); Aspartate Amino Transferase 29 U/L (14-36); Bilirubin,Total 0.2 mg/dl (0.2-1.3); Blood Urea Nitrogen 15 mg/dl (7-17); Calcium 8.8 mg/dl (8.4-10.2); Carbon Dioxide 29 mmol/L (22.0-30.0); Chloride 103 mmol/L (98-107); Estimated Glomerular Filt Rate 85 ml/min (>60); GFR (African American) 103 ML/MIN (>60); Globulin 3.1 g/dL (1.3-3.2); Glucose 109 mg/dl (74-100); Potassium 4.7 mmoL/L (3.5-5.1); Sodium 136 mmol/L (136-145); Total Protein,Serum 7.2 g/dl (6.3-8.2)
[2023-01-23 19:08] LABS: Thyroid Stimulating Hormone 1.03 uIU/mL (0.465-4.68)
== END ==
PROVIDERS: PCP Family Medicine; Visit Provider Family Medicine
DX: Z00.00 Encounter for general adult medical examination without abnormal findings (principal); R60.9 Edema, unspecified; R59.9 Enlarged lymph nodes, unspecified; J44.9 Chronic obstructive pulmonary disease, unspecified; Z87.891 Personal history of nicotine dependence
CPT/HCPCS: 36415; 71046; 80053; 84443; 85025

== ENCOUNTER → 2023-01-29 10:12 | Outpatient (CLI) | payer MEDICARE, SELFPAY ==
--- NOTE | 2023-01-29 10:13 | CT_ITS ---
FINAL REPORT TECHNIQUE: Axial images were obtained through the chest without contrast. Sagittal and coronal reformatted images were obtained and reviewed. This study was performed with techniques to keep radiation doses as low as reasonably achievable (ALARA). Individualized dose reduction techniques using automated exposure control or adjustment of mA and/or kV according to the patient's size were employed. CLINICAL HISTORY: left lung pain, abn. xray COMPARISON: 01/23/2023 FINDINGS: There is a small prevascular lymph node, stable. The heart size is normal. There is no pericardial or pleural effusion. Limited images of the upper abdomen are unremarkable. There is abnormal linear scar in both lungs. Again seen is a 6 mm right middle lobe nodule, measuring 5 mm today. No new mass or nodule is identified. IMPRESSION: Biapical scarring, more evident at the bases. Reviewed, Interpreted and Dictated by Juan José Ramírez MD Transcribed by Jacki Alonzo Authenticated and [facility]
== END ==
PROVIDERS: Visit Provider Family Medicine
DX: R93.89 Abnormal findings on diagnostic imaging of other specified body structures (principal)
CPT/HCPCS: 71250

== ENCOUNTER 2023-02-12 12:16 | Outpatient (CLI) | payer MEDICARE, SELFPAY ==
--- NOTE | 2023-02-12 12:17 | CT_ITS ---
APPROVED REPORT De Alcoholizer: CLINICAL INDICATION chest pain, transient ischemic dilatation on nuclear stress test (rule out multivessel disease) TECHNIQUE Image Acquisition: A 128 slice MDCT scanner (Moncaia View) was used for data acquisition. A noncontrast coronary calcium scan was performed. A CT attenuation threshold of 130 Hounsfield units (HU) was used for the detection of calcium in contiguous voxels of 1 sq mm in area to be counted as individual lesions. Bolus tracking in the ascending aorta with a threshold of 180 HU was performed. Immediately afterwards, ECG synchronized cardiac CT was then performed from the cardiac base to apex using retrospective gating with ECG tube current modulation. A total of 85 mL of Isovue 370 mg/mL contrast medium was administered at 5 mL/sec followed by a saline flush using a biphasic injection protocol. A tube voltage of 120 KVp was used. The patient received the following medications prior to the cardiac CT. 100 mg of oral metoprolol 0.8 mg of sublingual nitroglycerin The average heart rate at the time of acquisition was 63 bpm and regular. Image Reconstruction Transaxial images were reconstructed at 0.67 mm slide thickness. Data was reviewed interactively on an advanced workstation capable of 2 and 3-dimensional displays in all conventional reconstruction formats, including multiplanar reformations, maximum intensity projections, curved multiplanar reformations, and volume rendered reconstructions. When applicable, selected routine images describing the relevant coronary anatomy and pathology were saved and sent to PACS. Complications None Technical Quality Overall image quality was suboptimal. Coronary artery opacification was suboptimal. Total DLP (Dose-Length Product) is 1153.7 mGy-cm. The reported value represents the total of one or more individual components during the CT acquisition of this date and at this time, and as such, the same value may appear in more than one CT report depending on the interpreting/reporting physicians. COMPARISON None FINDINGS CT Coronary Calcium Scoring LMA (Left Main Artery) = 0 LAD (Left Anterior Descending) = 0 LCX (Left Coronary Circumflex) = 0 RCA (Right Coronary Artery) = 0 Total Calcium Score = 0 using the AJ-130 method. The interpretation of the calcium heart score is based on the following continuum*: 0 = no calcified plaque detected (risk of coronary artery disease is very low ??? less than 5%) 1-10 = calcium detected in extremely minimal levels (risk of coronary diseases is still low ??? less than 10%) 11-100 = mild levels of plaque detected with certainty (mild or minimal narrowing of heart arteries is likely) 101-400 = definite,at least moderate levels of plaque detected (relatively high risk of a heart attack within 3-5 years) >401-999 = extensive levels of plaque detected (high risk of heart attack, high levels of vascular disease are present, high likelihood of at least one significant coronary narrowing) *The calcium heart score quantifies the burden of coronary calcification/plaque in the coronary arteries. The calcium heart score is not able to evaluate the presence or burden of non-calcified (i.e. soft) plaque. There is no identifiable calcification in the aortic valve, mitral annulus or mitral valve, pericardium, or myocardium. Coronary CT Angiography The coronary arterial system is right dominant. Quantitative Stenosis Grading: Left Main (LM): The left main originates normally from the left sinus of Valsalva. The LM bifurcates into the left anterior descending artery and left circumflex artery. The LM is patent with no evidence of atherosclerosis. Left Anterior Descending (LAD) and Diagonal Branches: The LAD gives off 3 diagonal branches. The LAD and its branches are patent with no evidence of atherosclerosis. There is no evidence of LAD bridge. Left Circumflex (LCX) and Obtuse Marginals (OM): The LCX gives off 1 Obtuse Marginal (OM) branch. The LCX and its branches are patent with no evidence of atherosclerosis. Right Coronary Artery (RCA): The RCA originates normally from the right sinus of Valsalva. The RCA gives off a posterior descending artery (PDA) and posterolateral (PL) branches. The RCA and its branches are patent with no evidence of atherosclerosis. Non-Coronary Cardiac Findings: Analysis of the left ventricular (LV) structure and function was performed after 3-D reconstruction of the LV from axial images, with user-corrected automatic contouring for assessment of LV volumes and user-defined reconstruction from oblique planes for measurement of 3-D cardiac structure and function. LVEDV: 188 mL LVESV: 88 mL SV: 100 mL LVEF: 53.2 % -The left ventricle is normal in size with normal left ventricular systolic function. -There is no left atrial appendage filling defect. Two right pulmonary veins and two left pulmonary veins drain normally into the left atrium. -No pericardial thickening or calcification. -Central and branch pulmonary arteries in the [id number] are unremarkable. -Thoracic aorta within the visualized thoracic aortic-branches in the [id number] is unremarkable. Extracardiac Structures No significant extra-cardiac findings. IMPRESSION -No coronary calcification with an Agatston score = 0 using the AJ-130 method. -No evidence of significant flow-limiting atherosclerosis of the coronary arteries. -CAD-RADS 0. Management recommendations per ACC/AHA guidelines*, as clinically appropriate. -No significant non-coronary cardiac findings in the visualized segments of the chest. *Recommendations: CAD RADS 0: Reassurance. Consider non-atherosclerotic causes of chest pain. CAD RADS 1: Consider non-atherosclerotic causes of chest pain. Consider preventive therapy and risk factor modification. CAD RADS 2: Consider non-atherosclerotic causes of chest pain. Consider preventive therapy and risk factor modification, particularly for patients with nonobstructive plaque in multiple segments. CAD RADS 3: Consider further functional testing. Consider symptom-guided anti-ischemic and preventive pharmacotherapy as well as risk factor modification per published guideline statements. CAD RADS 4A: Consider further functional testing or invasive coronary angiography with revascularization per published guideline statements. Consider symptom-guided anti-ischemic and preventive pharmacotherapy as well as risk factor modification per published guideline statements. CAD RADS 4B: Invasive coronary angiography recommended with revascularization per published guideline statements. Consider symptom-guided anti-ischemic and preventive pharmacotherapy as well as risk factor modification per published guideline statements. CAD RADS 5: Consider invasive angiography and/or viability assessment with revascularization per published guideline statements. Consider symptom-guided anti-ischemic and preventive pharmacotherapy as well as risk factor modification per published guideline statements. CRITICAL RESULT None COMMUNICATION Per this written report The coronary and cardiac findings of this CCTA were reviewed, reported, and signed by Mark Anthony Downs MD (Patient Registration Manager) Conclusion Electronically signed by : Alivia Downs MD 02/18/2023 15:54:27
[2023-02-12 12:33] VITALS: BP 148/78; PULSE 74; RESP 18; TEMP 36.3; O2SAT 97; BMI 36.6
[2023-02-12] MEDS: METOPROLOL TARTRATE 50MG TABLET 100 MG (12:35)
[2023-02-12 13:15] VITALS: BP 142/95; PULSE 59; RESP 18; O2SAT 97
[2023-02-12] MEDS: NITROGLYCERIN 0.4MG SL TABLET 0.800000000000000044 MG SL (13:15)
[2023-02-12 13:20] VITALS: BP 135/86; PULSE 59; RESP 18; O2SAT 97
[2023-02-12 13:30] VITALS: BP 118/73; PULSE 63; RESP 18; O2SAT 98
[2023-02-12] MEDS: 0.9 % SODIUM CHLORIDE 50 ML VIAL IV (13:43)
[2023-02-12] MEDS: IOPAMIDOL-370 (76%);100ML BOTTLE 85 ML IV (13:43)
[2023-02-12 13:55] VITALS: BP 118/79; PULSE 60; RESP 16; O2SAT 97
== END 2023-02-12 14:05 | disposition home or self-care (01) ==
PROVIDERS: PCP Internal Medicine; Visit Provider Physician Assistant
DX: E78.5 Hyperlipidemia, unspecified (principal); I10 Essential (primary) hypertension; I20.89 Other forms of angina pectoris; R00.2 Palpitations; R42 Dizziness and giddiness; R94.39 Abnormal result of other cardiovascular function study; R94.31 Abnormal electrocardiogram [ECG] [EKG]
CPT/HCPCS: 75571; 75574; Q9967

== ENCOUNTER 2023-02-21 09:39 | Outpatient (CLI) | payer MEDICARE, SELFPAY ==
[2023-02-21 19:04] LABS: Chol/HDL Ratio 2.3 (1-3.5); Cholesterol 189 mg/dl (140-200); HDL Cholesterol 84 mg/dl (40-60); Triglycerides 140 mg/dl (30-150); VLDL Cholesterol 28 mg/dL (0-40)
[2023-02-21 19:22] LABS: Free Thyroxine Index 2.2 ug/dL (5.93-13.13); T4 (Thyroxine) 7.1 ug/dl (5.53-11.0); Triiodothryronine (T3) Uptake 31 % (23.5-40.5)
[2023-02-21 19:36] LABS: Thyroid Stimulating Hormone 1.11 uIU/mL (0.465-4.68)
[2023-02-21 19:49] LABS: Hemoglobin A1C 6.1 % (4.0-6.0)
[2023-02-21 23:03] LABS: Amphetamine/Metha Screen,Urine Negative ng/ml (<1000); Barbiturates Screen,Urine Negative ng/ml (<200); Cocaine Screen,Urine Negative ng/ml (<300); Methadone Screen,Urine Negative ng/ml (<300); Opiate Screen,Urine Negative ng/ml (<300); Phencyclidine Screen,Urine Negative ng/ml (<25)
[2023-02-21 23:08] LABS: Benzodiazepines Screen,Urine Negative ng/ml (<200); Cannabinoid Screen,Urine Negative ng/ml (<50)
== END 2023-02-21 23:59 ==
PROVIDERS: PCP Family Medicine; Visit Provider Internal Medicine
DX: R73.09 Other abnormal glucose (principal); E78.5 Hyperlipidemia, unspecified; R53.83 Other fatigue; Z79.899 Other long term (current) drug therapy
CPT/HCPCS: 80061; 80307; 83036; 84436; 84443; 84479

== ENCOUNTER → 2023-03-10 13:40 | Outpatient (POV) | payer MEDICARE, SELFPAY ==
--- NOTE | 2023-03-10 14:06 | EXP.PAIN.SOA ---
[facility] Pain Management SOAP Note Subjective:: Patient is a pleasant 61-year-old female who presents today for 6-month follow-up.? We are currently treating the patient for degenerative disc disease of lumbar spine with lumbar radiculopathy symptoms, spinal stenosis with neurogenic claudication, status post Vertiflex procedure.? Today she rates her pain a 9 out of 10.? Patient states she has continued to have low back pain on a daily basis. Patient does believe a lot of it is inflammation. Patient at our last visit was switched from meloxicam to diclofenac however she states it still made no improvement. Patient denies any heart or kidney issues. She does state that her neck symptoms have improved following starting a vertigo medication from her cardiac doctor. Patient states she has tried multiple injections in the past and they did not provide any additional relief and is not interested in doing any additional. Patient was changed to meloxicam 15 mg/day and she states that did help however she is requesting if it can be increased. Patient is currently managed with Percocet 5 mg twice a day from her PCP. Patient does state that this medication really did help and caused her to have decreased pain symptoms. She is asking whether or not if we can continue this medication. Her Laith has been reviewed and appropriate. Review of Systems: General: No recent weight changes, no fever, no sleep disturbances Respiratory: No cough, no shortness of air, no recurring pulmonary infections Cardiovascular/peripheral vascular: No chest pain, no palpitations,? no edema, no shortness of breath Gastrointestinal: No new onset incontinence, normal bowel movements reported Genitourinary: No new onset incontinence Musculoskeletal: Low back pain Psychiatric: [Normal mood/affect] Neurological: [Denies weakness in extremities], [denies balance issues] Objective:: Physical Exam: General: Alert and oriented x3, no acute distress, pleasant and cooperative Lungs: Respirations even and unlabored, symmetrical chest expansion Eyes: PERRL Musculoskeletal: Flexion and extension of lumbar [spine] somewhat guarded secondary to pain, [antalgic gait noted] Neurological: Speech clear, no gross sensory deficit Assessment:: Degenerative disc disease of lumbar spine with lumbar radiculopathy symptoms, spinal stenosis with neurogenic claudication, status post Vertiflex procedure Plan:: I have discussed with the patient that I do still believe that she would benefit from injection therapy however at this time she would like to wait. I have discussed with the patient that I will send in a 1 month supply of Celebrex 100 mg twice daily. I have counseled the patient to discontinue all other NSAIDs including ibuprofen and the previous diclofenac while taking this medication and to take it with food to minimize GI upset. I have counseled the patient to contact our office if she would like additional refills between now and her next follow-up. I have also discussed the patient that we are more interventional pain and do not immediately go into medication management. Patient will return to clinic in 6 months for reevaluation of symptoms and plan of care. Patient has been instructed to contact the clinic with any concerns before the next appointment. Dr. Cee has reviewed this note and agrees with this plan of care. This note was dictated using voice recognition software and make contain errors or omissions. [facility] Disclaimer: The information contained in this section may have been updated after the patient was seen, as this information can be updated by other users. Medical History Abnormal computerized axial tomography of chest Abnormal stress test Actinic keratosis of scalp Atypical angina Chronic infective rhinitis I reviewed her scan which was normal. I have encouraged her to continue with the nasal steroid spray as directed COPD (chronic obstructive pulmonary disease) Degenerative disc disease Disorder of eustachian tube Dizziness Dyspnea on exertion Edema Family history of early CAD Generalized anxiety disorder Hearing loss Patient will be referred for hearing aids per recommendation. History of gastroesophageal reflux (GERD) HLD (hyperlipidemia) HTN (hypertension) Hx of fracture of nose Hypothyroidism Kidney stone Lung nodule Multinodular goiter Nasal septal deviation This is minimal and not causing significant obstruction. CT scan showed no evidence of acute or chronic sinusitis Petechiae Psoriasis annularis I will remove the posterior scalp lesion. She has had this removed before I do not know the pathology of this lesion. We will send it for pathologic valuation to rule out neoplasia. Psychosis Pulmonary fibrosis, unspecified Restrictive lung disease Scalp lesion Sinus pressure Stopped smoking with greater than 30 pack year history Thyroid Nodule Tinnitus of both ears Vertigo Surgical History History of back surgery lumbar History of carpal tunnel surgery of right wrist Hx laparoscopic cholecystectomy Hx of breast biopsy right and left Hx of colonoscopy with polypectomy Hx of nasal sinusotomy Hx of removal of neck cyst facial cyst also Hx of tubal ligation Status post excision of skin lesion, follow-up exam Family History Other Family history of cancer Family history of diabetes mellitus type II Family history of kidney disease Family history of myocardial infarction Social History Smoking Status: Former smoker tobacco type: cigarettes smoking status stop date: 2016 second hand exposure: No alcohol intake: never substance use type: former substance user and marijuana current occupational status: disabled Travel in the last 8 weeks: None household members: spouse and family housing: house lives independently: No marital status: number of children: 2 education level: high school service: No current occupation: [employer] current occupational exposures/hazards: No pets and animals: Yes pets and animals: dog(s) caffeine: Yes special brent needs: No do you feel safe at home: Yes victim of physical abuse: No victim of emotional abuse: No victim of sexual abuse: No would you like helpful sources: No
[2023-03-10 15:31] VITALS: BP 144/72; PULSE 94; RESP 18; O2SAT 96; BMI 38.2
== END | disposition home or self-care (01) ==
PROVIDERS: PCP Internal Medicine; Visit Provider Nurse Practitioner Family
DX: M51.16 Intervertebral disc disorders with radiculopathy, lumbar region (principal); M48.062 Spinal stenosis, lumbar region with neurogenic claudication
CPT/HCPCS: 99212; G0463

== ENCOUNTER 2023-03-18 10:36 | Emergency (ER) | payer MEDICARE, SELFPAY ==
[2023-03-18 10:55] VITALS: BP 155/74; PULSE 85; RESP 21; TEMP 36.7; O2SAT 96; BMI 38.2
--- NOTE | 2023-03-18 11:23 | ED_ITS ---
Discharge Plan Disposition Patient Disposition: Home, Self-Care Condition: Good Prescriptions Prescriptions: No Action atorvastatin 20 mg tablet 20 mg PO HS Qty: 30 2RF multivitamin Tablet 1 tab PO DAILY methylprednisolone [Medrol (Yoshi)] 4 mg tablets,dose pack See Rx Instructions PO PER PKG DIR Qty: 21 0RF Rx Instructions: PO PER PKG DIR levocetirizine 5 mg tablet 5 mg PO DAILY Qty: 30 0RF montelukast 10 mg tablet 10 mg PO QDAY Qty: 90 0RF levothyroxine [Synthroid] 50 mcg tablet 50 mcg PO DAILY Qty: 90 2RF duloxetine 60 mg capsule,delayed release(DR/EC) 60 mg PO DAILY Qty: 90 0RF duloxetine 30 mg capsule,delayed release(DR/EC) 30 mg PO DAILY Qty: 30 2RF pantoprazole 40 mg tablet,delayed release (DR/EC) See Rx Instructions .ROUTE .COMPLEX Qty: 90 0RF Dose Instruction: TAKE 1 TABLET BY MOUTH ONCE DAILY Rx Instructions: TAKE 1 TABLET BY MOUTH ONCE DAILY meclizine 50 mg tablet 50 mg PO DAILY PRN (Reason: dizziness or vertigo) Qty: 14 0RF Lybalvi 10-10 mg tablet 1 tab PO QHS Qty: 30 2RF celecoxib 100 mg capsule 100 mg PO BID Qty: 60 0RF meloxicam 15 mg tablet 15 mg PO DAILY Qty: 30 5RF Referrals Follow up/Referrals: Rangel Puga DO [Primary Care Provider] - See instructions Activity Restrictions/Add. Instructions Additional Instructions/Restrictions: Follow up with your Family Doctor if no improvement or any worsening of symptoms Follow up with Pain Management if no improvement Return if needed Continue prescribed medication as directed Clinical Impressions Clinical Impression: Sciatica of left side Instructions Patient Instructions: Sciatica, DI for Sciatica Discharge ED Provider: Siomara Ham [facility] General Stated complaint: left leg pain Mode of Arrival: Ambulatory Source of Information: Patient Limitations: No Limitations Time Seen by Provider: 03/18/23 11:27 Description of Symptoms (Recalled from Triage Doc. by RN): PATIENT C/O PAIN TO LEFT HIP THAT RADIATES INTO LEG THAT STARTED THIS MORNING HEENT Symptoms (Recalled from RN notes): No Resp Symptoms (Recalled from RN notes): No Skin Symptoms (Recalled from RN notes): No MS Symptoms (Recalled from RN notes): Yes Functional Status (Recalled from RN notes): WNL History of Present Illness Provider Complaint: Patient states that she has has hx of back pain and back surgery and always has pain in her back States that this morning she woke up with pain in her buttock/hip area that radiates down into her upper leg and worse with raising leg or sitting on that side Denies loss of control of bowel or bladder Related Data Home Medications Medication Instructions Recorded Confirmed multivitamin 1 tab PO DAILY Supplement 10/16/20 03/13/23 Previous Rx's Medication Instructions Recorded montelukast 10 mg tablet 10 mg PO QDAY allergies #90 tabs 06/28/19 levothyroxine 50 mcg tablet 50 mcg PO DAILY hypothyroid #90 07/01/22 (Synthroid) tabs meloxicam 15 mg tablet 15 mg PO DAILY #30 tabs 09/16/22 duloxetine 30 mg capsule,delayed 30 mg PO DAILY #30 caps 01/21/23 release duloxetine 60 mg capsule,delayed 60 mg PO DAILY #90 caps 01/21/23 release atorvastatin 20 mg tablet 20 mg PO HS #30 tabs 01/23/23 pantoprazole 40 mg tablet,delayed See Rx Instructions .Route 02/03/23 release .COMPLEX #90 tabs levocetirizine 5 mg tablet 5 mg PO DAILY allergies #30 tabs 02/21/23 meclizine 50 mg tablet 50 mg PO DAILY PRN dizziness or 02/21/23 vertigo #14 tabs methylprednisolone 4 mg tablets in See Rx Instructions PO PER PKG DIR 02/21/23 a dose pack (Medrol (Yoshi)) #21 tabs celecoxib 100 mg capsule 100 mg PO BID #60 caps 03/10/23 olanzapine 10 mg-samidorphan 10 mg 1 tab PO QHS #30 tabs 03/17/23 tablet (Lybalvi) Allergies Allergy/AdvReac Type Severity Reaction Status Date / Time No Known Allergies Allergy Verified 03/13/23 11:11 Worker's Comp Is this a Worker's Comp case?: No [facility] Disclaimer: The information contained in this section may have been updated after the patient was seen, as this information can be updated by other users. Medical History Abnormal computerized axial tomography of chest Abnormal stress test Actinic keratosis of scalp Atypical angina Chronic infective rhinitis I reviewed her scan which was normal. I have encouraged her to continue with the nasal steroid spray as directed COPD (chronic obstructive pulmonary disease) Degenerative disc disease Disorder of eustachian tube Dizziness Dyspnea on exertion Edema Family history of early CAD Generalized anxiety disorder Hearing loss Patient will be referred for hearing aids per recommendation. History of gastroesophageal reflux (GERD) HLD (hyperlipidemia) HTN (hypertension) Hx of fracture of nose Hypothyroidism Kidney stone Lung nodule Multinodular goiter Nasal septal deviation This is minimal and not causing significant obstruction. CT scan showed no evidence of acute or chronic sinusitis Petechiae Psoriasis annularis I will remove the posterior scalp lesion. She has had this removed before I do not know the pathology of this lesion. We will send it for pathologic valuation to rule out neoplasia. Psychosis Pulmonary fibrosis, unspecified Restrictive lung disease Scalp lesion Sinus pressure Stopped smoking with greater than 30 pack year history Thyroid Nodule Tinnitus of both ears Vertigo Surgical History History of back surgery lumbar History of carpal tunnel surgery of right wrist Hx laparoscopic cholecystectomy Hx of breast biopsy right and left Hx of colonoscopy with polypectomy Hx of nasal sinusotomy Hx of removal of neck cyst facial cyst also Hx of tubal ligation Status post excision of skin lesion, follow-up exam Family History Other Family history of cancer Family history of diabetes mellitus type II Family history of kidney disease Family history of myocardial infarction Social History Smoking Status: Former smoker tobacco type: cigarettes smoking status stop date: 2016 second hand exposure: No alcohol intake: never substance use type: former substance user and marijuana current occupational status: disabled Travel in the last 8 weeks: None household members: spouse and family housing: house lives independently: No marital status: number of children: 2 education level: high school service: No current occupation: [employer] current occupational exposures/hazards: No pets and animals: Yes pets and animals: dog(s) caffeine: Yes special brent needs: No do you feel safe at home: Yes victim of physical abuse: No victim of emotional abuse: No victim of sexual abuse: No would you like helpful sources: No ROS Obtained: Yes All systems reviewed & no additional complaints except as documented and Yes Systems reviewed as appropriate & no additional complaints except as documented Constitutional Constitutional: Reports system reviewed and no additional complaints, except as documented and Reports as per HPI ENT Ears, Nose, Mouth, and Throat: Reports system reviewed and no additional complaints, except as documented and Reports as per HPI Cardiovascular Cardiovascular: Reports system reviewed and no additional complaints, except as documented and Reports as per HPI Respiratory Respiratory: Reports system reviewed and no additional complaints, except as documented and Reports as per HPI Gastrointestinal Gastrointestingal: Reports system reviewed and no additional complaints, except as documented and as per HPI Genitourinary Female Genitourinary: Reports system reviewed and no additional complaints, except as documented and Reports as per HPI Musculoskeletal Musculoskeletal: Reports system reviewed and no additional complaints, except as documented, Reports as per HPI and Reports other Comments: pain in buttock/hip area that radiates into upper leg with movement Physical Exam General General appearance: alert and in no apparent distress ENT ENT exam: Present mucous membranes moist Respiratory Respiratory exam: Present normal lung sounds bilaterally; Absent respiratory distress or wheezes Cardiovascular Cardiovascular exam: Present regular rate, normal rhythm and normal heart sounds Back Exam Back exam: Present sciatic notch tenderness (L); Absent CVA tenderness (R) or CVA tenderness (L) Back 1 view image: 1. reports tenderness with palpation and radiation of pain with lifting leg, sitting on that side, laying on that side and walking denies loss of control of bowel or bladder denies known injury Neurological Exam Neurological exam: Present alert, oriented X3 and normal gait Medical Decision Making Laith Inquiry Pt receiving controlled substance: No Laith was queried for this patient: No Vital Signs: 03/18/23 10:55 Temperature 98.0 F Temperature Source Oral Pulse Rate [Left Brachial] 85 Respiratory Rate 21 Blood Pressure [Left Arm] 155/74 H Blood Pressure Mean [Left Arm] 101 Blood Pressure Source [Left Arm] Automatic Cuff Blood Pressure Position [Left Arm] Sitting 02 Sat by Pulse Oximetry 96 Oxygen Delivery Method Room Air Medical Decision Narrative: Discussed xray with patient and she declined will given Solu medrol injection and have her follow up with PCP and Pain management for further treatment and evaluation Patient states that she has taken Solu medrol in the past without complications or reactions
[2023-03-18] MEDS: METHYLPREDNISOLONE SOD SUCC 125MG VIAL 125 MG IM (11:43)
[2023-03-18 11:53] VITALS: BP 155/74; PULSE 85; RESP 21; TEMP 36.7; O2SAT 96
== END 2023-03-18 12:00 | disposition home or self-care (01) ==
PROVIDERS: Emergency Provider Nurse Practitioner; PCP Internal Medicine
DX: M54.42 Lumbago with sciatica, left side (principal); J44.9 Chronic obstructive pulmonary disease, unspecified; I10 Essential (primary) hypertension; E78.5 Hyperlipidemia, unspecified; E03.9 Hypothyroidism, unspecified; Z87.891 Personal history of nicotine dependence
CPT/HCPCS: 96372; 99212; 99214; G0463

== ENCOUNTER → 2023-03-19 10:29 | Outpatient (POV) | payer MEDICARE, SELFPAY ==
--- NOTE | 2023-03-19 11:28 | EXP.PAIN.SOA ---
[facility] Pain Management SOAP Note Subjective:: Patient is a pleasant 62-year-old female who presents today for follow-up from ER. We are currently treating the patient for degenerative disc disease of lumbar spine with lumbar radiculopathy symptoms, spinal stenosis with neurogenic claudication symptoms, status post Vertiflex procedure. Today she rates her pain a 10 out of 10. Patient states that she has had increasing pain in her low back that is worse on the left side and into her hip unrelated to any specific trauma or injury. Patient does describe this pain as an aching, throbbing sensation that is constant and is interfering with sleeping or even simple ambulation. Patient states she did go to the ER and they stated to come follow-up with our office. Patient is requesting pain medication. Patient was prescribed Celebrex 100 mg twice a day at our last visit however she states she did not notice any additional improvement with this. Her Laith has been reviewed. Review of Systems: General: No recent weight changes, no fever, no sleep disturbances Respiratory: No cough, no shortness of air, no recurring pulmonary infections Cardiovascular/peripheral vascular: No chest pain, no palpitations, no edema, no shortness of breath Gastrointestinal: No new onset incontinence, normal bowel movements reported Genitourinary: No new onset incontinence Musculoskeletal: Low back pain, bilateral hip pain Psychiatric: [Normal mood/affect] Neurological: [Denies weakness in extremities], [denies balance issues] Objective:: Physical Exam: General: Alert and oriented x3, no acute distress, pleasant and cooperative Lungs: Respirations even and unlabored, symmetrical chest expansion Eyes: PERRL Musculoskeletal: Flexion and extension of lumbar [spine] somewhat guarded secondary to pain, [antalgic gait noted] point tenderness along bilateral SIs with positive bilateral Lea's, Raphael's, Gaenslen's, compression and distraction exam Neurological: Speech clear, no gross sensory deficit Assessment:: Degenerative disc disease of lumbar spine with lumbar radiculopathy symptoms, spinal stenosis with neurogenic claudication symptoms, status post Vertiflex procedure, bilateral sacroiliitis Plan:: Patient is experiencing worsening pain in her low back and bilateral hips. Patient had limited range of motion of her lumbar spine along with extreme point tenderness at her left SI and point tenderness at her right with a positive bilateral Lea's, Raphael's, Gaenslen's, compression and distraction exam. I discussed with the patient that she may benefit from bilateral SI injections. Risk and benefits were discussed with the patient however she is declining this option and stated that unless we put her to sleep she is not interested in injections. Patient is requesting Percocet pain medication I have counseled the patient that this is typically not what we prescribe him for SI related pain. I have counseled the patient that I will speak to Dr. Cee. I will send in a 5-day dose of prednisone milligrams twice daily. I have also discussed with patient that we do not have any updated imaging since around 2019, we will discuss possibly ordering new images at her next visit. Patient does already have a follow-up scheduled on April 10 and we are leaving this in place. Patient will return to clinic in 1 month for reevaluation of symptoms and plan of care. Patient has been instructed to contact the clinic with any concerns before the next appointment. Dr. Cee has reviewed this note and agrees with this plan of care. This note was dictated using voice recognition software and make contain errors or omissions. [facility] Disclaimer: The information contained in this section may have been updated after the patient was seen, as this information can be updated by other users. Medical History Abnormal computerized axial tomography of chest Abnormal stress test Actinic keratosis of scalp Atypical angina Chronic infective rhinitis I reviewed her scan which was normal. I have encouraged her to continue with the nasal steroid spray as directed COPD (chronic obstructive pulmonary disease) Degenerative disc disease Disorder of eustachian tube Dizziness Dyspnea on exertion Edema Family history of early CAD Generalized anxiety disorder Hearing loss Patient will be referred for hearing aids per recommendation. History of gastroesophageal reflux (GERD) HLD (hyperlipidemia) HTN (hypertension) Hx of fracture of nose Hypothyroidism Kidney stone Lung nodule Multinodular goiter Nasal septal deviation This is minimal and not causing significant obstruction. CT scan showed no evidence of acute or chronic sinusitis Petechiae Psoriasis annularis I will remove the posterior scalp lesion. She has had this removed before I do not know the pathology of this lesion. We will send it for pathologic valuation to rule out neoplasia. Psychosis Pulmonary fibrosis, unspecified Restrictive lung disease Scalp lesion Sinus pressure Stopped smoking with greater than 30 pack year history Thyroid Nodule Tinnitus of both ears Vertigo Surgical History History of back surgery lumbar History of carpal tunnel surgery of right wrist Hx laparoscopic cholecystectomy Hx of breast biopsy right and left Hx of colonoscopy with polypectomy Hx of nasal sinusotomy Hx of removal of neck cyst facial cyst also Hx of tubal ligation Status post excision of skin lesion, follow-up exam Family History Other Family history of cancer Family history of diabetes mellitus type II Family history of kidney disease Family history of myocardial infarction Social History Smoking Status: Former smoker tobacco type: cigarettes smoking status stop date: 2016 second hand exposure: No alcohol intake: never substance use type: former substance user and marijuana current occupational status: disabled Travel in the last 8 weeks: None household members: spouse and family housing: house lives independently: No marital status: number of children: 2 education level: high school service: No current occupation: [employer] current occupational exposures/hazards: No pets and animals: Yes pets and animals: dog(s) caffeine: Yes special brent needs: No do you feel safe at home: Yes victim of physical abuse: No victim of emotional abuse: No victim of sexual abuse: No would you like helpful sources: No
[2023-03-19 12:45] VITALS: BP 151/65; PULSE 101; RESP 18; O2SAT 95; BMI 38.2
== END | disposition home or self-care (01) ==
PROVIDERS: PCP Internal Medicine; Visit Provider Nurse Practitioner Family
DX: M51.16 Intervertebral disc disorders with radiculopathy, lumbar region (principal); M48.062 Spinal stenosis, lumbar region with neurogenic claudication; M46.1 Sacroiliitis, not elsewhere classified
CPT/HCPCS: 99212; G0463

== ENCOUNTER → 2023-04-02 15:21 | Outpatient (POV) | payer MEDICARE, SELFPAY ==
[2023-04-02 15:39] VITALS: BP 141/83; PULSE 91; RESP 18; O2SAT 94; BMI 38.2
--- NOTE | 2023-04-02 15:48 | A.OFFVIS_ITS ---
[facility] Pain Management SOAP Note Subjective:: Patient is a pleasant 62-year-old female who presents today for follow-up.? We are currently treating the patient for degenerative disc disease of lumbar spine with lumbar radiculopathy symptoms, spinal stenosis with neurogenic claudication, status post Vertiflex procedure.? Today she rates her pain a 10 out of 10.? She denies any new trauma or injury. She states she continues to have pain in her low back and her left hip with radiating symptoms down. Patient does state that she continues to have swelling into her lower extremities. Patient states that she did recently get a hip injection there in the office from her primary care doctor and that it did help for a few days. Patient does state that she is back to her baseline today and states that is constant pain. At our last visit we did discuss with the patient that she may benefit from SI injections because she had point tenderness and positive Lea's testing however she was not interested in this option. Patient still states today that she is not interested in injection therapy because in the past it is not helped. Patient does state that she still would like additional pain medication to help improve her symptoms on a daily basis. Patient was previously given Percocet from her primary care provider and is requesting additional medication. At her last visit we did also discuss regarding ordering updated imaging of her lumbar spine because it has been a couple of years since her last imaging. Patient does state today that she is agreeable for proceeding forward with this imaging. Her Laith has been reviewed and is appropriate. Review of Systems: General: No recent weight changes, no fever, no sleep disturbances Respiratory: No cough, no shortness of air, no recurring pulmonary infections Cardiovascular/peripheral vascular: No chest pain, no palpitations,? no edema, no shortness of breath Gastrointestinal: No new onset incontinence, normal bowel movements reported Genitourinary: No new onset incontinence Musculoskeletal: Low back pain Psychiatric: [Normal mood/affect] Neurological: [Denies weakness in extremities], [denies balance issues] Objective:: Physical Exam: General: Alert and oriented x3, no acute distress, pleasant and cooperative Lungs: Respirations even and unlabored, symmetrical chest expansion Eyes: PERRL Musculoskeletal: Flexion and extension of lumbar [spine] somewhat guarded secondary to pain, [antalgic gait noted] Neurological: Speech clear, no gross sensory deficit Assessment:: Degenerative disc disease of lumbar spine with lumbar radiculopathy symptoms, spinal stenosis with neurogenic claudication symptoms, status post Vertiflex procedure, left-sided sacroiliitis Plan:: I have discussed the risk and benefits of injection therapy and that she may get beneficial relief from certain injections such as the left SI however at this time she would like to wait. I will order the patient an x-ray and MRI without contrast of her lumbar spine. I have discussed with the patient that I did review with Dr. Cee and we are not going to prescribe any scheduled medications at this time. I have counseled the patient that she would have to go back to her primary care provider to discuss continuing the Percocet medication. Patient will return to clinic in 1 month for reevaluation of symptoms and plan of care. Patient has been instructed to contact the clinic with any concerns before the next appointment. Dr. Cee has reviewed this note and agrees with this plan of care. This note was dictated using voice recognition software and make contain errors or omissions. [facility] Disclaimer: The information contained in this section may have been updated after the patient was seen, as this information can be updated by other users. Medical History Abnormal chest xray Abnormal computerized axial tomography of chest Abnormal stress test Actinic keratosis of scalp Atypical angina Chronic infective rhinitis I reviewed her scan which was normal. I have encouraged her to continue with the nasal steroid spray as directed COPD (chronic obstructive pulmonary disease) Degenerative disc disease Disorder of eustachian tube Dizziness Dyspnea on exertion Edema Family history of early CAD Generalized anxiety disorder Hearing loss Patient will be referred for hearing aids per recommendation. History of gastroesophageal reflux (GERD) HLD (hyperlipidemia) HTN (hypertension) Hx of fracture of nose Hypothyroidism TSH done in February was 1.11. I would not do this lab again for at least 3 to 4 months. Kidney stone Lung nodule Multinodular goiter Nasal septal deviation This is minimal and not causing significant obstruction. CT scan showed no evidence of acute or chronic sinusitis Petechiae Pharyngitis Psoriasis annularis I will remove the posterior scalp lesion. She has had this removed before I do not know the pathology of this lesion. We will send it for pathologic valuation to rule out neoplasia. Psychosis Pulmonary fibrosis, unspecified Restrictive lung disease Scalp lesion Sinus pressure Stopped smoking with greater than 30 pack year history Thyroid Nodule Tinnitus of both ears Vertigo Surgical History History of back surgery lumbar History of carpal tunnel surgery of right wrist Hx laparoscopic cholecystectomy Hx of breast biopsy right and left Hx of colonoscopy with polypectomy Hx of nasal sinusotomy Hx of removal of neck cyst facial cyst also Hx of tubal ligation Status post excision of skin lesion, follow-up exam Family History Other Family history of cancer Family history of diabetes mellitus type II Family history of kidney disease Family history of myocardial infarction Social History Smoking Status: Former smoker tobacco type: cigarettes smoking status stop date: 2016 second hand exposure: No alcohol intake: never substance use type: former substance user and marijuana current occupational status: other Travel in the last 8 weeks: None household members: spouse and family housing: house lives independently: No marital status: number of children: 2 education level: high school service: No current occupation: [employer] current occupational exposures/hazards: No pets and animals: Yes pets and animals: dog(s) caffeine: Yes special brent needs: No do you feel safe at home: Yes victim of physical abuse: No victim of emotional abuse: No victim of sexual abuse: No would you like helpful sources: No
--- NOTE | 2023-04-02 16:12 | XR_ITS ---
PROCEDURE INFORMATION: Exam: XR Lumbosacral Spine Exam date and time: 04/02/2023 4:30 PM Age: 62 years old Clinical indication: Pain; Lumbago with sciatica; Left; Additional info: Low back pain TECHNIQUE: Imaging protocol: Radiologic exam of the lumbosacral spine. Views: 4 or 5 views. COMPARISON: MR LUMBAR SPINE WO CON 12/09/2019 1:52 PM FINDINGS: Tubes, catheters and devices: Metallic surgical devices noted between the spinous processes at the L2-L3 and L3-L4 levels. Bones/joints: Multilevel degenerative changes including [id number] degenerative changes at L2-L3 and L3-L4 and L5-S1 and mild degenerative changes at the remaining lumbar levels. Vertebral body heights are intact. Facet arthritic changes are seen most pronounced at L4-L5 and L5-S1. Soft tissues: Unremarkable. IMPRESSION: Degenerative and postop changes.
== END ==
PROVIDERS: PCP Internal Medicine; Visit Provider Nurse Practitioner Family
DX: M51.16 Intervertebral disc disorders with radiculopathy, lumbar region (principal); M48.062 Spinal stenosis, lumbar region with neurogenic claudication; M46.1 Sacroiliitis, not elsewhere classified
CPT/HCPCS: 72110; 99212; G0463

== ENCOUNTER 2023-04-25 16:29 | Outpatient (CLI) | payer MEDICARE, SELFPAY ==
--- NOTE | 2023-04-25 16:33 | MR_ITS ---
PROCEDURE INFORMATION: Exam: MR Lumbar Spine Without Contrast Exam date and time: 04/25/2023 4:30 PM Age: 62 years old Clinical indication: Low back pain; Prior surgery; Surgery date: 6+ months; Surgery type: Clips TECHNIQUE: Imaging protocol: Magnetic resonance imaging of the lumbar spine without contrast. COMPARISON: MR LUMBAR SPINE WO CON 12/09/2019 1:52 PM FINDINGS: Bones/joints: The alignment is anatomic. The vertebral body heights are maintained. No suspicious marrow signal. There are posterior element spinal fusion changes at the L2-L3 and L3-L4 levels which is unchanged with resultant susceptibility artifact. Spinal cord: Visualized cord, conus medullaris and cauda equina are unremarkable. L1-L2: No significant disc bulge or herniation. No severe spinal canal stenosis. No significant neural foraminal narrowing. L2-L3: L2-L3 diffuse disc bulging and degenerative facet arthrosis is present without significant stenosis of the spinal canal which is unchanged. Mild left neural foraminal stenosis which is stable. L3-L4: L3-L4 diffuse disc bulging and degenerative facet arthrosis causes mild stenosis of the spinal canal which is unchanged. There is hypertrophy of the epidural fat dorsally contributing to spinal canal narrowing which is unchanged. L4-L5: L4-L5 stable diffuse disc bulging and degenerative facet arthrosis causes mild stenosis of the spinal canal. Prominent dorsal epidural fat contributes to narrowing of the spinal canal which is unchanged. The neural foramina are patent. Disc material abuts the ventral contour of the descending L5 nerve roots without significant compression which is unchanged. L5-S1: L5-S1 diffuse disc bulging and degenerative facet arthrosis is present without significant stenosis of the spinal canal. Patent neural foramina. Soft tissues: Nonspecific mild subcutaneous soft tissue edema in the back. IMPRESSION: Stable posterior element fusion changes L2-L3 and L3-L4 with near anatomic spinal alignment. Stable degenerative disc disease with mild spinal canal stenosis L3-L5, as described..
== END 2023-04-25 23:59 ==
LOC: RAD 16:29
PROVIDERS: PCP Internal Medicine; Visit Provider Nurse Practitioner Family
DX: M54.50 Low back pain, unspecified (principal)
CPT/HCPCS: 72148; 76376

== ENCOUNTER 2023-04-28 18:02 | Outpatient (CLI) | payer MEDICARE, SELFPAY ==
[2023-04-28 18:18] LABS: Basophils # 0.1 K/mm3 (0-0.2); Basophils % 1.3 % (0.1-2.0); Eosinophils # 0.3 K/mm3 (0.0-0.4); Eosinophils % 3.2 % (0.1-12.0); Hematocrit 37.8 % (37.0-47.0); Lymphocytes # 3.3 K/mm3 (0.7-4.5); Lymphocytes % 39.6 % (10-50); Mean Corpuscular HGB Conc 31.7 g/dL (31.8-35.4); Mean Corpuscular Hemoglobin 28.7 pg (27.0-31.2); Mean Corpuscular Volume 90.8 fl (81-99); Mean Platelet Volume 10.3 fl (7.4-10.4); Monocytes # 0.5 K/mm3 (0.1-1.0); Monocytes % 6.1 % (1.7-9.3); Neutrophils # 4.2 K/mm3 (1.8-7.8); Neutrophils % 49.8 % (37.0-80.0); Platelet Count 353 K/mm3 (142-424); Red Blood Count 4.16 M/mm3 (4.20-5.40); Red Cell Distribution Width 14.2 % (11.5-17.5); White Blood Count 8.4 K/mm3 (4.8-10.8)
[2023-04-28 18:43] LABS: Cholesterol 171 mg/dl (140-200); HDL Cholesterol 57 mg/dl (40-60); Triglycerides 223 mg/dl (30-150); VLDL Cholesterol 45 mg/dL (0-40)
[2023-04-28 18:59] LABS: Direct LDL Cholesterol 76.76 mg/dL (100-129)
[2023-04-28 19:40] LABS: Hemoglobin A1C 8.3 % (4.0-6.0)
== END 2023-04-28 23:59 ==
LOC: LAB.DROPOF 18:03
PROVIDERS: PCP Family Medicine; Visit Provider Family Medicine
DX: R79.89 Other specified abnormal findings of blood chemistry (principal); E78.5 Hyperlipidemia, unspecified; Z79.899 Other long term (current) drug therapy
CPT/HCPCS: 80061; 83036; 85025

== ENCOUNTER 2023-05-01 14:13 | Outpatient (POV) | payer MEDICARE, SELFPAY ==
[2023-05-01 14:22] VITALS: BP 131/73; PULSE 87; RESP 18; O2SAT 94; BMI 41.5
--- NOTE | 2023-05-01 14:51 | A.OFFVIS_ITS ---
[facility] Pain Management SOAP Note Subjective:: Patient is a pleasant 62-year-old female who presents today for lumbar MRI follow-up. Today she rates her pain an 8 out of 10. Patient states she continues to have pain throughout her low back with radiating symptoms down her entire bilateral legs. She states this is constant and is interfering with her daily life and activities of daily living. Patient has had previous back surgery including a lumbar fusion. Patient has tried [id number] medications along with heat and ice and topicals with minimal relief. Patient does state that she is still interested in any help we may be able to offer. Patient has had multiple injections in the past with minimal relief. She does state that Dr. Horowitz recently did do a injection for her leg pain and that it did help and lasted about a month. Her Laith has been reviewed and is appropriate. Review of Systems: General: No recent weight changes, no fever, no sleep disturbances Respiratory: No cough, no shortness of air, no recurring pulmonary infections Cardiovascular/peripheral vascular: No chest pain, no palpitations, no edema, no shortness of breath Gastrointestinal: No new onset incontinence, normal bowel movements reported Genitourinary: No new onset incontinence Musculoskeletal: Low back pain, leg pain Psychiatric: [Normal mood/affect] Neurological: [Denies weakness in extremities], [denies balance issues] Objective:: Physical Exam: General: Alert and oriented x3, no acute distress, pleasant and cooperative Lungs: Respirations even and unlabored, symmetrical chest expansion Eyes: PERRL Musculoskeletal: Flexion and extension of lumbar [spine] somewhat guarded secon rocio to pain, [antalgic gait noted] Neurological: Speech clear, no gross sensory deficit Assessment:: Degenerative disc disease of lumbar spine with lumbar radiculopathy symptoms, lumbar spinal stenosis with neurogenic claudication symptoms, status post Vertiflex procedure, previous L3-L4 fusion Plan:: Patient continues to experience significant pain in her low back and legs with limited range of motion of the lumbar spine. I have discussed the MRI findings with the patient and she acknowledges understanding. Patient is interested in proceeding forward with the spinal cord stimulator trial. Risk and benefits and educational handouts have been given to the patient during today's visit. We will order the patient a psychological evaluation and if she is deemed an appropriate candidate we will proceed forward with a spinal cord stimulator trial at a later date. Patient will return to clinic in 1 month for reevaluation of symptoms and plan of care. Patient has been instructed to contact the clinic with any concerns before the next appointment. Dr. Cee has reviewed this note and agrees with this plan of care. This note was dictated using voice recognition software and make contain errors or omissions. [facility] Disclaimer: The information contained in this section may have been updated after the patient was seen, as this information can be updated by other users. Medical History (Updated 04/28/23 @ 12:18 by Susan Celestin APRN) Exposure to COVID-19 virus Bronchitis Viral syndrome URI (upper respiratory infection) Urinary tract infection Shingles Psychosis Abnormal chest xray Atypical angina Vertigo Petechiae Sinus pressure Disorder of eustachian tube Multinodular goiter Hypothyroidism Thyroid Nodule Hearing loss Tinnitus of both ears Restrictive lung disease Pulmonary fibrosis, unspecified Abnormal computerized axial tomography of chest Lung nodule Stopped smoking with greater than 30 pack year history Dyspnea on exertion Actinic keratosis of scalp Scalp lesion Generalized anxiety disorder Chronic infective rhinitis Nasal septal deviation Psoriasis annularis History of gastroesophageal reflux (GERD) Hx of fracture of nose Kidney stone Degenerative disc disease COPD (chronic obstructive pulmonary disease) HLD (hyperlipidemia) HTN (hypertension) Pharyngitis Dizziness Edema Family history of early CAD Abnormal stress test Surgical History History of back surgery Status post excision of skin lesion, follow-up exam History of carpal tunnel surgery of right wrist Hx of tubal ligation Hx laparoscopic cholecystectomy Hx of breast biopsy Hx of colonoscopy with polypectomy Hx of removal of neck cyst Hx of nasal sinusotomy Family History Other Family history of cancer Family history of diabetes mellitus type II Family history of kidney disease Family history of myocardial infarction Social History (Updated 04/03/23 @ 10:06 by Consuelo Elliott) Smoking Status: Former smoker tobacco type: cigarettes smoking status stop date: 2016 second hand exposure: No alcohol intake: never substance use type: former substance user and marijuana current occupational status: disabled Travel in the last 8 weeks: None household members: spouse and family housing: house lives independently: No marital status: number of children: 2 education level: high school service: No current occupation: [employer] current occupational exposures/hazards: No pets and animals: Yes pets and animals: dog(s) caffeine: Yes special brent needs: No do you feel safe at home: Yes victim of physical abuse: No victim of emotional abuse: No victim of sexual abuse: No would you like helpful sources: No
== END 2023-05-01 23:59 ==
LOC: SC.PAIN 14:14
PROVIDERS: Visit Provider Nurse Practitioner Family
DX: M51.16 Intervertebral disc disorders with radiculopathy, lumbar region (principal); M48.062 Spinal stenosis, lumbar region with neurogenic claudication; M43.26 Fusion of spine, lumbar region
CPT/HCPCS: 99212; G0463

== ENCOUNTER → 2023-05-13 20:13 | Outpatient (CLI) | payer MEDICARE, SELFPAY | LOC: SL 20:15 | PROVIDERS: PCP Family Medicine; Visit Provider Nurse Practitioner Family | DX: G47.30 Sleep apnea, unspecified (principal); G47.36 Sleep related hypoventilation in conditions classified elsewhere; G47.61 Periodic limb movement disorder; J98.4 Other disorders of lung; J44.9 Chronic obstructive pulmonary disease, unspecified; R53.83 Other fatigue; Z91.89 Other specified personal risk factors, not elsewhere classified | CPT/HCPCS: 95810 ==

== ENCOUNTER 2023-05-21 16:48 | Outpatient (CLI) | payer MEDICARE, SELFPAY ==
[2023-05-21 17:24] LABS: Blood Urea Nitrogen 8 mg/dl (7-17); Estimated Glomerular Filt Rate 125 ml/min (>60); GFR (African American) 152 ML/MIN (>60)
== END 2023-05-21 23:59 ==
LOC: LAB 16:50
PROVIDERS: PCP Family Medicine; Visit Provider Internal Medicine Pulmonary Disease
DX: R94.4 Abnormal results of kidney function studies (principal)
CPT/HCPCS: 36415; 82565; 84520

== ENCOUNTER 2023-05-26 22:58 | Outpatient (CLI) | payer MEDICARE, SELFPAY ==
[2023-05-26 21:35] LABS: Creatinine,Urine Random 151 mg/dL (Not Estab.)
[2023-05-26 22:15] LABS: Microalbumin/Creatinine Ratio 156.8
== END 2023-05-26 23:59 ==
LOC: LAB.DROPOF 22:58
PROVIDERS: PCP Internal Medicine; Visit Provider Internal Medicine
DX: E11.9 Type 2 diabetes mellitus without complications (principal)
CPT/HCPCS: 82043; 82570

== ENCOUNTER 2023-06-03 14:53 | Outpatient (CLI) | payer MEDICARE, SELFPAY ==
--- NOTE | 2023-06-03 14:56 | CT_ITS ---
FINAL REPORT TECHNIQUE: Axial images were obtained from the lung apex to the mid abdomen by computed tomography. This study was performed with techniques to keep radiation doses as low as reasonably achievable (ALARA). Individualized dose reduction techniques using automated exposure control or adjustment of mA and/or kV according to the patient's size were employed. CLINICAL HISTORY: lung cancer screening. Quit smoking 7 yrs ago- smoked 1.5 PPD for 24 yrs. Cousin had hx of lung cancer. COMPARISON: 01/29/2023 FINDINGS: CHEST CT LOW DOSE CTDI vol (mGy): 2.90 DLP (mGy-cm): 107.07 There is no axillary adenopathy. There is no hilar or mediastinal adenopathy. The heart is normal in size. There is no pericardial or pleural effusion. There is a calcified lymph node adjacent to the GE junction. There is extensive chronic interstitial opacity, probably due to fibrosis. The previously identified nodule in the posterior right middle lobe is best demonstrated on image 48 of series 4. This is not increased in size as compared to prior. Limited images of the upper abdomen limited images of the reveal moderate fatty infiltration of the liver.. IMPRESSION: Stable nodule in the posterior right middle lobe. Lung RADS category 2. Recommend 12 month follow-up low-dose chest CT. Reviewed, Interpreted and Dictated by Juan José Ramírez MD Transcribed by Jacki Alonzo Authenticated and [facility]
== END 2023-06-03 23:59 ==
LOC: RAD 14:54
PROVIDERS: PCP Internal Medicine; Visit Provider Internal Medicine Pulmonary Disease
DX: F17.210 Nicotine dependence, cigarettes, uncomplicated (principal); Z12.2 Encounter for screening for malignant neoplasm of respiratory organs
CPT/HCPCS: 71271

== ENCOUNTER 2023-06-06 13:36 | Outpatient (CLI) | payer MEDICARE, SELFPAY ==
--- NOTE | 2023-06-06 13:43 | MM_ITS ---
PROCEDURE INFORMATION: Exam: MG Bilateral Screening 3D Mammography Exam date and time: 06/06/2023 1:57 PM Age: 62 years old Clinical indication: Screening examination TECHNIQUE: Imaging protocol: Bilateral Screening tomosynthesis and 2D mammography including computer-aided detection (CAD) when performed. COMPARISON: 1. MG MM DIG SCREENING MAMM BI W/CAD 06/03/2022 9:51 AM 2. MG MM SURGICAL SPECIMEN RT 05/04/2021 3:10 PM FINDINGS: MAMMOGRAPHY: Breast composition: There are scattered areas of fibroglandular density. Mass: None. Architectural distortion: No new or suspicious distortion. Calcifications: No suspicious calcifications. Asymmetric density: None. Skin thickening: None. Axillary adenopathy: None. IMPRESSION: No mammographic evidence of malignancy. Annual screening is recommended unless otherwise clinically indicated. ASSESSMENT: BI-RADS Category 1: Negative
== END 2023-06-06 23:59 ==
LOC: RAD 13:37
PROVIDERS: PCP Family Medicine; Visit Provider Family Medicine
DX: Z12.31 Encounter for screening mammogram for malignant neoplasm of breast (principal)
CPT/HCPCS: 77063; 77067

== ENCOUNTER 2023-08-06 12:42 | Outpatient (CLI) | payer MEDICARE, SELFPAY ==
[2023-08-06 13:45] VITALS: PULSE 81; PULSE 88
[2023-08-06] MEDS: ALBUTEROL 0.083% 2.5 MG/3 ML NEB IH (13:45)
[2023-08-06 16:08] LABS: Erythrocyte Sedimentation Rate 25 mm/hr (0-30)
[2023-08-06 16:53] LABS: Uric Acid 5.6 mg/dl (2.5-6.2)
[2023-08-08 08:22] LABS: RA Latex Turbid. <10.0 IU/mL (<14.0)
[2023-08-10 13:07] LABS: Antinuclear Antibodies, IFA Negative (.)
[2023-08-30 10:28] LABS: Antinuclear Antibodies (ANA) NEGATIVE
== END 2023-08-06 23:59 | disposition home or self-care (01) ==
PROVIDERS: PCP Internal Medicine; Visit Provider Internal Medicine Pulmonary Disease
DX: R06.09 Other forms of dyspnea (principal); J84.9 Interstitial pulmonary disease, unspecified; Z87.891 Personal history of nicotine dependence
CPT/HCPCS: 36415; 84550; 85651; 86038; 86140; 86225; 86235; 86431; 94060; 94618; 94640; 94726; 94729; J7613

== ENCOUNTER 2023-09-08 14:36 | Outpatient (POV) | payer MEDICARE, SELFPAY ==
[2023-09-08 14:55] VITALS: BP 132/74; PULSE 71; RESP 16; O2SAT 96; BMI 40.7
--- NOTE | 2023-09-08 16:23 | EXP.PAIN.SOA ---
[facility] Disclaimer: The information contained in this section may have been updated after the patient was seen, as this information can be updated by other users. Medical History Exposure to COVID-19 virus Bronchitis Viral syndrome URI (upper respiratory infection) I do not think Yue has an upper respiratory tract infection at this time. Additionally MRI of the sinuses which was done recently did not reveal any sinus disease. Yue states that she always feels better when she has had a steroid. I am happy to do this for her today as it has been sometime since she has had any other steroid injections. Urinary tract infection Yue indicates that she has a urinary tract infection. She states that she has had these before and that her current symptoms are very similar to previous UTIs. He does deny any fever or chills lower back pain or blood in the urine. We will place her on TMP sulfa double strength. We will do this for 5 days. I add an extra 2 days because we may be looking at a strep that was just a false negative. Shingles This has resolved Psychosis Abnormal chest xray Atypical angina Vertigo Petechiae Sinus pressure Disorder of eustachian tube Multinodular goiter Hypothyroidism Patient is on biotin but her TSH is except for 1 value number of years ago have all been within the normal range. Will check this toward the end of the year. Thyroid Nodule Hearing loss Patient will be referred for hearing aids per recommendation. Tinnitus of both ears Restrictive lung disease Pulmonary fibrosis, unspecified Abnormal computerized axial tomography of chest Lung nodule Stopped smoking with greater than 30 pack year history Follow-up for now. Probably some COPD left but she has no complaints of shortness of breath or orthopnea. Dyspnea on exertion Actinic keratosis of scalp Scalp lesion Generalized anxiety disorder Chronic infective rhinitis I reviewed her scan which was normal. I have encouraged her to continue with the nasal steroid spray as directed Nasal septal deviation This is minimal and not causing significant obstruction. CT scan showed no evidence of acute or chronic sinusitis Psoriasis annularis I will remove the posterior scalp lesion. She has had this removed before I do not know the pathology of this lesion. We will send it for pathologic valuation to rule out neoplasia. History of gastroesophageal reflux (GERD) Hx of fracture of nose Kidney stone Degenerative disc disease COPD (chronic obstructive pulmonary disease) HLD (hyperlipidemia) HTN (hypertension) Pharyngitis Dizziness Resolved Edema Family history of early CAD Abnormal stress test Surgical History History of back surgery lumbar Status post excision of skin lesion, follow-up exam History of carpal tunnel surgery of right wrist Hx of tubal ligation Hx laparoscopic cholecystectomy Hx of breast biopsy right and left Hx of colonoscopy with polypectomy Hx of removal of neck cyst facial cyst also Hx of nasal sinusotomy Family History Other Family history of cancer Family history of diabetes mellitus type II Family history of kidney disease Family history of myocardial infarction Social History Smoking Status: Former smoker tobacco type: cigarettes smoking status stop date: 2016 second hand exposure: No alcohol intake: never substance use type: former substance user and marijuana current occupational status: other Travel in the last 8 weeks: None household members: spouse and family housing: house lives independently: No marital status: number of children: 2 education level: high school service: No current occupation: [employer] current occupational exposures/hazards: No pets and animals: Yes pets and animals: dog(s) caffeine: Yes special brent needs: No do you feel safe at home: Yes victim of physical abuse: No victim of emotional abuse: No victim of sexual abuse: No would you like helpful sources: No PM Subjective & Objective Subjective Subjective:: Patient is a pleasant 62-year-old female who presents today for follow-up of psychological evaluation. Today she rates her pain a 5 out of 10. She states that she is having a better day today however she has not done much. Patient states she still has her chronic pain that does radiate down into her legs. Patient does state that she reviewed over the brochure on the spinal cord stimulator trial and does want to proceed forward with this plan of care. Patient has tried and failed conservative treatment including failed back surgery, oral medications, heat and ice and topicals with minimal relief. Patient has tried continuing at home exercising and stretching for longer than 12 weeks with no changes. Patient does state that she is trying to exercise daily due to the worsening pain and that she does have to stop and take multiple breaks. Her Laith has been reviewed and is appropriate. Review of Systems: General: No recent weight changes, no fever, no sleep disturbances Respiratory: No cough, no shortness of air, no recurring pulmonary infections Cardiovascular/peripheral vascular: No chest pain, no palpitations, no edema, no shortness of breath Gastrointestinal: No new onset incontinence, normal bowel movements reported Genitourinary: No new onset incontinence Musculoskeletal: Low back pain, leg pain Psychiatric: [Normal mood/affect] Neurological: [Denies weakness in extremities], [denies balance issues] Pain at rest (0-10 scale): 5 Objective Objective:: Physical Exam: General: Alert and oriented x3, no acute distress, pleasant and cooperative Lungs: Respirations even and unlabored, symmetrical chest expansion Eyes: PERRL Musculoskeletal: Flexion and extension of lumbar [spine] somewhat guarded secondary to pain, [antalgic gait noted] Neurological: Speech clear, no gross sensory deficit Has patient had previous pain injection?: No Conservative treatment options previously tried: Home exercise plan Length of treatment: Longer than 12 weeks Meds Home Medications and Allergies Home Medications Medication Instructions Recorded Confirmed Type biotin 2,500 mcg capsule 2,500 mcg PO DAILY 04/03/23 09/08/23 History multivitamin 1 tab PO DAILY 04/03/23 09/08/23 History levocetirizine 5 mg tablet 5 mg PO DAILY allergies #90 tabs 04/21/23 09/08/23 Rx montelukast 10 mg tablet 10 mg PO QDAY allergies #90 tabs 04/28/23 09/08/23 Rx flash glucose scanning reader #1 ea 06/09/23 09/08/23 Rx (FreeStyle Leilani 14 Day [place]) flash glucose sensor (FreeStyle #1 ea 06/09/23 09/08/23 Rx Leilani 14 Day Sensor kit) metformin 500 mg tablet 500 mg PO BID 60 days #120 tabs 06/09/23 09/08/23 Rx tramadol 50 mg tablet 50 mg PO Q8H PRN pain 30 days #60 06/09/23 09/08/23 Rx tabs levothyroxine 50 mcg tablet 50 mcg PO DAILY hypothyroid #90 06/17/23 09/08/23 Rx (Synthroid) tabs duloxetine 60 mg capsule,delayed 60 mg PO DAILY #90 caps 07/23/23 09/08/23 Rx release olanzapine 10 mg-samidorphan 10 mg 1 tab PO QHS #90 tabs 07/23/23 09/08/23 Rx tablet (Lybalvi) pantoprazole 40 mg tablet,delayed See Rx Instructions .Route 07/24/23 09/08/23 Rx release .COMPLEX #90 tabs lisinopril 5 mg tablet 5 mg PO DAILY #30 tabs 07/25/23 09/08/23 Rx atorvastatin 20 mg tablet See Rx Instructions .Route 08/22/23 09/08/23 Rx .COMPLEX #90 tabs duloxetine 30 mg capsule,delayed See Rx Instructions .Route 08/28/23 09/08/23 Rx release .COMPLEX #30 caps New Prescriptions to Start Prescriptions: Allergies Allergy/AdvReac Type Severity Reaction Status Date / Time celecoxib [From Celebrex] Allergy Mild edema Verified 09/08/23 14:56 Assessment and Plan *Assessment and plan (1) Lumbar radiculopathy: Status: Acute Category: Medical Code(s): M54.16 - Radiculopathy, lumbar region (2) Degenerative disc disease, lumbar: Status: Acute Category: Medical Code(s): M51.36 - Other intervertebral disc degeneration, lumbar region (3) Chronic pain syndrome: Status: Acute Category: Medical Code(s): G89.4 - Chronic pain syndrome Plan Patient continues to experience significant pain throughout her low back and legs. I did review over the risk and benefits of the spinal cord stimulator trial and she would like to proceed forward with this plan of care. Patient did complete her psychological evaluation and was deemed an appropriate candidate for this device. Patient has tried and failed conservative therapy including oral medication, heat and ice, topicals, failed back surgery, at home stretching exercise for longer than 12 weeks. I will also send in baclofen 5 mg 3 times daily as needed and provide a 2-week supply of this medication. We will submit to insurance for the spinal cord stimulator trial and contact the patient once we have official approval. This trial will be done under fluoroscopic guidance. Patient has been instructed to contact the clinic with any concerns before the next appointment. Dr. Cee has reviewed this note and agrees with this plan of care. This note was dictated using voice recognition software and make contain errors or omissions.
== END 2023-09-08 23:59 | disposition home or self-care (01) ==
PROVIDERS: Visit Provider Nurse Practitioner Family
DX: M54.16 Radiculopathy, lumbar region (principal); M51.36 Other intervertebral disc degeneration, lumbar region; G89.4 Chronic pain syndrome
CPT/HCPCS: 99212; G0463

== ENCOUNTER 2023-09-15 13:59 | Outpatient (CLI) | payer MEDICARE, SELFPAY ==
[2023-09-15 19:27] LABS: Chol/HDL Ratio 3.5 (1-3.5); Cholesterol 159 mg/dl (140-200); HDL Cholesterol 45 mg/dl (40-60); Triglycerides 309 mg/dl (30-150); VLDL Cholesterol 62 mg/dL (0-40)
[2023-09-15 19:38] LABS: Direct LDL Cholesterol 67.21 mg/dL (100-129)
[2023-09-15 19:43] LABS: Hemoglobin A1C 7.1 % (4.0-6.0)
== END 2023-09-15 23:59 | disposition home or self-care (01) ==
LOC: RT 14:00
PROVIDERS: PCP Internal Medicine; Visit Provider Physician Assistant
DX: R00.2 Palpitations (principal); I10 Essential (primary) hypertension; R73.03 Prediabetes; Z87.891 Personal history of nicotine dependence
CPT/HCPCS: 80061; 83036; 93225; 93227

== ENCOUNTER 2023-09-17 13:53 | Outpatient (CLI) | payer MEDICARE, SELFPAY | END 2023-09-17 23:59 | disposition home or self-care (01) | LOC: RT 13:55 | PROVIDERS: PCP Internal Medicine; Visit Provider Internal Medicine | DX: R00.2 Palpitations (principal) | CPT/HCPCS: 93270 ==

== ENCOUNTER 2023-10-08 14:42 | Outpatient (POV) | payer MEDICARE, SELFPAY ==
[2023-10-08 15:27] VITALS: BP 159/63; PULSE 64; RESP 16; O2SAT 94; BMI 38.2
--- NOTE | 2023-10-08 15:49 | A.OFFVIS_ITS ---
[facility] Disclaimer: The information contained in this section may have been updated after the patient was seen, as this information can be updated by other users. Medical History Exposure to COVID-19 virus Bronchitis Viral syndrome URI (upper respiratory infection) I do not think Yue has an upper respiratory tract infection at this time. Additionally MRI of the sinuses which was done recently did not reveal any sinus disease. Yue states that she always feels better when she has had a steroid. I am happy to do this for her today as it has been sometime since she has had any other steroid injections. Urinary tract infection Yue indicates that she has a urinary tract infection. She states that she has had these before and that her current symptoms are very similar to previous UTIs. He does deny any fever or chills lower back pain or blood in the urine. We will place her on TMP sulfa double strength. We will do this for 5 days. I add an extra 2 days because we may be looking at a strep that was just a false negative. Shingles This has resolved Psychosis Abnormal chest xray Atypical angina Vertigo Petechiae Sinus pressure Disorder of eustachian tube Multinodular goiter Hypothyroidism Thyroid Nodule Hearing loss Patient will be referred for hearing aids per recommendation. Tinnitus of both ears Restrictive lung disease Pulmonary fibrosis, unspecified Abnormal computerized axial tomography of chest Lung nodule Stopped smoking with greater than 30 pack year history Follow-up for now. Probably some COPD left but she has no complaints of shortness of breath or orthopnea. Dyspnea on exertion Actinic keratosis of scalp Scalp lesion Generalized anxiety disorder Chronic infective rhinitis I reviewed her scan which was normal. I have encouraged her to continue with the nasal steroid spray as directed Nasal septal deviation This is minimal and not causing significant obstruction. CT scan showed no evidence of acute or chronic sinusitis Psoriasis annularis I will remove the posterior scalp lesion. She has had this removed before I do not know the pathology of this lesion. We will send it for pathologic valuation to rule out neoplasia. History of gastroesophageal reflux (GERD) Hx of fracture of nose Kidney stone Degenerative disc disease COPD (chronic obstructive pulmonary disease) HLD (hyperlipidemia) HTN (hypertension) Pharyngitis Dizziness Resolved Edema Family history of early CAD Abnormal stress test Surgical History History of back surgery lumbar Status post excision of skin lesion, follow-up exam History of carpal tunnel surgery of right wrist Hx of tubal ligation Hx laparoscopic cholecystectomy Hx of breast biopsy right and left Hx of colonoscopy with polypectomy Hx of removal of neck cyst facial cyst also Hx of nasal sinusotomy Family History Other Family history of cancer Family history of diabetes mellitus type II Family history of kidney disease Family history of myocardial infarction Social History Smoking Status: Former smoker tobacco type: cigarettes smoking status stop date: 2016 second hand exposure: No alcohol intake: never substance use type: former substance user and marijuana current occupational status: unemployed Travel in the last 8 weeks: None household members: spouse and family housing: house lives independently: No marital status: number of children: 2 education level: high school service: No current occupation: [employer] current occupational exposures/hazards: No pets and animals: Yes pets and animals: dog(s) caffeine: Yes special brent needs: No do you feel safe at home: Yes victim of physical abuse: No victim of emotional abuse: No victim of sexual abuse: No would you like helpful sources: No PM Subjective & Objective Subjective Subjective:: Patient is a pleasant 62-year-old female who presents today for follow-up. Today she rates her pain a 3 out of 10. She denies any new trauma or injury. Patient does states she continues to have the chronic pain that does go from her back down into her bilateral lower extremities. Patient was deemed an appropriate candidate for the stimulator trial however due to not having recent physical therapy was causing the trial to remain pending due to not having all the documents. Patient does state that she is still interested in proceeding forward with this plan of care. Her Laith has been reviewed and is appropriate.\ \ Review of Systems: General: No recent weight changes, no fever, no sleep disturbances Respiratory: No cough, no shortness of air, no recurring pulmonary infections Cardiovascular/peripheral vascular: No chest pain, no palpitations, no edema, no shortness of breath Gastrointestinal: No new onset incontinence, normal bowel movements reported Genitourinary: No new onset incontinence Musculoskeletal: Low back pain, bilateral leg pain Psychiatric: [Normal mood/affect] Neurological: [Denies weakness in extremities], [denies balance issues] Pain at rest (0-10 scale): 3 Objective Objective:: Physical Exam: General: Alert and oriented x3, no acute distress, pleasant and cooperative Lungs: Respirations even and unlabored, symmetrical chest expansion Eyes: PERRL Musculoskeletal: Flexion and extension of lumbar [spine] somewhat guarded secondary to pain, [antalgic gait noted] Neurological: Speech clear, no gross sensory deficit Has patient had previous pain injection?: No Conservative treatment options previously tried: Home exercise plan Length of treatment: Longer than 6 weeks Meds Home Medications and Allergies Home Medications ?Medication ?Instructions ?Recorded ?Confirmed ?Type biotin 2,500 mcg capsule 2,500 mcg PO DAILY 04/03/23 10/08/23 History multivitamin 1 tab PO DAILY 04/03/23 10/08/23 History levocetirizine 5 mg tablet 5 mg PO DAILY allergies #90 tabs 04/21/23 10/08/23 Rx montelukast 10 mg tablet 10 mg PO QDAY allergies #90 tabs 04/28/23 10/08/23 Rx flash glucose scanning reader #1 ea 06/09/23 10/08/23 Rx (FreeStyle Leilani 14 Day Manson) flash glucose sensor (FreeStyle #1 ea 06/09/23 10/08/23 Rx Leilani 14 Day Sensor kit) metformin 500 mg tablet 500 mg PO BID 60 days #120 tabs 06/09/23 10/08/23 Rx tramadol 50 mg tablet 50 mg PO Q8H PRN pain 30 days #60 06/09/23 10/08/23 Rx tabs levothyroxine 50 mcg tablet 50 mcg PO DAILY hypothyroid #90 06/17/23 10/08/23 Rx (Synthroid) tabs olanzapine 10 mg-samidorphan 10 mg 1 tab PO QHS #90 tabs 07/23/23 10/08/23 Rx tablet (Lybalvi) pantoprazole 40 mg tablet,delayed See Rx Instructions .Route 07/24/23 10/08/23 Rx release .COMPLEX #90 tabs duloxetine 30 mg capsule,delayed See Rx Instructions .Route 08/28/23 10/08/23 Rx release .COMPLEX #30 caps atorvastatin 20 mg tablet 20 mg PO DAILY 90 days #90 tabs 07/29/24 08/21/24 Rx lisinopril 5 mg tablet 5 mg PO DAILY #90 tabs 09/15/23 10/08/23 Rx tirzepatide 2.5 mg/0.5 mL 2.5 mg (0.5 mL) SQ WEEKLY 4 weeks 09/15/23 10/08/23 Rx subcutaneous pen injector #2 mL fenofibrate 54 mg tablet 54 mg PO DAILY #30 tabs 09/16/23 10/08/23 Rx duloxetine 60 mg capsule,delayed 60 mg PO DAILY #90 caps 09/22/23 10/08/23 Rx release azelastine 137 mcg (0.1 %) nasal 1 spray intranasal DIRECTED 10/01/23 10/08/23 History spray baclofen 10 mg tablet 10 mg PO DAILY 10/01/23 10/08/23 History bisoprolol fumarate 5 mg tablet 2.5 mg (1/2 x 5 mg) PO DAILY #30 10/01/23 10/08/23 Rx tabs New Prescriptions to Start Prescriptions: Allergies Allergy/AdvReac Type Severity Reaction Status Date / Time celecoxib [From Celebrex] Allergy Mild edema Verified 10/01/23 13:30 Assessment and Plan *Assessment and plan (1) Chronic pain syndrome: Status: Acute Category: Medical Code(s): G89.4 - Chronic pain syndrome (2) Lumbar radiculopathy: Status: Acute Category: Medical Code(s): M54.16 - Radiculopathy, lumbar region Plan I will order the patient physical therapy and we will plan on having her return to clinic in 1 month for reevaluation of symptoms and plan of care. Patient does still want to proceed forward with the stimulator trial option and we will look into resubmitting for this after 6 weeks of physical therapy. Patient agr ees with this plan of care. Patient has been instructed to contact the clinic with any concerns before the next appointment. Dr. Cee has reviewed this note and agrees with this plan of care. This note was dictated using voice recognition software and make contain errors or omissions. All injections are used with Lidocaine or Bupivacaine and Depo Medrol.
== END 2023-10-08 23:59 | disposition home or self-care (01) ==
LOC: SC.PAIN 14:44
PROVIDERS: PCP Internal Medicine; Visit Provider Nurse Practitioner Family
DX: G89.4 Chronic pain syndrome (principal); M54.16 Radiculopathy, lumbar region; Z87.891 Personal history of nicotine dependence; Z79.899 Other long term (current) drug therapy
CPT/HCPCS: 99212; G0463

== ENCOUNTER 2023-10-17 12:44 | Outpatient (RCR) | payer MEDICARE, SELFPAY ==
--- NOTE | 2023-10-20 15:55 | HMH.PTOPEV ---
PT Outpatient Evaluation Rehab PT Outpatient Evaluation Start: 10/17/23 13:03 Freq: Status: Active Protocol: Document 10/20/23 15:07 REN (Rec: 10/20/23 15:54 REN [id number]) E-signed By Suresh Thompson, PT Outpatient Therapy Subjective History Subjective History Patient is a 63 year old female presenting to outpatient PT with reports of chronic LBP with no radiculopathy. Symptom onset approx 10 years ago, progressive over the past 6 months. LS fusion sx 2018. Most recent imaging indicates stable LS fusion with LS DDD. Other comorbidities include hx of HTN, HL Cholecystectomy and CTR. New diagnosis of cancer in past 12 No months? Chief Complaint Pain,Stiff,Paresthesia Symptom Type Ache,Sharp Symptoms Relieved By Rest/Positioning Symptoms Aggravated By Standing,Bending/Stooping, Physical Activity,Twisting, Walking Prior Functional Limitations Lifting,Squatting,Walking, Bending/Stooping Current Functional Limitations Lifting,Housework,Standing, Walking,Bending/Stooping Symptom Description Intermittent Level of pain today (0-10) 0 Pain scale - at its best (0-10) 0 Pain scale - at its worst (0-10) 7 Lumbopelvic Eval Posture Thoracic Spine Posture Standing Position Increased Kyphosis Lumbar Spine Posture Standing Position Increased Lordosis Assistive device Assistive Devices None / NA Palapation tenderness bilateral lumbar spinal tenderness Yes: L3-S1 3/4 L>R Accessory Movement L3 bilateral L4 bilateral L5 bilateral S1 bilateral Range of Motion Lumbar Spine Active Flexion Range of 56 Motion (degrees) Lumbar Spine Active Extension Range of 10 Motion (degrees) Left Lumbar Spine Lateral Flexion Active 12 Range of Motion (degrees) Right Lumbar Spine Lateral Flexion 9 Active Range of Motion (degrees) Manual Muscle Test Bilateral Knee Extension Strength Grade 5 Normal Knee Flexion Strength Grade 5 Normal Hip Flexion Strength Grade 5 Normal Extensor Hallucis Longus Strength Grade 5 Normal Ankle Dorsiflexion Strength Grade 5 Normal Gastronemius/Soleus Strength Grade 5 Normal Altered Sensation LE Dermatome Level L5,S1 Comment intermittent NT Special Tests Hip Aria Test Positive Left,Positive Right Hip Piriformis Test Positive Left,Positive Right Hip Bowstring (Cram) Test Positive Left,Positive Right Sacroiliac Joint Distraction Test Negative Left,Negative Right Lumbar Spine Alaniz Test Negative Left,Negative Right Lumbar Long [place] Distraction Test/Manual Positive Traction Oswestry Index Section 1 Pain Intensity The pain is moderate and does not vary much Section 2 Personal Care (Washing,Dresing) increase the pain, but I manage not to change my way of doing it Section 3 Lifting lifting heavy weights off the floor, but I can manage if they are Section 4 Walking I cannot walk more than 1/4 mile without increasing pain Section 5 Sitting Pain prevents me from sitting for more than 1/2 hour Section 6 Standing I cannot stand more than 10 minutes without increasing pain Section 7 Sleeping Because of my pain, my normal night's sleep is less than 6 hours sleep Section 8 Social Life Pain has restricted my social life to my home Section 9 Traveling Pain restricts me to short necessary journeys under 30 minutes Section 10 Changing Degreee of Pain My pain is gradually getting worse Score and Risk Level Oswestry Sc 33 Oswestry Risk Level Severe Disability Outpatient Therapy Assessment Impairments Problems/Impairmments Palpation Tenderness,Impaired Range of Motion,Impaired Strength,Impaired Walking, Impaired Standing,Impaired Lifting,Impaired Shower/ Bathing,Impaired Household Care,Impaired Bending, Subjective C/O Pain Prognosis Rehab Potential Good Clinical Impression Consistent with Diagnosis Yes Short Term Goals Number of Weeks 2 Decrease Subjective C/O Pain Yes: 5/10 at worst Patient to be Ind w/ HEP Yes Skilled Nursing Goals Number of Weeks 4-6 Increase Range of Motion Yes: WNL Improve Ability For Household Care Yes Improve Tolerance to Work Activities Yes Improve Oswestry Score Yes: mild disabliy Decrease Subjective C/O Pain Yes: 2/10 at worst Outpatient Therapy Plan of Care Treatment Plan May Include Therapeutic Exercise Including Home Yes Exercise Program Manual Therapy Techniques Yes Neuromuscular Re-education Yes Therapeutic Activities to Return to Yes Previous Functional/Work Level Gait Training Yes ADL/Self Care Education Yes Mechanical Traction Yes Dry Needling Yes Thermal Modalities Yes Electrical Stimulation Yes Ultrasound/Phonophoresis Yes Iontophoresis Yes Orthotics/Bracing/Splinting Yes Massage Yes Eval/Re-Eval Yes Aquatic Therapy Yes Frequency Times per week 2-3 Duration Number of Weeks 2 Addendums This patient is a candidate for social No or vocational rehab? Patient/Guardian verbally acknowledges Yes understanding of treatment program and consents to further treatment? Patient/Guardian verbally acknowledges Yes understanding of diagnosis, prognosis and goals for treatment? Eval Complexity PT Charges 28490 - Moderate Complexity Shoulder/Elbow Eval Shoulder Objective Measurements Elbow Objective Measurements PHYSICIAN CERTIFICATION: I certify the specified therapy services for Yue Huffmannett are required, authorized, and reviewed every 30 days.
== END 2023-10-17 12:45 | disposition home or self-care (01) ==
LOC: PT 12:44
PROVIDERS: Visit Provider Nurse Practitioner Family
DX: M54.50 Low back pain, unspecified (principal); M79.661 Pain in right lower leg; M79.662 Pain in left lower leg
CPT/HCPCS: 97163

== ENCOUNTER 2023-11-10 14:10 | Outpatient (CLI) | payer MEDICARE, SELFPAY ==
--- NOTE | 2023-11-10 14:14 | CT_ITS ---
FINAL REPORT CLINICAL HISTORY: abnormal CT COMPARISON: 06/03/2023 FINDINGS: CT CHEST without contrast COMPARISON: 06/03/2023. TECHNIQUE: Axial CT without contrast This study was performed with techniques to keep radiation doses as low as reasonably achievable, (ALARA). Individualized dose reduction techniques using automated exposure control or adjustment of mA and/or kV according to the patient''s size were employed. FINDINGS: There is coarse interstitial prominence diffusely with some groundglass opacities and bronchiectasis which can be seen with UIP/IPF. This is similar to prior exam. There is an oval nodule in the right middle lobe centrally measuring 6 mm on image 34 which is also stable. There is fatty infiltration of the liver noted. No pleural or pericardial effusion is seen . No adenopathy or mass lesion is present . IMPRESSION: Advanced chronic interstitial lung disease. Stable right middle lobe nodule. This study was performed using automated techniques to achieve radiation exposure as low as reasonably achievable Reviewed, Interpreted and Dictated by Juan Thompson MD Transcribed by Gwen Brush Authenticated and . [facility]
== END 2023-11-10 23:59 | disposition home or self-care (01) ==
LOC: RAD 14:11
PROVIDERS: PCP Internal Medicine; Visit Provider Internal Medicine Pulmonary Disease
DX: J84.9 Interstitial pulmonary disease, unspecified (principal)
CPT/HCPCS: 71250

== ENCOUNTER 2024-08-05 08:53 | Outpatient (CLI) | payer MEDICARE, SELFPAY ==
[2024-08-05 18:51] LABS: Basophils # 0.1 K/mm3 (0-0.2); Basophils % 0.6 % (0.1-2.0); Eosinophils # 0.2 Kmm3 (0.0-0.4); Eosinophils % 1.2 % (0.1-12.0); Hematocrit 39.4 % (37.0-47.0); Hemoglobin 12.8 g/dL (12.2-16.2); Immature Granulocytes # 0.05 10^3uL; Immature Granulocytes % 0.4 %; Lymphocytes # 4.9 K/mm3 (0.7-4.5); Lymphocytes % 38.9 % (10-50); Mean Corpuscular HGB Conc 32.5 g/dL (31.8-35.4); Mean Corpuscular Hemoglobin 27.9 pg (27.0-31.2); Mean Platelet Volume 10.2 fl (7.4-10.4); Monocytes # 0.5 K/mm3 (0.1-1.0); Monocytes % 3.7 % (1.7-9.3); Neutrophils % 55.2 % (37.0-80.0); Nucleated Red Blood Cells # 0 10^3/uL; Nucleated Red Blood Cells % 0 %; Platelet Count 542 K/mm3 (142-424); Red Blood Count 4.58 M/mm3 (4.20-5.40); Red Cell Distribution Width 13.2 % (11.5-17.5); Red Cell Distribution Width-SD 40.6 fL; White Blood Count 12.7 K/mm3 (4.8-10.8)
[2024-08-05 19:45] LABS: Alanine Aminotransferase 32 U/L (12-78); Albumin Level 4.1 g/dl (3.5-5.0); Albumin/Globulin Ratio 1.2 (1.1-1.8); Alkaline Phosphatase 104 U/L (38-126); Anion Gap 12.9 mEq/L (5-15); Aspartate Amino Transferase 29 U/L (14-36); Bilirubin,Total 0.5 mg/dl (0.2-1.3); Blood Urea Nitrogen 4 mg/dl (7-17); Calcium 10.2 mg/dl (8.4-10.2); Carbon Dioxide 21 mmol/L (22.0-30.0); Chloride 105 mmol/L (98-107); Cholesterol 153 mg/dl (140-200); Estimated Glomerular Filt Rate 101 ml/min (>60); GFR (African American) 123 ML/MIN (>60); Globulin 3.5 g/dL (1.3-3.2); Glucose 207 mg/dl (74-100); HDL Cholesterol 51 mg/dl (40-60); Potassium 3.9 mmoL/L (3.5-5.1); Sodium 135 mmol/L (136-145); Total Protein,Serum 7.6 g/dl (6.3-8.2); Triglycerides 201 mg/dl (30-150); VLDL Cholesterol 40 mg/dL (0-40)
[2024-08-05 19:56] LABS: Direct LDL Cholesterol 55.49 mg/dL (100-129)
[2024-08-05 19:58] LABS: NT Pro Brain Natriuretic Pep. < 20.0 pg/mL (0-125)
[2024-08-05 20:07] LABS: 25-OH Vitamin D, Total 35.7 ng/mL (30-100)
[2024-08-05 20:19] LABS: Thyroid Stimulating Hormone 1.14 uIU/mL (0.465-4.68)
[2024-08-05 20:47] LABS: Hemoglobin A1C 6.5 % (4.0-6.0)
[2024-08-05 21:01] LABS: HIV Combo NEGATIVE (Negative)
[2024-08-05 21:08] LABS: Hepatitis C Ab Qual. W/ RFX NEGATIVE (Negative)
[2024-08-07 05:31] LABS: Hepatitis B Surface Antigen Negative (Negative)
--- OUTSIDE RECORDS SUMMARY | 2024-08-09 09:05 | XMS_ITS | Referral Summary ---
Author Organization [employer] Address [address] [place] [address] Care Team Providers Care Night Custodian Name Role Phone Unavailable Primary Care Provider Unavailabl e Social History Tobacco Use Types Packs/Day Years Used Date Smoking Tobacco: Never Assessed Comments Unknown Sex and Gender Information Value Date Recorded Sex Assigned at Unknown 08/14/2021 8:34 PM CDT Legal Sex Female 8:34 PM CDT Gender Identity Not on file Sexual Orientation Not on file Plan of Treatment Not on file
--- OUTSIDE RECORDS SUMMARY | 2024-08-09 09:05 | XMS_ITS | Encounter Summary ---
Author Organization [employer] Address [address] [place] [address] Care Team Providers Care Advertising Account Executive Name Role Phone Unavailable Primary Care Provider Unavailabl e Encounter Details Date Type Department Care Team (Late st Contact Info) Description 2018 Transcribed Document [facility] [place] [facility] [address] ProviderSymone MD [address] [place] [address] Social History Tobacco Use Types Packs/Day Years Used Date Smoking Tobacco: Never Assessed Comments Unknown Sex and Gender Information Value Date Recorded Sex Assigned at Unknown 08/14/2021 8:34 PM CDT Legal Sex Female 8:34 PM CDT Gender Identity Not on file Sexual Orientation Not on file documented as of this encounter Miscellaneous Notes * [employer]ner Conversion Note - Symone ProviderMD - 2018 3:50 PM CDT PAT Adult Entered On: 2018 15:54 EDT Performed On: 2018 15:50 EDT by Becca Ventura RN Height and Weight, Clinical Dosing Height Source : Measured Height Entry Format : [place] Height, Feet : 5 ft(Converted to: 152 cm, 60 Inch) Height, Inches : 2 Inch(Converted to: 0 ft 2 Inch, 5.08 cm) Clinical Height : 157.48 cm Weight Source : Standing scale Weight Entry Format : [place] Clinical Dosing Weight : 89.09 kg Weight, Pounds : 196 lb Body Surface Area (BSA) : 1.9 m2 Body Mass Index : 35.9 kg/m2 (HI) [place] Body Weight : 50 kg HERI DE DIOS - 10/12/2018 6:39 EDT Health Histories Smoking Status : Former smoker, quit more than 30 days ago Smokeless Tobacco Status : Never Becca Ventura RN - 2018 15:50 EDT Social History (As Of: 10/12/2018 06:41:12 EDT) Alcohol: Alcohol Use History No. (Last Updated: 10/12/2018 06:39:54 EDT by HERI DE DIOS) Substance Abuse: Drug Use Hx: No. Use in Last 12 Months: No. (Last Updated: 10/12/2018 06:40:00 EDT by HERI DE DIOS) Infectious Disease History Fever/Chills Last 48 Hours : No HERI DE DIOS 10/12/2018 6:39 EDT Infectious Disease History : None Travel To Regions with Travel Advisories : No Travel Outside [place] Within Last 30 Days : No Contact With Traveler to Advisory Region : No Tuberculosis Symptoms : None Becca Ventura RN - 2018 15:50 EDT Anesthesia/Transfusion History Blood Transfusion Acceptable to Patient : Yes HERI DE DIOS 10/12/2018 6:39 EDT Family History of Anesthesia Reaction : No prior transfusion(s) Transfusion History : Prior anesthesia without reaction Family History of Anesthesia Reaction : None Becca Ventura RN - 2018 15:50 EDT Functional Assessment Functional ADL Evaluation Index EBN Bathing : Independent (2) Dressing : Independent (2) Toileting : Independent (2) Transferring Bed or Chair : Independent (2) Continence : Independent (2) Feeding : Independent (2) HERI DE DIOS 10/12/2018 6:39 EDT ADL Index Score : 12 HERI DE DIOS 10/12/2018 6:39 EDT Advance Directive Patient has Advance Directive *Q : No, patient refuses Advance Directive information Becca Ventura RN - 2018 15:50 EDT Spiritual/Cultural Needs Any Spiritual/Cultural Needs or Requests : No HERI DE DIOS 10/12/2018 6:39 EDT Psychosocial History Do You Have a History of the Following? : Patient denies history HERI DE DIOS 10/12/2018 6:39 EDT Currently in Unsafe Situation : No Tried to Harm Yourself in the Past? : No Thoughts of Harming/Killing Yourself : No Becca Ventura RN - 2018 15:50 EDT General Info Arrived From : Home Mode of Arrival on Unit : Ambulatory Legal Guardian : Mother Support Person/Pt Rep Contact Information : [place] mom here KAYLARUTHERI - 10/12/2018 6:39 EDT Support Person/Pt Rep Name : Lupe Doshi [phone] Want Family/Rep/Phys Notified of Admit : No Emergency Contact #1 : x Emergency Contact #1 Phone Number : x Emergency Contact #1 Relationship : x Emergency Contact #2 : x Emergency Contact #2 Phone Number : x Emergency Contact #2 Relationship : x Primary Language : Slovak Communication Barrier : None Becca Ventura RN - 2018 15:50 EDT Miguel Scale Miguel Sensory Perception : No impairment Miguel Moisture : Rarely moist Miguel Activity : Walks frequently Miguel Mobility : No limitation Miguel Nutrition : Adequate Miguel Friction and Shear : No apparent problem Miguel Score : 22 Becca Ventura RN - 2018 15:50 EDT Sleep Apnea Risk Assmt BMI Greater Than 35 kg/m2 : Yes Neck Circumference Greater Than 40 cm : No STOP-BANG Sleep Apnea Risk Level Score : 3 HERI DE DIOS - 10/12/2018 6:39 EDT Hx of Obstructive Sleep Apnea Diagnosis : No Snore Loudly : No Tired, Fatigued, or Sleepy During Day : No Observed Stopping Breathing During Sleep : No Have/Are Being Treated for Hypertension : Yes Age over 50 Years Old : Yes Gender Male : No Becca Ventura RN - 2018 15:50 EDT Electronically signed by Hyacinth Villar Conversion Technology Infusion Specialist Cerner at 06/03/2022 5:42 PM CDT documented in this encounter Plan of Treatment Not on file documented as of this encounter Visit Diagnoses Not on filedocumented in this encounter
--- OUTSIDE RECORDS SUMMARY | 2024-08-09 09:05 | XMS_ITS | Encounter Summary ---
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 Role Phone Unavailable Primary Care Provider Unavailabl e Encounter Details Date Type Department Care Team (Late st Contact Info) Description 10/12/2018 Transcribed Document [facility] [place] [facility] [place] [address] ProviderSymone MD [address] [place] [address] Social History Tobacco Use Types Packs/Day Years Used Date Smoking Tobacco: Never Assessed Comments Unknown Sex and Gender Information Value Date Recorded Sex Assigned at Unknown 08/14/2021 8:34 PM CDT Legal Sex Female 8:34 PM CDT Gender Identity Not on file Sexual Orientation Not on file documented as of this encounter Miscellaneous Notes * Cerner Conversion Note - Symone Malloy MD - 10/12/2018 11:08 AM CDT [facility] [place] [address] YUE THRASHER LAURA :1960 Visit Time:10/12/2018 What to do next Your Diagnosis Calculus of kidney, Calculus of kidney Instructions From Your Care Team Diet after Discharge: Resume usual diet as tolerated, Do not drink any alcoholic beverages, Drink at least 8-10 glasses of water per day Activity after Discharge: As tolerated walk frequently, Rest and relax today, No strenuous activity Driving after Discharge: Do not drive until 24 hours after no longer taking pain medications Showering/Bathing: May shower, _ Notify Provider of: fever or chills, excessive bleeding pain or unable to urinate Medical Equipment for Home Use: strain urine for 2 weeks ESWL INSTRUCTIONS Discharge Follow Up Instructions: Follow up in three weeks in [facility] Follow-Up Appointments Follow Up with ADAM PAREDES When 11/03/2018 01:00 PM EDT Comments Appointment has been made Where: [address] [facility] [id number] [facility] (1) Medications What How Much When Instructions Next Dose atorvastatin 40 Milligram(s) Oral Every Day azelastine nasal (azelastine 137 mcg/ inh (0.1%) nasal spray) Nasal Two Times A Day cetirizine 10 Milligram(s) Oral Every Day DULoxetine (Cymbalta 30 mg oral delayed release capsule) Oral Two Times A Day gabapentin 800 Milligram(s) Oral Four Times A Day hydrochlorothiazide-lisinopril (hydroCHLOROthiazide-lisinopril 12.5 mg-10 mg oral tablet) 1 Tablet(s) Oral Every Day montelukast (Singulair) 10 Milligram(s) Every Day raNITIdine 150 Milligram(s) Oral Two Times A Day triamcinolone nasal (triamcinolone 55 mcg/ inh nasal spray) Nasal Every Day Take your medications faithfully. Do NOT skip medication. Do NOT stop taking medications without the direction of a physician. Carry a list of your medications with you at all times, and take this medication list with you to your first follow up visit. Report any side effects. Avoid herbal remedies unless discussed with your physician. As part of your treatment plan, your physician may have prescribed a limited course of a controlled substance. This medication may be given to help people with moderate or severe pain or for other medical conditions, but there are risks involved with treatment. Common side effects may include nausea, constipation, drowsiness, sweating, itching, dry mouth, and rash. More serious side effects may include cognitive and motor impairment, like problems with thinking, concentrating, alertness, and movement (e.g. slowed reflexes), and driving and operating heavy machinery can be dangerous. It is important for you to talk to your physician if you have these side effects or questions. These controlled substances can produce physical dependence and be habit-forming if taken for an extended period of time, which means that the body has gotten used to them and may experience withdrawal symptoms if they are abruptly stopped. Withdrawal symptoms can include runny nose, sweating, goose bumps, diarrhea, abdominal cramping, rapid heartbeat, difficulty sleeping, and nervousness. Please dispose of unused and medications per pharmacy guidance. Education Materials Outpatient Surgery, Adult, Care After These instructions provide you with information about caring for yourself after your procedure. Your health care provider may also give you more specific instructions. Your treatment has been planned according to current medical practices, but problems sometimes occur. Call your health care provider if you have any problems or questions after your procedure. What can I expect after the procedure? After the procedure, it is common to have: ??? Tenderness and numbness at the surgical site. ??? Swelling and bruising around the surgical site. ??? Nausea. Follow these instructions at home: For at least 24 hours after the procedure: ??? Have a responsible adult stay with you. It is important to have someone help care for you until you are awake and alert. ??? Rest as needed. ??? Do not: ? Participate in activities in which you could fall or become injured. ? Drive. ? Use heavy machinery. ? Drink alcohol. ? Take sleeping pills or medicines that cause drowsiness. ? Make important decisions or sign legal documents. ? Take care of children on your own. Activity ??? Return to your normal activities as told by your health care provider. Ask your health care provider what activities are safe for you. ??? Do not lift anything that is heavier than 10 lb (4.5 kg), or the limit that your health care provider tells you, until your health care provider says it is okay. ??? Do not play contact sports until your health care provider says it is okay. Incision care ??? Follow instructions from your health care provider about how to take care of an incision, if you have one. Make sure you: ? Wash your hands with soap and water before you change your bandage (dressing). If soap and water are not available, use hand instructor warper. ? Change your dressing as told by your health care provider. ? Leave stitches (sutures), skin glue, or adhesive strips in place. These skin closures may need to stay in place for 2 weeks or longer. If adhesive strip edges start to loosen and curl up, you may trim the loose edges. Do not remove adhesive strips completely unless your health care provider tells you to do that. ??? Check your incision area every day for signs of infection. Check for: ? More redness, swelling, or pain. ? More fluid or blood. ? Warmth. ? Pus or a bad smell. Medicines ??? Take uthe-uke-dhpiboy and prescription medicines only as told by your health care provider. ??? Do not drive or use heavy machinery while taking prescription pain medicines. Eating and drinking ??? Follow the diet recommended by your health care provider. ??? When you are hungry, begin eating light and bland foods such as toast. Gradually return to your regular diet. ??? If you vomit: ? Drink water, juice, or soup when you can drink without vomiting. ? Make sure you have little or no nausea before eating solid foods. General instructions ??? If you have sleep apnea, surgery and certain medicines can increase your risk for breathing problems. Follow instructions from your HCP about wearing your sleep device: ? Anytime you are sleeping, including during daytime naps. ? While taking prescription pain medicines, sleeping medicines, or medicines that make you drowsy. ??? Do not use any tobacco products, such as cigarettes, chewing tobacco, and e-cigarettes, for as long as possible. ??? If you smoke, do not smoke without supervision. ??? Keep all follow-up visits as told by your health care provider. This is important. Contact a health care provider if: ??? You have more redness, swelling, or pain around your incision. ??? You have more fluid or blood coming from your incision. ??? Your incision feels warm to the touch. ??? You have pus or a bad smell coming from your incision. ??? You have a fever. ??? You feel light-headed or you faint. ??? You develop a rash. ??? You keep feeling nauseous or keep vomiting. ??? You have very bad pain, even after taking the medicines your health care provider has prescribed or recommended. ??? You have constipation. Get help right away if: ??? You are unable to pass urine. ??? You have trouble breathing. Summary ??? Have a responsible adult stay with you for at least 24 hours after the procedure. ??? Nausea is common after a procedure. Make sure you have little or no nausea before eating solid foods. Follow the diet recommended by your health care provider. ??? Ask your health care provider what activities are safe for you. This information is not intended to replace advice given to you by your health care provider. Make sure you discuss any questions you have with your health care provider. Document Released: 05/26/2016 Document Revised: 09/11/2017 Document Reviewed: 05/26/2016 [employer] Interactive Patient Education ?? 2019 [employer]. Lithotripsy, Care After This sheet gives you information about how to care for yourself after your procedure. Your health care provider may also give you more specific instructions. If you have problems or questions, contact your health care provider. What can I expect after the procedure? After the procedure, it is common to have: ??? Some blood in your urine. This should only last for a few days. ??? Soreness in your back, sides, or upper abdomen for a few days. ??? Blotches or bruises on your back where the pressure wave entered the skin. ??? Pain, discomfort, or nausea when pieces (fragments) of the kidney stone move through the tube that carries urine from the kidney to the bladder (ureter). Stone fragments may pass soon after the procedure, but they may continue to pass for up to 4???8 weeks. ? If you have severe pain or nausea, contact your health care provider. This may be caused by a large stone that was not broken up, and this may mean that you need more treatment. ??? Some pain or discomfort during urination. ??? Some pain or discomfort in the lower abdomen or (in men) at the base of the penis. Follow these instructions at home: Medicines ??? Take xpls-jrv-wdfdzkw and prescription medicines only as told by your health care provider. ??? If you were prescribed an antibiotic medicine, take it as told by your health care provider. Do not stop taking the antibiotic even if you start to feel better. ??? Do not drive for 24 hours if you were given a medicine to help you relax (sedative). ??? Do not drive or use heavy machinery while taking prescription pain medicine. Eating and drinking ??? Drink enough water and fluids to keep your urine clear or pale yellow. This helps any remaining pieces of the stone to pass. It can also help prevent new stones from forming. ??? Eat plenty of fresh fruits and vegetables. ??? Follow instructions from your health care provider about eating and drinking restrictions. You may be instructed: ? To reduce how much salt (sodium) you eat or drink. Check ingredients and nutrition facts on packaged foods and beverages. ? To reduce how much meat you eat. ??? Eat the recommended amount of calcium for your age and gender. Ask your health care provider how much calcium you should have. General instructions ??? Get plenty of rest. ??? Most people can resume normal activities 1???2 days after the procedure. Ask your health care provider what activities are safe for you. ??? If directed, strain all urine through the strainer that was provided by your health care provider. ? Keep all fragments for your health care provider to see. Any stones that are found may be sent to a medical lab for examination. The stone may be as small as a grain of salt. ??? Keep all follow-up visits as told by your health care provider. This is important. Contact a health care provider if: ??? You have pain that is severe or does not get better with medicine. ??? You have nausea that is severe or does not go away. ??? You have blood in your urine longer than your health care provider told you to expect. ??? You have more blood in your urine. ??? You have pain during urination that does not go away. ??? You urinate more frequently than usual and this does not go away. ??? You develop a rash or any other possible signs of an allergic reaction. Get help right away if: ??? You have severe pain in your back, sides, or upper abdomen. ??? You have severe pain while urinating. ??? Your urine is very dark red. ??? You have blood in your stool (feces). ??? You cannot pass any urine at all. ??? You feel a strong urge to urinate after emptying your bladder. ??? You have a fever or chills. ??? You develop shortness of breath, difficulty breathing, or chest pain. ??? You have severe nausea that leads to persistent vomiting. ??? You faint. Summary ??? After this procedure, it is common to have some pain, discomfort, or nausea when pieces (fragments) of the kidney stone move through the tube that carries urine from the kidney to the bladder (ureter). If this pain or nausea is severe, however, you should contact your health care provider. ??? Most people can resume normal activities 1???2 days after the procedure. Ask your health care provider what activities are safe for you. ??? Drink enough water and fluids to keep your urine clear or pale yellow. This helps any remaining pieces of the stone to pass, and it can help prevent new stones from forming. ??? If directed, strain your urine and keep all fragments for your health care provider to see. Fragments or stones may be as small as a grain of salt. ??? Get help right away if you have severe pain in your back, sides, or upper abdomen or have severe pain while urinating. This information is not intended to replace advice given to you by your health care provider. Make sure you discuss any questions you have with your health care provider. Document Released: 02/23/2008 Document Revised: 12/25/2016 Document Reviewed: 12/25/2016 [employer] Interactive Patient Education ?? 2019 [employer]. ondansetron (oral) (on JIMBO se jazmín) Manda Holman [employer] What is the most important information I should know about ondansetron? You should not use ondansetron if you are also using apomorphine (Apokyn). What is ondansetron? Ondansetron blocks the actions of chemicals in the body that can trigger nausea and vomiting. Ondansetron is used to prevent nausea and vomiting that may be caused by surgery, cancer chemotherapy, or radiation treatment. Ondansetron may be used for purposes not listed in this medication guide. What should I discuss with my health care provider before taking ondansetron? You should not use ondansetron if: ?? you are also using apomorphine (Apokyn); or ?? you are allergic to ondansetron or similar medicines (dolasetron, granisetron, palonosetron). To make sure ondansetron is safe for you, tell your doctor if you have: ?? liver disease; ?? an electrolyte imbalance (such as low levels of potassium or magnesium in your blood); ?? congestive heart failure, slow heartbeats; ?? a personal or family history of long QT syndrome; or ?? a blockage in your digestive tract (stomach or intestines). Ondansetron is not expected to harm an unborn baby. Tell your doctor if you are . It is not known whether ondansetron passes into breast milk or if it could harm a nursing baby. Tell your doctor if you are breast-feeding a baby. Ondansetron is not approved for use by anyone younger than 4 years old. Ondansetron orally disintegrating tablets may contain phenylalanine. Tell your doctor if you have phenylketonuria (PKU). How should I take ondansetron? Follow all directions on your prescription label. Do not take this medicine in larger or smaller amounts or for longer than recommended. Ondansetron can be taken with or without food. The first dose of ondansetron is usually taken before the start of your surgery, chemotherapy, or radiation treatment. Follow your doctor's dosing instructions very carefully. Take the ondansetron regular tablet with a full glass of water. To take the orally disintegrating tablet (Zofran ODT): ?? Keep the tablet in its blister pack until you are ready to take it. Open the package and peel back the foil. Do not push a tablet through the foil or you may damage the tablet. ?? Use dry hands to remove the tablet and place it in your mouth. ?? Do not swallow the tablet whole. Allow it to dissolve in your mouth without chewing. ?? Swallow several times as the tablet dissolves. To use ondansetron oral soluble film (strip) (Zuplenz): ?? Keep the strip in the foil pouch until you are ready to use the medicine. ?? Using dry hands, remove the strip and place it on your tongue. It will begin to dissolve right away. ?? Do not swallow the strip whole. Allow it to dissolve in your mouth without chewing. ?? Swallow several times after the strip dissolves. If desired, you may drink liquid to help swallow the dissolved strip. ?? Wash your hands after using Zuplenz. Measure liquid medicine with the dosing syringe provided, or with a special dose-measuring spoon or medicine cup. If you do not have a dose-measuring device, ask your pharmacist for one. Store at room temperature away from moisture, heat, and light. Store liquid medicine in an upright position. What happens if I miss a dose? Take the missed dose as soon as you remember. Skip the missed dose if it is almost time for your next scheduled dose. Do not take extra medicine to make up the missed dose. What happens if I overdose? Seek emergency medical attention or call the Poison Help line at . Overdose symptoms may include sudden loss of vision, severe constipation, feeling light-headed, or fainting. What should I avoid while taking ondansetron? Ondansetron may impair your thinking or reactions. Be careful if you drive or do anything that requires you to be alert. What are the possible side effects of ondansetron? Get emergency medical help if you have signs of an allergic reaction: rash, hives; fever, chills, difficult breathing; swelling of your face, lips, tongue, or throat. Call your doctor at once if you have: ?? severe constipation, stomach pain, or bloating; ?? headache with chest pain and severe dizziness, fainting, fast or pounding heartbeats; ?? fast or pounding heartbeats; ?? jaundice (yellowing of the skin or eyes); ?? blurred vision or temporary vision loss (lasting from only a few minutes to several hours); ?? high levels of serotonin in the body--agitation, hallucinations, fever, fast heart rate, overactive reflexes, nausea, vomiting, diarrhea, loss of coordination, fainting. Common side effects may include: ?? diarrhea or constipation; ?? headache; ?? drowsiness; or ?? tired feeling. This is not a complete list of side effects and others may occur. Call your doctor for medical advice about side effects. You may report side effects to FDA at 0-720-YVO-9700. What other drugs will affect ondansetron? Ondansetron can cause a serious heart problem, especially if you use certain medicines at the same time, including antibiotics, antidepressants, heart rhythm medicine, antipsychotic medicines, and medicines to treat cancer, malaria, HIV or AIDS. Tell your doctor about all medicines you use, and those you start or stop using during your treatment with ondansetron. Taking ondansetron while you are using certain other medicines can cause high levels of serotonin to build up in your body, a condition called 'serotonin syndrome,' which can be fatal. Tell your doctor if you also use: ?? medicine to treat depression; ?? medicine to treat a psychiatric disorder; ?? a narcotic (opioid) medication; or ?? medicine to prevent nausea and vomiting. This list is not complete and many other drugs can interact with ondansetron. This includes prescription and onqr-dip-tjgeafo medicines, vitamins, and herbal products. Give a list of all your medicines to any healthcare provider who treats you. Where can I get more information? Your pharmacist can provide more information about ondansetron. Remember, keep this and all other medicines out of the reach of children, never share your medicines with others, and use this medication only for the indication prescribed. Every effort has been made to ensure that the information provided by [employer]. ('[employer]') is accurate, up-to-date, and complete, but no guarantee is made to that effect. Drug information contained herein may be time sensitive. [employer] a division of [employer] information has been compiled for use by healthcare practitioners and consumers in the [place] and therefore [employer] a division of [employer] does not warrant that uses outside of the [place] are appropriate, unless specifically indicated otherwise. [employer] drug information does not endorse drugs, diagnose patients or recommend therapy. [employer] drug information is an informational resource designed to assist licensed healthcare practitioners in caring for their patients and/or to serve consumers viewing this service as a supplement to, and not a substitute for, the expertise, skill, knowledge and judgment of healthcare practitioners. The absence of a warning for a given drug or drug combination in no way should be construed to indicate that the drug or drug combination is safe, effective or appropriate for any given patient. [employer] a division of [employer] does not assume any responsibility for any aspect of healthcare administered with the aid of information [employer] provides. The information contained herein is not intended to cover all possible uses, directions, precautions, warnings, drug interactions, allergic reactions, or adverse effects. If you have questions about the drugs you are taking, check with your doctor, nurse or pharmacist. Copyright 5042-0581 [employer]. Version: 13.01. Revision Date: 12/08/2015. sulfamethoxazole and trimethoprim (oral/injection) (SUL fa meth OX a zole and trye METH oh prim) Bactrim, Bactrim DS, Bactrim I.V., Septra I.V., SMZ-TMP DS, Sulfatrim Pediatric What is the most important information I should know about sulfamethoxazole and trimethoprim? You should not use this medicine if you have severe liver disease, kidney disease that is not being monitored, anemia caused by folic acid deficiency, if you take dofetilide, or if you have had low platelets caused by using trimethoprim or a sulfa drug. You should not take sulfamethoxazole and trimethoprim if you are or . What is sulfamethoxazole and trimethoprim? Sulfamethoxazole and trimethoprim is a combination antibiotic used to treat ear infections, urinary tract infections, bronchitis, traveler's diarrhea, shigellosis, and Pneumocystis jiroveci pneumonia. Sulfamethoxazole and trimethoprim may also be used for purposes not listed in this medication guide. What should I discuss with my healthcare provider before using sulfamethoxazole and trimethoprim? You should not use this medicine if you are allergic to sulfamethoxazole or trimethoprim, or if you have: ?? severe liver disease; ?? kidney disease that is not being treated or monitored; ?? anemia (low red blood cells) caused by folic acid deficiency; ?? a history of low blood platelets after taking trimethoprim or any sulfa drug; or ?? if you take dofetilide (Tikosyn). Do not use if you are . Use effective control, and tell your doctor if you become . Do not breastfeed while using this medicine. This medicine should not be given to a child younger than 2 months old. Tell your doctor if you have ever had: ?? kidney or liver disease; ?? a folate (folic acid) deficiency; ?? asthma or severe allergies; ?? a thyroid disorder; ?? HIV or AIDS; ?? malnourishment; ?? alcoholism; ?? high levels of potassium in your blood; ?? porphyria, or uumpxmk-8-eblgjalhm dehydrogenase (G6PD) deficiency; or ?? if you use a blood thinner (such as warfarin) and you have routine 'INR' or prothrombin time tests. How should I use sulfamethoxazole and trimethoprim? This medicine is taken by mouth (oral) or given as an infusion into a vein (injection). Follow all directions on your prescription label and read all medication guides or instruction sheets. Use the medicine exactly as directed. Shake the oral suspension (liquid) before you measure a dose. Use the dosing syringe provided, or use a medicine dose-measuring device (not a kitchen spoon). A healthcare provider will give the first injection and may teach you how to properly use the medication by yourself. When using injections by yourself, be sure you understand how to properly mix and store the medicine. Ask your doctor or pharmacist if you don't understand all instructions. Drink plenty of fluids to prevent kidney stones while you are using this medicine. Sulfamethoxazole and trimethoprim doses are based on weight in children. Use only the recommended dose when giving this medicine to a child. Use this medicine for the full prescribed length of time, even if your symptoms quickly improve. Skipping doses can increase your risk of infection that is resistant to medication. This medicine will not treat a viral infection such as the flu or a common cold. You may need frequent medical tests. This medicine can affect the results of certain medical tests. Tell any doctor who treats you that you are using sulfamethoxazole and trimethoprim. Store at room temperature away from moisture, heat, and light. What happens if I miss a dose? Use the medicine as soon as you can, but skip the missed dose if it is almost time for your next dose. Do not use two doses at one time. What happens if I overdose? Seek emergency medical attention or call the Poison Help line at . Overdose symptoms may include loss of appetite, vomiting, fever, blood in your urine, yellowing of your skin or eyes, confusion, or loss of consciousness. What should I avoid while using sulfamethoxazole and trimethoprim? Antibiotic medicines can cause diarrhea, which may be a sign of a new infection. If you have diarrhea that is watery or bloody, call your doctor before using anti-diarrhea medicine. If you use the injection form of this medicine, do not eat or drink anything that contains propylene glycol (an ingredient in many processed foods, soft drinks, and medicines). Dangerous effects could occur. Sulfamethoxazole and trimethoprim could make you sunburn more easily. Avoid sunlight or tanning beds. Wear protective clothing and use sunscreen (SPF 30 or higher) when you are outdoors. What are the possible side effects of sulfamethoxazole and trimethoprim? Get emergency medical help if you have signs of an allergic reaction (hives, cough, shortness of breath, swelling in your face or throat) or a severe skin reaction (fever, sore throat, burning eyes, skin pain, red or purple skin rash with blistering and peeling). Call your doctor at once if you have: ?? severe stomach pain, diarrhea that is watery or bloody (even if it occurs months after your last dose); ?? a skin rash, no matter how mild; ?? yellowing of your skin or eyes; ?? a seizure; ?? new or unusual joint pain; ?? increased or decreased urination; ?? swelling, bruising, or irritation around the IV needle; ?? increased thirst, dry mouth, fruity breath odor; ?? an electrolyte imbalance--headache, confusion, weakness, slurred speech, tingly feeling, chest pain, irregular heartbeats, loss of coordination or movement, feeling unsteady; or ?? low blood cell counts--fever, chills, mouth sores, skin sores, easy bruising, unusual bleeding, pale skin, cold hands and feet, feeling light-headed or short of breath. Common side effects may include: ?? nausea, vomiting, loss of appetite; or ?? mild itching or rash. This is not a complete list of side effects and others may occur. Call your doctor for medical advice about side effects. You may report side effects to FDA at 3-217-XBA-3554. What other drugs will affect sulfamethoxazole and trimethoprim? You may need more frequent check- ups or medical tests if you also use medicine to treat depression, diabetes, seizures, or HIV. Many drugs can interact, and some drugs should not be used together. Tell your doctor about all your current medicines, especially: ?? amantadine, cyclosporine, indomethacin, leucovorin, methotrexate, pyrimethamine; ?? an 'SYDNIE inhibitor' heart or blood presure medication (benazepril, enalapril, lisinopril, quinapril, ramipril, and others); or ?? a diuretic or 'water pill' (chlorthalidone, hydrochlorothiazide, and others). This list is not complete and many other drugs may affect sulfamethoxazole and trimethoprim. This includes prescription and [id number] medicines, vitamins, and herbal products. Not all possible drug interactions are listed here. Where can I get more information? Your pharmacist can provide more information about sulfamethoxazole and trimethoprim. Remember, keep this and all other medicines out of the reach of children, never share your medicines with others, and use this medication only for the indication prescribed. Every effort has been made to ensure that the information provided by [employer]. [employer]') is accurate, up-to-date, and complete, but no guarantee is made to that effect. Drug information contained herein may be time sensitive. [employer] a division of [employer] information has been compiled for use by healthcare practitioners and consumers in the [place] and therefore [employer], a division of [employer] does not warrant that uses outside of the [place] are appropriate, unless specifically indicated otherwise. [employer] drug information does not endorse drugs, diagnose patients or recommend therapy. [employer] drug information is an informational resource designed to assist licensed healthcare practitioners in caring for their patients and/or to serve consumers viewing this service as a supplement to, and not a substitute for, the expertise, skill, knowledge and judgment of healthcare practitioners. The absence of a warning for a given drug or drug combination in no way should be construed to indicate that the drug or drug combination is safe, effective or appropriate for any given patient. [employer], a division of [employer] does not assume any responsibility for any aspect of healthcare administered with the aid of information [employer] a division of [employer] provides. The information contained herein is not intended to cover all possible uses, directions, precautions, warnings, drug interactions, allergic reactions, or adverse effects. If you have questions about the drugs you are taking, check with your doctor, nurse or pharmacist. Copyright 7635-4993 [employer]. Version: 9.01. Revision Date: 04/24/2018. acetaminophen and hydrocodone (a SEET a MIN oh fen and cierra droe KOE done) Hycet, Lorcet, Burnside, Verdrocet, Vicodin, Xodol, Zamicet What is the most important information I should know about acetaminophen and hydrocodone? MISUSE OF OPIOID MEDICINE CAN CAUSE ADDICTION, OVERDOSE, OR . Keep the medication in a place where others cannot get to it. An overdose of acetaminophen can damage your liver or cause . Call your doctor at once if you have pain in your upper stomach, loss of appetite, dark urine, or jaundice (yellowing of your skin or eyes). Taking opioid medicine during may cause life-threatening withdrawal symptoms in the . Fatal side effects can occur if you use opioid medicine with alcohol, or with other drugs that cause drowsiness or slow your breathing. Stop taking this medicine and call your doctor right away if you have skin redness or a rash that spreads and causes blistering and peeling. What is acetaminophen and hydrocodone? Hydrocodone is an opioid pain medication, sometimes called a narcotic. Acetaminophen is a less potent pain reliever that increases the effects of hydrocodone. Acetaminophen and hydrocodone is a combination medicine used to relieve moderate to severe pain. Acetaminophen and hydrocodone may also be used for purposes not listed in this medication guide. What should I discuss with my healthcare provider before taking acetaminophen and hydrocodone? You should not use this medicine if you are allergic to acetaminophen or hydrocodone, or if you have: ?? severe asthma or breathing problems; or ?? a blockage in your stomach or intestines. Tell your doctor if you have ever had: ?? liver disease; ?? a drug or alcohol addiction; ?? kidney disease; ?? a head injury or seizures; ?? urination problems; or ?? problems with your thyroid, pancreas, or gallbladder. If you use opioid medicine while you are , your baby could become dependent on the drug. This can cause life-threatening withdrawal symptoms in the baby after it is born. Babies born dependent on opioids may need medical treatment for several weeks. Do not breast-feed. This medicine can pass into breast milk and cause drowsiness, breathing problems, or in a nursing baby. How should I take acetaminophen and hydrocodone? Follow all directions on your prescription label. Never take this medicine in larger amounts, or for longer than prescribed. An overdose can damage your liver or cause . Tell your doctor if the medicine seems to stop working as well in relieving your pain. Always check your bottle to make sure you have received the correct pills (same brand and type) of medicine prescribed by your doctor. Never share this medicine with another person, especially someone with a history of drug abuse or addiction. MISUSE CAN CAUSE ADDICTION, OVERDOSE, OR . Keep the medicine in a place where others cannot get to it. Selling or giving away acetaminophen and hydrocodone is against the law. Measure liquid medicine carefully. Use the dosing syringe provided, or use a medicine dose-measuring device (not a kitchen spoon). If you need surgery or medical tests, tell the doctor ahead of time that you are using this medicine. You should not stop using this medicine suddenly. Follow your doctor's instructions about tapering your dose. Store at room temperature away from moisture and heat. Keep track of your medicine. You should be aware if anyone is using it improperly or without a prescription. Do not keep leftover opioid medication. Just one dose can cause in someone using this medicine accidentally or improperly. Ask your pharmacist where to locate a drug take-back disposal program. If there is no take-back program, flush the unused medicine down the toilet. What happens if I miss a dose? Since this medicine is used for pain, you are not likely to miss a dose. Skip any missed dose if it is almost time for your next dose. Do not use two doses at one time. What happens if I overdose? Seek emergency medical attention or call the Poison Help line at . An overdose of acetaminophen and hydrocodone can be fatal. The first signs of an acetaminophen overdose include loss of appetite, nausea, vomiting, stomach pain, sweating, and confusion or weakness. Later symptoms may include pain in your upper stomach, dark urine, and yellowing of your skin or the whites of your eyes. Overdose can also cause severe muscle weakness, pinpoint pupils, very slow breathing, extreme drowsiness, or coma. What should I avoid while taking acetaminophen and hydrocodone? Avoid driving or operating machinery until you know how this medicine will affect you. Dizziness or drowsiness can cause falls, accidents, or severe injuries. Do not drink alcohol. Dangerous side effects or could occur. Ask a doctor or pharmacist before using any other medicine that may contain acetaminophen (sometimes abbreviated as APAP). Taking certain medications together can lead to a fatal overdose. What are the possible side effects of acetaminophen and hydrocodone? Get emergency medical help if you have signs of an allergic reaction: hives; difficulty breathing; swelling of your face, lips, tongue, or throat. Opioid medicine can slow or stop your breathing, and may occur. A person caring for you should seek emergency medical attention if you have slow breathing with long pauses, blue colored lips, or if you are hard to wake up. In rare cases, acetaminophen may cause a severe skin reaction that can be fatal. This could occur even if you have taken acetaminophen in the past and had no reaction. Stop taking this medicine and call your doctor right away if you have skin redness or a rash that spreads and causes blistering and peeling. Call your doctor at once if you have: ?? noisy breathing, sighing, shallow breathing; ?? a light-headed feeling, like you might pass out; ?? liver problems--nausea, upper stomach pain, tiredness, loss of appetite, dark urine, elsy-colored stools, jaundice (yellowing of the skin or eyes); or ?? low cortisol levels-- nausea, vomiting, loss of appetite, dizziness, worsening tiredness or weakness. Seek medical attention right away if you have symptoms of serotonin syndrome, such as: agitation, hallucinations, fever, sweating, shivering, fast heart rate, muscle stiffness, twitching, loss of coordination, nausea, vomiting, or diarrhea. Serious side effects may be more likely in older adults and those who are overweight, malnourished, or debilitated. Long-term use of opioid medication may affect fertility (ability to have children) in men or women. It is not known whether opioid effects on fertility are permanent. Common side effects include: ?? dizziness, drowsiness, feeling tired; ?? nausea, vomiting, stomach pain; ?? constipation; or ?? headache. This is not a complete list of side effects and others may occur. Call your doctor for medical advice about side effects. You may report side effects to FDA at 7-013-JQI-1547. What other drugs will affect acetaminophen and hydrocodone? You may have breathing problems or withdrawal symptoms if you start or stop taking certain other medicines. Tell your doctor if you also use an antibiotic, antifungal medication, heart or blood pressure medication, seizure medication, or medicine to treat HIV or hepatitis C. Opioid medication can interact with many other drugs and cause dangerous side effects or . Be sure your doctor knows if you also use: ?? cold or allergy medicines, bronchodilator asthma/COPD medication, or a diuretic ('water pill'); ?? medicines for motion sickness, irritable bowel syndrome, or overactive bladder; ?? other narcotic medications--opioid pain medicine or prescription cough medicine; ?? a sedative like Valium--diazepam, alprazolam, lorazepam, Xanax, Klonopin, Versed, and others; ?? drugs that make you sleepy or slow your breathing--a sleeping pill, muscle relaxer, medicine to treat mood disorders or mental illness; ?? drugs that affect serotonin levels in your body--a stimulant, or medicine for depression, Parkinson's disease, migraine headaches, serious infections, or nausea and vomiting. This list is not complete. Other drugs may affect acetaminophen and hydrocodone, including prescription and [id number] medicines, vitamins, and herbal products. Not all possible interactions are listed here. Where can I get more information? Your doctor or pharmacist can provide more information about acetaminophen and hydrocodone. Remember, keep this and all other medicines out of the reach of children, never share your medicines with others, and use this medication only for the indication prescribed. Every effort has been made to ensure that the information provided by [employer]. ('[employer]') is accurate, up-to-date, and complete, but no guarantee is made to that effect. Drug information contained herein may be time sensitive. [employer] a [employer] information has been compiled for use by healthcare practitioners and consumers in the [place] and therefore [employer], a division of [employer] does not warrant that uses outside of the [place] are appropriate, unless specifically indicated otherwise. [employer] drug information does not endorse drugs, diagnose patients or recommend therapy. [employer] drug information is an informational resource designed to assist licensed healthcare practitioners in caring for their patients and/or to serve consumers viewing this service as a supplement to, and not a substitute for, the expertise, skill, knowledge and judgment of healthcare practitioners. The absence of a warning for a given drug or drug combination in no way should be construed to indicate that the drug or drug combination is safe, effective or appropriate for any given patient. [employer], a division of [employer] does not assume any responsibility for any aspect of healthcare administered with the aid of information [employer], a division [employer] provides. The information contained herein is not intended to cover all possible uses, directions, precautions, warnings, drug interactions, allergic reactions, or adverse effects. If you have questions about the drugs you are taking, check with your doctor, nurse or pharmacist. Copyright 8860-1724 [employer]. Version: 15.02. Revision Date: 12/22/2017. Emergency Awareness and Preventative Care STROKE is an EMERGENCY Every Minute Counts Act FAST and Check for these signs: FACE Does the face look uneven? ARM Does one arm drift down? SPEECH Does their speech sound strange? TIME Call at any sign of stroke Stroke Risk Factors Atrial Fibrillation (irregular heartbeat) Diabetes Family history of stroke Heart Disease Heavy alcohol use High Blood Pressure High Cholesterol Physical inactivity and obesity Smoking Cigarette Smoking The facts are clear, cigarette smoking will shorten your life. Smoking can cause many illnesses along the way. As a healthcare provider, we recommend that you stop smoking. Assistance with quitting is available by contacting 1-972-SKIUNOW. This is a free resource providing counseling, support, and referral. Or you may contact your personal physician. [place] Suicide Prevention Lifeline: The National Suicide Prevention Lifeline is a national network of local crisis centers that provides free and confidential emotional support to people in suicidal crisis or emotional distress 24 hours a day, 7 days a week. Don't Wait! Stop a Heart Attack Before it Starts What is a heart attack? A heart attack is damage or to a part of the heart from severely decreased or lack of blood flow to the heart. Over time, arteries can become narrow from the buildup of fat and cholesterol, which is called plaque. The plaque can rupture causing a blood clot to form. When the blood clot forms, the artery can become severely narrowed or completely blocked, causing a heart attack. Heart attack is the leading cause of in the [place]. 85% of muscle damage occurs within the first 2 hours. Delay in the recognition of heart attack symptoms increases the chances of . Know the early symptoms of a heart attack: Nausea Feeling of fullness in chest Jaw Pain Pain that travels down one or both arms Fatigue/being tired Anxiety Back Pain Chest pressure, squeezing, or discomfort Shortness of breath Sweating, or a cold sweat Feeling of impending doom There are unusual signs of a heart attack, too! Women, the elderly, and diabetics may present with atypical symptoms: Fainting/dizziness Weakness Confusion Risk Factors for a Heart Attack Some heart disease risk factors, such as age and family history, cannot be changed. Others, like smoking and lack of exercise, can be changed. Smoking High Cholesterol High Blood Pressure Family History Obesity Age Gender (Males are at higher risk) Lack of Exercise Diabetes Diet Stress Excessive Alcohol Intake If you or someone you know is experiencing the signs and symptoms of a heart attack, DON???T DELAY. Call immediately and seek help. If someone collapses, perform CPR! Do not attempt to drive if you are having symptoms of heart attack. Hands-Only CPR Why Hands-Only CPR? Hands-Only CPR has been shown to be as effective as conventional CPR for cardiac arrests that occur outside of a hospital. Survival depends on immediately receiving CPR from someone nearby. How do you perform Hands-Only CPR? There are two easy steps: Call --1 if you see a teen or adult collapse Push hard and fast in the center of the chest at a beat of 100 beats per minute. Save a life! 4 WAYS TO GET AHEAD OF SEPSIS SEPSIS is a MEDICAL EMERGENCY. Time matters! Infections put you and your family at risk for a life-threatening condition called sepsis. Sepsis is the body's extreme response to an infection. It is life-threatening, and without timely treatment, sepsis can rapidly lead to tissue damage, organ failure, and . Sepsis happens when an infection you already have-in your skin, lungs, urinary tract or somewhere else-triggers a chain reaction throughout your body. 1 PREVENT INFECTIONS Take good care of chronic conditions. Talk to your doctor about getting the recommended vaccines. 2 PRACTICE GOOD HYGIENE Wash your hands frequently. Keep cuts or open sores clean and covered until they are healed. 3 KNOW THE SYMPTOMS Confusion or disorientation Shortness of breath High heart rate Fever, shivering, or feeling very cold Extreme pain or discomfort Clammy or sweaty skin 4 ACT FAST Get medical care IMMEDIATELY if you suspect sepsis or if you have an infection that is not getting better or is getting worse. To learn more about sepsis and how to prevent infections, visit www.cdc.gov/sepsis. Test Results Laboratory or Other Results This Visit (last charted value for your 10/12/2018 visit) General Chemistry 10/12/18 06:47:00 Potassium POC: 3.9 mmol/L -- Normal range between ( 3.5 and 4.9 ) :Potassium Level POC: :Potassium Level POC Diagnostic Radiology 10/12/18 06:00:18 CR Abdomen 1 Vw: CR Abdomen 1 Vw Patient Name:YUE THRASHER I have received this information and was given the opportunity to ask questions. Patient/Digital Project Manager Name: Patient/Digital Project Manager Signature: Relationship to Patient: Clinician/Hospital Digital Project Manager Signature: Date: documented in this encounter Plan of Treatment Not on file documented as of this encounter Visit Diagnoses Not on filedocumented in this encounter
--- OUTSIDE RECORDS SUMMARY | 2024-08-09 09:05 | XMS_ITS | Encounter Summary ---
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 Name Role Phone Unavailable Primary Care Provider Unavailabl e Encounter Details Date Type Department Care Team (Late st Contact Info) Description 10/12/2018 Transcribed Document [facility] Family Medicine [facility], [facility] [place] [address] ProviderSymone MD [facility], [facility] [place] [address] Social History Tobacco Use Types Packs/Day Years Used Date Smoking Tobacco: Never Assessed Comments Unknown Sex and Gender Information Value Date Recorded Sex Assigned at Unknown 08/14/2021 8:34 PM CDT Legal Sex Female 8:34 PM CDT Gender Identity Not on file Sexual Orientation Not on file documented as of this encounter Miscellaneous Notes * Cerner Conversion Note - Symone ProviderMD - 10/12/2018 8:00 AM CDT [facility] Main OR Preop Summary Primary Physician: ADAM PAREDES MD-URO Finalized Date/Time: 10/12/18 08:27:43 Pt. Name: YUE THRASHER /Sex: 1960 Female Med Rec #: [id number] Physician: ADAM PAREDES MD-URO Financial #: [id number] Pt. Type: O Room/Bed: /3 Admit/Disch: 10/12/18 05:25:00 - Institution: [facility] PreOp Case Times Entry 1 In Preop 10/12/18 06:05:00 Ready for Holding n/a Room Patient Ready for 10/12/18 07:14:00 Surgery Patient Out of Preop 10/12/18 08:27:00 Patient Out of n/a Holding Room Last Modified By: HERI DE DIOS 10/12/18 08:27:38 [facility] PreOp Case Times Audit 10/12/18 08:27:38 Manager Party: KEISHA Modifier: KEISHA <+> 1 Patient Out of Preop Finalized By: HERI DE DIOS Document Signatures Signed By: HERI DE DIOS 10/12/18 08:27 Electronically signed by [id number] Conversion Break Out Man Cerner at 06/03/2022 5:35 PM CDT documented in this encounter Plan of Treatment Not on file documented as of this encounter Visit Diagnoses Not on filedocumented in this encounter
--- OUTSIDE RECORDS SUMMARY | 2024-08-09 09:05 | XMS_ITS | Encounter Summary ---
Author Organization [employer] Address [address] [place] [address] Care Team Providers Care Turkey Cleaner Name Role Phone Unavailable Primary Care Provider Unavailabl e Encounter Details Date Type Department Care Team (Late st Contact Info) Description 10/12/2018 Transcribed Document [facility] [place] Family Medicine [facility] [place] [address] ProviderSymone MD [facility] [address] Social History Tobacco Use Types [...] Conversion Note - Symone ProviderMD - 10/12/2018 10:02 AM CDT DATE OF PROCEDURE:10/12/2018 PREOPERATIVE DIAGNOSIS(ES): Right renal calculus. POSTOPERATIVE DIAGNOSIS(ES): Right renal calculus. PROCEDURE: Right extracorporeal shockwave lithotripsy. SURGEON: Juan Brooks M.D. ANESTHESIA: General. DRAINS: None. SPECIMEN: None. BRIEF HISTORY: Patient is a 58-year-old female, recently noted to have an 8 mm stone, lower pole of right kidney, confirmed on CT scan. She presents today for shockwave lithotripsy. Risks were discussed including bleeding, infection, retained stone fragments requiring other intervention. She understood and wished to proceed. DESCRIPTION OF PROCEDURE: Under satisfactory anesthesia, she was positioned for treatment. Due to the size of stone, we elected to treat this without stent within the right ureter. After adequate general anesthesia, she was positioned for treatment. Sequential compression garments were in place and functioning at time of induction. The stone was localized in two fluoroscopic planes. She was treated initially at low power with 100 shocks and then followed by a 3-minute pause. She was then sequentially increased to 24 kV. She appeared to have complete fragmentation of stone. Stone was visualized intermittently throughout the treatment time. The patient tolerated the procedure well, was transferred to postop recovery room in stable condition. She will follow up in three weeks in [place] with a KUB. Juan Brooks M.D. Dict: 10/12/2018 10:02:32 Trans: 10/12/2018 12:42:30 CC1: Juan Brooks M.D. Electronically signed by Aurea [facility] Conversion Cellophane Casting Machine Repairer Cerner at 06/03/2022 5:22 PM CDT documented in this encounter Plan of Treatment Not on file documented as of this encounter Visit Diagnoses Not on filedocumented in this encounter
--- OUTSIDE RECORDS SUMMARY | 2024-08-09 09:05 | XMS_ITS | Encounter Summary ---
Author Organization [employer] Address [address] [place] [address] Care Team Providers Care Order Processing Specialist Name Role Phone Unavailable Primary Care Provider Unavailabl e Encounter Details Date Type Department Care Team (Late st Contact Info) Description 10/12/2018 Transcribed Document [facility] [place] Family Medicine [facility] [place] [address] ProviderSymone MD [address] [place] [address] Social History Tobacco Use Types [...] Conversion Note - Symone ProviderMD - 10/12/2018 6:25 AM CDT Patient: YUE THRASHER Age: 58 years Sex: Female : 1960 Associated Diagnoses: None Author: KEYONNA PERES APRN Chief Complaint R renal stone Review of Systems ROS reviewed as documented in chart no change since last seen by surgeon Health Status Allergies: Allergic Reactions (Selected) No Known Allergies, Allergies (1) Active Reaction No Known Allergies None Documented Current medications: (Selected) Inpatient Medications Ordered HYDROmorphone: 0.25 mg, IV Push, Q10Min, PRN: Pain (Moderate 4-6) HYDROmorphone: 0.5 mg, IV Push, Q10Min, PRN: Pain (Severe 7-10) Lactated Ringers Injection intravenous solution 1,000 mL: 20, IntraVENous fentaNYL: 25 mcg, IV Push, 1-Time, PRN: Pain (Severe 7-10) fentaNYL: 25 mcg, IV Push, Q10Min, PRN: Pain (Moderate 4-6) ondansetron: 4 mg, IV Push, 1-Time, PRN: Nausea/Vomiting oxyCODONE: 5 mg, Oral, 1-Time, PRN: Pain (Moderate 4-6) oxyCODONE: 5 mg, Oral, 1-Time, PRN: Pain (Moderate 4-6) Documented Medications Documented Cymbalta 30 mg oral delayed release capsule: Cap, Oral, BID, 0 Refill(s) Singulair: 10 mg, Daily, 0 Refill(s) atorvastatin: 40 mg, Oral, Daily, 0 Refill(s) azelastine 137 mcg/inh (0.1%) nasal spray: Kechi, Nasal, BID, 0 Refill(s) cetirizine: 10 mg, Oral, Daily, 0 Refill(s) gabapentin: 800 mg, Oral, QID, 0 Refill(s) hydroCHLOROthiazide-lisinopril 12.5 mg-10 mg oral tablet: 1 Tab, Oral, Daily, 0 Refill(s) raNITIdine: 150 mg, Oral, BID, 0 Refill(s) triamcinolone 55 mcg/inh nasal spray: Kechi, Nasal, Daily, 0 Refill(s), Home Medications (9) Active atorvastatin 40 mg, Oral, Daily azelastine 137 mcg/inh (0.1%) nasal spray , Nasal, BID cetirizine 10 mg, Oral, Daily Cymbalta 30 mg oral delayed release capsule , Oral, BID gabapentin 800 mg, Oral, QID hydroCHLOROthiazide-lisinopril 12.5 mg-10 mg oral tablet 1 Tab, Oral, Daily raNITIdine 150 mg, Oral, BID Singulair 10 mg, Daily triamcinolone 55 mcg/inh nasal spray , Nasal, Daily , Medications (8) Active Scheduled: (0) Continuous: (1) lactated ringers 1,000 mL 1,000 mL, IntraVENous PRN: (7) fentaNYL 100 mcg/2 mL inj 25 mcg 0.5 mL, IV Push, Q10Min fentaNYL 100 mcg/2 mL inj 25 mcg 0.5 mL, IV Push, 1-Time HYDROmorphone 1 mg/1 mL inj 0.25 mg 0.25 mL, IV Push, Q10Min HYDROmorphone 1 mg/1 mL inj 0.5 mg 0.5 mL, IV Push, Q10Min ondansetron 4 mg/2 mL inj 4 mg 2 mL, IV Push, 1-Time oxyCODONE 5 mg tab 5 mg 1 Tab, Oral, 1-Time oxyCODONE 5 mg tab 5 mg 1 Tab, Oral, 1-Time Problem list: All Problems Kidney stones / SNOMED CT 179875393 / Confirmed HTN (hypertension) / SNOMED CT 4284297180 / Confirmed HLD (hyperlipidemia) / SNOMED CT 69509528 / Confirmed Heart murmur / SNOMED CT 338014287 / Confirmed GERD (gastroesophageal reflux disease) / SNOMED CT 263854899 / Confirmed Depression / SNOMED CT 94904445 / Confirmed Back pain / SNOMED CT 146977840 / Confirmed At risk for sleep apnea / SNOMED CT 664258668 / Confirmed At risk for sleep apnea / IMO 35296209 / Confirmed Allergic rhinitis / SNOMED CT 516002145 / Confirmed, Active Problems (10) Allergic rhinitis At risk for sleep apnea At risk for sleep apnea Back pain Depression GERD (gastroesophageal reflux disease) Heart murmur HLD (hyperlipidemia) HTN (hypertension) Kidney stones Histories Past Medical History: No active or resolved past medical history items have been selected or recorded. Family History: No family history items have been selected or recorded. Procedure history: cholecystectomy. sinus surgery. tubal ligation. biopsy left breast with clip. back surgery vertiflex'. thyroid biopsy. Social History Social & Psychosocial Habits Alcohol 10/12/2018 Alcohol Use History, Social Habits No Substance Abuse 10/12/2018 Recreational Drug Use History No Recreational Drug Use Last 12 Months No . Physical Examination VS/Measurements Vital Signs/Vital Measures 10/12/2018 6:00 EDT Systolic Blood Pressure 139 mmHg Diastolic Blood Pressure 96 mmHg HI Temperature Source Temporal artery scanning Temperature Mode Fahrenheit Temperature, Fahrenheit 98.3 Deg F Clinical Temperature, C 36.8 Deg C Heart Rate Monitored 62 bpm Respiratory Rate 16 Breaths/Min Oxygen Saturation 100 % Oxygen Therapy Mode Room air , Vitals Signs (last 24 hrs) Last Charted Minimum Maximum Temp 98.3 (OCT 12 06:00) 98.3 (OCT 12 06:00) 98.3 (OCT 12:00) Mon HR 62 (OCT 12 06:00) 62 (OCT 12 06:00) 62 (OCT 12 06:00) Resp Rate 16 (OCT 12 06:00) 16 (OCT 12 06:00) 16 (OCT 12 06:00) SBP 139 (OCT 12 06:00) 139 (OCT 12 06:00) 139 (OCT 12 06:00) DBP H 96 (OCT 12 06:00) H 96 (OCT 12 06:00) H 96 (OCT 12 06:00) SpO2 100 (OCT 12:00) 100 (OCT 12 06:00) 100 (OCT 12:) General: Alert and oriented, No acute distress, obese. Eye: Pupils are equal, round and reactive to light, Extraocular movements are intact, glasses. HENT: Normocephalic, slightly TORRES MARTINEZ. Neck: Supple, Non-tender. Respiratory: Lungs are clear to auscultation, Respirations are non-labored. Cardiovascular: Normal rate, Regular rhythm, No murmur, No gallop, No edema. Gastrointestinal: Soft, Non-tender. Genitourinary: Kidney: Bilateral, Costovertebral angle tenderness. Lymphatics: No lymphadenopathy neck, axilla, groin. Musculoskeletal: Normal range of motion, Normal strength. Integumentary: Warm, Dry, [place]. Neurologic: Alert, Oriented. Psychiatric: Cooperative, Appropriate mood & affect. Review / Management Results review: No qualifying data available, Lab results: 10/12/2018 6:47 EDT Potassium POC 3.9 mmol/L . Impression and Plan Condition: Stable. documented in this encounter Plan of Treatment Not on file documented as of this encounter Visit Diagnoses Not on filedocumented in this encounter
--- OUTSIDE RECORDS SUMMARY | 2024-08-09 09:05 | XMS_ITS | Encounter Summary ---
Author Organization [employer] Address [address] [place] [address] Care Team Providers Care Product Trainer Name Role Phone Unavailable Primary Care Provider Unavailabl e Encounter Details Date Type Department Care Team (Late st Contact Info) Description 10/12/2018 Transcribed Document [facility] [place] [facility] [address] ProviderSymone [place] [address] Social History Tobacco Use Types [...] Conversion Note - Symone ProviderMD - 10/12/2018 9:06 AM CDT [facility] Main OR PostOp Summary Primary Physician: ADAM PAREDES MD-URO Finalized Date/Time: 10/12/18 11:46:05 Pt. Name: YUE THRASHER /Sex: 1960 Female Med Rec #: [id number] Physician: ADAM PAREDES MD-URO Financial #: [id number] Pt. Type: O Room/Bed: /3 Admit/Disch: 10/12/18 05:25:00 - Institution: [facility] Main OR PostOp Case Times Entry 1 In PACU II 10/12/18 10:25:00 Ready for PACU II 10/12/18 11:45:00 Discharge Discharge from PACU 10/12/18 11:18:00 II Last Modified By: THALIA SAMUELS, BETZY 10/12/18 11:46:03 [facility] Main OR PostOp Case Times Audit 10/12/18 11:46:03 Roundsman: ARELI Modifier: CALVERSM <+> 1 Ready for PACU II Discharge <+> 1 In PACU II Finalized By: THALIA SAMUELS RN Document Signatures Signed By: THALIA SAMUELS RN 10/12/18 11:46 Electronically signed by Aurea [facility] Conversion Director Regulatory Agency Cerner at 06/03/2022 5:16 PM CDT documented in this encounter Plan of Treatment Not on file documented as of this encounter Visit Diagnoses Not on filedocumented in this encounter
--- OUTSIDE RECORDS SUMMARY | 2024-08-09 09:05 | XMS_ITS | Encounter Summary ---
Author Organization [employer] Address [address] [place] [address] Care Team Providers Care Hotel Supplies Salesperson Name Role Phone Unavailable Primary Care Provider Unavailabl e Encounter Details Date Type Department Care Team (Late st Contact Info) Description 10/12/2018 Transcribed Document [facility] [place] [facility] [place] [address] ProviderSymone MD [address] [place] [address] Social History Tobacco Use Types [...] Note - Symone Malloy MD - 10/12/2018 11:04 AM CDT Patient Education Materials Follows: Outpatient Surgery, Adult, Care After These instructions [...] and water are not available, use hand special effects artist. ? Change your dressing as told by [...] or a bad smell. Medicines ??? Take [id number] and prescription medicines only as told by [...] 05/26/2016 Document Revised: 09/11/2017 Document Reviewed: 05/26/2016 [employer] Interactive Patient Education ? 2019 [employer] Nephrology Lithotripsy, Care After This sheet gives you [...] may continue to pass for up to 4?8 weeks. ? If you have severe pain [...] these instructions at home: Medicines ??? Take [id number] and prescription medicines only as told by [...] ??? Most people can resume normal activities 1?2 days after the procedure. Ask your health [...] ??? Most people can resume normal activities 1?2 days after the procedure. Ask your health [...] 02/23/2008 Document Revised: 12/25/2016 Document Reviewed: 12/25/2016 [employer] Interactive Patient Education ? 2019 [employer] documented in this encounter Plan of Treatment Not on file documented as of this encounter Visit Diagnoses Not on filedocumented in this encounter
--- OUTSIDE RECORDS SUMMARY | 2024-08-09 09:05 | XMS_ITS | Encounter Summary ---
Author Organization [employer] Address [address] [place] [address] Care Team Providers Care Unit Coordinator Name Role Phone Unavailable Primary Care Provider Unavailabl e Encounter Details Date Type Department Care Team (Late st Contact Info) Description 10/12/2018 Transcribed Document [facility] [place] Family Medicine [facility] [address] ProviderSymone MD [facility] [place] [address] Social History Tobacco Use Types [...] Symone ProviderMD - 10/12/2018 9:06 AM CDT [facility] Main OR PACU Summary Primary Physician: ADAM PAREDES MD-URO Finalized Date/Time: 10/12/18 10:27:14 Pt. Name: YUE THRASHER /Sex: 1960 Female Med Rec #: [id number] Physician: ADAM PAREDES MD-URO Financial #: [id number] Pt. Type: O Room/Bed: /3 Admit/Disch: 10/12/18 05:25:00 - Institution: [facility] Main OR PACU I Case Times Entry 1 In PACU I 10/12/18 09:58:00 Ready for PACU 10/12/18 10:22:00 Discharge Discharge from PACU 10/12/18 10:22:00 I Last Modified By: IRWIN SANCHEZ, BETZY 10/12/18 10:27:06 [facility] Main OR PACU I Case Times Audit 10/12/18 10:27:06 Shirt Closer: [id number] Modifier: [id number] <+> 1 Ready for PACU Discharge <+> 1 Discharge from PACU I Finalized By: IRWIN SANCHEZ RN Document Signatures Signed By: IRWIN SANCHEZ RN 10/12/18 10:27 Electronically signed by Aurea [facility] Conversion Data Center Operator Cerner at 06/03/2022 5:19 PM CDT documented in this encounter Plan of Treatment Not on file documented as of this encounter Visit Diagnoses Not on filedocumented in this encounter
--- OUTSIDE RECORDS SUMMARY | 2024-08-09 09:05 | XMS_ITS | Clinical Summary ---
Author Organization [employer] Address [address] [place] [address] Care Team Providers Care Qualifications Examiner Name Role Phone Unavailable Primary Care Provider [...]
--- OUTSIDE RECORDS SUMMARY | 2024-08-09 09:05 | XMS_ITS | Encounter Summary ---
Author Organization [employer] Address [address] [place] [address] Care Team Providers Care Helicopter Engineer Name Role Phone Unavailable Primary Care Provider Unavailabl e Encounter Details Date Type Department Care Team (Late st Contact Info) Description 10/12/2018 Transcribed Document [facility] Family Medicine [facility] [place] [address] ProviderSymone MD [place] [address] Social History Tobacco Use Types [...] Symone ProviderMD - 10/12/2018 9:06 AM CDT [facility] Main OR IntraOp Summary Primary Physician: ADAM PAREDES MD-URO Finalized Date/Time: 10/13/18 10:40:09 Pt. Name: YUE THRASHER /Sex: 1960 Female Med Rec #: [id number] Physician: ADAM PAREDES MD-URO Financial #: [id number] Pt. Type: O Room/Bed: /3 Admit/Disch: 10/12/18 05:25:00 - 10/12/18 11:18:00 Institution: [facility] IntraOp Case Attendance Entry 1 Entry 2 Entry 3 Case Attendee ADAM PAREDES Burdine, Teresa A, Rn Madden, Jerrild MD-URO Role Performed Surgeon/Proceduralist, Picker And Sorter Load And Unload, First Aerial Planting And Cultivation Manager, Ancillary First Time In 10/12/18 08:34:00 10/12/18 08:34:00 10/12/18 08:34:00 Time Out 10/12/18 09:56:00 10/12/18 09:56:00 10/12/18 09:56:00 Procedure Extracorporeal Extracorporeal Extracorporeal Shockwave Shockwave Shockwave Lithotripsy(Right) Lithotripsy(Right) Lithotripsy(Right) Other Attendee ESWL Superficial Wound Closed By: Last Modified By: Diane Busch Rn Burdine, Teresa A, Rn Burdine, Teresa A, Rn 10/12/18 09:58:59 10/12/18 09:58:59 10/12/18 09:58:59 Entry 4 Entry 5 Case Attendee ELADIO TOVAR, OTHER, ATTENDEE #1 RICHARD Role Performed Anesthesiologist Student Time In 10/12/18 08:34:00 10/12/18 08:34:00 Time Out 10/12/18 09:56:00 10/12/18 09:56:00 Procedure Extracorporeal Extracorporeal Shockwave Shockwave Lithotripsy(Right) Lithotripsy(Right) Other Attendee ESWL HAPPY JEAN MARIE Superficial Wound Closed By: Last Modified By: Diane Busch Rn Burdine, Teresa A, Rn 10/12/18 09:58:59 10/12/18 09:58:59 [facility] IntraOp Case Attendance Audit 10/12/18 09:58:59 City Magistrate: [id number] Modifier: [id number] 1 <+> Time Out 1 <*> Procedure Extracorporeal Shockwave Lithotripsy(Right) 2 <+> Time Out 2 <*> Procedure Extracorporeal Shockwave Lithotripsy(Right) 3 <+> Time Out 3 <*> Procedure Extracorporeal Shockwave Lithotripsy(Right) 4 <+> Time Out 4 <*> Procedure Extracorporeal Shockwave Lithotripsy(Right) 5 <+> Time Out 5 <*> Procedure Extracorporeal Shockwave Lithotripsy(Right) 10/12/18 08:56:55 City Magistrate: [id number] Modifier: [id number] <+> 1 Procedure 2 <*> Procedure Extracorporeal Shockwave Lithotripsy(Right) 3 <*> Procedure Extracorporeal Shockwave Lithotripsy(Right) 4 <*> Procedure Extracorporeal Shockwave Lithotripsy(Right) 5 <*> Procedure Extracorporeal Shockwave Lithotripsy(Right) 10/12/18 08:56:30 City Magistrate: [id number] Modifier: [id number] <*> Procedure Extracorporeal Shockwave Lithotripsy(Right) 3 <+> Time In 3 <*> Procedure Extracorporeal Shockwave Lithotripsy(Right) 4 <+> Time In 4 <*> Procedure Extracorporeal Shockwave Lithotripsy(Right) 5 <+> Time In 5 <*> Procedure Extracorporeal Shockwave Lithotripsy(Right) 10/12/18 08:52:13 City Magistrate: [id number] Modifier: [id number] <+> 1 Time In 2 <+> Time In 2 <*> Procedure Extracorporeal Shockwave Lithotripsy(Right) <+> 3 Case Attendee <+> 3 Role Performed <+> 3 Procedure <+> 3 Other Attendee <+> 4 Case Attendee <+> 4 Role Performed <+> 4 Procedure <+> 5 Case Attendee <+> 5 Role Performed <+> 5 Procedure <+> 5 Other Attendee [facility] IntraOp Case Times Entry 1 Patient In Room Time 10/12/18 08:34:00 Out Room Time 10/12/18 09:56:00 Anesthesia Start Time 10/12/18 08:34:00 Stop Time 10/12/18 09:56:00 Surgery / Procedure Times Start Time 10/12/18 09:06:00 Stop Time 10/12/18 09:51:00 Last Modified By: Diane Busch Rn 10/12/18 09:58:47 [facility] IntraOp Case Times Audit 10/12/18 09:58:47 City Magistrate: [id number] Modifier: [id number] <+> 1 Out Room Time <+> 1 Stop Time <+> 1 Stop Time 10/12/18 09:12:12 City Magistrate: [id number] Modifier: [id number] <+> 1 Start Time [facility] IntraOp Communication Entry 1 Entry 2 Communication To Family/Significant other Family/Significant other Comment START FINISHING ESWL Communication By iDane Busch Rn Burdine, Teresa A, Rn Date and Time 10/12/18 09:10:00 10/12/18 09:50:00 Last Modified By: Diane Busch Rn Burdine, Teresa A, Rn 10/12/18 09:12:59 10/12/18 09:50:12 [facility] IntraOp Communication Audit 10/12/18 09:50:12 City Magistrate: [id number] Modifier: [id number] <+> 2 Communication By <+> 2 Date and Time <+> 2 Communication To <+> 2 Comment [facility] IntraOp Delays Entry 1 Delay Reason Surgeon late - no reason Duration 34 Minute(s) Last Modified By: Diane Busch Rn 10/12/18 08:52:54 [facility] IntraOp Delays Audit 10/12/18 08:52:54 City Magistrate: [id number] Modifier: [id number] <+> 1 Duration [facility] IntraOp Departure from OR Entry 1 Integumentary Assessment Integumentary WDL Assessment WDL Transfer/Handoff Transfer to PACU Phase I Handoff Method Phone call Post-op Transport Heena/Vargas Via Patient Transport ELADIO TOVAR, Accompanied by Narayan RAMOS Teresa A, Rn Last Modified By: Diane Busch Rn 10/12/18 08:53:10 [facility] IntraOp Fire Risk Assessment Entry 1 Fire Info Surgical Site or 0- No Incision Above the Xyphoid Open O2 Source 0- No (Mask or Cannula) Available Ignition 0- No (ESU, Laser, Light Source) Fire Risk 0 Assessment Score Fire Score Fire Risk Yes Assessment Complete Fire Risk Diane Busch Rn Assessment Verified By Fire Risk 10/12/18 08:34:00 Assessment Verified Date/Time Fire Risk Standard Fire Yes Safety Precautions Followed Last Modified By: Diane Busch Rn 10/12/18 08:53:20 [facility] IntraOp General Case Transmission Specialist 1 Case Information OR OR 19 [facility] Case Level 1 Room Verified Yes Wound Class II - Clean-Contaminated Specialty SN Urology Anesthesia Type General ASA Class 2 Diagnosis Preop Diagnosis RIGHT RENAL STONE Postop Same As Preop No Postop Diagnosis SEE MD POST OP NOTE Last Modified By: Diane Busch Rn 10/12/18 08:54:58 [facility] IntraOp General Case Data Audit 10/12/18 08:54:58 City Magistrate: [id number] Modifier: [id number] <+> 1 Room Verified 10/12/18 08:54:17 City Magistrate: [id number] Modifier: [id number] 1 <*> Postop Same As Preop Yes 1 <+> Preop Diagnosis 1 <+> Postop Diagnosis [facility] IntraOp Intraoperative Assessment Entry 1 Handoff Reported to Diane Busch Rn Handoff Method Bedside/Face to face Valid History / Yes Physical in Chart Preoperative Yes Checklist Reviewed/Evaluated Allergies Reviewed Yes Patient is Latex No Sensitive Isolation Not applicable Precautions Noted Level of WDL Consciousness (WDL = Alert, Oriented to Person, Place, and Time) Skin Assessment No Verified Present Upon IVs Arrival to OR Last Modified By: Diane Busch Rn 10/12/18 08:54:49 [facility] IntraOp Intraoperative Equipment Entry 1 Type Equipment Equipment Equipment Lithotripsy Machine Intraop Monitoring Electrocardiogram Three lead placement (ECG) Electrode Placement Blood Pressure Non-Invasive BP Device Source Blood Pressure Arm, right upper Location Pulse Oximeter Hand, left Probe Site Antiembolic Devices Antiembolic Devices Sequential compression device, knee high Antiembolic Device Bilateral Location Antiembolic Device [id number] ID Number Antiembolic Device 43 [id number] Setting Scopes Photo/Video Documentation Photo No Video No Last Modified By: Diane Busch Rn 10/12/18 08:55:57 [facility] IntraOp Patient Positioning Entry 1 Procedure Extracorporeal Shockwave Lithotripsy(Right) Body Position Supine Left Arm Position Tucked and padded at side Right Arm Position Tucked and padded at side Left Leg Position Uncrossed, parallel Right Leg Position Uncrossed, parallel Feet Uncrossed Yes Pressure Points Yes Checked Positioning Devices Head Rest, Pad, Elbow, Pad, Elbow, Safety Strap, Chest, Wedge, Pillows, Table, Cysto Device Position Wedge placed under knees; pillow(s) placed under feet/ankles Positioned By ADAM PAREDES MD-URO, Diane Busch Rn, ELADIO TOVAR MD-ANS, Carlyn Chatman Position Verified Positioning Yes Verified by Anesthesia Positioning Yes Verified by Surgeon Last Modified By: Diane Busch Rn 10/12/18 08:56:17 [facility] IntraOp Sign In Entry 1 Patient, Site, Yes Procedure Identified Surgical Consent Yes Confirmed Relevant Surgical Yes Documents Available Surgical Site Yes Marked by person performing procedure Anesthesia Machine Yes Check Completed Medication Checks Yes Completed Allergies Yes Airway Difficult Yes Airway/Aspiration Risk Difficult Yes Airway/Aspiration Intervention Equipment Available Blood Loss Risk Yes Blood Loss Yes Intervention Equipment Prepared and Ready Blood Identifiers Not applicable Verified Per Policy Hypothermia Risk Yes Warming Measures Yes Taken Last Modified By: Diane Busch Rn 10/12/18 08:56:27 [facility] IntraOp Sign Out Entry 1 RN Confirmation Surgical Yes Procedure(s) Identified Instrument, Sponge N/A and Sharps Counts Correct/Documented Equipment Problems N/A Documented Specimen Labeled N/A Correctly Surgery Estimated 0 mL Blood Loss Urinary Catheter N/A Documented in IView James Patient Yes Recovery Concerns Reviewed with Anesthesia Provider, Surgeon and RN James Patient Yes Management Concerns Reviewed with Anesthesia Provider, Surgeon and RN Safety Checklist Yes Elements Complete? RN Sign Out Diane Busch Rn Signature RN Sign Out 10/12/18 09:58:00 Signature Date/Time Plan of Care Outcome - Fire Risk OUTCOME STATEMENT: Goal met Patient is free from injury related to surgical fire Plan of Care Outcome - Pt Positioning OUTCOME STATEMENT: Goal met Absence of signs and symptoms of positioning injury. Plan of Care Outcome - Skin Prep OUTCOME STATEMENT: Goal met Intraoperative care is consistent with measures to prevent infection Plan of Care Outcome - Xray/Images OUTCOME STATEMENT: Goal met Absence of observable signs or symptoms of radiation injury Plan of Care Outcome - Counts OUTCOME STATEMENT: Goal met Absence of signs and symptoms of injury related to extraneous objects Last Modified By: Diane Busch Rn 10/12/18 09:58:55 [facility] IntraOp Sign Out Audit 10/12/18 09:58:55 City Magistrate: [id number] Modifier: [id number] <+> 1 RN Sign Out Signature Date/Time [facility] IntraOp Surgical Procedures Entry 1 Procedure Extracorporeal Shockwave Lithotripsy Modifiers Right Additional (RT ESWL) Procedure Description Primary Procedure Yes Primary Surgeon ADAM PAREDES MD-URO Start 10/12/18 09:06:00 Stop 10/12/18 09:51:00 Anesthesia Type General Specialty SN Urology Wound Class II - Clean-Contaminated Last Modified By: Diane Busch Rn 10/12/18 09:58:57 [facility] IntraOp Surgical Procedures Audit 10/12/18 09:58:57 City Magistrate: [id number] Modifier: [id number] <+> 1 Stop 10/12/18 09:31:42 City Magistrate: [id number] Modifier: [id number] <+> 1 Start [facility] IntraOp Temp Regulation Devices Entry 1 Temp Regulation Temperature Warm blankets, Forced Regulation Device Air Warming device Temperature Upper body Regulation Site Temperature Patient's temperature Regulation Comment monitored by anesthesia provider. Forced air warming device available for use. Last Modified By: Diane Busch Rn 10/12/18 08:57:08 [facility] IntraOP Time Out Entry 1 Procedure to be Extracorporeal Performed Shockwave Lithotripsy(Right) Time Out Time Out Pause Time 10/12/18 08:53:00 All activity Yes suspended (unless life threatening emergency) Team Verbally Correct patient Confirms Information identity, Consent form is present and accurate, Agreement on the procedure to be done, Correct patient position, Relevant images/results properly labeled/appropriately displayed, Confirm antibiotics have been administered Antibiotic Yes Prophylaxis Administered Or In Progress Within the Last 60 Minutes Beta Charisse N/A Administered Venous Yes Thromboembolism Prophylaxis Required Anticipated Critical Events Surgeon None expected Anesthesia Provider Patient specific concerns, None expected Nursing Assures Sterility of instruments, Equipment concerns or issues Essential Imaging Yes Labeled and Displayed Last Modified By: Diane Busch Rn 10/12/18 08:57:52 Case Comments <None> Finalized By: TALIA RO Document Signatures Signed By: Diane Busch Rn 10/12/18 09:59 TALIA RO 10/13/18 10:40 Unfinalized History Date/Time Username Reason for Unfinalizing Freetext Reason for Unfinalizing 10/13/18 10:39 WATMILADISDR Correct Billing documented in this encounter Plan of Treatment Not on file documented as of this encounter Visit Diagnoses Not on filedocumented in this encounter
== END 2024-08-05 23:59 | disposition home or self-care (01) ==
LOC: LAB.DROPOF 08-09 08:54
PROVIDERS: PCP Family Medicine; Visit Provider Family Medicine
DX: Z00.00 Encounter for general adult medical examination without abnormal findings (principal); Z11.59 Encounter for screening for other viral diseases
CPT/HCPCS: 80053; 80061; 82306; 83036; 83880; 84443; 85025; 86803; 87340; 87389

== ENCOUNTER 2024-08-30 14:35 | Outpatient (CLI) | payer MEDICARE, MEDICAID, SELFPAY ==
--- OUTSIDE RECORDS SUMMARY | 2024-08-30 14:38 | XMS_ITS | Encounter Summary ---
Author Organization [employer] ([place], [place], [place], [place]) Address [address] [place] [address] Care Team Providers Care Development Professional Name Role Phone Unavailable Primary Care Provider Unavailabl e Encounter Details Date Type Department Care Team (Late st Contact Info) Description 10/12/2018 Transcribed Document [facility] [place] [facility] [place] [address] ProviderSymone MD [address] [place] [address] Social History Tobacco Use Types [...] Malloy MD - 10/12/2018 11:08 AM CDT [facility] [place], [place] [id number] YUE THRASHER LAURA :1960 Visit Time:10/12/2018 What [...] Follow up in three weeks in [place] with ALEA Follow-Up Appointments Follow Up with ADAM PAREDES When 11/03/2018 01:00 PM EDT Comments Appointment has been made Where: [address] [facility] [address] [place] [address]- [facility] (1) Medications What How Much When Instructions [...] and water are not available, use hand commercial pilot. ? Change your dressing as told by [...] or a bad smell. Medicines ??? Take icyu-tua-mjbhjnp and prescription medicines only as told by [...] 05/26/2016 Document Revised: 09/11/2017 Document Reviewed: 05/26/2016 [employer] Patient Education ?? 2019 [employer]. Lithotripsy, Care After This sheet gives you [...] these instructions at home: Medicines ??? Take vysp-zsf-olzmlkw and prescription medicines only as told by [...] 02/23/2008 Document Revised: 12/25/2016 Document Reviewed: 12/25/2016 [employer] Patient Education ?? 2019 [employer]. ondansetron (oral) (on JIMBO se jazmín) Manda [...] may report side effects to FDA at 8-835-GRA-5273. What other drugs will affect ondansetron? Ondansetron [...] interact with ondansetron. This includes prescription and kfsi-aok-trjzhnf medicines, vitamins, and herbal products. Give a [...] to ensure that the information provided by [facility]. ('[employer]') is accurate, up-to-date, and complete, but no guarantee is made to that effect. Drug information contained herein may be time sensitive. [employer] information has been compiled for use by healthcare practitioners and consumers in the [place] and therefore [employer] does not warrant that uses outside of the [place] are appropriate, unless specifically indicated otherwise. [employer]'s drug information does not endorse drugs, diagnose patients or recommend therapy. [employer] drug information is an informational resource designed [...] effective or appropriate for any given patient. [employer] does not assume any responsibility for any aspect of healthcare administered with the aid of information [employer] provides. The information contained herein is not intended to cover all possible uses, directions, precautions, warnings, drug interactions, allergic reactions, or adverse effects. If you have questions about the drugs you are taking, check with your doctor, nurse or pharmacist. Copyright 6319-7729 [facility]. Version: 13.01. Revision Date: 12/08/2015. sulfamethoxazole and [...] potassium in your blood; ?? porphyria, or yoqiyzk-0-axptaoomh dehydrogenase (G6PD) deficiency; or ?? if you [...] may report side effects to FDA at 2-189-FRI-5235. What other drugs will affect sulfamethoxazole and [...] sulfamethoxazole and trimethoprim. This includes prescription and poef-jdt-swayyug medicines, vitamins, and herbal products. Not all [...] to ensure that the information provided by [facility]. ('[employer]') is accurate, up-to-date, and complete, but no guarantee is made to that effect. Drug information contained herein may be time sensitive. [employer] information has been compiled for use by healthcare practitioners and consumers in the [place] and therefore [employer] does not warrant that uses outside of the [place] are appropriate, unless specifically indicated otherwise. [employer] drug information does not endorse drugs, diagnose patients or recommend therapy. [employer] drug information is an informational resource designed [...] effective or appropriate for any given patient. [employer] does not assume any responsibility for any aspect of healthcare administered with the aid of information [employer] provides. The information contained herein is not intended to cover all possible uses, directions, precautions, warnings, drug interactions, allergic reactions, or adverse effects. If you have questions about the drugs you are taking, check with your doctor, nurse or pharmacist. Copyright 7857-9935 [facility]. Version: 9.01. Revision Date: 04/24/2018. acetaminophen and hydrocodone (a SEET a MIN oh fen and cierra droe KOE done) Hycet, Lorcet, Bertha, Verdrocet, Vicodin, Xodol, Zamicet What is the [...] may report side effects to FDA at 1-776-RMF-7072. What other drugs will affect acetaminophen and [...] affect acetaminophen and hydrocodone, including prescription and hdex-dew-lbrqtwe medicines, vitamins, and herbal products. Not all [...] to ensure that the information provided by [facility]. ('[employer]') is accurate, up-to-date, and complete, but no guarantee is made to that effect. Drug information contained herein may be time sensitive. [employer] information has been compiled for use by healthcare practitioners and consumers in the [place] and therefore [employer] does not warrant that uses outside of the [place] are appropriate, unless specifically indicated otherwise. [employer] drug information does not endorse drugs, diagnose patients or recommend therapy. [employer] drug information is an informational resource designed [...] effective or appropriate for any given patient. [employer] does not assume any responsibility for any aspect of healthcare administered with the aid of information [employer] provides. The information contained herein is not intended to cover all possible uses, directions, precautions, warnings, drug interactions, allergic reactions, or adverse effects. If you have questions about the drugs you are taking, check with your doctor, nurse or pharmacist. Copyright 3228-7421 [facility]. Version: 15.02. Revision Date: 12/22/2017. Emergency Awareness [...] Assistance with quitting is available by contacting 5-317-XKQB-NOW. This is a free resource providing counseling, support, and referral. Or you may contact your personal physician. [place] Suicide Prevention Lifeline: The National Suicide Prevention [...] CPR? There are two easy steps: Call 9-1-1 if you see a teen or adult [...] was given the opportunity to ask questions. Patient/Valet Parker Name: Patient/Valet Parker Signature: Relationship to Patient: Clinician/Hospital Valet Parker Signature: Date: documented in this encounter Plan of Treatment Not on file documented as of this encounter Visit Diagnoses Not on filedocumented in this encounter
--- OUTSIDE RECORDS SUMMARY | 2024-08-30 14:38 | XMS_ITS | Clinical Summary ---
Author Organization [employer] ([place], [place], [place], [place]) Address [address] [place] [address] Care Team Providers Care Improvement Manager Name Role Phone Unavailable Primary Care Provider [...]
--- OUTSIDE RECORDS SUMMARY | 2024-08-30 14:38 | XMS_ITS | Encounter Summary ---
Author Organization [employer] ([place], [place], [place], [place]) Address [address] [place] [address] Care Team Providers Care Payment Processor Name Role Phone Unavailable Primary Care Provider Unavailabl e Encounter Details Date Type Department Care Team (Late st Contact Info) Description 10/12/2018 Transcribed Document [facility] [place] [facility] [place] [address] ProviderSymone MD [address] [place] [address] Social History Tobacco Use Types Packs/Day [...] will follow up in three weeks in [place] with a KUB. Juan Brooks M.D. Dict: 10/12/2018 10:02:32 Trans: 10/12/2018 12:42:30 CC1: Juan Brooks M.D. documented in this encounter Plan of Treatment Not on file documented as of this encounter Visit Diagnoses Not on filedocumented in this encounter
--- OUTSIDE RECORDS SUMMARY | 2024-08-30 14:38 | XMS_ITS | Encounter Summary ---
Author Organization [employer] ([place], [place], [place], [place]) Address [address] [place] [address] Care Team Providers Care Bronzer Name Role Phone Unavailable Primary Care Provider Unavailabl e Encounter Details Date Type Department Care Team (Late st Contact Info) Description 2018 Transcribed Document [facility] [facility] [place] [address] ProviderSymone MD [address] [place] [address] Social History Tobacco Use Types Packs/Day Years Used Date Smoking Tobacco: Never Assessed Comments Unknown Sex and Gender Information Value Date Recorded Sex Assigned at Unknown 08/14/2021 8:34 PM CDT Legal Sex Female 8:34 PM CDT Gender Identity Not on file Sexual Orientation Not on file documented as of this encounter Miscellaneous Notes * Cerner Conversion Note - Historical ProviderMD - 2018 3:50 PM CDT PAT Adult Entered On: 2018 15:54 EDT Performed On: 2018 15:50 EDT by Becca Ventura RN Height and Weight, Clinical Dosing Height Source : Measured Height Entry Format : Jasper Height, Feet : 5 ft(Converted to: 152 cm, 60 Inch) Height, Inches : 2 Inch(Converted to: 0 ft 2 Inch, 5.08 cm) Clinical Height : 157.48 cm Weight Source : Standing scale Weight Entry Format : Jasper Clinical Dosing Weight : 89.09 kg Weight, Pounds : 196 lb Body Surface Area (BSA) : 1.9 m2 Body Mass Index : 35.9 kg/m2 ([place]) [place] Body Weight : 50 kg HERI DE [...] Contact Information : [place] elizabeth mom here BETHELMEGHANNHERI - 10/12/2018 6:39 EDT Support Person/Pt Rep Name : Lupe Doshi [phone] Want Family/Rep/Phys Notified of Admit : No Emergency Contact #1 : x Emergency Contact #1 Phone Number : x Emergency Contact #1 Relationship : x Emergency Contact #2 : x Emergency Contact #2 Phone Number : x Emergency Contact #2 Relationship : x Primary Language : Scottish Communication Barrier : None Becca Ventura RN [...] Becca Ventura RN - 2018 15:50 EDT documented in this encounter Plan of Treatment Not on file documented as of this encounter Visit Diagnoses Not on filedocumented in this encounter
--- OUTSIDE RECORDS SUMMARY | 2024-08-30 14:38 | XMS_ITS | Referral Summary ---
Author Organization [employer] ([place], [place], [place], [place]) Address [address] [place] [address] Care Team Providers Care Drawing Machine Operator Name Role Phone Unavailable Primary Care Provider [...]
--- OUTSIDE RECORDS SUMMARY | 2024-08-30 14:38 | XMS_ITS | Encounter Summary ---
Author Organization [employer] ([place], [place], [place], [place]) Address [address] [place] [address] Care Team Providers Care Pipe Coverer And Insulator Name Role Phone Unavailable Primary Care Provider Unavailabl e Encounter Details Date Type Department Care Team (Late st Contact Info) Description 10/12/2018 Transcribed Document [facility] [place] Medicine [facility] [place] [address] ProviderSymone MD [address] [place] [address] Social History Tobacco Use Types [...] Symone ProviderMD - 10/12/2018 9:06 AM CDT [facility] Main OR PACU Summary Primary Physician: ADAM PAREDES MD-URO Finalized Date/Time: 10/12/18 10:27:14 Pt. Name: WALKER YUE LEE /Sex: 1960 Female Med Rec #: [id number] Physician: ADAM PAREDES MD-URO Financial #: [id number] Pt. Type: O Room/Bed: /3 Admit/Disch: 10/12/18 05:25:00 - Institution: [facility] Main OR PACU I Case Times Entry 1 In PACU I 10/12/18 09:58:00 Ready for PACU 10/12/18 10:22:00 Discharge Discharge from PACU 10/12/18 10:22:00 I Last Modified By: IRWIN SANCHEZ RN 10/12/18 10:27:06 [facility] Main OR PACU I Case Times Audit 10/12/18 10:27:06 Infant Childcare Provider: [id number] Modifier: [id number] <+> 1 Ready for PACU Discharge <+> 1 Discharge from PACU I Finalized By: IRWIN SANCHEZ RN Document Signatures Signed By: IRWIN SANCHEZ RN 10/12/18 10:27 Electronically signed by Aurea [facility] Conversion Dragline Operator Helper Cerner at 06/03/2022 5:19 PM CDT documented in this encounter Plan of Treatment Not on file documented as of this encounter Visit Diagnoses Not on filedocumented in this encounter
--- OUTSIDE RECORDS SUMMARY | 2024-08-30 14:38 | XMS_ITS | Encounter Summary ---
Author Organization [employer] ([place], [place], [place], [place]) Address [address] [place] [address] Care Team Providers Care Continuous Drier Operator Name Role Phone Unavailable Primary Care Provider Unavailabl e Encounter Details Date Type Department Care Team (Late st Contact Info) Description 10/12/2018 Transcribed Document [facility] [place] Family Medicine [facility] [place] [address] ProviderSymone MD [facility] [place] [address] Social History Tobacco Use Types [...] Symone ProviderMD - 10/12/2018 9:06 AM CDT [facility] Main OR IntraOp Summary Primary Physician: ADAM PAREDES MD-URO Finalized Date/Time: 10/13/18 10:40:09 Pt. Name: YUE CARDOSO LAURA /Sex: 1960 Female Med Rec #: [id number] Physician: ADAM PAREDES MD-URO Financial #: [id number] Pt. Type: O Room/Bed: /3 Admit/Disch: 10/12/18 05:25:00 - 10/12/18 11:18:00 Institution: [facility] IntraOp Case Attendance Entry 1 Entry 2 Entry 3 Case Attendee ADAM PAREDES, Diane Busch, Rn Carlyn Chatman MD-URO Role Performed Surgeon/Proceduralist, Pipe Finishing Supervisor, First Vehicle Cost Engineer, Ancillary First Time In 10/12/18 08:34:00 10/12/18 08:34:00 10/12/18 08:34:00 Time Out 10/12/18 09:56:00 10/12/18 09:56:00 10/12/18 09:56:00 Procedure Extracorporeal Extracorporeal Extracorporeal Shockwave Shockwave Shockwave Lithotripsy(Right) Lithotripsy(Right) Lithotripsy(Right) Other Attendee ESWL Superficial Wound Closed By: Last Modified By: Diane Busch Rn Burdine, Teresa A, Rn Burdine, Teresa A, Rn 10/12/18 09:58:59 10/12/18 09:58:59 10/12/18 09:58:59 Entry 4 Entry 5 Case Attendee CHICOVERNONCHALINOELADIO Robert, OTHER, ATTENDEE #1 RICHARD Role Performed Anesthesiologist Student Time In 10/12/18 08:34:00 10/12/18 08:34:00 Time Out 10/12/18 09:56:00 10/12/18 09:56:00 Procedure Extracorporeal Extracorporeal Shockwave Shockwave Lithotripsy(Right) Lithotripsy(Right) Other Attendee ESWL HAPPY JEAN MARIE Superficial Wound Closed By: Last Modified By: Diane Busch Rn Burdine, Teresa A, Rn 10/12/18 09:58:59 10/12/18 09:58:59 [facility] IntraOp Case Attendance Audit 10/12/18 09:58:59 Decorating Machine Operator: [id number] Modifier: [id number] 1 <+> Time Out 1 <*> Procedure Extracorporeal Shockwave Lithotripsy(Right) 2 <+> Time Out 2 <*> Procedure Extracorporeal Shockwave Lithotripsy(Right) 3 <+> Time Out 3 <*> Procedure Extracorporeal Shockwave Lithotripsy(Right) 4 <+> Time Out 4 <*> Procedure Extracorporeal Shockwave Lithotripsy(Right) 5 <+> Time Out 5 <*> Procedure Extracorporeal Shockwave Lithotripsy(Right) 10/12/18 08:56:55 Decorating Machine Operator: [id number] Modifier: [id number] <+> 1 Procedure 2 <*> Procedure Extracorporeal Shockwave Lithotripsy(Right) 3 <*> Procedure Extracorporeal Shockwave Lithotripsy(Right) 4 <*> Procedure Extracorporeal Shockwave Lithotripsy(Right) 5 <*> Procedure Extracorporeal Shockwave Lithotripsy(Right) 10/12/18 08:56:30 Decorating Machine Operator: [id number] Modifier: [id number] 2 <*> Procedure Extracorporeal Shockwave Lithotripsy(Right) 3 <+> Time In 3 <*> Procedure Extracorporeal Shockwave Lithotripsy(Right) 4 <+> Time In 4 <*> Procedure Extracorporeal Shockwave Lithotripsy(Right) 5 <+> Time In 5 <*> Procedure Extracorporeal Shockwave Lithotripsy(Right) 10/12/18 08:52:13 Decorating Machine Operator: [id number] Modifier: [id number] <+> 1 Time In 2 <+> Time In 2 <*> Procedure Extracorporeal Shockwave Lithotripsy(Right) <+> 3 Case Attendee <+> 3 Role Performed <+> 3 Procedure <+> 3 Other Attendee <+> 4 Case Attendee <+> 4 Role Performed <+> 4 Procedure <+> 5 Case Attendee <+> 5 Role Performed <+> 5 Procedure <+> 5 Other Attendee [facility] IntraOp Case Times Entry 1 Patient In Room Time 10/12/18 08:34:00 Out Room Time 10/12/18 09:56:00 Anesthesia Start Time 10/12/18 08:34:00 Stop Time 10/12/18 09:56:00 Surgery / Procedure Times Start Time 10/12/18 09:06:00 Stop Time 10/12/18 09:51:00 Last Modified By: Diane Bsuch Rn 10/12/18 09:58:47 [facility] IntraOp Case Times Audit 10/12/18 09:58:47 Decorating Machine Operator: [id number] Modifier: [id number] <+> 1 Out Room Time <+> 1 Stop Time <+> 1 Stop Time 10/12/18 09:12:12 Decorating Machine Operator: [id number] Modifier: [id number] <+> 1 Start Time [facility] IntraOp Communication Entry 1 Entry 2 Communication To Family/Significant other Family/Significant other Comment START FINISHING ESWL Communication By Diane Busch Rn Burdine, Teresa A, Rn Date and Time 10/12/18 09:10:00 10/12/18 09:50:00 Last Modified By: Diane Busch Rn Burdine, Teresa A, Rn 10/12/18 09:12:59 10/12/18 09:50:12 [facility] IntraOp Communication Audit 10/12/18 09:50:12 Decorating Machine Operator: [id number] Modifier: [id number] <+> 2 Communication By <+> 2 Date and Time <+> 2 Communication To <+> 2 Comment [facility] IntraOp Delays Entry 1 Delay Reason Surgeon late - no reason Duration 34 Minute(s) Last Modified By: Diane Busch Rn 10/12/18 08:52:54 [facility] IntraOp Delays Audit 10/12/18 08:52:54 Decorating Machine Operator: [id number] Modifier: [id number] <+> 1 Duration [facility] IntraOp Departure from OR Entry 1 Integumentary Assessment Integumentary WDL Assessment WDL Transfer/Handoff Transfer to PACU Phase I Handoff Method Phone call Post-op Transport Heena/Vargas Via Patient Transport ELADIO TOVAR, Accompanied by Narayan RAMOS Teresa A, Rn Last Modified By: Diane Busch Rn 10/12/18 08:53:10 [facility] IntraOp Fire Risk Assessment Entry 1 Fire [...] Modified By: Diane Busch Rn 10/12/18 08:53:20 [facility] IntraOp General Case Business Insight And Analytics Manager 1 Case Information OR OR 19 [facility] Case Level 1 Room Verified Yes Wound Class II - Clean-Contaminated Specialty SN Urology Anesthesia Type General ASA Class 2 Diagnosis Preop Diagnosis RIGHT RENAL STONE Postop Same As Preop No Postop Diagnosis SEE MD POST OP NOTE Last Modified By: Diane Busch Rn 10/12/18 08:54:58 [facility] IntraOp General Case Data Audit 10/12/18 08:54:58 Decorating Machine Operator: [id number] Modifier: [id number] <+> 1 Room Verified 10/12/18 08:54:17 Decorating Machine Operator: [id number] Modifier: [id number] 1 <*> Postop Same As Preop Yes 1 <+> Preop Diagnosis 1 <+> Postop Diagnosis [facility] IntraOp Intraoperative Assessment Entry 1 Handoff Reported [...] Modified By: Diane Busch Rn 10/12/18 08:54:49 [facility] IntraOp Intraoperative Equipment Entry 1 Type Equipment Equipment Equipment Lithotripsy Machine Intraop Monitoring Electrocardiogram Three lead placement (ECG) Electrode Placement Blood Pressure Non-Invasive BP Device Source Blood Pressure Arm, right upper Location Pulse Oximeter Hand, left Probe Site Antiembolic Devices Antiembolic Devices Sequential compression device, knee high Antiembolic Device Bilateral Location Antiembolic Device [id number] ID Number Antiembolic Device 43 MMHG Setting Scopes Photo/Video Documentation Photo No Video No Last Modified By: Diane Busch Rn 10/12/18 08:55:57 [facility] IntraOp Patient Positioning Entry 1 Procedure Extracorporeal [...] Modified By: Diane Busch Rn 10/12/18 08:56:17 [facility] IntraOp Sign In Entry 1 Patient, Site, [...] Modified By: Diane Busch Rn 10/12/18 08:56:27 [facility] IntraOp Sign Out Entry 1 RN Confirmation [...] Modified By: Diane Busch Rn 10/12/18 09:58:55 [facility] IntraOp Sign Out Audit 10/12/18 09:58:55 Decorating Machine Operator: [id number] Modifier: [id number] <+> 1 RN Sign Out Signature Date/Time [facility] IntraOp Surgical Procedures Entry 1 Procedure Extracorporeal Shockwave Lithotripsy Modifiers Right Additional (RT ESWL) Procedure Description Primary Procedure Yes Primary Surgeon ADAM PAREDES MD-URO Start 10/12/18 09:06:00 Stop 10/12/18 09:51:00 Anesthesia Type General Specialty SN Urology Wound Class II - Clean-Contaminated Last Modified By: Diane Busch Rn 10/12/18 09:58:57 [facility] IntraOp Surgical Procedures Audit 10/12/18 09:58:57 Decorating Machine Operator: [id number] Modifier: [id number] <+> 1 Stop 10/12/18 09:31:42 Decorating Machine Operator: [id number] Modifier: [id number] <+> 1 Start [facility] IntraOp Temp Regulation Devices Entry 1 Temp Regulation Temperature Warm blankets, Forced Regulation Device Air Warming device Temperature Upper body Regulation Site Temperature Patient's temperature Regulation Comment monitored by anesthesia provider. Forced air warming device available for use. Last Modified By: Diane Busch Rn 10/12/18 08:57:08 [facility] IntraOP Time Out Entry 1 Procedure to [...] Unfinalizing Freetext Reason for Unfinalizing 10/13/18 10:39 EVELYN Correct Billing documented in this encounter Plan of Treatment Not on file documented as of this encounter Visit Diagnoses Not on filedocumented in this encounter
--- OUTSIDE RECORDS SUMMARY | 2024-08-30 14:38 | XMS_ITS | Encounter Summary ---
Author Organization [employer] ([place], [place], [place], [place]) Address [address] [place] [address] Care Team Providers Care Hay Chopper Name Role Phone Unavailable Primary Care Provider Unavailabl e Encounter Details Date Type Department Care Team (Late st Contact Info) Description 10/12/2018 Transcribed Document [facility] [place] [facility] [place] [address] ProviderSymone MD [address] [place] [address] Social History Tobacco Use Types [...] Note - Symone Malloy MD - 10/12/2018 6:25 AM CDT Patient: YUE [...] Refill(s) azelastine 137 mcg/inh (0.1%) nasal spray: [place], Nasal, BID, 0 Refill(s) cetirizine: 10 mg, Oral, Daily, 0 Refill(s) gabapentin: 800 mg, Oral, QID, 0 Refill(s) hydroCHLOROthiazide-lisinopril 12.5 mg-10 mg oral tablet: 1 Tab, Oral, Daily, 0 Refill(s) raNITIdine: 150 mg, Oral, BID, 0 Refill(s) triamcinolone 55 mcg/inh nasal spray: [place], Nasal, Daily, 0 Refill(s), Home Medications (9) [...] All Problems Kidney stones / SNOMED CT 834702754 / Confirmed HTN (hypertension) / SNOMED CT 4448669624 / Confirmed HLD (hyperlipidemia) / SNOMED CT 44110966 / Confirmed Heart murmur / SNOMED CT 067964932 / Confirmed GERD (gastroesophageal reflux disease) / SNOMED CT 943278132 / Confirmed Depression / SNOMED CT 43159739 / Confirmed Back pain / SNOMED CT 452691223 / Confirmed At risk for sleep apnea / SNOMED CT 854207462 / Confirmed At risk for sleep apnea / IMO 44432050 / Confirmed Allergic rhinitis / SNOMED CT 066892646 / Confirmed, Active Problems (10) Allergic rhinitis [...] 06:00) 98.3 (OCT 12 06:00) 98.3 (OCT 12 06:00) Mon HR 62 (OCT 12 06:00) 62 (OCT 12 06:00) 62 (OCT 12 06:00) Resp Rate 16 (OCT 12 06:00) 16 (OCT 12 06:00) 16 (OCT 12 06:00) SBP 139 (OCT 12 06:00) 139 (OCT 12 06:00) 139 (OCT 12 06:00) DBP H 96 (OCT 12 06:00) H 96 (OCT 12 06:00) H 96 (OCT 12 06:00) SpO2 100 (OCT 12:) 100 (OCT 12:00) 100 (OCT 12:) General: Alert and oriented, No acute distress, obese. Eye: Pupils are equal, round and reactive to light, Extraocular movements are intact, glasses. HENT: Normocephalic, slightly [place]. Neck: Supple, Non-tender. Respiratory: Lungs are clear to auscultation, Respirations are non-labored. Cardiovascular: Normal rate, Regular rhythm, No murmur, No gallop, No edema. Gastrointestinal: Soft, Non-tender. Genitourinary: Kidney: Bilateral, Costovertebral angle tenderness. Lymphatics: No lymphadenopathy neck, axilla, groin. Musculoskeletal: Normal range of motion, Normal strength. Integumentary: Warm, Dry, [place]. Neurologic: Alert, Oriented. Psychiatric: Cooperative, Appropriate mood & affect. Review / Management Results review: No qualifying data available, Lab results: 10/12/2018 6:47 EDT Potassium POC 3.9 mmol/L . Impression and Plan Condition: Stable. documented in this encounter Plan of Treatment Not on file documented as of this encounter Visit Diagnoses Not on filedocumented in this encounter
--- OUTSIDE RECORDS SUMMARY | 2024-08-30 14:38 | XMS_ITS | Encounter Summary ---
Author Organization [employer] ([place], [place], [place], [place]) Address [address] [place] [address] Care Team Providers Care Roofer Gypsum Name Role Phone Unavailable Primary Care Provider Unavailabl e Encounter Details Date Type Department Care Team (Late st Contact Info) Description 10/12/2018 Transcribed Document [facility] [place] [facility] [place] [address] ProviderSymone MD [address] [place] [address] Social History Tobacco Use Types [...] Symone ProviderMD - 10/12/2018 9:06 AM CDT [facility] Main OR PostOp Summary Primary Physician: ADAM PAREDES MD-URO Finalized Date/Time: 10/12/18 11:46:05 Pt. Name: THRASHER YUE LEE /Sex: 1960 Female Med Rec #: [id number] Physician: ADAM PAREDES MD-URO Financial #: [id number] Pt. Type: O Room/Bed: /3 Admit/Disch: 10/12/18 05:25:00 - Institution: [facility] Main OR PostOp Case Times Entry 1 In PACU II 10/12/18 10:25:00 Ready for PACU II 10/12/18 11:45:00 Discharge Discharge from PACU 10/12/18 11:18:00 II Last Modified By: THALIA SAMUELS RN 10/12/18 11:46:03 [facility] Main OR PostOp Case Times Audit 10/12/18 11:46:03 District Operations Manager: ARELI Modifier: [email or web address] <+> 1 Ready for PACU II Discharge <+> 1 In PACU II Finalized By: THALIA SAMUELS RN Document Signatures Signed By: THALIA SAMUELS RN 10/12/18 11:46 Electronically signed by Aurea [facility] Conversion Assistant Men'S Soccer Coach Cerner at 06/03/2022 5:16 PM CDT documented in this encounter Plan of Treatment Not on file documented as of this encounter Visit Diagnoses Not on filedocumented in this encounter
--- OUTSIDE RECORDS SUMMARY | 2024-08-30 14:38 | XMS_ITS | Encounter Summary ---
Author Organization [employer] ([place], [place], [place], [place]) Address [address] [place] [address] Care Team Providers Care Blade Sharpener Name Role Phone Unavailable Primary Care Provider Unavailabl e Encounter Details Date Type Department Care Team (Late st Contact Info) Description 10/12/2018 Transcribed Document [facility] [place] [facility] [place] [address] ProviderSymone MD [address] [place] [address] Social History Tobacco Use Types [...] Symone ProviderMD - 10/12/2018 8:00 AM CDT [facility] Main OR Preop Summary Primary Physician: ADAM PAREDES MD-URO Finalized Date/Time: 10/12/18 08:27:43 Pt. Name: YUE THRASHER /Sex: 1960 Female Med Rec #: [id number] Physician: ADAM PAREDES MD-URO Financial #: [id number] Pt. Type: O Room/Bed: /3 Admit/Disch: 10/12/18 05:25:00 - Institution: [facility] PreOp Case Times Entry 1 In Preop 10/12/18 06:05:00 Ready for Holding n/a Room Patient Ready for 10/12/18 07:14:00 Surgery Patient Out of Preop 10/12/18 08:27:00 Patient Out of n/a Holding Room Last Modified By: HERI DE DIOS 10/12/18 08:27:38 [facility] PreOp Case Times Audit 10/12/18 08:27:38 Technician Inventory Specialist: KEISHA Modifier: [email or web address] <+> 1 Patient Out of Preop Finalized By: HERI DE DIOS Document Signatures Signed By: HERI DE DIOS 10/12/18 08:27 Electronically signed by Aurea [facility] Conversion Sales Account Executive Cerner at 06/03/2022 5:35 PM CDT documented in this encounter Plan of Treatment Not on file documented as of this encounter Visit Diagnoses Not on filedocumented in this encounter
--- OUTSIDE RECORDS SUMMARY | 2024-08-30 14:38 | XMS_ITS | Encounter Summary ---
Author Organization [employer] ([place], [place], [place], [place]) Address [address] [place] [address] Care Team Providers Care Service Coordinator Elderly Facility Name Role Phone Unavailable Primary Care Provider Unavailabl e Encounter Details Date Type Department Care Team (Late st Contact Info) Description 10/12/2018 Transcribed Document [facility] [place] [facility] [place] [address] ProviderSymone MD [address] [place] [address] Social History Tobacco Use Types [...] and water are not available, use hand building associate. ? Change your dressing as told by [...] or a bad smell. Medicines ??? Take ovgw-lik-noxoehs and prescription medicines only as told by [...] 05/26/2016 Document Revised: 09/11/2017 Document Reviewed: 05/26/2016 [employer] Interactive Patient Education ? 2019 [employer] Nephrology Lithotripsy, Care After This sheet [...] these instructions at home: Medicines ??? Take tmrf-knc-dbehgis and prescription medicines only as told by [...] 02/23/2008 Document Revised: 12/25/2016 Document Reviewed: 12/25/2016 [employer] Interactive Patient Education ? 2019 [employer] documented in this encounter Plan of Treatment Not on file documented as of this encounter Visit Diagnoses Not on filedocumented in this encounter
--- NOTE | 2024-08-30 15:00 | CT_ITS ---
FINAL REPORT TECHNIQUE: Axial imaging of the chest was obtained without contrast using high resolution technique. Reformatted images were also obtained and reviewed.This study was performed with techniques to keep radiation doses as low as reasonably achievable, (ALARA). Individualized dose reduction technique using automated exposure control or adjustment of mA and/or kV according to the patient's size were employed. CLINICAL HISTORY: smoker, recent virus FINDINGS: There is no axillary adenopathy. There is no hilar or mediastinal mass or adenopathy. Heart size is normal. There is no pericardial or pleural effusion. There are coarse interstitial changes throughout, greatest in the periphery. Findings are slightly more prominent in the lower lobes with associated traction bronchiectasis consistent with chronic interstitial lung disease, likely UIP or IPF. There is no evidence of pneumonia. Oval right middle lobe nodule seen on image 37 of series 2 is stable measuring up to 6 mm. There are scattered calcified granulomas. Limited imaging of the upper abdomen demonstrates fatty infiltration of the liver. IMPRESSION: Stable, chronic interstitial lung disease. Reviewed, Interpreted and Dictated by Juan Thompson MD Transcribed by Gwen Brush Authenticated and [facility]
--- NOTE | 2024-08-30 15:30 | MM_ITS ---
PROCEDURE INFORMATION: Exam: MG Bilateral Screening 3D Mammography Exam date and time: 08/30/2024 2:57 PM Age: 63 years old Clinical indication: Screening examination. TECHNIQUE: Imaging protocol: Bilateral Screening tomosynthesis and 2D mammography including computer-aided detection (CAD) when performed. COMPARISON: 1. MG MM DIG SCREENING MAMM BI W/CAD 06/06/2023 1:57 PM 2. MG MM DIG SCREENING MAMM BI W/CAD 06/03/2022 9:51 AM FINDINGS: MAMMOGRAPHY: Breast composition: The breasts are almost entirely fatty. Mass: None. Architectural distortion: Postsurgical changes in both breasts are stable.. Calcifications: No suspicious calcifications. Asymmetric density: None. Skin thickening: None. Axillary adenopathy: None. IMPRESSION: No mammographic evidence of malignancy. Annual screening is recommended unless otherwise clinically indicated. ASSESSMENT: BI-RADS Category 2: Benign.
== END 2024-08-30 23:59 | disposition home or self-care (01) ==
LOC: RAD 14:35
PROVIDERS: PCP Family Medicine; Visit Provider Family Medicine
DX: Z12.31 Encounter for screening mammogram for malignant neoplasm of breast (principal); J84.89 Other specified interstitial pulmonary diseases; R92.313 Mammographic fatty tissue density, bilateral breasts; R91.1 Solitary pulmonary nodule; Z87.891 Personal history of nicotine dependence
CPT/HCPCS: 71250; 77063; 77067

== ENCOUNTER 2024-10-07 10:48 | Outpatient (CLI) | payer MEDICARE, MEDICAID, SELFPAY ==
--- OUTSIDE RECORDS SUMMARY | 2024-10-07 10:52 | XMS_ITS | Clinical Summary ---
Author Organization [facility] Address [address] [place] [address] Care Team Providers Care Cracking Still Operator Name Role Phone Juan Tan MD Primary Care Provider Allergies No known active allergies Medications atorvastatin (LIPITOR) 40 MG tablet 11/13/2020 Active Flovent HFA 110 MCG/ACT inhaler 11/01/2020 Act matt levocetirizine (XYZAL) 5 MG tablet 11/01/2020 Active lisinopril-hydro chlorothiazide (PRINZIDE,ZESTOR ETIC) 10-12.5 MG per tablet 11/01/2020 Active montelukast (SINGULAIR) 10 MG tablet 11/01/2020 Active DULoxetine (CYMBALTA) 60 MG capsule 11/15/2020 Active omeprazole (priLOSEC) 20 MG capsule Take 20 mg by mouth Daily. Active Active Problems No known active problems Family History Relation Name Status Comments Father Mother Alive Social History Tobacco Use Types Packs/Day Years Used Date Smoking Tobacco: Former Smokeless Tobacco: Never Alcohol Use Standard Drinks/Week Comments Yes 0 (1 standard drink = 0.6 oz pur e alcohol) Abuse Screen Answer Date Recorded Unsafe at Home or Work/School Not on file Feels Threatened by Someone? Not on file 10/2022 Does Anyone Keep You from Co ntacting Others or Doint Things Outside the Home? Not on file 11/25/2022 Physical Sign of Abuse Present Not on file 1 Housing Stability Answer Date Recorded Current Living Arrangements Not on file 10/2022 Potentially Unsafe Housing Conditions Not on cristian e 11/25/2022 Family and Community Support Answer Alfred e Recorded Help with Day-to-Day Activities Not on file 11/25/2022 Lonely or Isolated Not on file 11/25/2022 Employment Answer Date Recorded Do you want help finding or keeping work or a liane b? Not on file 11/25/2022 Disabilities Answer Date Recorded Concentrating, Remembering, or Making Decisions Difficulty Not on file 11/25/2022 Doing Errands Independently Difficulty Not on fi le 11/25/2022 Education Answer Date Recorded Help with school or training? Not on file Preferred Language Not on file 11/25/2022 Comments Unknown Sex and Gender Information Value Date Recorded Sex Assigned at Not on file Legal Sex Female 12:59 PM EDT Gender Identity Not on file Sexual Orientation Not on file Last Filed Vital Signs Vital Sign Reading Time Taken Comments Blood Pressure 150/73 02/20/2021 9:40 AM EST Pulse 87 02/20/2021 9:40 AM EST Temperature 36.8 C (98.2 F) 03/28/2021 2:34 PM EST Respiratory Rate 20 02/20/2021 9:40 AM EST Oxygen Saturation 98% 02/20/2021 6:59 AM EST Inhaled Oxygen Concentration - - Weight 103 kg (227 lb) 03/28/2021 2:34 PM EST Height 162.6 cm (5' 4 ) 03/28/2021 2:34 PM EST Body Mass Index 38.96 03/28/2021 2:34 PM EST Plan of Treatment Health Maintenance Due Date Last Done Comments Annual Gynecologic Pelvic and Breast Exam 1961 MAMMOGRAM 2001 COLOGUARD 2006 COLON CANCER SCREENING 5 YEAR SIGMOIDOSCOPY 2006 COLONOSCOPY 2006 [address] CANCER SCREENING 2006 CT COLONOGRAPHY 2006 FECAL OCCULT BLOOD TEST 2006 FIT Testing (1 year) 2006 TDAP/TD VACCINES (2 - Tdap) 10/05/2008 10/05/1998 ZOSTER VACCINE (1 of 2) 10/10/2011 Pneumococcal Vaccine 50+ (2 of 2 - PCV) 11/17/2018 1 ANNUAL PHYSICAL 10/30/2020 HEPATITIS C SCREENING 10/30/2020 COVID-19 Vaccine (2 - season) 10/19/202304/2020 INFLUENZA VACCINE 11/17/2024 11/17/2017 Care Teams Cracking Still Operator Relationship Specialty Start Date End Date Juan Tan MD [address] [facility] [address] ATTN: [place] [address] PCP - General Emergency Medicine 08/24/20
--- NOTE | 2024-10-07 11:00 | US_ITS ---
FINAL REPORT TECHNIQUE: Sonographic images of the thyroid gland were obtained in the longitudinal and transverse planes. CLINICAL HISTORY: goiter COMPARISON: 09/02/2022 FINDINGS: The right lobe of the thyroid gland measures 4.7 x 1.5 x 1.3 cm. There are multiple nodules in the right lobe of the thyroid, the largest measuring 5 mm in size. The left lobe of the thyroid gland measures 4.4 x 1.3 x 1.4 cm. There are multiple nodules in the left lobe of the thyroid, the largest measuring 8 mm, a TI-RADS category 3 nodule. IMPRESSION: Multiple small nodules in the thyroid glands bilaterally, the largest in the left lobe of the thyroid measuring 8 mm in size, a TI-RADS category 3 nodule. According to TI-RADS categorization less than 1 cm TI-RADS category 3 nodules do not require follow-up. Reviewed, Interpreted and Dictated by Juan José Ramírez MD Transcribed by Flaquita Kearney Authenticated and [facility]
== END 2024-10-07 23:59 | disposition home or self-care (01) ==
LOC: RAD 10:48
PROVIDERS: PCP Family Medicine; Visit Provider Family Medicine
DX: E04.2 Nontoxic multinodular goiter (principal)
CPT/HCPCS: 76536

== ENCOUNTER 2024-11-01 08:15 | Outpatient (CLI) | payer MEDICARE, MEDICAID, SELFPAY ==
[2024-11-01 10:07] LABS: Hemoglobin A1C 7.1 % (4.0-6.0)
[2024-11-01 10:24] LABS: Free T4 (Free Thyroxine) 0.97 ng/dl (0.78-2.19)
[2024-11-01 10:39] LABS: Thyroid Stimulating Hormone 2.51 uIU/mL (0.465-4.68)
== END 2024-11-01 23:59 | disposition home or self-care (01) ==
LOC: LAB 08:16
PROVIDERS: PCP Family Medicine; Visit Provider Family Medicine
DX: Z00.00 Encounter for general adult medical examination without abnormal findings (principal); E03.9 Hypothyroidism, unspecified
CPT/HCPCS: 36415; 83036; 84439; 84443

== ENCOUNTER 2024-12-06 09:12 | Outpatient (CLI) | payer MEDICARE, MEDICAID, SELFPAY ==
--- NOTE | 2024-12-06 09:15 | XR_ITS ---
FINAL REPORT CLINICAL HISTORY: osteoprosis screening COMPARISON: 10/24/2020 FINDINGS: Using the mid of the left forearm, the bone mineral density of the left forearm is 0.526 g/cm2, corresponding to T-score of -1.5. Using the left hip, the bone mineral density of the femoral neck is 0.866 g/cm2, corresponding to a T-score of -0.6. The bone mineral density change versus baseline is 1.7%. Using the right hip, the bone mineral density of the femoral neck is 0.969 g/cm2, corresponding to a T-score of 0.2. The bone mineral density change versus baseline is 0.7%. NOTE: T-score: Standard deviation compared with peak bone mass of young adult mean. *Following the recommendations of the International Society of Bone densitometry, classification of hip BMD is based on the lower of two T-scores; total hip or femoral neck. IMPRESSION: Normal bone mineral density of the bilateral hips. Diminished bone mineral density of the left forearm consistent with osteopenia. Reviewed, Interpreted and Dictated by Juan Thompson MD Transcribed by Flaquita Kearney Authenticated and [facility]
== END 2024-12-06 23:59 | disposition home or self-care (01) ==
LOC: RAD 09:13
PROVIDERS: PCP Family Medicine; Visit Provider Family Medicine
DX: M85.832 Other specified disorders of bone density and structure, left forearm (principal)
CPT/HCPCS: 77080